=== PATIENT | female | born 1955 ===

== ENCOUNTER 2018-08-17 15:57 | Inpatient (IN) | payer MEDICARE, OTHER ==
[2018-08-17 16:19] VITALS: BMI 17.2
[2018-08-17] MEDS ORDERED: Albuterol-Ipratrop 3 mg / 0.5 (3 ml) UD IH STA (16:55)
--- NOTE | 2018-08-17 17:06 | ED PDOC ---
Arrival/HPI - General Chief Complaint: Cough, Cold, Congestion Time Seen by Provider: 08/17/18 16:38 Historian: Patient - History of Present Illness Narrative History of Present Illness (Text): 08/17/18 16:55 63 year old female, with past medical history of hemorrhoids, presents to the ED for evaluation of rectal pain s/p hemorrhoid surgery in April 2018. Patient states she had hemorrhoid surgery at [facility] however patient was dissatisfied with the overall outcome. Patent states she has been experiencing rectal pain associated with purulent discharge from the anus since the surgery. Patient informs expressing her concerns with her PMD and was referred to a different specialist. Patient states she is mostly bed bound secondary to rectal pain. Patient additionally informs shortness of breath and cough since past month. Patient denies any fevers, chills, headache, dizziness, chest pain, abdominal pain, nausea, vomiting, diarrhea, back pain, neck pain, or any other complaints. PMD: Dr. Kramer Time/Duration: > month Symptom Onset: Gradual Symptom Course: Unchanged Activities at Onset: Light Context: Home Past Medical History - Provider Review Nursing Documentation Reviewed: Yes - Infectious Disease Hx of Infectious Diseases: None - Gastrointestinal Hx Gastritis: Yes Other/Comment: Hemorrhoids - Psychiatric Hx Substance Use: No - Anesthesia Hx Anesthesia: Yes Hx Anesthesia Reactions: No Hx Malignant Hyperthermia: No Family/Social History - Physician Review Nursing Documentation Reviewed: Yes Family/Social History: No Known Family HX Smoking Status: Never Smoked Hx Alcohol Use: Yes Frequency of alcohol use: Socially Hx Substance Use: No Allergies/Home Meds Allergies/Adverse Reactions: Allergies Penicillins Allergy (Verified 08/17/18 16:19) RASH iv contrast Allergy (Uncoded 08/17/18 21:04) RASH Home Medications: Home Meds Medication Instructions Recorded Confirmed No Known Home Med 08/17/18 08/17/18 Review of Systems - Physician Review All systems were reviewed & negative as marked: Yes - Review of Systems Constitutional: absent: Fevers Respiratory: SOB, Cough Cardiovascular: absent: Chest Pain Gastrointestinal: Other (Rectal pain). absent: Abdominal Pain, Diarrhea, Nausea, Vomiting Genitourinary Female: absent: Dysuria, Urine Output Changes Musculoskeletal: absent: Back Pain, Neck Pain Skin: absent: Rash Neurological: absent: Headache, Dizziness Psychiatric: absent: Anxiety Physical Exam Vital Signs Reviewed: Yes Vital Signs Temp Pulse Resp BP Pulse Ox 08/17/18 16:20 99.5 F 106 H 18 129/75 95 Temperature: Afebrile Blood Pressure: Normal Pulse: Tachycardic Respiratory Rate: Normal Appearance: Positive for: Well-Appearing, Non-Toxic, Comfortable Pain Distress: Mild Mental Status: Positive for: Alert and Oriented X 3 - Systems Exam Head: Present: Atraumatic, Normocephalic Pupils: Present: PERRL Extroacular Muscles: Present: EOMI Conjunctiva: Present: Normal Mouth: Present: Moist Mucous Membranes Respiratory/Chest: Present: Good Air Exchange, Rhonchi (at bases). No: Respiratory Distress, Accessory Muscle Use Cardiovascular: Present: Regular Rate and Rhythm, Normal S1, S2. No: Murmurs Abdomen: No: Tenderness, Distention, Peritoneal Signs Rectal: Present: Other (stage 2 ulcer at the sacrum; stage 2 ulcer to right buttocks proximal to the crease. Thick purulent discharge noted from anus.) Upper Extremity: Present: Normal Inspection. No: Cyanosis, Edema Lower Extremity: Present: Normal Inspection. No: Edema Neurological: Present: GCS=15, CN II-XII Intact, Speech Normal Skin: Present: Warm, Dry, Normal Color. No: Rashes Psychiatric: Present: Alert, Oriented x 3, Normal Insight, Normal Concentration Medical Decision Making ED Course and Treatment: 08/17/18 16:55 Impression: 63 year old female presents to the ED for evaluation of cough, sob and rectal pain. Plan: -- EKG -- Labs -- Chest X-ray -- Albuterol -- Reassess and disposition Prior Visits: Notes and results from previous visits were reviewed. Progress Notes: CXR : KONRAD infiltrate. EKG : NSR at 96 bpm, no acute ST changes. Labs reviewed : wbc nl, K 3.4, trop (-), bnp 544, d-dimer 299. CTA chest and CT pelvis with IV contrast ordered. Patient sent to CT, while in CT the patient admits that she has an allergy to IV contrast and she develops a rash. CT not done. 08/17/18 21:30 On reevaluation, patient reports improvement of symptoms, denies any CP, SOB or abdominal pain at this time. On exam, patient remains awake alert and oriented 3 in no acute respiratory or painful distress. Lab and CXR results d/w the patient. Advised that she has pneumonia and is likely the reason why she is SOB with a cough. Levaquin IV and flagyl IV ordered for pneumonia and for possible perianal abscess, CT pelvis still pending at this time. CTA chest canceled as the pneumonia is the likely cause of the patient's SOB, she is not tachycardic or hypoxic at this time VS : T 98 P 90 BP 111/64 O2 sat 95%RA, therefore there is no real concern for a PE. Case d/w Dr. Kramer, who request admission with consult to Dr. Pedro Dobson and Dr. Garcia. Case d/w surgical garment fitter. CT pelvis changed to po contrast as requested by surgical garment fitter. 08/17/18 23:00 Patient's VS : P 86 BP 124/77 R 18 O2sat 98%RA. KCl po and toradol IV ordered. - RAD Interpretation Radiology Orders: 08/17/18 16:55 CHEST PORTABLE [RAD] Stat - Medication Orders Current Medication Orders: Albuterol/Ipratropium (Duoneb 3 Mg/0.5 Mg (3 Ml) Ud) 3 ml IH STAT STA Stop: 08/17/18 16:56 - PA / CIGARETTE MAKING EXAMINER / Resident Statement MD/DO has reviewed & agrees with the documentation as recorded. - Scribe Statement The provider has reviewed the documentation as recorded by the Scribe Tayla Chávez. All medical record entries made by the Scribe were at my direction and personally dictated by me. I have reviewed the chart and agree that the record accurately reflects my personal performance of the history, physical exam, medical decision making, and the department course for this patient. I have also personally directed, reviewed, and agree with the discharge instructions and disposition. Disposition/Present on Arrival - Present on Arrival Any Indicators Present on Arrival: No History of DVT/PE: No History of Uncontrolled Diabetes: No Urinary Catheter: No History of Decub. Ulcer: No History Surgical Site Infection Following: None - Disposition Have Diagnosis and Disposition been Completed?: Yes Diagnosis: Pneumonia, Anal pain Disposition: HOSPITALIZED Disposition Time: 22:00 Patient Plan: Admission Condition: STABLE
[2018-08-17 18:05] LABS: HEMOGLOBIN 11.4 g/dL (12.0-16.0); LYMPH # 0.7 (1.2-3.4); LYMPH % 10.8 % (22.0-35.0); MEAN CELL VOLUME 87.4 fl (80.0-105.0); MEAN CORPUSCULAR HEMOGLOBIN 30.6 pg (25.0-35.0); MEAN PLATELET VOLUME 10.4 fl (7.0-11.0); MONO # 0.5 (0.1-0.6); RBC 3.73 10^6/uL (3.5-6.1); RED CELL DISTRIBUTION WIDTH 14.4 % (11.5-14.5); WHITE BLOOD COUNT 6.5 10^3/uL (4.5-11.0)
[2018-08-17 18:10] LABS: ALB/GLOB RATIO 1.1 (1.1-1.8)
[2018-08-17 18:13] LABS: ALBUMIN 3.6 g/dL (3.0-4.8); ALT/SGPT 27 U/L (7-56); AST/SGOT 33 U/L (14-36); BLOOD UREA NITROGEN 9 mg/dL (7-21); CALCIUM 8.5 mg/dL (8.4-10.5); GFR NON-AFRICAN AMERICAN > 60
[2018-08-17 18:21] LABS: TROPONIN I < 0.01 ng/mL
--- NOTE | 2018-08-17 18:23 | RAD ---
Date of service: 08/17/2018 HISTORY: SOB COMPARISON: No prior. FINDINGS: LUNGS: Perihilar vascular and interstitial prominence. Superimposed acute left upper lobe infiltrate. PLEURA: No significant pleural effusion identified, no pneumothorax apparent. CARDIOVASCULAR: No atherosclerotic calcification present No radiographic findings to suggest acute or significant cardiovascular disease. OSSEOUS STRUCTURES: No significant abnormalities. VISUALIZED UPPER ABDOMEN: Normal. OTHER FINDINGS: None. IMPRESSION: Focal left upper lobe infiltrate likely pneumonia.
[2018-08-17 18:24] LABS: B-TYPE NATRIURETIC PEPTIDE 544 pg/mL (0-450)
[2018-08-17 18:28] LABS: INR 1.09; PARTIAL THROMBOPLASTIN TIME 25.7 Seconds (26.9-38.3); PROTHROMBIN TIME 12.1 SECONDS (9.4-12.5)
[2018-08-17] MEDS ORDERED: levoFLOXacin 750 mg in D5W 750 MG/150 ML BAG IVPB STA (19:11)
[2018-08-17] MEDS ORDERED: metroNIDAZOLE IV 500 mg/100 ml 500 MG/100 ML BAG IVPB STA (19:12)
--- NOTE | 2018-08-17 22:34 | CP.PCM.CON ---
History of Present Illness - History of Present Illness History of Present Illness: Surgery: Dr. Dobson CC: s/p hemmorhoidectomy w. purulent drainage HPI: 63F w. pmh of gastritis underwent hemorrhoidectomy at [facility] in April 2018. Immediately following operation, pt states that she had pain and purulent drainage. She states that surgeon told her that "Too much was removed." She states that her symptoms have been constant. She reports exquisite pain w. BM and frequently notices blood. She states the has been having intermittent fevers, sometimes as high as 104. She has been taking colace, miralax, fiber, and sitz baths daily. Despite this she has had no improvement in symptoms. Pt states that she is not pleased with work of original surgeon and is seeking a second opinion. PMH: Gastritis PSH: L knee, R ankle, x 2 Meds: MAR reviewed ALL: PCN, IV contrast Social: Social ETOH, no tobacco/drugs Fhx: non-contributory Review of Systems - Review of Systems All systems: reviewed and no additional remarkable complaints except (HPI) Past Patient History - Infectious Disease Hx of Infectious Diseases: None - Past Social History Smoking Status: Never Smoked - GASTROINTESTINAL Hx Gastritis: Yes Other/Comment: Hemorrhoids - PSYCHIATRIC Hx Substance Use: No - ANESTHESIA Hx Anesthesia: Yes Hx Anesthesia Reactions: No Hx Malignant Hyperthermia: No Meds Allergies/Adverse Reactions: Allergies Allergy/AdvReac Type Severity Reaction Status Date / Time Penicillins Allergy RASH Verified 08/17/18 16:19 iv contrast Allergy RASH Uncoded 08/17/18 21:04 Physical Exam - Constitutional Appears: Non-toxic, No Acute Distress - Head Exam Head Exam: ATRAUMATIC, NORMOCEPHALIC - Eye Exam Eye Exam: EOMI - ENT Exam ENT Exam: Mucous Membranes Moist - Neck Exam Neck exam: Positive for: Full Rom - Respiratory Exam Respiratory Exam: NORMAL BREATHING PATTERN. absent: Accessory Muscle Use, Respiratory Distress - Cardiovascular Exam Cardiovascular Exam: RRR - GI/Abdominal Exam GI & Abdominal Exam: Soft. absent: Tenderness - Rectal Exam Additional comments: External hemorrhoids, aurora-anal erythema, purulent drainage, stage I and II perianal ulcers likely 2/2 to purulent drainage, very tender to palpation, unable to perform VICKIE 2/2 pain - Extremities Exam Extremities exam: Negative for: calf tenderness, pedal pulses present - Neurological Exam Neurological exam: Alert, Oriented x3 Results - Vital Signs Recent Vital Signs: Last Vital Signs Temp 98.8 F 08/17/18 21:40 Pulse 90 08/17/18 21:40 Resp 18 08/17/18 16:20 BP 111/64 08/17/18 21:40 Pulse Ox 95 08/17/18 21:40 - Labs Result Diagrams: 08/17/18 17:56 08/17/18 17:56 Labs: Laboratory Results - last 24 hr 08/17/18 08/17/18 08/17/18 17:56 17:56 17:56 WBC 6.5 RBC 3.73 Hgb 11.4 L Hct 32.6 L MCV 87.4 MCH 30.6 MCHC 35.0 RDW 14.4 Plt Count 284 MPV 10.4 Neut % (Auto) 81.2 H Lymph % (Auto) 10.8 L [place] % (Auto) 8.0 H Eos % (Auto) 0.0 L Baso % (Auto) 0.0 Lymph # (Auto) 0.7 L [place] # (Auto) 0.5 Eos # (Auto) 0.0 Baso # (Auto) 0.00 Absolute Neuts (auto) 5.29 PT 12.1 INR 1.09 APTT 25.7 L D-Dimer, Quantitative 299 H Sodium 137 Potassium 3.4 L Chloride 102 Carbon Dioxide 30 Anion Gap 9 L BUN 9 Creatinine 0.6 L Est GFR ( Amer) > 60 Est GFR (Non-Af Amer) > 60 Random Glucose 99 Calcium 8.5 Magnesium 1.7 Total Bilirubin 0.7 AST 33 ALT 27 Alkaline Phosphatase 61 Lactate Dehydrogenase 363 Total Creatine Kinase < 20 L Troponin I < 0.01 NT-Pro-B Natriuret Pep 544 H Total Protein 6.8 Albumin 3.6 Globulin 3.2 Albumin/Globulin Ratio 1.1 - Imaging and Cardiology CT scan - pelvis Status: Pending Assessment & Plan - Assessment and Plan (Free Text) Assessment: 63F s/p hemorrhoidectomy in April 2018, presenting w. pain and purulent drainage which has been present since operation -f/u on cultures and CT-A/P -abx -sitz baths TID -limited VICKIE 2/2 pain -will d/w attending possible exam under anesthesia Zemaitis PGY4
[2018-08-17] MEDS ORDERED: Potassium Chloride 40 mEq/30 ml LIQ UD PO STA (23:14)
[2018-08-18 08:41] LABS: BASO # 0.01 K/mm3 (0.0-2.0); BASO % 0.2 % (0.0-3.0); EOS % 0.2 % (1.5-5.0); HEMOGLOBIN 10.5 g/dL (12.0-16.0); LYMPH # 0.6 (1.2-3.4); LYMPH % 15.8 % (22.0-35.0); MEAN CELL VOLUME 87.5 fl (80.0-105.0); MEAN CORPUSCULAR HEMOGLOBIN 29.8 pg (25.0-35.0); MEAN CORPUSCULAR HGB CONC 34.1 g/dl (31.0-37.0); MEAN PLATELET VOLUME 10.1 fl (7.0-11.0); MONO # 0.3 (0.1-0.6); MONO % 8.4 % (1.0-6.0); RBC 3.52 10^6/uL (3.5-6.1); RED CELL DISTRIBUTION WIDTH 14.3 % (11.5-14.5); WHITE BLOOD COUNT 4.1 10^3/uL (4.5-11.0)
[2018-08-18 08:53] LABS: ALBUMIN 3.1 g/dL (3.0-4.8); ALT/SGPT 28 U/L (7-56); AST/SGOT 22 U/L (14-36); BLOOD UREA NITROGEN 10 mg/dL (7-21); CALCIUM 8.4 mg/dL (8.4-10.5); GFR NON-AFRICAN AMERICAN > 60
--- NOTE | 2018-08-18 10:25 | CP.PCM.PN ---
Subjective - Date & Time of Evaluation Date of Evaluation: 08/18/18 Time of Evaluation: 10:10 - Subjective Subjective: Surgery progress note, Dr. Dobson Patient seen and examined at bedside. Has rectal pain. She is tolerating diet, ambulating OOB and has regular BM. Patient denied fever, chills, abd pain, change in bowel movement. Objective - Vital Signs/Intake and Output Vital Signs (last 24 hours): Temp Pulse Resp BP Pulse Ox 98.5 F 82 18 115/74 93 L 08/18/18 06:00 08/18/18 06:00 08/18/18 06:00 08/18/18 06:00 08/18/18 06:00 Intake and Output: 08/18/18 08/18/18 06:59 18:59 Intake Total 240 Balance 240 - Medications Medications: Current Medications Docusate Sodium (Colace) 100 mg PO Q4H PRN PRN Reason: Constipation Oxycodone/Acetaminophen (Percocet 5/325 Mg Tab) 1 tab PO Q4H PRN PRN Reason: Hemorrhoids Stop: 08/21/18 06:14 - Labs Labs: 08/18/18 08:30 08/18/18 08:30 PT 12.1 SECONDS (9.4-12.5) 08/17/18 17:56 INR 1.09 08/17/18 17:56 APTT 25.7 Seconds (26.9-38.3) L 08/17/18 17:56 Assessment and Plan - Assessment and Plan (Free Text) Assessment: 63 y/o female s/p hemorrhoidectomy in 04/2018 admitted for rectal pain/purulent discharge that is persistent since surgery Gastritis Plan: -H/H stable, continue to monitor -continue sitz bath, miralax, colace -continue abx, analgesics -f/u CT A/P w/PO contrast -f/u blood/wound cx -clear liquid diet -plan for OR on or Thursday for exam under anesthesia -further recs per surgical attending Dr. Bronson Joshua, DO
[2018-08-18] MEDS ORDERED: Barium Sulfate Susp 2.1% w/v, 2.0% w/w 450 mL Bottle PO ONE (11:38)
[2018-08-18] MEDS: Vancomycin 1gm in NS 250ml 1 GM/250 ML BAG IVPB SCH ×2 (12:11→21:23)
[2018-08-18] MEDS ORDERED: Potassium Chloride 20 mEq ER Tab PO ONE (12:29)
--- NOTE | 2018-08-18 12:32 | CARD ---
APPROVED REPORT Date of service: 08/17/2018 EKG Measurement Heart [id number] <Conclusion> Normal sinus rhythm Poor R Progression V1-V3.
--- NOTE | 2018-08-18 14:25 | CP.PCM.CON ---
History of Present Illness - History of Present Illness History of Present Illness: 63 year old female with PMH of gastritis and hemorrhoidectomy in April 2018 came in to [facility] complaining of purulent drainage from the perianal area associated with pain. She denies melena or hematochezia, no diarrhea. She has been having subjective fevers and is also complaining of intermittent cough with whitish or clear sputum for over a month. She denies headache or dizziness, no chest pain, no abdominal pain, but has anal discomfort especially during straining or coughing, no dysuria, no hematuria, no rhinorrhea, no sore throat, no dysphagia. The patient denies travel outside of the [place] in the past year and the last time she was away was 7 years ago when she went to [place]. [place] came [place] the [place]. She last had a PPD skin test more than 10 years ago and apparently it was negative. CXR is read as showing possible left sided infiltrate. Infectious diseases consult is requested to further evaluate and manage. PMH: as above Past surg history: , ankle surgeries, hemorrhoidectomy 2017 PSH: occasional alcohol intake, no illicit drug use or smoking FMH; non-contributory Surgery: Dr. Dobson Review of Systems - Review of Systems All systems: reviewed and no additional remarkable complaints except (as per HPI) Past Patient History - Infectious Disease Hx of Infectious Diseases: None - Past Social History Smoking Status: Never Smoked - MUSCULOSKELETAL/RHEUMATOLOGICAL Hx Falls: No - GASTROINTESTINAL Other/Comment: Hemorrhoids and gastritis - PSYCHIATRIC Other/Comment: Insomnia - SURGICAL HISTORY Hx Surgeries: Yes (Hemorroid surgery Apr 2018) - ANESTHESIA Hx Anesthesia: Yes Hx Anesthesia Reactions: No Hx Malignant Hyperthermia: No Meds Allergies/Adverse Reactions: Allergies Allergy/AdvReac Type Severity Reaction Status Date / Time Penicillins Allergy RASH Verified 08/17/18 16:19 iv contrast Allergy RASH Uncoded 08/17/18 21:04 - Medications Medications: Current Medications Docusate Sodium (Colace) 100 mg PO Q4H PRN PRN Reason: Constipation Doxycycline Hyclate (Doryx) 100 mg PO Q12 OTSHIA; Protocol Aztreonam (Azactam 1 Gm) 100 mls @ 100 mls/hr IVPB Q8 TOSHIA; Protocol Stop: 08/25/18 14:01 Metronidazole (Flagyl) 500 mg in 100 mls @ 100 mls/hr IVPB Q8 TOSHIA; Protocol Vancomycin HCl (Vancomycin 1gm) 1 gm in 250 mls @ 167 mls/hr IVPB Q12H TOSHIA; Protocol Oxycodone/Acetaminophen (Percocet 5/325 Mg Tab) 1 tab PO Q4H PRN PRN Reason: Hemorrhoids Stop: 08/21/18 06:14 Physical Exam - Constitutional Appears: Non-toxic, No Acute Distress, Chronically Ill - Head Exam Head Exam: NORMAL INSPECTION - ENT Exam ENT Exam: Mucous Membranes Moist - Neck Exam Neck exam: Negative for: Lymphadenopathy, Meningismus - Respiratory Exam Respiratory Exam: Decreased Breath Sounds - Cardiovascular Exam Cardiovascular Exam: +S1, +S2 - GI/Abdominal Exam GI & Abdominal Exam: Soft. absent: Tenderness Results - Vital Signs Recent Vital Signs: Last Vital Signs Temp 98.5 F 08/18/18 06:00 Pulse 82 08/18/18 06:00 Resp 18 08/18/18 06:00 BP 115/74 08/18/18 06:00 Pulse Ox 93 L 08/18/18 06:00 - Labs Result Diagrams: 08/18/18 08:30 08/18/18 08:30 Labs: Laboratory Results - last 24 hr 08/17/18 08/17/18 08/17/18 17:56 17:56 17:56 WBC 6.5 RBC 3.73 Hgb 11.4 L Hct 32.6 L MCV 87.4 MCH 30.6 MCHC 35.0 RDW 14.4 Plt Count 284 MPV 10.4 Neut % (Auto) 81.2 H Lymph % (Auto) 10.8 L [place] % (Auto) 8.0 H Eos % (Auto) 0.0 L Baso % (Auto) 0.0 Lymph # (Auto) 0.7 L [place] # (Auto) 0.5 Eos # (Auto) 0.0 Baso # (Auto) 0.00 Absolute Neuts (auto) 5.29 PT 12.1 INR 1.09 APTT 25.7 L D-Dimer, Quantitative 299 H Sodium 137 Potassium 3.4 L Chloride 102 Carbon Dioxide 30 Anion Gap 9 L BUN 9 Creatinine 0.6 L Est GFR ( Amer) > 60 Est GFR (Non-Af Amer) > 60 Random Glucose 99 Calcium 8.5 Magnesium 1.7 Total Bilirubin 0.7 AST 33 ALT 27 Alkaline Phosphatase 61 Lactate Dehydrogenase 363 Total Creatine Kinase < 20 L Troponin I < 0.01 NT-Pro-B Natriuret Pep 544 H Total Protein 6.8 Albumin 3.6 Globulin 3.2 Albumin/Globulin Ratio 1.1 08/18/18 08/18/18 08:30 08:30 WBC 4.1 L D RBC 3.52 Hgb 10.5 L Hct 30.8 L MCV 87.5 MCH 29.8 MCHC 34.1 RDW 14.3 Plt Count 245 MPV 10.1 Neut % (Auto) 75.4 H Lymph % (Auto) 15.8 L [place] % (Auto) 8.4 H Eos % (Auto) 0.2 L Baso % (Auto) 0.2 Lymph # (Auto) 0.6 L [place] # (Auto) 0.3 Eos # (Auto) 0.0 Baso # (Auto) 0.01 Absolute Neuts (auto) 3.06 PT INR APTT D-Dimer, Quantitative Sodium 138 Potassium 3.2 L Chloride 104 Carbon Dioxide 29 Anion Gap 8 L BUN 10 Creatinine 0.5 L Est GFR ( Amer) > 60 Est GFR (Non-Af Amer) > 60 Random Glucose 100 Calcium 8.4 Magnesium Total Bilirubin 0.9 AST 22 ALT 28 Alkaline Phosphatase 50 Lactate Dehydrogenase Total Creatine Kinase Troponin I NT-Pro-B Natriuret Pep Total Protein 6.3 Albumin 3.1 Globulin 3.1 Albumin/Globulin Ratio 1.0 L Assessment & Plan - Assessment and Plan (Free Text) Plan: Assessment perianal abscess after hemorrhoidectomy rule out left sided HCAP gastritis Plan Started Vancomycin, Azactam and Doxycycline with Flagyl as well pending wound cx, blood cx, sputum cx, PCT, CT chest, abdomen and pelvis, urine Legionella Ag will monitor clinically follow up further surgical plans
[2018-08-18] MEDS: metroNIDAZOLE IV 500 mg/100 ml 500 MG/100 ML BAG IVPB SCH ×2 (15:03→21:22)
[2018-08-18] MEDS: Aztreonam 1 Gm in NS 100mL 100 ML IVPB SCH ×2 (16:09→21:21)
--- NOTE | 2018-08-18 17:50 | CT ---
Date of service:08/18/2018 CT chest, abdomen, and pelvis without IV contrast Indication: rule out pneumonia Technique: Contiguous axial images of the chest, abdomen, and pelvis without oral or IV contrast. Coronal and Sagittal reformats generated and reviewed. This CT exam was performed using 1 or more of the following dose reduction techniques: Automated exposure control, adjustment of the MAA and/or kV according to patient size, and/or use of iterative reconstruction technique. Radiation dose: Total exam DLP = 283.89 MGy-cm. Comparison: Chest x-ray performed 08/17/18, abdominal ultrasound performed 04/07/16 Findings: Visualized portions of the inferior thyroid gland appear unremarkable. The mediastinal and hilar vascular structures appear within normal limits. Cardiomegaly. Patchy bilateral ground-glass infiltrates bilaterally may reflect edema or pneumonia. No pleural effusion or pneumothorax. 4 mm right lower lobe calcified granuloma. The noncontrast liver, spleen, kidneys, pancreas, adrenal glands, and gallbladder appear unremarkable. Evaluation of the stomach is limited due to under distension. The proximal stomach/cardia appear thick walled. Correlate clinically and suggest further evaluation with endoscopy if indicated. Lack of oral contrast limits evaluation for bowel pathology. The bowel loops appear within normal limits of caliber without evidence of intestinal obstruction. Circumferential thickening of the rectosigmoid colon can be seen in setting of chronic diverticulosis. Clinical correlation is recommended to exclude colitis (I.e. infectious, inflammatory, ischemic). There is no definite free air. The appendix appears within normal limits of caliber. No secondary signs of acute appendicitis. Uterus appears atrophic. The urinary bladder appears unremarkable. Mild degenerative changes. Impression: Patchy bilateral ground-glass infiltrates bilaterally may reflect edema or pneumonia. 4 mm right lower lobe calcified granuloma. Evaluation of the stomach is limited due to under distension. The proximal stomach/cardia appear thick walled. Correlate clinically and suggest further evaluation with endoscopy if indicated. Circumferential thickening of the rectosigmoid colon can be seen in setting of chronic diverticulosis. Clinical correlation is recommended to exclude colitis (I.e. infectious, inflammatory, ischemic). Cardiomegaly.
[2018-08-19] MEDS: Oxycodone/Acetaminophen 5/325 mg Tab PO PRN ×2 (01:30→22:47)
[2018-08-19] MEDS: Aztreonam 1 Gm in NS 100mL 100 ML IVPB SCH ×3 (06:03→21:46)
[2018-08-19] MEDS: metroNIDAZOLE IV 500 mg/100 ml 500 MG/100 ML BAG IVPB SCH ×3 (06:03→21:44)
--- NOTE | 2018-08-19 10:29 | CP.PCM.PN ---
Subjective - Date & Time of Evaluation Date of Evaluation: 08/19/18 Time of Evaluation: 07:10 - Subjective Subjective: Surgery progress note, Dr. Dobson Patient seen and examined at bedside. Has rectal pain. Tmax 100 last night and has cough. She is tolerating diet, ambulating OOB and has regular BM. Patient chills, abd pain, change in bowel movement. Objective - Vital Signs/Intake and Output Vital Signs (last 24 hours): Temp Pulse Resp BP Pulse Ox 97.8 F 68 18 136/78 95 08/19/18 06:00 08/19/18 06:00 08/19/18 06:00 08/19/18 06:00 08/19/18 06:00 Intake and Output: 08/19/18 08/19/18 06:59 18:59 Intake Total 720 Balance 720 - Medications Medications: Current Medications Docusate Sodium (Colace) 100 mg PO Q4H PRN PRN Reason: Constipation Last Admin: 08/18/18 11:34 Dose: 100 mg Doxycycline Hyclate (Doryx) 100 mg PO Q12 TOSHIA; Protocol Last Admin: 08/18/18 21:21 Dose: 100 mg Aztreonam (Azactam 1 Gm) 100 mls @ 100 mls/hr IVPB Q8 TOSHIA; Protocol Stop: 08/25/18 14:01 Last Admin: 08/19/18 06:03 Dose: 100 mls/hr Metronidazole (Flagyl) 500 mg in 100 mls @ 100 mls/hr IVPB Q8 TOSHIA; Protocol Last Admin: 08/19/18 06:03 Dose: 100 mls/hr Vancomycin HCl (Vancomycin 1gm) 1 gm in 250 mls @ 167 mls/hr IVPB Q12H TOSHIA; Protocol Last Admin: 08/18/18 21:23 Dose: 167 mls/hr Oxycodone/Acetaminophen (Percocet 5/325 Mg Tab) 1 tab PO Q4H PRN PRN Reason: Hemorrhoids Stop: 08/21/18 06:14 Last Admin: 08/19/18 01:30 Dose: 1 tab Tramadol HCl (Ultram) 50 mg PO TID PRN PRN Reason: Pain, Mild (1-3) - Labs Labs: 08/18/18 08:30 08/18/18 08:30 PT 12.1 SECONDS (9.4-12.5) 08/17/18 17:56 INR 1.09 08/17/18 17:56 APTT 25.7 Seconds (26.9-38.3) L 08/17/18 17:56 - Additional Findings Additional findings: - Constitutional Appears: Non-toxic, No Acute Distress - Head Exam Head Exam: ATRAUMATIC, NORMOCEPHALIC - Eye Exam Eye Exam: EOMI - ENT Exam ENT Exam: Mucous Membranes Moist - Neck Exam Neck exam: Positive for: Full Rom - Respiratory Exam Respiratory Exam: Decreased Breath Sounds. absent: Accessory Muscle Use, Respiratory Distress - Cardiovascular Exam Cardiovascular Exam: RRR - GI/Abdominal Exam GI & Abdominal Exam: Soft. absent: Tenderness - Rectal Exam Additional comments: External hemorrhoids, aurora-anal erythema, purulent drainage, stage I and II perianal ulcers likely 2/2 to purulent drainage, very tender to palpation - Extremities Exam Extremities exam: Negative for: calf tenderness, pedal pulses present - Neurological Exam Neurological exam: Alert, Oriented x3 Assessment and Plan - Assessment and Plan (Free Text) Assessment: 63 y/o female s/p hemorrhoidectomy in 04/2018 admitted for rectal pain/purulent discharge that is persistent since surgery HCAP Gastritis Plan: -OR exam under anesthesia postponed due to PNA -continue PNA management per ID -continue sitz bath, miralax, colace -continue abx, analgesics -CT A/P w/PO contrast: circumferencial wall thickening in rectosigmoid colon -wound cx: positive for GNR -blood cx: no growth to date -clear liquid diet -further recs per surgical attending Dr. Bronson Joshua DO
[2018-08-19] MEDS: Vancomycin 1gm in NS 250ml 1 GM/250 ML BAG IVPB SCH ×3 (11:03→21:47)
--- NOTE | 2018-08-19 14:13 | CP.PCM.APN ---
Subjective - Date & Time of Evaluation Date of Evaluation: 08/19/18 Time of Evaluation: 11:00 - Subjective Subjective: Pt seen and examined at bedside. C/O rectal pain. Pt still has cough and tmax of 100.0 last night. Objective - Vital Signs/Intake and Output Vital Signs (last 24 hours): Temp Pulse Resp BP Pulse Ox 97.8 F 68 18 136/78 95 08/19/18 06:00 08/19/18 06:00 08/19/18 06:00 08/19/18 06:00 08/19/18 06:00 Intake and Output: 08/19/18 08/19/18 06:59 18:59 Intake Total 720 Balance 720 - Medications Medications: Current Medications Docusate Sodium (Colace) 100 mg PO Q4H PRN PRN Reason: Constipation Last Admin: 08/18/18 11:34 Dose: 100 mg Doxycycline Hyclate (Doryx) 100 mg PO Q12 TOSHIA; Protocol Last Admin: 08/19/18 11:03 Dose: 100 mg Aztreonam (Azactam 1 Gm) 100 mls @ 100 mls/hr IVPB Q8 TOSHIA; Protocol Stop: 08/25/18 14:01 Last Admin: 08/19/18 06:03 Dose: 100 mls/hr Metronidazole (Flagyl) 500 mg in 100 mls @ 100 mls/hr IVPB Q8 TOSHIA; Protocol Last Admin: 08/19/18 06:03 Dose: 100 mls/hr Vancomycin HCl (Vancomycin 1gm) 1 gm in 250 mls @ 167 mls/hr IVPB Q12H TOSHIA; Protocol Last Admin: 08/19/18 11:04 Dose: 167 mls/hr Oxycodone/Acetaminophen (Percocet 5/325 Mg Tab) 1 tab PO Q4H PRN PRN Reason: Hemorrhoids Stop: 08/21/18 06:14 Last Admin: 08/19/18 01:30 Dose: 1 tab Tramadol HCl (Ultram) 50 mg PO TID PRN PRN Reason: Pain, Mild (1-3) - Labs Labs: 08/18/18 08:30 08/18/18 08:30 PT 12.1 SECONDS (9.4-12.5) 08/17/18 17:56 INR 1.09 08/17/18 17:56 APTT 25.7 Seconds (26.9-38.3) L 08/17/18 17:56 - Constitutional Appears: No Acute Distress - Head Exam Head Exam: ATRAUMATIC - Eye Exam Eye Exam: Normal appearance - Neck Exam Neck Exam: Full ROM, Normal Inspection - Respiratory Exam Respiratory Exam: Decreased Breath Sounds, NORMAL BREATHING PATTERN - Cardiovascular Exam Cardiovascular Exam: REGULAR RHYTHM, +S1, +S2 - GI/Abdominal Exam GI & Abdominal Exam: Soft, Normal Bowel Sounds - Rectal Exam Additional comments: + External hemorrhoids, has aurora anal erythema, purulent drainage, stage I and II perianal ulcers, +tenderness on palpation - Back Exam Back Exam: NORMAL INSPECTION - Neurological Exam Neurological Exam: Alert, Awake, Oriented x3 Assessment and Plan - Assessment and Plan (Free Text) Assessment: Pt is a 63 y.o. female with pmh of hemorrhoids s/p hemorrhoidectomy 04/2018 who presented in ED c/o rectal pain with purulent discharge from the anus since the surgery. ITS Impressions Chest X-Ray 08/17/18 16:55 IMPRESSION: Focal left upper lobe infiltrate likely pneumonia. Chest/Abdomen/Pelvis CT 08/18/18 14:17 Impression: Patchy bilateral ground-glass infiltrates bilaterally may reflect edema or pneumonia. 4 mm right lower lobe calcified granuloma. Evaluation of the stomach is limited due to under distension. The proximal stomach/cardia appear thick walled. Correlate clinically and suggest further evaluation with endoscopy if indicated. Circumferential thickening of the rectosigmoid colon can be seen in setting of chronic diverticulosis. Clinical correlation is recommended to exclude colitis (I.e. infectious, inflammatory, ischemic). Cardiomegaly. Plan: On Azactam/Flagyl/Vanco/Doxy per ID recs Pain management ID, SX, Pulm, & Heme/Onc on consult Per Surgery, OR postponed due to pneumonia Meds per MAR Will continue to follow
--- NOTE | 2018-08-19 14:53 | CP.PCM.PN ---
Subjective - Date & Time of Evaluation Date of Evaluation: 08/19/18 Time of Evaluation: 08:30 - Subjective Subjective: Still with cough but slowly improving, no fevers, still pain in the perianal area, no nausea. Objective - Vital Signs/Intake and Output Vital Signs (last 24 hours): Temp Pulse Resp BP Pulse Ox 98.5 F 82 18 115/74 93 L 08/18/18 06:00 08/18/18 06:00 08/18/18 06:00 08/18/18 06:00 08/18/18 06:00 Intake and Output: 08/18/18 08/18/18 06:59 18:59 Intake Total 240 Balance 240 - Medications Medications: Current Medications Docusate Sodium (Colace) 100 mg PO Q4H PRN PRN Reason: Constipation Last Admin: 08/18/18 11:34 Dose: 100 mg Doxycycline Hyclate (Doryx) 100 mg PO Q12 TOSHIA; Protocol Aztreonam (Azactam 1 Gm) 100 mls @ 100 mls/hr IVPB Q8 TOSHIA; Protocol Stop: 08/25/18 14:01 Metronidazole (Flagyl) 500 mg in 100 mls @ 100 mls/hr IVPB Q8 TOSHIA; Protocol Vancomycin HCl (Vancomycin 1gm) 1 gm in 250 mls @ 167 mls/hr IVPB Q12H TOSHIA; Protocol Last Admin: 08/18/18 12:11 Dose: 167 mls/hr Oxycodone/Acetaminophen (Percocet 5/325 Mg Tab) 1 tab PO Q4H PRN PRN Reason: Hemorrhoids Stop: 08/21/18 06:14 - Labs Labs: 08/18/18 08:30 08/18/18 08:30 PT 12.1 SECONDS (9.4-12.5) 08/17/18 17:56 INR 1.09 08/17/18 17:56 APTT 25.7 Seconds (26.9-38.3) L 08/17/18 17:56 - Constitutional Appears: Chronically Ill - Head Exam Head Exam: NORMAL INSPECTION - Neck Exam Neck Exam: absent: Meningismus - Respiratory Exam Respiratory Exam: Decreased Breath Sounds - Cardiovascular Exam Cardiovascular Exam: +S1, +S2 - GI/Abdominal Exam GI & Abdominal Exam: Soft. absent: Tenderness Assessment and Plan - Assessment and Plan (Free Text) Plan: Assessment perianal abscess after hemorrhoidectomy consider left sided HCAP gastritis Plan continue Vancomycin, Azactam and Doxycycline with Flagyl day 2 and follow up wound cx, blood cx, sputum cx, PCT; reviewed CT chest, abdomen and pelvis which shows pneumonitis, urine Legionella Ag will monitor clinically follow up further surgical plans follow up HIV test - done due to her age
[2018-08-20] MEDS: Aztreonam 1 Gm in NS 100mL 100 ML IVPB SCH ×2 (05:21→17:03)
[2018-08-20] MEDS: metroNIDAZOLE IV 500 mg/100 ml 500 MG/100 ML BAG IVPB SCH ×2 (05:21→18:11)
[2018-08-20] MEDS ORDERED: Albuterol-Ipratrop 3 mg / 0.5 (3 ml) UD IH PRN (06:46)
[2018-08-20] MEDS: Albuterol-Ipratrop 3 mg / 0.5 (3 ml) UD IH SCH ×3 (07:48→20:40)
[2018-08-20] MEDS: Budesonide 0.5 mg/2 ml Inhal Susp UD IH SCH ×2 (07:48→20:40)
[2018-08-20 08:00] LABS: URINE BILIRUBIN NEGATIVE (NEGATIVE); URINE BLOOD NEGATIVE (NEGATIVE); URINE GLUCOSE (UA) NEGATIVE (NEGATIVE); URINE LEUKOCYTE ESTERASE NEGATIVE Leu/uL (NEGATIVE); URINE PROTEIN NEGATIVE mg/dL (<30 mg/dL); URINE UROBILINOGEN 0.2 E.U./dL (<1 E.U./dL)
[2018-08-20 08:19] LABS: URINE COLOR LIGHT YELLOW (YELLOW)
[2018-08-20 08:20] LABS: URINE APPEARANCE CLEAR (CLEAR)
--- NOTE | 2018-08-20 08:26 | HP ---
DATE OF EXAM: 08/20/2018 HISTORY OF PRESENT ILLNESS: The patient is a 63-year-old female who presented to the emergency room complaining of perirectal pain with purulent discharge as well as a cough. The patient underwent hemorrhoidectomy in 04/2018. Since then, she had been complaining of pain. She complained to her surgeon several times. She was treated with 5 days of antibiotics, but the pain persisted. The patient eventually became bed bound because of the pain and then developed a cough. PAST MEDICAL HISTORY: She has no past medical history. SOCIAL HISTORY: She never smoked. She just drinks alcohol only socially. ALLERGIES: SHE IS KNOWN TO BE ALLERGIC TO PENICILLIN AND IV CONTRAST, WHICH CAUSED RASH AND THE PAIN. MEDICATIONS: She was taking no medications at the time of admission. REVIEW OF SYSTEMS: Review of systems is otherwise unremarkable. PHYSICAL EXAMINATION: HEAD, EYES, EARS, NOSE AND THROAT: Unremarkable. NECK: Supple with no lymphadenopathy. No goiter. LUNGS: Reveal bilateral rhonchi at the bases. HEART: Regular. No murmurs are appreciated. ABDOMEN: Soft and nontender. There is a ulcer on the right buttock with purulent drainage. EXTREMITIES: Reveal no cyanosis, clubbing or edema. NEUROLOGIC: The patient is awake, alert and oriented with no focal neurological signs. VITAL SIGNS: Blood pressure is 129/75, heart rate is 95, temperature is 99.5 degrees Fahrenheit. IMAGING DATA: Her chest x-ray showed left upper lobe infiltrate. EKG showed regular sinus rhythm with a possible old anterior wall myocardial infarction. LABORATORY DATA: White blood cell count is 6.5, hemoglobin and hematocrit are 11.4 and 32.6, platelet count is 284. Sodium is 137, potassium is 3.4, blood urea nitrogen is 9, creatinine is 0.8, glucose is 99. ASSESSMENT AND PLAN: So, the patient is admitted with a perirectal abscess and pneumonia. She will be reevaluated in the morning. Consults from Dr. Garcia, the Infectious Disease specialist and Dr. Dobson, the surgeon is requested. Scott Kramer MD [facility] # [id number]
--- NOTE | 2018-08-20 08:32 | PN ---
DATE: 08/18/2018 SUBJECTIVE: The patient is a 63-year-old female who was admitted to the [facility] yesterday with a perirectal abscess with purulent drainage and with a left upper lobe infiltrate on chest x-ray. The patient is status post hemorrhoidectomy in 04/2019 with complications of persistent pain and purulent drainage since then. The patient is being followed by Dr. Dobson, the surgeon, and Dr. Garcia, the Infectious Disease specialist. She is being treated with Azactam 1 g intravenously every 8 hours. She is also receiving doxycycline 100 mg by mouth every 12 hours, Flagyl 500 mg intravenously every 8 hours. She is also on nebulizer treatments of DuoNeb. When seen, the patient is awake, alert and oriented, in bed. She still is uncomfortable from the perirectal pain. PHYSICAL EXAMINATION: LUNGS: Anteriorly, her lungs are clear. HEART: Regular. ABDOMEN: Soft and nontender. She is requesting pain medicine. She is afraid of the Percocet, which has been ordered, as causing constipation and which she would avoid because of perirectal abscess and pain. This morning laboratory shows a white blood cell count to be 4.1, hemoglobin and hematocrit are 10.5 and 30.8, platelet count is 245. Sodium is 138, potassium 3.2, blood urea nitrogen is 10, creatinine is 0.5. Her blood pressure is 115/74 and her heart rate is 82 beats per minute. I will order tramadol to be taken for mild to moderate pain to hopefully avoid the constipating effects of Percocet. We are continuing with her intravenous antibiotics. At this point, we are stabilizing her pneumonia and respiratory status so that we can proceed with surgical repair of the perirectal abscess. Scott Kramer MD
--- NOTE | 2018-08-20 08:39 | CON ---
DATE OF CONSULTATION: 08/20/2018 PULMONARY CONSULTATION REASON FOR CONSULTATION: Pneumonia. REFERRING PHYSICIAN: Dr. Kramer. I did discuss the case with the nurse at length. I have also discussed the case with the patient at length, and reviewed the chart at length. HISTORY OF PRESENT ILLNESS: The patient is a 63-year-old female, nonsmoker, with past medical history significant for gastritis and recent hemorrhoidectomy, who presented to [facility] - originally on 08/17/2018 - with increasing anal pain and purulent drainage. In the emergency room, the patient was noted to have a perianal abscess. She was thus admitted for additional evaluation. The patient denies shortness of breath at rest. She does state to occasional mild dyspnea on exertion. She also states to an intermittent cough with clear sputum over the past month. The patient does state that her cough has decreased significantly while in the hospital. There is no history of chest pain, coughing up of blood, or chest pain - brought on with deep respirations. The patient did present with low-grade fevers (100). These fevers have now resolved. No history of chills or infectious exposure. No history of night sweats, weight loss or appetite change prior to the above events. No history of calf pains. No history of syncope or diaphoresis. No history of recent travel or trauma. REVIEW OF SYSTEMS: No history of nausea, vomiting or diarrhea. No acute urinary symptoms. No new neurologic or musculoskeletal complaints. Rest of the review of systems is negative. ALLERGIES: PENICILLIN AND INTRAVENOUS CONTRAST. SOCIAL HISTORY: Negative for tobacco, negative for alcohol, negative for illicit drugs. FAMILY HISTORY: No inheritable diseases. MEDICATIONS: Home medications - none. PHYSICAL EXAMINATION: GENERAL: The patient appears very comfortable this morning. She is not short of breath at rest. She is not using accessory muscles for breathing. VITAL SIGNS: Temperature is 98, pulse 80, respirations 18, blood pressure 116/79. Oxygen saturation this morning is 97% on room air. HEENT: Normocephalic, atraumatic. No JVD. CARDIOVASCULAR: Positive S1, S2. No S3 gallop. LUNGS: Minimal crackles at the bases. Minimal bilateral rhonchi. No wheezing. EXTREMITIES: No clubbing, cyanosis or edema. Calves are nontender to palpation. GASTROINTESTINAL: Abdomen is soft, nontender and nondistended. Bowel sounds are positive. SKIN: No acute rash. NEUROLOGIC: Exam is limited at the present time. PERTINENT LABORATORY DATA: CT scan of the chest was done on 08/18/2018 and reviewed. There are patchy bilateral ground-glass changes noted. There is a 4 mm calcified right lower lobe granuloma. There are no other masses or nodules noted. There is no lymphadenopathy. CBC: White count 4.1K, hemoglobin 10.5, hematocrit 30.8, platelets of 245,000. Complete metabolic profile: Potassium 3.2. Rest of the metabolic profile is within normal limits. Procalcitonin is negative - 0.11. Initial B-type natriuretic peptide 544. IMPRESSION: 1. Community-acquired pneumonia, possibly atypical. 2. Mild bronchospasm. 3. Perianal abscess. 4. Mild anemia. PLAN: Again, I did discuss case with the nurse at length. I have also reviewed the chart at length, and discussed the case with the patient at length. The patient presented to [facility] - originally on 08/17/2018 - with increasing anal pain and discharge. In the emergency room, the patient was noted to have a perianal abscess and thus admitted. I did question the patient at length in reference to her pulmonary symptoms. She does state to minimal occasional dyspnea on exertion. She also states to an intermittent cough with clear sputum production. As above, the patient does state that her cough is significantly better since being in the hospital. On physical exam, there is minimal bronchospasm noted. However, there is no significant alveolar-arterial gradient. Oxygen saturation on room air is 97%. I will start the patient on DuoNeb treatments and inhaled steroids. I did review the CT scan of the chest. As above, there are bilateral ground-glass changes noted. Ground-glass changes are very nonspecific in nature, and could indicate pneumonia (typical and atypical organisms, including viral organisms), as well as pulmonary edema (both cardiac and noncardiac). Interesting to note, that the B-type natriuretic peptide was slightly elevated on admission. I would continue ALL antibiotic therapy as per Infectious Disease, especially coverage for the atypical organisms. The patient did present with a low-grade fever(now resolved),but no leukocytosis. Most importantly, is that the patient is certainly clinically improved - compared to her initial presentation. She stated to me this morning "I feel 100% better." I would continue with the surgical evaluation and input. Notes are reviewed. Clinical status of the patient is significantly improved - compared to the initial presentation. I will discuss the above with Infectious Disease and Internal Medicine later this morning. Thank you very much for this pulmonary consultation. Griffin Medrano MD [id number]
--- NOTE | 2018-08-20 09:16 | CP.PCM.PN ---
Subjective - Date & Time of Evaluation Date of Evaluation: 08/20/18 Time of Evaluation: 07:10 - Subjective Subjective: Surgery progress note, Dr. Dobson Patient seen and examined at bedside. Has rectal pain, afebrile last night, SOB improving. She is tolerating diet, ambulating OOB and has regular BM. Patient chills, abd pain, change in bowel movement. Objective - Vital Signs/Intake and Output Vital Signs (last 24 hours): Temp Pulse Resp BP Pulse Ox 97.7 F 63 20 128/76 97 08/20/18 06:00 08/20/18 06:00 08/20/18 06:00 08/20/18 06:00 08/20/18 06:00 Intake and Output: 08/20/18 08/20/18 06:59 18:59 Intake Total 1270 Balance 1270 - Medications Medications: Current Medications Albuterol/Ipratropium (Duoneb 3 Mg/0.5 Mg (3 Ml) Ud) 3 ml IH [id number] TOSHIA Last Admin: 08/20/18 07:48 Dose: 3 ml Albuterol/Ipratropium (Duoneb 3 Mg/0.5 Mg (3 Ml) Ud) 3 ml IH Q2H PRN PRN Reason: Shortness of Breath Budesonide (Pulmicort Respules) 0.5 mg IH [id number] TOSHIA Last Admin: 08/20/18 07:48 Dose: 0.5 mg Docusate Sodium (Colace) 100 mg PO Q4H PRN PRN Reason: Constipation Last Admin: 08/18/18 11:34 Dose: 100 mg Doxycycline Hyclate (Doryx) 100 mg PO Q12 TOSHIA; Protocol Last Admin: 08/19/18 21:44 Dose: 100 mg Aztreonam (Azactam 1 Gm) 100 mls @ 100 mls/hr IVPB Q8 TOSHIA; Protocol Stop: 08/25/18 14:01 Last Admin: 08/20/18 05:21 Dose: 100 mls/hr Metronidazole (Flagyl) 500 mg in 100 mls @ 100 mls/hr IVPB Q8 TOSHIA; Protocol Last Admin: 08/20/18 05:21 Dose: 100 mls/hr Vancomycin HCl (Vancomycin 1gm) 1 gm in 250 mls @ 167 mls/hr IVPB Q12H TOSHIA; Protocol Last Admin: 08/19/18 21:47 Dose: 167 mls/hr Oxycodone/Acetaminophen (Percocet 5/325 Mg Tab) 1 tab PO Q4H PRN PRN Reason: Hemorrhoids Stop: 08/21/18 06:14 Last Admin: 08/19/18 22:47 Dose: 1 tab Tramadol HCl (Ultram) 50 mg PO TID PRN PRN Reason: Pain, Mild (1-3) - Labs Labs: 08/18/18 08:30 08/19/18 20:30 PT 12.1 SECONDS (9.4-12.5) 08/17/18 17:56 INR 1.09 08/17/18 17:56 APTT 25.7 Seconds (26.9-38.3) L 08/17/18 17:56 - Additional Findings Additional findings: - Constitutional Appears: Non-toxic, No Acute Distress - Head Exam Head Exam: ATRAUMATIC, NORMOCEPHALIC - Eye Exam Eye Exam: EOMI - ENT Exam ENT Exam: Mucous Membranes Moist - Neck Exam Neck exam: Positive for: Full Rom - Respiratory Exam Respiratory Exam: Normal Breath Sounds. absent: Accessory Muscle Use, Respiratory Distress - Cardiovascular Exam Cardiovascular Exam: RRR - GI/Abdominal Exam GI & Abdominal Exam: Soft. absent: Tenderness - Rectal Exam Additional comments: External hemorrhoids, aurora-anal erythema, purulent drainage, stage I and II perianal ulcers likely 2/2 to purulent drainage, very tender to palpation - Extremities Exam Extremities exam: Negative for: calf tenderness, pedal pulses present - Neurological Exam Neurological exam: Alert, Oriented x3 Assessment and Plan - Assessment and Plan (Free Text) Assessment: 63 y/o female s/p hemorrhoidectomy in 04/2018 admitted for rectal pain/purulent discharge that is persistent since surgery HCAP Gastritis Plan: -Patient is clinically improving, no SOB, afebrile -OR exam under anesthesia today -continue abx, analgesics -continue sitz bath, miralax, colace -further recs per surgical attending Dr. Bronson Joshua, DO
[2018-08-20] MEDS: Vancomycin 1gm in NS 250ml 1 GM/250 ML BAG IVPB SCH (11:00)
[2018-08-20] MEDS ORDERED: Albuterol HFA 90 mcg/actuation (8 g) ONE (11:43)
[2018-08-20] MEDS ORDERED: Propofol 10 mg/ml Inj (20 ML) ONE (11:43)
[2018-08-20] MEDS ORDERED: Lidocaine 2% Jelly (Uro-Jet) ONE (12:12)
[2018-08-20] MEDS ORDERED: Bupivacaine 0.5% 50 ML IJ ONE (12:12)
[2018-08-20] MEDS ORDERED: Midazolam 2 MG/2 ML VIAL ONE (12:17)
[2018-08-20] MEDS ORDERED: Sodium Chloride 0.9% 1,000 ML IV SCH (12:45)
--- NOTE | 2018-08-20 12:51 | PCM.SURG1 ---
Surgeon's Initial Post Op Note - Surgeon's Notes Surgeon: Dr. Dobson Property Management Specialist: Dr. Flowers PGY3 Type of Anesthesia: General IV Pre-Operative Diagnosis: Anal Drainage Operative Findings: Severe perianal excoriation and granulation tissue Post-Operative Diagnosis: Chronic wound Operation Performed: Exam under anesthesia, rigid sigmoidectomy, anoscopy Specimen/Specimens Removed: None Estimated Blood Loss: EBL {In ML}: 5 Post-Op Condition: Good Date of Surgery/Procedure: 08/20/18 Time of Surgery/Procedure: 12:54
--- NOTE | 2018-08-20 13:16 | CP.PCM.PN ---
Subjective - Date & Time of Evaluation Date of Evaluation: 08/20/18 Time of Evaluation: 08:00 - Subjective Subjective: For OR today, no fevers, cough is less, no SOB at rest, feeling a little better, still with pain in the perianal area. Objective - Vital Signs/Intake and Output Vital Signs (last 24 hours): Temp Pulse Resp BP Pulse Ox 97.8 F 68 18 136/78 95 08/19/18 06:00 08/19/18 06:00 08/19/18 06:00 08/19/18 06:00 08/19/18 06:00 Intake and Output: 08/19/18 08/19/18 06:59 18:59 Intake Total 720 Balance 720 - Medications Medications: Current Medications Docusate Sodium (Colace) 100 mg PO Q4H PRN PRN Reason: Constipation Last Admin: 08/18/18 11:34 Dose: 100 mg Doxycycline Hyclate (Doryx) 100 mg PO Q12 TOSHIA; Protocol Last Admin: 08/19/18 11:03 Dose: 100 mg Aztreonam (Azactam 1 Gm) 100 mls @ 100 mls/hr IVPB Q8 TOSHIA; Protocol Stop: 08/25/18 14:01 Last Admin: 08/19/18 06:03 Dose: 100 mls/hr Metronidazole (Flagyl) 500 mg in 100 mls @ 100 mls/hr IVPB Q8 TOSHIA; Protocol Last Admin: 08/19/18 06:03 Dose: 100 mls/hr Vancomycin HCl (Vancomycin 1gm) 1 gm in 250 mls @ 167 mls/hr IVPB Q12H TOSHIA; Protocol Last Admin: 08/19/18 11:04 Dose: 167 mls/hr Oxycodone/Acetaminophen (Percocet 5/325 Mg Tab) 1 tab PO Q4H PRN PRN Reason: Hemorrhoids Stop: 08/21/18 06:14 Last Admin: 08/19/18 01:30 Dose: 1 tab Tramadol HCl (Ultram) 50 mg PO TID PRN PRN Reason: Pain, Mild (1-3) - Labs Labs: 08/18/18 08:30 08/18/18 08:30 PT 12.1 SECONDS (9.4-12.5) 08/17/18 17:56 INR 1.09 08/17/18 17:56 APTT 25.7 Seconds (26.9-38.3) L 08/17/18 17:56 - Constitutional Appears: Chronically Ill - Head Exam Head Exam: NORMAL INSPECTION - Respiratory Exam Respiratory Exam: Decreased Breath Sounds - Cardiovascular Exam Cardiovascular Exam: +S1, +S2 - GI/Abdominal Exam GI & Abdominal Exam: Soft. absent: Tenderness Assessment and Plan - Assessment and Plan (Free Text) Plan: Assessment perianal abscess after hemorrhoidectomy consider bilateral HCAP gastritis Plan continue Vancomycin, Azactam and Doxycycline with Flagyl day 3 and follow up OR cultures - for OR today for the perianal abscess; blood cx are negative so far; reviewed CT chest, abdomen and pelvis which shows pneumonitis, follow up urine Legionella Ag will continue to monitor clinically follow up HIV test - done due to her age discussed with Dr. Medrano
[2018-08-20 16:22] LABS: BASO # 0.01 K/mm3 (0.0-2.0); BASO % 0.1 % (0.0-3.0); EOS % 0.5 % (1.5-5.0); HEMOGLOBIN 11.1 g/dL (12.0-16.0); LYMPH # 0.6 (1.2-3.4); LYMPH % 8.8 % (22.0-35.0); MEAN CELL VOLUME 87.6 fl (80.0-105.0); MEAN CORPUSCULAR HEMOGLOBIN 30.5 pg (25.0-35.0); MEAN CORPUSCULAR HGB CONC 34.8 g/dl (31.0-37.0); MEAN PLATELET VOLUME 10.4 fl (7.0-11.0); MONO # 0.5 (0.1-0.6); MONO % 7.3 % (1.0-6.0); RBC 3.64 10^6/uL (3.5-6.1); RED CELL DISTRIBUTION WIDTH 14.4 % (11.5-14.5); WHITE BLOOD COUNT 7.3 10^3/uL (4.5-11.0)
[2018-08-20 16:35] LABS: BLOOD UREA NITROGEN 10 mg/dL (7-21); GFR NON-AFRICAN AMERICAN > 60
[2018-08-20 16:36] LABS: ALB/GLOB RATIO 1.1 (1.1-1.8); ALBUMIN 3.2 g/dL (3.0-4.8); ALT/SGPT 27 U/L (7-56); AST/SGOT 30 U/L (14-36); CALCIUM 8.9 mg/dL (8.4-10.5)
[2018-08-20] MEDS: Oxycodone/Acetaminophen 5/325 mg Tab PO PRN (23:10)
[2018-08-20] MEDS: Silver Sulfadiazine 1% Cream (25 gm) TP SCH (23:11)
[2018-08-21] MEDS: Albuterol-Ipratrop 3 mg / 0.5 (3 ml) UD IH SCH ×4 (01:09→19:40)
[2018-08-21] MEDS: metroNIDAZOLE IV 500 mg/100 ml 500 MG/100 ML BAG IVPB SCH ×4 (02:15→21:42)
[2018-08-21] MEDS: Aztreonam 1 Gm in NS 100mL 100 ML IVPB SCH ×4 (02:16→22:44)
[2018-08-21] MEDS: Vancomycin 1gm in NS 250ml 1 GM/250 ML BAG IVPB SCH ×3 (02:26→21:50)
[2018-08-21 07:27] LABS: EOS % 0.7 % (1.5-5.0); HEMOGLOBIN 10.4 g/dL (12.0-16.0); LYMPH # 0.8 (1.2-3.4); LYMPH % 13.5 % (22.0-35.0); MEAN CELL VOLUME 87.5 fl (80.0-105.0); MEAN CORPUSCULAR HEMOGLOBIN 29.5 pg (25.0-35.0); MEAN CORPUSCULAR HGB CONC 33.7 g/dl (31.0-37.0); MEAN PLATELET VOLUME 10.3 fl (7.0-11.0); MONO # 0.5 (0.1-0.6); MONO % 8.6 % (1.0-6.0); RBC 3.53 10^6/uL (3.5-6.1); RED CELL DISTRIBUTION WIDTH 14.7 % (11.5-14.5); WHITE BLOOD COUNT 5.9 10^3/uL (4.5-11.0)
[2018-08-21 07:35] LABS: ALBUMIN 2.9 g/dL (3.0-4.8); ALT/SGPT 32 U/L (7-56); AST/SGOT 26 U/L (14-36); BLOOD UREA NITROGEN 8 mg/dL (7-21); CALCIUM 8.4 mg/dL (8.4-10.5); GFR NON-AFRICAN AMERICAN > 60
--- NOTE | 2018-08-21 08:00 | CP.PCM.PN ---
Subjective - Date & Time of Evaluation Date of Evaluation: 08/21/18 Time of Evaluation: 07:55 - Subjective Subjective: Surgery Progress note. Dr. Dobson Pt seen and examined at bedside. No acute events overnight. Still c/o some perianal pain. No new complaints. No F/C. No Abd pain. No N/V/D. Objective - Vital Signs/Intake and Output Vital Signs (last 24 hours): Temp Pulse Resp BP Pulse Ox 99 F 105 H 18 123/86 93 L 08/20/18 21:35 08/20/18 21:35 08/20/18 21:35 08/20/18 21:35 08/20/18 21:35 Intake and Output: 08/21/18 08/21/18 06:59 18:59 Intake Total 1020 Balance 1020 - Medications Medications: Current Medications Albuterol/Ipratropium (Duoneb 3 Mg/0.5 Mg (3 Ml) Ud) 3 ml IH [id number] TOSHIA Last Admin: 08/21/18 01:09 Dose: 3 ml Albuterol/Ipratropium (Duoneb 3 Mg/0.5 Mg (3 Ml) Ud) 3 ml IH Q2H PRN PRN Reason: Shortness of Breath Budesonide (Pulmicort Respules) 0.5 mg IH [id number] TOSHIA Last Admin: 08/20/18 20:40 Dose: 0.5 mg Docusate Sodium (Colace) 100 mg PO Q4H PRN PRN Reason: Constipation Last Admin: 08/20/18 17:15 Dose: 100 mg Doxycycline Hyclate (Doryx) 100 mg PO Q12 TOSHIA; Protocol Last Admin: 08/20/18 23:08 Dose: 100 mg Fentanyl (Fentanyl) 25 mcg IV Q5M PRN PRN Reason: Pain, moderate (4-7) Aztreonam (Azactam 1 Gm) 100 mls @ 100 mls/hr IVPB Q8 TOSHIA; Protocol Stop: 08/25/18 14:01 Last Admin: 08/21/18 07:19 Dose: 100 mls/hr Metronidazole (Flagyl) 500 mg in 100 mls @ 100 mls/hr IVPB Q8 TOSHIA; Protocol Last Admin: 08/21/18 02:15 Dose: 100 mls/hr Vancomycin HCl (Vancomycin 1gm) 1 gm in 250 mls @ 167 mls/hr IVPB Q12H TOSHIA; Protocol Last Admin: 08/21/18 02:26 Dose: 167 mls/hr Silver Sulfadiazine (Silvadene 1% 25 Gm) 0 gm TP BID TOSHIA Last Admin: 08/20/18 23:11 Dose: 25 gm Tramadol HCl (Ultram) 50 mg PO TID PRN PRN Reason: Pain, Mild (1-3) - Labs Labs: 08/21/18 06:15 08/21/18 06:15 PT 12.1 SECONDS (9.4-12.5) 08/17/18 17:56 INR 1.09 08/17/18 17:56 APTT 25.7 Seconds (26.9-38.3) L 08/17/18 17:56 - Constitutional Appears: Non-toxic, No Acute Distress - Head Exam Head Exam: ATRAUMATIC, NORMAL INSPECTION, NORMOCEPHALIC - Eye Exam Eye Exam: EOMI, Normal appearance. absent: Scleral icterus - ENT Exam ENT Exam: Mucous Membranes Moist - Respiratory Exam Respiratory Exam: NORMAL BREATHING PATTERN. absent: Accessory Muscle Use, Respiratory Distress - Cardiovascular Exam Cardiovascular Exam: absent: JVD - GI/Abdominal Exam GI & Abdominal Exam: Soft. absent: Distended, Guarding, Tenderness - Extremities Exam Extremities Exam: Normal Inspection. absent: Calf Tenderness - Neurological Exam Neurological Exam: Alert, Awake, Oriented x3 - Psychiatric Exam Psychiatric exam: Normal Affect, Normal Mood - Skin Skin Exam: Normal Color, Warm Assessment and Plan - Assessment and Plan (Free Text) Assessment: 63yo F s/p hemorrhoidectomy in 04/2018 at outside facility, here for perirectal pain and persistent purulent discharge. S/p Rectal exam under anesthesia and sigmoidoscopy. POD 1 - Pneumonia, improving Plan: - Noted to have severe perianal excoriation - Continue topical silvadene - pain management - Medical management as per Primary team Further recs as per Dr. Bronson Galvan PGY2 surgery
[2018-08-21] MEDS: Budesonide 0.5 mg/2 ml Inhal Susp UD IH SCH ×2 (08:45→19:40)
[2018-08-21] MEDS: Silver Sulfadiazine 1% Cream (25 gm) TP SCH ×2 (10:00→17:39)
--- NOTE | 2018-08-21 13:06 | PN ---
DATE: 08/21/2018 SUBJECTIVE: The patient is a 63-year-old female who was admitted with pneumonia and perianal abscess. The patient underwent hemorrhoidectomy on 2017 with complications of pain and purulent drainage. Her surgeon from the outside facility suggested antibiotics for 5 days. However, her condition worsens the patient became bed ridden and 2 days prior to hospitalization at [facility], she developed a cough. She was diagnosed with bilateral pneumonia and perirectal abscess. During this hospital stay, she is followed by Dr. Garcia, the Infectious Disease specialist and Dr. Dobson, the surgeon. Today, she is being treated with Azactam, vancomycin, and Flagyl. The patient underwent a rigid sigmoidoscopy and endoscopy yesterday under anesthesia. Apparently, perianal excoriations were found and was suggested this be treated with Silvadene. CAT scan of the patient had received on admission showed bilateral infiltrates with thickening of the recto-sigmoidal ruano. Microbiology shows the wound grew Proteus mirabilis which was sensitive to all antibiotics tested. When seen today, the patient is resting comfortably. She is easily aroused. She states that she feels much better. The pain has markedly subsided. She has been having only loose soft bowel movements. PHYSICAL EXAMINATION: VITAL SIGNS: She is afebrile. Temperature is 98.1, blood pressure is 127/82, heart rate is 81. LABORATORY STUDIES: Show the white blood cell count to be 5.9, hemoglobin and hematocrit are 10.4 and 30.9 respectively, platelet count is 344. Sodium is 139, potassium is 3.7, blood urea nitrogen is 8, creatinine 0.5 and glucose is 97. IMPRESSION AND PLAN: We will be adjusting her medications as per Infectious Disease. Case to be discussed with surgery concerning possible further surgical intervention of her perirectal abscesses and purulent drainage. On the current regimen of antibiotics, the patient does say that the purulent drainage has markedly decreased and overall the patient is feeling better. We will continue to follow her closely. Scott Kramer MD JERONIMO
[2018-08-21] MEDS: Lidocaine 5% Oint(35 gm) TOP SCH (15:19)
--- NOTE | 2018-08-21 17:38 | CP.PCM.PN ---
Subjective - Date & Time of Evaluation Date of Evaluation: 08/21/18 Time of Evaluation: 09:50 - Subjective Subjective: No fevers, cough is better, pain in the perianal area is better, no abdominal pain, no nausea. Objective - Vital Signs/Intake and Output Vital Signs (last 24 hours): Temp Pulse Resp BP Pulse Ox 97.3 F L 64 14 120/72 100 08/20/18 13:00 08/20/18 13:00 08/20/18 13:00 08/20/18 13:00 08/20/18 13:00 Intake and Output: 08/20/18 08/20/18 06:59 18:59 Intake Total 1270 Balance 1270 - Medications Medications: Current Medications Albuterol/Ipratropium (Duoneb 3 Mg/0.5 Mg (3 Ml) Ud) 3 ml IH [id number] TOSHIA Last Admin: 08/20/18 07:48 Dose: 3 ml Albuterol/Ipratropium (Duoneb 3 Mg/0.5 Mg (3 Ml) Ud) 3 ml IH Q2H PRN PRN Reason: Shortness of Breath Budesonide (Pulmicort Respules) 0.5 mg IH [id number] TOSHIA Last Admin: 08/20/18 07:48 Dose: 0.5 mg Docusate Sodium (Colace) 100 mg PO Q4H PRN PRN Reason: Constipation Last Admin: 08/18/18 11:34 Dose: 100 mg Doxycycline Hyclate (Doryx) 100 mg PO Q12 TOSHIA; Protocol Last Admin: 08/20/18 10:08 Dose: Not Given Fentanyl (Fentanyl) 25 mcg IV Q5M PRN PRN Reason: Pain, moderate (4-7) Aztreonam (Azactam 1 Gm) 100 mls @ 100 mls/hr IVPB Q8 OTSHIA; Protocol Stop: 08/25/18 14:01 Last Admin: 08/20/18 05:21 Dose: 100 mls/hr Metronidazole (Flagyl) 500 mg in 100 mls @ 100 mls/hr IVPB Q8 TOSHIA; Protocol Last Admin: 08/20/18 05:21 Dose: 100 mls/hr Vancomycin HCl (Vancomycin 1gm) 1 gm in 250 mls @ 167 mls/hr IVPB Q12H TOSHIA; Protocol Last Admin: 08/19/18 21:47 Dose: 167 mls/hr Sodium Chloride (Sodium Chloride 0.9%) 1,000 mls @ 100 mls/hr IV .Q10H TOSHIA Stop: 08/20/18 14:35 Oxycodone/Acetaminophen (Percocet 5/325 Mg Tab) 1 tab PO Q4H PRN PRN Reason: Hemorrhoids Stop: 08/21/18 06:14 Last Admin: 08/19/18 22:47 Dose: 1 tab Tramadol HCl (Ultram) 50 mg PO TID PRN PRN Reason: Pain, Mild (1-3) - Labs Labs: 08/18/18 08:30 08/19/18 20:30 PT 12.1 SECONDS (9.4-12.5) 08/17/18 17:56 INR 1.09 08/17/18 17:56 APTT 25.7 Seconds (26.9-38.3) L 08/17/18 17:56 - Constitutional Appears: Chronically Ill - Head Exam Head Exam: NORMAL INSPECTION - Respiratory Exam Respiratory Exam: Decreased Breath Sounds - Cardiovascular Exam Cardiovascular Exam: +S1, +S2 - GI/Abdominal Exam GI & Abdominal Exam: Soft. absent: Tenderness Assessment and Plan - Assessment and Plan (Free Text) Plan: Assessment perianal abscess after hemorrhoidectomy S/P surgery and chronic wound noted consider bilateral HCAP gastritis Plan continue Vancomycin, Azactam and Doxycycline with Flagyl day 4 and follow up OR cultures - reviewed CT chest, abdomen and pelvis which shows pneumonitis, follow up urine Legionella Ag will continue to monitor clinically follow up HIV test - done due to her age discussed with Dr. Medrano previously
--- NOTE | 2018-08-21 18:15 | RAD ---
Date of service: 08/21/2018 HISTORY: f/u pneumonia COMPARISON: Comparison chest dated 08/17/2018 FINDINGS: LUNGS: Asymmetric bilateral infiltrates left greater than right. Findings may represent pneumonia versus pulmonary venous congestion. Clinical correlation recommended. PLEURA: No significant pleural effusion identified, no pneumothorax apparent. CARDIOVASCULAR: No aortic atherosclerotic calcification present. Cardiomegaly. . OSSEOUS STRUCTURES: Old healed right posterior 8th rib again noted VISUALIZED UPPER ABDOMEN: Normal. OTHER FINDINGS: None. IMPRESSION: Asymmetric diffuse infiltrate changes left greater than right; rule out pneumonia versus mild asymmetric pulmonary venous congestion.
[2018-08-21 21:51] LABS: VENOUS BLOOD GAS BASE EXCESS 2.4 mmol/L (0.0-2.0); VENOUS BLOOD GAS PO2 50 mm/Hg (30-55); VENOUS BLOOD PH 7.52 (7.32-7.43)
[2018-08-21 21:52] LABS: EOS % 0.3 % (1.5-5.0); LYMPH # 0.7 (1.2-3.4); MEAN CELL VOLUME 86.5 fl (80.0-105.0); MEAN CORPUSCULAR HEMOGLOBIN 30.2 pg (25.0-35.0); MEAN CORPUSCULAR HGB CONC 34.9 g/dl (31.0-37.0); MEAN PLATELET VOLUME 9.9 fl (7.0-11.0); MONO # 0.8 (0.1-0.6); MONO % 9.9 % (1.0-6.0); RBC 3.64 10^6/uL (3.5-6.1); RED CELL DISTRIBUTION WIDTH 14.7 % (11.5-14.5); WHITE BLOOD COUNT 7.6 10^3/uL (4.5-11.0)
[2018-08-22] MEDS: Albuterol-Ipratrop 3 mg / 0.5 (3 ml) UD IH SCH ×4 (03:39→20:10)
[2018-08-22] MEDS: metroNIDAZOLE IV 500 mg/100 ml 500 MG/100 ML BAG IVPB SCH ×3 (06:12→23:38)
[2018-08-22] MEDS: Aztreonam 1 Gm in NS 100mL 100 ML IVPB SCH ×3 (06:12→22:33)
--- NOTE | 2018-08-22 06:12 | CP.PCM.PN ---
Subjective - Date & Time of Evaluation Date of Evaluation: 08/22/18 Time of Evaluation: 06:12 - Subjective Subjective: Surgery Pt seen and examined. Had fever of 102 yesterday. Anal pain improved. Denies nausea, vomiting, SOB, CP. Objective - Vital Signs/Intake and Output Vital Signs (last 24 hours): Temp Pulse Resp BP Pulse Ox 102 F H 113 H 20 141/78 97 08/21/18 22:00 08/21/18 22:00 08/21/18 22:00 08/21/18 22:00 08/21/18 22:00 - Medications Medications: Current Medications Albuterol/Ipratropium (Duoneb 3 Mg/0.5 Mg (3 Ml) Ud) 3 ml IH [id number] TOSHIA Last Admin: 08/22/18 03:39 Dose: 3 ml Albuterol/Ipratropium (Duoneb 3 Mg/0.5 Mg (3 Ml) Ud) 3 ml IH Q2H PRN PRN Reason: Shortness of Breath Budesonide (Pulmicort Respules) 0.5 mg IH [id number] TOSHIA Last Admin: 08/21/18 08:45 Dose: 0.5 mg Docusate Sodium (Colace) 100 mg PO Q4H PRN PRN Reason: Constipation Last Admin: 08/20/18 17:15 Dose: 100 mg Doxycycline Hyclate (Doryx) 100 mg PO Q12 TOSHIA; Protocol Last Admin: 08/21/18 21:59 Dose: 100 mg Fentanyl (Fentanyl) 25 mcg IV Q5M PRN PRN Reason: Pain, moderate (4-7) Aztreonam (Azactam 1 Gm) 100 mls @ 100 mls/hr IVPB Q8 TOSHIA; Protocol Stop: 08/25/18 14:01 Last Admin: 08/21/18 22:44 Dose: 100 mls/hr Metronidazole (Flagyl) 500 mg in 100 mls @ 100 mls/hr IVPB Q8 TOSHIA; Protocol Last Admin: 08/21/18 21:42 Dose: 100 mls/hr Vancomycin HCl (Vancomycin 1gm) 1 gm in 250 mls @ 167 mls/hr IVPB Q12H TOSHIA; Protocol Last Admin: 08/21/18 21:50 Dose: 167 mls/hr Lidocaine (Lidocaine 5%) 0 gm TOP DAILY TOSHIA Last Admin: 08/21/18 15:19 Dose: 1 applic Ondansetron HCl (Zofran Inj) 4 mg IVP Q6H PRN PRN Reason: Nausea/Vomiting Last Admin: 08/21/18 21:41 Dose: 4 mg Silver Sulfadiazine (Silvadene 1% 25 Gm) 0 gm TP BID [facility] Last Admin: 08/21/18 17:39 Dose: 25 gm Tramadol HCl (Ultram) 50 mg PO TID PRN PRN Reason: Pain, Mild (1-3) - Labs Labs: 08/21/18 21:48 08/21/18 06:15 PT 12.1 SECONDS (9.4-12.5) 08/17/18 17:56 INR 1.09 08/17/18 17:56 APTT 25.7 Seconds (26.9-38.3) L 08/17/18 17:56 - Constitutional Appears: No Acute Distress - Head Exam Head Exam: ATRAUMATIC, NORMAL INSPECTION, NORMOCEPHALIC - Eye Exam Eye Exam: EOMI, Normal appearance, PERRL Pupil Exam: NORMAL ACCOMODATION, PERRL - ENT Exam ENT Exam: Mucous Membranes Moist, Normal Exam - Neck Exam Neck Exam: Full ROM, Normal Inspection. absent: Lymphadenopathy - Respiratory Exam Respiratory Exam: NORMAL BREATHING PATTERN - Cardiovascular Exam Cardiovascular Exam: REGULAR RHYTHM, +S1, +S2. absent: Murmur - GI/Abdominal Exam GI & Abdominal Exam: Soft. absent: Tenderness - Exam Exam: NORMAL INSPECTION - Extremities Exam Extremities Exam: Full ROM - Back Exam Back Exam: NORMAL INSPECTION - Neurological Exam Neurological Exam: Alert, Awake, CN II-XII Intact, Normal Gait, Oriented x3 - Psychiatric Exam Psychiatric exam: Normal Affect, Normal Mood - Skin Skin Exam: Erythema, Warm Assessment and Plan - Assessment and Plan (Free Text) Assessment: 63yo F s/p hemorrhoidectomy in 04/2018 at outside facility, here for perirectal pain and persistent purulent discharge. S/p Rectal exam under anesthesia and sigmoidoscopy. POD 2 - Pneumonia, improving - Febrile Plan: - Noted to have severe perianal excoriation - Continue topical silvadene , lidocaine jelly - If no improvement, possible OR next week for excision of the lesion - pain management - Medical management as per Primary team Further recs as per Dr. Dobson
[2018-08-22] MEDS: Budesonide 0.5 mg/2 ml Inhal Susp UD IH SCH ×2 (08:34→20:11)
[2018-08-22 08:48] LABS: EOS # 0.1 (0.0-0.7); EOS % 0.9 % (1.5-5.0); HEMOGLOBIN 11.1 g/dL (12.0-16.0); LYMPH # 0.8 (1.2-3.4); LYMPH % 11.8 % (22.0-35.0); MEAN CELL VOLUME 87.3 fl (80.0-105.0); MEAN CORPUSCULAR HEMOGLOBIN 29.3 pg (25.0-35.0); MEAN CORPUSCULAR HGB CONC 33.5 g/dl (31.0-37.0); MEAN PLATELET VOLUME 10.2 fl (7.0-11.0); MONO # 0.7 (0.1-0.6); MONO % 10.7 % (1.0-6.0); RBC 3.79 10^6/uL (3.5-6.1); RED CELL DISTRIBUTION WIDTH 14.8 % (11.5-14.5); WHITE BLOOD COUNT 6.7 10^3/uL (4.5-11.0)
[2018-08-22 09:12] LABS: ALB/GLOB RATIO 1.1 (1.1-1.8); ALBUMIN 3.2 g/dL (3.0-4.8); ALT/SGPT 18 U/L (7-56); AST/SGOT 34 U/L (14-36); BLOOD UREA NITROGEN 8 mg/dL (7-21); CALCIUM 8.3 mg/dL (8.4-10.5); GFR NON-AFRICAN AMERICAN > 60
[2018-08-22] MEDS: Lidocaine 5% Oint(35 gm) TOP SCH (09:53)
[2018-08-22] MEDS: Vancomycin 1gm in NS 250ml 1 GM/250 ML BAG IVPB SCH (09:53)
[2018-08-22] MEDS: Silver Sulfadiazine 1% Cream (25 gm) TP SCH (09:54)
--- NOTE | 2018-08-22 11:49 | PN ---
DATE: 08/22/2018 SUBJECTIVE: The patient is a 63-year-old female with essentially negative past medical history who was admitted with pneumonia and perianal abscess. She had been complaining of perirectal pain and purulent drainage since she underwent hemorrhoidectomy at another facility on 04/2018. The pain was so severe the patient became bedridden and after a few days in bed, she developed a cough. Therefore she was brought to the emergency room where she was diagnosed with bilateral pneumonia and perirectal abscess with purulent drainage. She was evaluated by Dr. Sudarshan Dobson. A proctoscopic examination revealed a mild rectal fissure and there were some excoriations in the perianal area as a result of her hemorrhoidectomy. This is being treated at his suggestion with topical Silvadene cream. She is also followed by Dr. Garcia, the Infectious Disease specialist. Currently she is on a Azactam, vancomycin and Flagyl. Overall the patient is doing well. Clinically she is improving. She is afebrile. However, yesterday in the evening, she had a fever of 102.7. This morning her temperature is 99.3. Her white blood cell count is 6.7, hemoglobin and hematocrit are 11.1 and 33.1 respectively. Blood pressure is 103/65. The patient is awake, alert and oriented. She is feeling better. She says she has been sitting up in a chair and she ambulates to the bathroom as needed. She does however complain of night sweats and chills. She states just about every night since her hemorrhoidectomy, she has been suffering from the sweats, which are rather extensive. She usually needs to change her pajamas in the middle of the night. This was discussed with Dr. Garcia and he will reevaluate the patient. He is suspicious of a possible infection on IV site. Case was also discussed with Dr. Dobson, the surgeon and the results of the proctoscopy were discussed with him. The patient is to be reevaluated in the morning adjustments to her antibiotics will be made. Scott Kramer MD [facility] # [id number]
--- NOTE | 2018-08-22 13:10 | PN ---
DATE: 08/22/2018 PULMONARY CONSULTATION NOTE SUBJECTIVE: The patient was seen and examined at bedside. She is complaining of chills and intermittent fevers. Her breathing is improved and she is not short of breath at rest. PHYSICAL EXAMINATION: GENERAL: She is awake, alert, no acute distress. HEENT: Examination of the head, ears, nose, and throat is within normal limits. NECK: Supple. There is no jugular vein distention. CARDIOVASCULAR: S1 and S2. No S3, regular. PULMONARY: Few bilateral rhonchi. No wheezing. GASTROINTESTINAL: Soft and nontender. No organomegaly. Rectal abscess area not evaluated due to dressings. EXTREMITIES: No pedal edema. SKIN: No acute skin rash. NEUROLOGIC: No focal deficits. LABORATORY DATA: Her temperature curve was examined, currently she is 99.3, but last night her temperature went up to 102. Her arterial blood gas yesterday shows pH of 7.52, pCO2 of 30, and pO2 of 50 on the venous blood gas which is acceptable. Her electrolytes are normal. Today's WBC is 6.7, hemoglobin is 11.1. Additional data evaluated, yesterday's chest x-ray was reviewed by me there is no official report yet. The chest x-ray shows increased bronchovascular markings bilaterally, the heart is borderline in size. There is no discrete filtrate. ASSESSMENT: 1. Rectal abscess. 2. Sepsis syndrome. 3. Abnormal chest x-ray. PLAN: The patient is currently on appropriate antibiotic therapy as well as bronchodilators and supplemental oxygen. Her pulmonary status has improved; however, she feels spiking high temperature and may be septic. We will await blood cultures. Continue with current administration of pulmonary medications. We will recheck tomorrow. Phani Casrto MD MTDD
--- NOTE | 2018-08-22 13:15 | RAD ---
Date of service: 08/21/2018 HISTORY: sepsis w/u COMPARISON: Comparison chest 08/21/2018 FINDINGS: LUNGS: Asymmetric diffuse infiltrate changes left greater than right; rule out pneumonia versus mild asymmetric pulmonary venous congestion. PLEURA: No significant pleural effusion identified, no pneumothorax apparent. CARDIOVASCULAR: No aortic atherosclerotic calcification present. Normal cardiac size. No pulmonary vascular congestion. OSSEOUS STRUCTURES: No significant abnormalities. VISUALIZED UPPER ABDOMEN: Normal. OTHER FINDINGS: None. IMPRESSION: Asymmetric diffuse infiltrate changes left greater than right; rule out pneumonia versus mild asymmetric pulmonary venous congestion.
--- NOTE | 2018-08-22 20:57 | PN ---
DATE: 08/22/2018 SUBJECTIVE: The patient is in bed, in no acute distress and is having fevers to 102. PHYSICAL EXAMINATION: VITAL SIGNS: Temperature is 102.9, respiratory rate of 18, heart rate of 102. HEENT: Unremarkable. NECK: Supple. LUNGS: Have decreased breath sounds. HEART: Normal S1, S2. ABDOMEN: Soft, nontender. EXTREMITIES: Examination of right arm, the IV site is erythematous. No discharge; however, it is tender and erythematous. LABORATORY DATA: Reveals a white count of 6.7, hemoglobin of 11. Chemistries are noted. Procalcitonin from yesterday is less than 0.05. Urinalysis is noted. Serology is reviewed. Microbiology, repeat cultures are pending. The blood cultures are negative. There is Proteus in the urine. Review of orders reveals the patient to be penicillin allergy; however, the patient is on aztreonam and which requires renewal and vancomycin which also requires renewal. The patient also had a chest x-ray done yesterday, which results are reviewed and Dr. Scott Kramer's note is reviewed. ASSESSMENT AND PLAN: This is a 63-year-old female with perianal abscess after a hemorrhoidectomy and now with sepsis with a right arm IV site infiltrated, on vancomycin, aztreonam, and Flagyl day #5. Cultures ordered; blood, urine and human immunodeficiency virus has been ordered, on aztreonam, Flagyl, vancomycin and p.o. doxycycline. We will order pending panculture results. We will follow closely with you. Case discussed with Dr. Chavez. Recommend removal of the IV site and follow the fever curve. We will also order Dopplers of the lower extremities. Discussed with Dr. Scott Kramer. Shayan Garcia MD
[2018-08-23] MEDS: Vancomycin 1gm in NS 250ml 1 GM/250 ML BAG IVPB SCH ×2 (01:12→13:17)
[2018-08-23] MEDS: Albuterol-Ipratrop 3 mg / 0.5 (3 ml) UD IH SCH ×4 (02:23→19:50)
[2018-08-23] MEDS: Budesonide 0.5 mg/2 ml Inhal Susp UD IH SCH ×2 (07:42→19:51)
[2018-08-23] MEDS: metroNIDAZOLE IV 500 mg/100 ml 500 MG/100 ML BAG IVPB SCH ×3 (08:14→23:48)
[2018-08-23 09:02] LABS: BASO # 0.01 K/mm3 (0.0-2.0); BASO % 0.1 % (0.0-3.0); EOS % 0.5 % (1.5-5.0); HEMOGLOBIN 10.3 g/dL (12.0-16.0); LYMPH # 0.8 (1.2-3.4); LYMPH % 10.9 % (22.0-35.0); MEAN CELL VOLUME 87.2 fl (80.0-105.0); MEAN CORPUSCULAR HEMOGLOBIN 29.9 pg (25.0-35.0); MEAN CORPUSCULAR HGB CONC 34.2 g/dl (31.0-37.0); MEAN PLATELET VOLUME 10.1 fl (7.0-11.0); MONO # 0.8 (0.1-0.6); MONO % 10.3 % (1.0-6.0); RBC 3.45 10^6/uL (3.5-6.1); RED CELL DISTRIBUTION WIDTH 14.9 % (11.5-14.5); WHITE BLOOD COUNT 7.5 10^3/uL (4.5-11.0)
--- NOTE | 2018-08-23 09:23 | PN ---
DATE: 08/21/2018 SUBJECTIVE: The patient was seen and examined at bedside. She appears comfortable. She is not short of breath. She is receiving multiple antibiotics; Azactam, doxycycline, and Flagyl as well as vancomycin. She is also on inhalation treatment with DuoNeb and budesonide. PHYSICAL EXAMINATION: VITAL SIGNS: Temperature is 98, pulse 84, respirations 18, pulse oximetry is 94 on room air, blood pressure is 120/82. HEAD: Normocephalic and atraumatic. NECK: Supple with no jugular vein distention. CARDIOVASCULAR: S1, S2. No S3. Regular. PULMONARY: Diminished breath sounds at both bases with no wheezing. GASTROINTESTINAL: Soft, nontender. No organomegaly. EXTREMITIES: No pedal edema. RECTAL: Area of rectal abscess was not evaluated. LABORATORY DATA: Today's laboratory data shows WBC 5.9, hemoglobin 10.4 with left shift. Sodium 139, potassium 3.7. Albumin is 2.9. ASSESSMENT AND PLAN: Bilateral ground-glass opacities on the CT scan. Clinically, she does not have a pneumonia. Doubt metastatic infection from the rectal abscess; however, she is covered with appropriate antibiotics. We will continue same. Her blood work is stable now, and she does not appear septic clinically. We will assess her pulmonary situation in the next 24 to 48 hours with repeat chest x-ray. Phani Castro MD
[2018-08-23 09:24] LABS: ALBUMIN 2.9 g/dL (3.0-4.8); ALT/SGPT 27 U/L (7-56); AST/SGOT 45 U/L (14-36); BLOOD UREA NITROGEN 9 mg/dL (7-21); CALCIUM 8.4 mg/dL (8.4-10.5); GFR NON-AFRICAN AMERICAN > 60
[2018-08-23] MEDS: Aztreonam 1 Gm in NS 100mL 100 ML IVPB SCH ×3 (09:24→22:17)
[2018-08-23] MEDS: Silver Sulfadiazine 1% Cream (25 gm) TP SCH (10:37)
[2018-08-23] MEDS: Lidocaine 5% Oint(35 gm) TOP SCH (10:37)
--- NOTE | 2018-08-23 10:43 | CP.PCM.APN ---
Subjective - Date & Time of Evaluation Date of Evaluation: 08/23/18 Time of Evaluation: 08:45 - Subjective Subjective: Pt seen and examined at bedside. C/O cough still. Rectal pain improved. She had a fever of 103.4 last night. Objective - Vital Signs/Intake and Output Vital Signs (last 24 hours): Temp Pulse Resp BP Pulse Ox 97.7 F 87 20 84/49 L 95 08/23/18 06:00 08/23/18 06:00 08/23/18 06:00 08/23/18 06:00 08/23/18 06:00 Intake and Output: 08/23/18 08/23/18 06:59 18:59 Intake Total 890 Balance 890 - Medications Medications: Current Medications Acetaminophen (Tylenol 325mg Tab) 650 mg PO Q6H PRN PRN Reason: Temperature Last Admin: 08/22/18 14:20 Dose: 650 mg Albuterol/Ipratropium (Duoneb 3 Mg/0.5 Mg (3 Ml) Ud) 3 ml IH [id number] TOSHIA Last Admin: 08/23/18 07:42 Dose: 3 ml Albuterol/Ipratropium (Duoneb 3 Mg/0.5 Mg (3 Ml) Ud) 3 ml IH Q2H PRN PRN Reason: Shortness of Breath Budesonide (Pulmicort Respules) 0.5 mg IH [id number] TOSHIA Last Admin: 08/23/18 07:42 Dose: 0.5 mg Docusate Sodium (Colace) 100 mg PO Q4H PRN PRN Reason: Constipation Last Admin: 08/22/18 23:44 Dose: 100 mg Doxycycline Hyclate (Doryx) 100 mg PO Q12 TOSHIA; Protocol Last Admin: 08/23/18 10:34 Dose: 100 mg Fentanyl (Fentanyl) 25 mcg IV Q5M PRN PRN Reason: Pain, moderate (4-7) Aztreonam (Azactam 1 Gm) 100 mls @ 100 mls/hr IVPB Q8 TOSHIA; Protocol Stop: 08/25/18 14:01 Last Admin: 08/23/18 09:24 Dose: 100 mls/hr Metronidazole (Flagyl) 500 mg in 100 mls @ 100 mls/hr IVPB Q8 TOSHIA; Protocol Last Admin: 08/23/18 08:14 Dose: 100 mls/hr Vancomycin HCl (Vancomycin 1gm) 1 gm in 250 mls @ 167 mls/hr IVPB Q12H TOSHIA; Protocol Last Admin: 08/23/18 01:12 Dose: 167 mls/hr Lidocaine (Lidocaine 5%) 0 gm TOP DAILY TOSHIA Last Admin: 08/23/18 10:37 Dose: 1 applic Ondansetron HCl (Zofran Inj) 4 mg IVP Q6H PRN PRN Reason: Nausea/Vomiting Last Admin: 08/21/18 21:41 Dose: 4 mg Silver Sulfadiazine (Silvadene 1% 25 Gm) 0 gm TP BID TOSHIA Last Admin: 08/23/18 10:37 Dose: 25 gm Tramadol HCl (Ultram) 50 mg PO TID PRN PRN Reason: Pain, Mild (1-3) - Labs Labs: 08/23/18 09:45 08/23/18 09:45 PT 12.1 SECONDS (9.4-12.5) 08/17/18 17:56 INR 1.09 08/17/18 17:56 APTT 25.7 Seconds (26.9-38.3) L 08/17/18 17:56 - Constitutional Appears: No Acute Distress - Eye Exam Eye Exam: Normal appearance - ENT Exam ENT Exam: Normal Exam - Respiratory Exam Additional comments: mild jay rhonchi - Cardiovascular Exam Cardiovascular Exam: REGULAR RHYTHM, +S1, +S2 - GI/Abdominal Exam GI & Abdominal Exam: Soft, Normal Bowel Sounds - Neurological Exam Neurological Exam: Alert, Awake, Oriented x3 Assessment and Plan - Assessment and Plan (Free Text) Assessment: Pt is a 63 y.o. female who is admitted for perirectal pain and purulent discharge s/p hemorrhoidectomy. She had exam under anesthesia, rigid sigmoidectomy, anoscopy on 08/20. Impressions Chest X-Ray 08/21/18 21:31 IMPRESSION: Asymmetric diffuse infiltrate changes left greater than right; rule out pneumonia versus mild asymmetric pulmonary venous congestion. Plan: On Azactam/Flagyl/Doxy per ID recs SX, ID, Pulm and Hem/onc on consult Meds per mar Will continue to follow
--- NOTE | 2018-08-23 11:19 | PN ---
DATE: 08/23/2018 SUBJECTIVE: The patient appears comfortable this morning. She is currently making up her bed. She is not short of breath at rest. PHYSICAL EXAMINATION: VITAL SIGNS: The temperature is 97.2, pulse is 88, respiratory rate 18, blood pressure 138/81. Oxygen saturation on room air is 99%. HEENT: Normocephalic, atraumatic. No JVD. CARDIOVASCULAR: Positive S1, S2. No S3 gallop. LUNGS: Minimal crackles at the bases. Very minimal/less rhonchi. No wheezing. EXTREMITIES: No clubbing, cyanosis or edema. Calves are nontender to palpation. GASTROINTESTINAL: Abdomen is soft, nontender and nondistended. Bowel sounds are positive. SKIN: No acute rash. NEUROLOGIC: Exam limited at the present time. PERTINENT LABORATORY DATA: Chest x-ray was repeated on 08/21/2018 and reviewed.. Compared to the film of 08/17/2018, there is some clearing of the pulmonary infiltrates. IMPRESSION: 1. Community-acquired pneumonia, possibly atypical. 2. Mild bronchospasm. 3. Perianal abscess. 4. Mild anemia. PLAN: The patient appears very comfortable this morning. She was making up her bed as I walked into the room. She is not short of breath at rest. Her cough is less. She does state to feeling much better overall. I did review the last chest x-ray done. Compared to the previous film, there is a minimal decrease in the pulmonary infiltrates. In addition, on physical exam, there is certainly less bronchospasm noted. Lastly, the oxygen saturation on room air is now 99%. I will continue the current pulmonary medications and inhaled steroids for now. I did review the note by Dr. Castro (my partner). The patient's pulmonary status has certainly improved overall. However, as noted, she has had spiking fevers over the past few days. She is normothermic this morning. I would continue with the antibiotic coverage as per Infectious Disease. Input by Dr. Garcia is noted. Input by Dr. Dobson (Surgery) is also noted. Clinical status of the patient is improved - compared to her initial presentation. She does remain somewhat guarded overall. I will discuss the above with the attending physician. Griffin Medrano MD [facility] # [id number]
--- NOTE | 2018-08-23 14:27 | CP.PCM.PN ---
Subjective - Date & Time of Evaluation Date of Evaluation: 08/23/18 Time of Evaluation: 09:45 - Subjective Subjective: Perianal pain is improved, no fevers, cough is improved as well. Objective - Vital Signs/Intake and Output Vital Signs (last 24 hours): Temp Pulse Resp BP Pulse Ox 100.5 F H 87 20 84/49 L 95 08/23/18 14:19 08/23/18 06:00 08/23/18 06:00 08/23/18 06:00 08/23/18 06:00 Intake and Output: 08/23/18 08/23/18 06:59 18:59 Intake Total 890 Balance 890 - Medications Medications: Current Medications Acetaminophen (Tylenol 325mg Tab) 650 mg PO Q6H PRN PRN Reason: Temperature Last Admin: 08/22/18 14:20 Dose: 650 mg Albuterol/Ipratropium (Duoneb 3 Mg/0.5 Mg (3 Ml) Ud) 3 ml IH [id number] [facility] Last Admin: 08/23/18 13:32 Dose: 3 ml Albuterol/Ipratropium (Duoneb 3 Mg/0.5 Mg (3 Ml) Ud) 3 ml IH Q2H PRN PRN Reason: Shortness of Breath Budesonide (Pulmicort Respules) 0.5 mg IH [id number] [facility] Last Admin: 08/23/18 07:42 Dose: 0.5 mg Docusate Sodium (Colace) 100 mg PO Q4H PRN PRN Reason: Constipation Last Admin: 08/22/18 23:44 Dose: 100 mg Doxycycline Hyclate (Doryx) 100 mg PO Q12 [facility]; Protocol Last Admin: 08/23/18 10:34 Dose: 100 mg Fentanyl (Fentanyl) 25 mcg IV Q5M PRN PRN Reason: Pain, moderate (4-7) Aztreonam (Azactam 1 Gm) 100 mls @ 100 mls/hr IVPB Q8 [facility]; Protocol Stop: 08/25/18 14:01 Last Admin: 08/23/18 09:24 Dose: 100 mls/hr Metronidazole (Flagyl) 500 mg in 100 mls @ 100 mls/hr IVPB Q8 [facility]; Protocol Last Admin: 08/23/18 08:14 Dose: 100 mls/hr Vancomycin HCl (Vancomycin 1gm) 1 gm in 250 mls @ 167 mls/hr IVPB Q12H [facility]; Protocol Last Admin: 08/23/18 13:17 Dose: 167 mls/hr Ibuprofen (Motrin Tab) 200 mg PO Q6H PRN PRN Reason: Temperature Last Admin: 08/23/18 14:19 Dose: 200 mg Lidocaine (Lidocaine 5%) 0 gm TOP DAILY [facility] Last Admin: 08/23/18 10:37 Dose: 1 applic Ondansetron HCl (Zofran Inj) 4 mg IVP Q6H PRN PRN Reason: Nausea/Vomiting Last Admin: 08/21/18 21:41 Dose: 4 mg Silver Sulfadiazine (Silvadene 1% 25 Gm) 0 gm TP BID [facility] Last Admin: 08/23/18 10:37 Dose: 25 gm Tramadol HCl (Ultram) 50 mg PO TID PRN PRN Reason: Pain, Mild (1-3) - Labs Labs: 08/23/18 09:45 08/23/18 09:45 PT 12.1 SECONDS (9.4-12.5) 08/17/18 17:56 INR 1.09 08/17/18 17:56 APTT 25.7 Seconds (26.9-38.3) L 08/17/18 17:56 - Constitutional Appears: No Acute Distress, Chronically Ill - Head Exam Head Exam: NORMAL INSPECTION - Neck Exam Neck Exam: absent: Meningismus - Respiratory Exam Respiratory Exam: Decreased Breath Sounds - Cardiovascular Exam Cardiovascular Exam: +S1, +S2 - GI/Abdominal Exam GI & Abdominal Exam: Soft. absent: Tenderness Assessment and Plan - Assessment and Plan (Free Text) Plan: Assessment perianal abscess after hemorrhoidectomy S/P surgery and chronic wound noted consider bilateral HCAP gastritis Plan continue Vancomycin, Azactam and Doxycycline with Flagyl day 6 and follow up OR cultures - reviewed CT chest, abdomen and pelvis which shows pneumonitis; complete up to 7 days of antibiotics will continue to monitor clinically follow up HIV test - done due to her age discussed with Dr. Medrano previously
--- NOTE | 2018-08-23 17:15 | CP.PCM.PN ---
Subjective - Date & Time of Evaluation Date of Evaluation: 08/23/18 Time of Evaluation: 07:55 - Subjective Subjective: Surgery progress note, Dr. Dobson Patient seen and examined at bedside. Rectal pain improving. no fever overnight. She is tolerating diet, ambulating OOB and has regular BM. Patient denied fever, chills, abd pain, change in bowel movement. Objective - Vital Signs/Intake and Output Vital Signs (last 24 hours): Temp Pulse Resp BP Pulse Ox 100.5 F H 105 H 20 154/74 H 95 08/23/18 14:19 08/23/18 14:00 08/23/18 14:00 08/23/18 14:00 08/23/18 14:00 Intake and Output: 08/23/18 08/23/18 06:59 18:59 Intake Total 890 1500 Balance 890 1500 - Medications Medications: Current Medications Acetaminophen (Tylenol 325mg Tab) 650 mg PO Q6H PRN PRN Reason: Temperature Last Admin: 08/22/18 14:20 Dose: 650 mg Albuterol/Ipratropium (Duoneb 3 Mg/0.5 Mg (3 Ml) Ud) 3 ml IH [id number] [facility] Last Admin: 08/23/18 13:32 Dose: 3 ml Albuterol/Ipratropium (Duoneb 3 Mg/0.5 Mg (3 Ml) Ud) 3 ml IH Q2H PRN PRN Reason: Shortness of Breath Budesonide (Pulmicort Respules) 0.5 mg IH [id number] [facility] Last Admin: 08/23/18 07:42 Dose: 0.5 mg Docusate Sodium (Colace) 100 mg PO Q4H PRN PRN Reason: Constipation Last Admin: 08/22/18 23:44 Dose: 100 mg Doxycycline Hyclate (Doryx) 100 mg PO Q12 [facility]; Protocol Last Admin: 08/23/18 10:34 Dose: 100 mg Fentanyl (Fentanyl) 25 mcg IV Q5M PRN PRN Reason: Pain, moderate (4-7) Aztreonam (Azactam 1 Gm) 100 mls @ 100 mls/hr IVPB Q8 [facility]; Protocol Stop: 08/25/18 14:01 Last Admin: 08/23/18 09:24 Dose: 100 mls/hr Metronidazole (Flagyl) 500 mg in 100 mls @ 100 mls/hr IVPB Q8 [facility]; Protocol Last Admin: 08/23/18 08:14 Dose: 100 mls/hr Vancomycin HCl (Vancomycin 1gm) 1 gm in 250 mls @ 167 mls/hr IVPB Q12H [facility]; Protocol Last Admin: 08/23/18 13:17 Dose: 167 mls/hr Ibuprofen (Motrin Tab) 200 mg PO Q6H PRN PRN Reason: Temperature Last Admin: 08/23/18 14:19 Dose: 200 mg Lidocaine (Lidocaine 5%) 0 gm TOP DAILY [facility] Last Admin: 08/23/18 10:37 Dose: 1 applic Ondansetron HCl (Zofran Inj) 4 mg IVP Q6H PRN PRN Reason: Nausea/Vomiting Last Admin: 08/21/18 21:41 Dose: 4 mg Silver Sulfadiazine (Silvadene 1% 25 Gm) 0 gm TP BID [facility] Last Admin: 08/23/18 10:37 Dose: 25 gm Tramadol HCl (Ultram) 50 mg PO TID PRN PRN Reason: Pain, Mild (1-3) - Labs Labs: 08/23/18 09:45 08/23/18 09:45 PT 12.1 SECONDS (9.4-12.5) 08/17/18 17:56 INR 1.09 08/17/18 17:56 APTT 25.7 Seconds (26.9-38.3) L 08/17/18 17:56 - Additional Findings Additional findings: - Constitutional Appears: Non-toxic, No Acute Distress - Head Exam Head Exam: ATRAUMATIC, NORMOCEPHALIC - Eye Exam Eye Exam: EOMI - ENT Exam ENT Exam: Mucous Membranes Moist - Neck Exam Neck exam: Positive for: Full Rom - Respiratory Exam Respiratory Exam: Decreased Breath Sounds. absent: Accessory Muscle Use, Respiratory Distress - Cardiovascular Exam Cardiovascular Exam: RRR - GI/Abdominal Exam GI & Abdominal Exam: Soft. absent: Tenderness - Extremities Exam Extremities exam: Negative for: calf tenderness, pedal pulses present - Neurological Exam Neurological exam: Alert, Oriented x3 Assessment and Plan - Assessment and Plan (Free Text) Assessment: 63 y/o female s/p hemorrhoidectomy in 04/2018 admitted for rectal pain/purulent discharge that is persistent since surgery HCAP Gastritis Plan: -Patient is clinically improving, no SOB, afebrile -planing for biopsy if patient still hospitalized on 08/26 -continue sitz bath, miralax, colace -continue regular diet -further recs per surgical attending Dr. Bronson Joshua, DO
--- NOTE | 2018-08-23 23:48 | CON ---
DATE: 08/23/2018 HEMATOLOGY CONSULTATION HISTORY OF PRESENT ILLNESS: This is a 63-year-old woman with increased monocytosis. The patient is admitted for severe rectal pain and rectal abscess due to severe hemorrhoids. She is on antibiotics for this, however, her monocytes seem to be going up. The were originally 7%, now they are 11% of the white cells and the white cells total numbers on the 10. PHYSICAL EXAMINATION: SKIN: No petechiae. No bruises. HEENT: Anicteric. Nodes nonpalpable in the axillary, cervical, and supraclavicular, or inguinal regions. LUNGS: Clear at present. No vertebral tenderness. HEART: S1, S2. BREAST: Shows no mass. ABDOMEN: Shows no liver, no spleen, no tenderness, no rebound, no ascites. EXTREMITIES: No edema. CENTRAL NERVOUS SYSTEM: No focal finding. LABORATORY DATA: Peripheral smear shows somewhat mildly increased monocytes, some Onward cells but no blast. PLAN: I will order a flow cytometry on the peripheral smear to evaluate this, but I think this is mostly reactive, and the results will take few days to get back. Eldon Quach MD
[2018-08-24] MEDS: guaiFENesin 100 mg/5 ml Syrup UD PO PRN ×2 (00:43→22:18)
[2018-08-24] MEDS: Vancomycin 1gm in NS 250ml 1 GM/250 ML BAG IVPB SCH ×3 (02:27→23:41)
[2018-08-24] MEDS: Albuterol-Ipratrop 3 mg / 0.5 (3 ml) UD IH SCH ×3 (04:22→19:51)
[2018-08-24] MEDS: metroNIDAZOLE IV 500 mg/100 ml 500 MG/100 ML BAG IVPB SCH ×3 (04:38→22:16)
[2018-08-24] MEDS: Aztreonam 1 Gm in NS 100mL 100 ML IVPB SCH ×3 (06:08→22:19)
--- NOTE | 2018-08-24 09:36 | CP.PCM.PN ---
Subjective - Date & Time of Evaluation Date of Evaluation: 08/24/18 Time of Evaluation: 07:10 - Subjective Subjective: Surgery progress note, Dr. Dobson Patient seen and examined at bedside. Rectal pain improving. Tmax 103.1 last night associated with sweating. She has regular bowel movement and tolerating her diet. Patient denied abdominal pain, change in bowel movement, hematochezia, melena Objective - Vital Signs/Intake and Output Vital Signs (last 24 hours): Temp Pulse Resp BP Pulse Ox 99 F 90 18 113/74 96 08/24/18 06:00 08/24/18 06:00 08/24/18 06:00 08/24/18 06:00 08/24/18 06:00 Intake and Output: 08/24/18 08/24/18 06:59 18:59 Intake Total 600 Balance 600 - Medications Medications: Current Medications Acetaminophen (Tylenol 325mg Tab) 650 mg PO Q6H PRN PRN Reason: Temperature Last Admin: 08/22/18 14:20 Dose: 650 mg Albuterol/Ipratropium (Duoneb 3 Mg/0.5 Mg (3 Ml) Ud) 3 ml IH [id number] [facility] Last Admin: 08/24/18 04:22 Dose: 3 ml Albuterol/Ipratropium (Duoneb 3 Mg/0.5 Mg (3 Ml) Ud) 3 ml IH Q2H PRN PRN Reason: Shortness of Breath Budesonide (Pulmicort Respules) 0.5 mg IH [id number] [facility] Last Admin: 08/23/18 19:51 Dose: 0.5 mg Docusate Sodium (Colace) 100 mg PO Q4H PRN PRN Reason: Constipation Last Admin: 08/22/18 23:44 Dose: 100 mg Doxycycline Hyclate (Doryx) 100 mg PO Q12 [facility]; Protocol Last Admin: 08/23/18 22:18 Dose: 100 mg Fentanyl (Fentanyl) 25 mcg IV Q5M PRN PRN Reason: Pain, moderate (4-7) Guaifenesin (Robitussin) 100 mg PO Q4H PRN PRN Reason: Cough Last Admin: 08/24/18 00:43 Dose: 100 mg Aztreonam (Azactam 1 Gm) 100 mls @ 100 mls/hr IVPB Q8 [facility]; Protocol Stop: 08/25/18 14:01 Last Admin: 08/24/18 06:08 Dose: 100 mls/hr Metronidazole (Flagyl) 500 mg in 100 mls @ 100 mls/hr IVPB Q8 [facility]; Protocol Last Admin: 08/24/18 04:38 Dose: 100 mls/hr Vancomycin HCl (Vancomycin 1gm) 1 gm in 250 mls @ 167 mls/hr IVPB Q12H [facility]; Protocol Last Admin: 08/24/18 02:27 Dose: 167 mls/hr Ibuprofen (Motrin Tab) 200 mg PO Q6H PRN PRN Reason: Temperature Last Admin: 08/24/18 00:42 Dose: 200 mg Lidocaine (Lidocaine 5%) 0 gm TOP DAILY [facility] Last Admin: 08/23/18 10:37 Dose: 1 applic Ondansetron HCl (Zofran Inj) 4 mg IVP Q6H PRN PRN Reason: Nausea/Vomiting Last Admin: 08/24/18 01:07 Dose: 4 mg Silver Sulfadiazine (Silvadene 1% 25 Gm) 0 gm TP BID [facility] Last Admin: 08/23/18 10:37 Dose: 25 gm Tramadol HCl (Ultram) 50 mg PO TID PRN PRN Reason: Pain, Mild (1-3) - Labs Labs: 08/23/18 09:45 08/23/18 09:45 PT 12.1 SECONDS (9.4-12.5) 08/17/18 17:56 INR 1.09 08/17/18 17:56 APTT 25.7 Seconds (26.9-38.3) L 08/17/18 17:56 - Constitutional Appears: Well, No Acute Distress - Head Exam Head Exam: ATRAUMATIC, NORMAL INSPECTION, NORMOCEPHALIC - Eye Exam Eye Exam: EOMI, Normal appearance, PERRL Pupil Exam: NORMAL ACCOMODATION, PERRL - ENT Exam ENT Exam: Mucous Membranes Moist - Neck Exam Neck Exam: Full ROM, Normal Inspection. absent: Lymphadenopathy - Respiratory Exam Respiratory Exam: Clear to Ausculation Bilateral, NORMAL BREATHING PATTERN - Cardiovascular Exam Cardiovascular Exam: REGULAR RHYTHM, +S1, +S2 - GI/Abdominal Exam GI & Abdominal Exam: Soft, Normal Bowel Sounds. absent: Tenderness - Extremities Exam Extremities Exam: Full ROM, Normal Capillary Refill, Normal Inspection. absent: Joint Swelling, Pedal Edema - Neurological Exam Neurological Exam: Alert, Awake, Oriented x3 - Psychiatric Exam Psychiatric exam: Normal Affect, Normal Mood - Skin Skin Exam: Diaphoretic, Intact, Normal Color Assessment and Plan - Assessment and Plan (Free Text) Assessment: 63 y/o female s/p hemorrhoidectomy in 04/2018 admitted for rectal pain/purulent discharge that is persistent since surgery. Tmax 103.1 yesterday, improved this am. HCAP Gastritis Plan: -Patient is clinically improving, no SOB -planing for biopsy if patient still hospitalized on 08/26 -continue sitz bath, miralax, colace -continue management per ID and primary team -continue regular diet -further recs per surgical attending Dr. Bronson Joshua, DO
[2018-08-24] MEDS: Silver Sulfadiazine 1% Cream (25 gm) TP SCH ×2 (10:05→17:54)
[2018-08-24] MEDS: Lidocaine 5% Oint(35 gm) TOP SCH (10:06)
--- NOTE | 2018-08-24 11:17 | PN ---
DATE: 08/24/2018 SUBJECTIVE: The patient appears comfortable this morning. She is not short of breath at rest. PHYSICAL EXAMINATION: VITAL SIGNS: Temperature 99.2, pulse 88, respiratory rate 18, last blood pressure recorded is 154/74. Oxygen saturation on room air is 95%. HEENT: Normocephalic, atraumatic. NECK: No JVD. CARDIOVASCULAR: Positive S1, S2. No S3 gallop. LUNGS: Minimal crackles at the bases. Very minimal/less rhonchi. No wheezing. EXTREMITIES: No clubbing, cyanosis or edema. Calves are nontender to palpation. GI: Abdomen is soft, nontender and nondistended. Bowel sounds are positive. SKIN: No acute rash. NEUROLOGIC: Exam limited at the present time. IMPRESSION: 1. Community-acquired pneumonia, possibly atypical. 2. Mild bronchospasm. 3. Perianal abscess. 4. Mild anemia. PLAN: The patient appears comfortable this morning. She is not short of breath at rest. She states to coughing much less. She does state that her breathing is much better overall. On physical exam, her bronchospasm continues to resolve. In addition, there is no significant alveolar-arterial gradient. I will continue with the current nebulizer treatments for now. Inputs by Surgery, Infectious Disease, and Hematology/Oncology are noted. After a period of resolving temperatures, the patient does have persistent fevers. She is afebrile this morning. Clinical status of the patient is improved - compared to the initial presentation. However, she does remain guarded overall. I will discuss the above with the attending physician. Griffin Medrano MD MTDJyotsna
[2018-08-24 11:20] LABS: BASO # 0.01 K/mm3 (0.0-2.0); BASO % 0.2 % (0.0-3.0); EOS % 0.3 % (1.5-5.0); HEMOGLOBIN 9.3 g/dL (12.0-16.0); LYMPH # 0.7 (1.2-3.4); LYMPH % 11.4 % (22.0-35.0); MEAN CELL VOLUME 86.2 fl (80.0-105.0); MEAN CORPUSCULAR HEMOGLOBIN 29.2 pg (25.0-35.0); MEAN CORPUSCULAR HGB CONC 33.9 g/dl (31.0-37.0); MEAN PLATELET VOLUME 10.2 fl (7.0-11.0); MONO # 0.4 (0.1-0.6); MONO % 5.6 % (1.0-6.0); RBC 3.18 10^6/uL (3.5-6.1); RED CELL DISTRIBUTION WIDTH 14.8 % (11.5-14.5); WHITE BLOOD COUNT 6.2 10^3/uL (4.5-11.0)
[2018-08-24 11:45] LABS: ALBUMIN 2.9 g/dL (3.0-4.8); ALT/SGPT 26 U/L (7-56); AST/SGOT 29 U/L (14-36); BLOOD UREA NITROGEN 6 mg/dL (7-21); CALCIUM 8.3 mg/dL (8.4-10.5); GFR NON-AFRICAN AMERICAN > 60
[2018-08-24] MEDS ORDERED: Magnesium Sulfate 1 gm in D5W 1 GM/100 ML BAG IVPB ONE (13:23)
[2018-08-24] MEDS: Potassium Chloride 20 mEq ER Tab PO SCH ×2 (13:34→17:38)
[2018-08-24] MEDS: Budesonide 0.5 mg/2 ml Inhal Susp UD IH SCH ×2 (13:38→19:51)
[2018-08-24] MEDS: Atovaquone 750 mg/5 ml Susp UD PO SCH ×2 (14:29→17:53)
--- NOTE | 2018-08-24 14:32 | CP.PCM.PN ---
Subjective - Date & Time of Evaluation Date of Evaluation: 08/24/18 Time of Evaluation: 10:00 - Subjective Subjective: Had fevers post-op, cough is getting better but it is still there, no diarrhea, no abdominal pain, no nausea. Objective - Vital Signs/Intake and Output Vital Signs (last 24 hours): Temp Pulse Resp BP Pulse Ox 100.5 F H 87 20 84/49 L 95 08/23/18 14:19 08/23/18 06:00 08/23/18 06:00 08/23/18 06:00 08/23/18 06:00 Intake and Output: 08/23/18 08/23/18 06:59 18:59 Intake Total 890 Balance 890 - Medications Medications: Current Medications Acetaminophen (Tylenol 325mg Tab) 650 mg PO Q6H PRN PRN Reason: Temperature Last Admin: 08/22/18 14:20 Dose: 650 mg Albuterol/Ipratropium (Duoneb 3 Mg/0.5 Mg (3 Ml) Ud) 3 ml IH [id number] [facility] Last Admin: 08/23/18 13:32 Dose: 3 ml Albuterol/Ipratropium (Duoneb 3 Mg/0.5 Mg (3 Ml) Ud) 3 ml IH Q2H PRN PRN Reason: Shortness of Breath Budesonide (Pulmicort Respules) 0.5 mg IH [id number] [facility] Last Admin: 08/23/18 07:42 Dose: 0.5 mg Docusate Sodium (Colace) 100 mg PO Q4H PRN PRN Reason: Constipation Last Admin: 08/22/18 23:44 Dose: 100 mg Doxycycline Hyclate (Doryx) 100 mg PO Q12 [facility]; Protocol Last Admin: 08/23/18 10:34 Dose: 100 mg Fentanyl (Fentanyl) 25 mcg IV Q5M PRN PRN Reason: Pain, moderate (4-7) Aztreonam (Azactam 1 Gm) 100 mls @ 100 mls/hr IVPB Q8 [facility]; Protocol Stop: 08/25/18 14:01 Last Admin: 08/23/18 09:24 Dose: 100 mls/hr Metronidazole (Flagyl) 500 mg in 100 mls @ 100 mls/hr IVPB Q8 [facility]; Protocol Last Admin: 02/04/19 08:14 Dose: 100 mls/hr Vancomycin HCl (Vancomycin 1gm) 1 gm in 250 mls @ 167 mls/hr IVPB Q12H [facility]; Protocol Last Admin: 08/23/18 13:17 Dose: 167 mls/hr Ibuprofen (Motrin Tab) 200 mg PO Q6H PRN PRN Reason: Temperature Last Admin: 08/23/18 14:19 Dose: 200 mg Lidocaine (Lidocaine 5%) 0 gm TOP DAILY [facility] Last Admin: 08/23/18 10:37 Dose: 1 applic Ondansetron HCl (Zofran Inj) 4 mg IVP Q6H PRN PRN Reason: Nausea/Vomiting Last Admin: 08/21/18 21:41 Dose: 4 mg Silver Sulfadiazine (Silvadene 1% 25 Gm) 0 gm TP BID [facility] Last Admin: 08/23/18 10:37 Dose: 25 gm Tramadol HCl (Ultram) 50 mg PO TID PRN PRN Reason: Pain, Mild (1-3) - Labs Labs: 08/23/18 09:45 08/23/18 09:45 PT 12.1 SECONDS (9.4-12.5) 08/17/18 17:56 INR 1.09 08/17/18 17:56 APTT 25.7 Seconds (26.9-38.3) L 08/17/18 17:56 - Constitutional Appears: Chronically Ill - Head Exam Head Exam: NORMAL INSPECTION - Respiratory Exam Respiratory Exam: Decreased Breath Sounds - Cardiovascular Exam Cardiovascular Exam: +S1, +S2 - GI/Abdominal Exam GI & Abdominal Exam: Soft. absent: Tenderness Assessment and Plan - Assessment and Plan (Free Text) Plan: Assessment perianal abscess after hemorrhoidectomy S/P surgery and chronic wound noted; new onset SIRS with post-op fever consider bilateral HCAP 4th generation HIV test is positive gastritis Plan continue Vancomycin, Azactam and Doxycycline with Flagyl day 7 and follow up OR cultures - reviewed CT chest, abdomen and pelvis which shows pneumonitis; will repeat blood cx, check rapid flu test and start Tamiflu because of the new onset fevers will continue to monitor clinically discussed with Dr. Medrano and Dr. Kramer - will get HIV PCR, CD4 count, RPR, serum Crypt Ag and start PJP prophylaxis with Mepron and will monitor clinically Dr. Kramer will discuss with patient about the HIV test result
--- NOTE | 2018-08-24 15:01 | PN ---
DATE: 08/23/2018 SUBJECTIVE: The patient is a 63-year-old female with essentially past medical history who underwent hemorrhoidectomy at another facility in 04/2018. Since then, she had been complaining of perianal pain, which began oozing an exudate, perirectal abscess with purulent drainage that became so severe, the patient was actually bedridden until she developed a cough at which time she presented to the emergency room, was diagnosed with bilateral pneumonia and perirectal abscess. She was seen by Dr. Dobson, who took the patient and under anesthesia performed proctoscopy. He found a shallow rectal fissure and some perirectal excoriations. No further surgical intervention was necessary at that time. I spoke with Dr. Dobson and he suggested Silvadene topical treatment would be sufficient and her wounds will heal with time. She has also been followed by Dr. Garcia, the Infectious Disease specialist. She is on Azactam, vancomycin, and Flagyl. Over the past six days that the patient has been hospitalized, she has been improving, she is eating more, her bowel movements are soft. There is less pain, less tenderness. PHYSICAL EXAMINATION: Essentially unchanged. VITAL SIGNS: Her blood pressure was 84/49. HEART: Regular. LUNGS: Clear. ABDOMEN: Soft. LABORATORY DATA: White blood cell count is 7.5, hemoglobin and hematocrit 10.3 and 30.1 respectively. Sodium is 137, potassium is 3, blood urea nitrogen is 9, creatinine 0.8, and glucose is 147. ASSESSMENT AND PLAN: We are continuing with current regimen and the patient is to be reevaluated in the morning. Scott Kramer MD
[2018-08-24] MEDS ORDERED: Pantoprazole 40 mg EC Tab PO ONE (19:20)
--- NOTE | 2018-08-24 20:55 | US ---
HISTORY: Leg pain and swelling. Evaluate for DVT PHYSICIAN(S): Chris Leon MD. TECHNIQUE: Duplex sonography and color-flow Doppler with graded compression were used to evaluate the deep venous systems of both lower extremities. FINDINGS: The visualized deep venous systems of both lower extremities are sonographically normal and compressible. Normal wave forms and augmentation are seen. There is no sonographic evidence for deep venous thrombosis in the visualized segments of both lower extremities. IMPRESSION: No sonographic evidence for deep venous thrombosis in the visualized segments of both lower extremities.
--- NOTE | 2018-08-25 00:08 | PN ---
DATE: 08/24/2018 I came to see the patient this Thursday mid in room 575. Unfortunately, there were quite a few visitors in the next bed and the patient's brother was visiting her as well. She was aware of something was turned up in the blood test , but did not know the details and did not want her brother to know. So, she asked me to be discrete and to come back later. She had been changed to isolation because of the concern of influenza that had been ordered by Infectious Disease consultants. When I returned late this Thursday evening, the patient was in the same private room, but a private room with no visitors. I sat with her and spoke to her at great length explaining that it was the low white count on admission in the setting of 4 months of chronic draining perianal wound, and a new bilateral pneumonia that made me suspicious of her low WBC count. I explained to her that her HIV status is positive. We spoke at length regarding possible causes. She is for 20 years after her was cheating on her. Her two sons are 20 and 26 years old. She has not had sex with anyone since then. She has never used IV drugs. There are no other blood or body fluid risk events in the past. She has not donated blood for at least the last 20 or 25 years and has never been tested for HIV, hepatitis A and B, or C in that interim time. I explained the difference stages from HIV to AIDS and my concern about opportunistic infections. She asked about what is next. I explained the importance of close Infectious Disease follow up. She will be started on medications in the near future and perhaps even PCP coverage. Case was discussed earlier this morning at great length with Dr. Queen, Infectious Disease claims consultant, RNA/PCR quantitative viral load has been ordered. We will check CD4 count and follow the lead from Infectious Disease regarding antibiotic and pathogen coverage. The patient at this time request that her brother not be informed of these findings and she will decide when and if it is best for her to tell her two sons. Sudarshan Kramer MD J[facility]
[2018-08-25] MEDS: Albuterol-Ipratrop 3 mg / 0.5 (3 ml) UD IH SCH ×4 (01:25→19:41)
[2018-08-25] MEDS: guaiFENesin 100 mg/5 ml Syrup UD PO PRN ×2 (03:38→12:57)
[2018-08-25] MEDS: Budesonide 0.5 mg/2 ml Inhal Susp UD IH SCH ×2 (07:29→19:41)
[2018-08-25 07:43] LABS: HEMOGLOBIN 9.5 g/dL (12.0-16.0); MEAN CELL VOLUME 86.1 fl (80.0-105.0); MEAN CORPUSCULAR HEMOGLOBIN 29.4 pg (25.0-35.0); MEAN CORPUSCULAR HGB CONC 34.2 g/dl (31.0-37.0); MEAN PLATELET VOLUME 10.3 fl (7.0-11.0); RBC 3.23 10^6/uL (3.5-6.1); RED CELL DISTRIBUTION WIDTH 14.9 % (11.5-14.5); WHITE BLOOD COUNT 9.8 10^3/uL (4.5-11.0)
[2018-08-25 08:05] LABS: BLOOD UREA NITROGEN 7 mg/dL (7-21); CALCIUM 8.3 mg/dL (8.4-10.5); GFR NON-AFRICAN AMERICAN > 60
--- NOTE | 2018-08-25 08:29 | PN ---
DATE: 08/25/2018 SUBJECTIVE: The patient appears comfortable this morning. She is not short of breath at rest. PHYSICAL EXAMINATION: VITAL SIGNS (Last noted in the computer): Temperature 101.0, pulse 100, respiratory rate 18/20, blood pressure 142/76. Oxygen saturation on room air is 98%. HEENT: Normocephalic, atraumatic. NECK: No JVD. CARDIOVASCULAR: Positive S1, S2. No S3 gallop. LUNGS: Minimal crackles at the bases. NO rhonchi. No wheezing. EXTREMITIES: No clubbing, cyanosis or edema. Calves are nontender to palpation. GI: Abdomen is soft, nontender and nondistended. Bowel sounds are positive. SKIN: No acute rash. NEUROLOGIC: Exam limited at the present time. IMPRESSION: 1. Community-acquired pneumonia, possibly atypical. 2. Mild bronchospasm - resolved. 3. Perianal abscess. 4. Mild anemia. 5. Human immunodeficiency virus positivity. PLAN: The patient appears comfortable this morning. She is not short of breath at rest. Her cough is much less. She does state that her breathing is much better overall. On physical exam, there is no bronchospasm this morning. In addition, the oxygen saturation on room air is now 98%. I will continue with the current nebulizer treatments and inhaled steroids for now. I did discuss the case with Dr. Queen (Infectious Disease) at length yesterday. The patient did present with low-grade fevers to the hospital - which resolved. It was not until after the surgery, did the patient begin to spike significant fevers. The patient was started on Mepron yesterday. Dr. Queen will consider adding Bactrim. However, this would be a most atypical presentation for pneumocystis carinii pneumonia. The CAT scan is not consistent with pneumocystis carinii pneumonia. In addition, there is NO alveolar-arterial gradient. Inputs by Surgery and Internal Medicine are also noted. Clinical status of the patient remains guarded at this point in time. I will discuss the above with the attending physician. Griffin Medrano MD JER[facility]IMO
[2018-08-25] MEDS: Potassium Chloride 20 mEq ER Tab PO SCH ×3 (10:37→18:09)
[2018-08-25] MEDS: Silver Sulfadiazine 1% Cream (25 gm) TP SCH (10:38)
[2018-08-25] MEDS: Pantoprazole 40 mg EC Tab PO SCH (10:38)
[2018-08-25] MEDS: Atovaquone 750 mg/5 ml Susp UD PO SCH ×2 (10:39→18:10)
[2018-08-25] MEDS: Vancomycin 1gm in NS 250ml 1 GM/250 ML BAG IVPB SCH (10:40)
--- NOTE | 2018-08-25 10:41 | CP.PCM.PN ---
Subjective - Date & Time of Evaluation Date of Evaluation: 08/25/18 Time of Evaluation: 09:30 - Subjective Subjective: Surgery progress note, Dr. Dobson Patient seen and examined at bedside. Tmax 103 last night. Her anal pain improved. Denied abd pain, N/V/D, change in bowel movement. Objective - Vital Signs/Intake and Output Vital Signs (last 24 hours): Temp Pulse Resp BP Pulse Ox 98.6 F 100 H 22 93/61 L 95 08/25/18 10:35 08/25/18 10:35 08/25/18 10:35 08/25/18 10:35 08/25/18 06:00 Intake and Output: 08/25/18 08/25/18 06:59 18:59 Intake Total 640 Balance 640 - Medications Medications: Current Medications Acetaminophen (Tylenol 325mg Tab) 650 mg PO Q6H PRN PRN Reason: Temperature Last Admin: 08/22/18 14:20 Dose: 650 mg Albuterol/Ipratropium (Duoneb 3 Mg/0.5 Mg (3 Ml) Ud) 3 ml IH [id number] [facility] Last Admin: 08/25/18 07:29 Dose: 3 ml Albuterol/Ipratropium (Duoneb 3 Mg/0.5 Mg (3 Ml) Ud) 3 ml IH Q2H PRN PRN Reason: Shortness of Breath Alprazolam (Xanax) 0.25 mg PO Q6H PRN PRN Reason: Anxiety Stop: 08/31/18 19:11 Last Admin: 08/25/18 04:35 Dose: 0.25 mg Atovaquone (Mepron) 750 mg PO BID ON LICENSE OF [facility]; Protocol Last Admin: 08/24/18 17:53 Dose: Not Given Budesonide (Pulmicort Respules) 0.5 mg IH [id number] [facility] Last Admin: 08/25/18 07:29 Dose: 0.5 mg Docusate Sodium (Colace) 100 mg PO Q4H PRN PRN Reason: Constipation Last Admin: 08/22/18 23:44 Dose: 100 mg Doxycycline Hyclate (Doryx) 100 mg PO Q12 [facility]; Protocol Last Admin: 08/24/18 22:17 Dose: 100 mg Guaifenesin (Robitussin) 100 mg PO Q4H PRN PRN Reason: Cough Last Admin: 08/25/18 03:38 Dose: 100 mg Metronidazole (Flagyl) 500 mg in 100 mls @ 100 mls/hr IVPB Q8 ON LICENSE OF [facility]; Protocol Last Admin: 08/24/18 22:16 Dose: 100 mls/hr Vancomycin HCl (Vancomycin 1gm) 1 gm in 250 mls @ 167 mls/hr IVPB Q12H [facility]; Protocol Last Admin: 08/24/18 23:41 Dose: 167 mls/hr Meropenem (Merrem Iv 1 Gm Premix) 1 gm in 50 mls @ 100 mls/hr IVPB Q8 [facility]; Protocol Ibuprofen (Motrin Tab) 200 mg PO Q6H PRN PRN Reason: Temperature Last Admin: 08/25/18 03:38 Dose: 200 mg Lidocaine (Lidocaine 5%) 0 gm TOP DAILY ON LICENSE OF [facility] Last Admin: 08/24/18 10:06 Dose: 1 applic Ondansetron HCl (Zofran Inj) 4 mg IVP Q6H PRN PRN Reason: Nausea/Vomiting Last Admin: 08/24/18 01:07 Dose: 4 mg Oseltamivir Phosphate (Tamiflu Cap) 75 mg PO BID ON LICENSE OF [facility]; Protocol Stop: 08/29/18 10:47 Last Admin: 08/24/18 17:38 Dose: 75 mg Pantoprazole Sodium (Protonix Ec Tab) 40 mg PO ACB ON LICENSE OF [facility] Potassium Chloride (K-Dur 20 Meq Er Tab) 20 meq PO TID ON LICENSE OF [facility] Stop: 08/26/18 18:00 Last Admin: 08/24/18 17:38 Dose: 20 meq Silver Sulfadiazine (Silvadene 1% 25 Gm) 0 gm TP BID ON LICENSE OF [facility] Last Admin: 08/24/18 17:54 Dose: Not Given Tramadol HCl (Ultram) 50 mg PO TID PRN PRN Reason: Pain, Mild (1-3) - Labs Labs: 08/25/18 07:20 08/25/18 07:20 PT 12.1 SECONDS (9.4-12.5) 08/17/18 17:56 INR 1.09 08/17/18 17:56 APTT 25.7 Seconds (26.9-38.3) L 08/17/18 17:56 - Constitutional Appears: Well, No Acute Distress, Cachectic - Head Exam Head Exam: ATRAUMATIC, NORMAL INSPECTION, NORMOCEPHALIC - Cardiovascular Exam Cardiovascular Exam: +S1, +S2. absent: Murmur - GI/Abdominal Exam GI & Abdominal Exam: Soft, Normal Bowel Sounds. absent: Tenderness - Neurological Exam Neurological Exam: Alert, Awake - Psychiatric Exam Psychiatric exam: Normal Affect, Normal Mood - Skin Skin Exam: Dry, Intact, Normal Color, Warm Assessment and Plan - Assessment and Plan (Free Text) Assessment: 63 y/o female with rectal pain/purulent discharge s/p hemorrhoidectomy in 04/2018. Now s/p rectal exam under anesthesia and sigmoidoscopy POD 5. intermittent fevers Tmax 103 improving HCAP Gastritis Plan: -planing for skin biopsy tomorrow -continue sitz bath, miralax, colace -NPO after midnight -continue management per ID and primary team -further recs per surgical attending Dr. Bronson Joshua, DO
[2018-08-25] MEDS: metroNIDAZOLE IV 500 mg/100 ml 500 MG/100 ML BAG IVPB SCH ×2 (13:02→15:07)
[2018-08-25] MEDS: Meropenem IV 1 gm in NS 1 GM/50 ML BAG IVPB SCH (13:03)
[2018-08-25] MEDS: Lidocaine 5% Oint(35 gm) TOP SCH (13:50)
--- NOTE | 2018-08-25 14:21 | CP.PCM.PN ---
Subjective - Date & Time of Evaluation Date of Evaluation: 08/25/18 Time of Evaluation: 09:40 - Subjective Subjective: Patient is still having fevers but no chills or rigors, cough is improving, abdominal pain is improved, still with some pain in the perianal area but improved as well. Objective - Vital Signs/Intake and Output Vital Signs (last 24 hours): Temp Pulse Resp BP Pulse Ox 102.9 F H 90 18 113/74 96 08/24/18 14:28 08/24/18 06:00 08/24/18 06:00 08/24/18 06:00 08/24/18 06:00 Intake and Output: 08/24/18 08/24/18 06:59 18:59 Intake Total 600 Balance 600 - Medications Medications: Current Medications Acetaminophen (Tylenol 325mg Tab) 650 mg PO Q6H PRN PRN Reason: Temperature Last Admin: 08/22/18 14:20 Dose: 650 mg Albuterol/Ipratropium (Duoneb 3 Mg/0.5 Mg (3 Ml) Ud) 3 ml IH [id number] [facility] Last Admin: 08/24/18 13:38 Dose: 3 ml Albuterol/Ipratropium (Duoneb 3 Mg/0.5 Mg (3 Ml) Ud) 3 ml IH Q2H PRN PRN Reason: Shortness of Breath Atovaquone (Mepron) 750 mg PO BID [facility]; Protocol Last Admin: 08/24/18 14:29 Dose: Not Given Budesonide (Pulmicort Respules) 0.5 mg IH [id number] [facility] Last Admin: 08/24/18 13:38 Dose: 0.5 mg Docusate Sodium (Colace) 100 mg PO Q4H PRN PRN Reason: Constipation Last Admin: 08/22/18 23:44 Dose: 100 mg Doxycycline Hyclate (Doryx) 100 mg PO Q12 [facility]; Protocol Last Admin: 08/24/18 10:05 Dose: 100 mg Guaifenesin (Robitussin) 100 mg PO Q4H PRN PRN Reason: Cough Last Admin: 08/24/18 00:43 Dose: 100 mg Aztreonam (Azactam 1 Gm) 100 mls @ 100 mls/hr IVPB Q8 [facility]; Protocol Stop: 08/25/18 14:01 Last Admin: 08/24/18 13:31 Dose: 100 mls/hr Metronidazole (Flagyl) 500 mg in 100 mls @ 100 mls/hr IVPB Q8 [facility]; Protocol Last Admin: 08/24/18 13:32 Dose: 100 mls/hr Vancomycin HCl (Vancomycin 1gm) 1 gm in 250 mls @ 167 mls/hr IVPB Q12H [facility]; Protocol Last Admin: 08/24/18 10:05 Dose: 167 mls/hr Ibuprofen (Motrin Tab) 200 mg PO Q6H PRN PRN Reason: Temperature Last Admin: 08/24/18 14:28 Dose: 200 mg Lidocaine (Lidocaine 5%) 0 gm TOP DAILY [facility] Last Admin: 08/24/18 10:06 Dose: 1 applic Ondansetron HCl (Zofran Inj) 4 mg IVP Q6H PRN PRN Reason: Nausea/Vomiting Last Admin: 08/24/18 01:07 Dose: 4 mg Oseltamivir Phosphate (Tamiflu Cap) 75 mg PO BID [facility]; Protocol Stop: 08/29/18 10:47 Last Admin: 08/24/18 13:37 Dose: 75 mg Potassium Chloride (K-Dur 20 Meq Er Tab) 20 meq PO TID [facility] Stop: 08/26/18 18:00 Last Admin: 08/24/18 13:34 Dose: 20 meq Silver Sulfadiazine (Silvadene 1% 25 Gm) 0 gm TP BID [facility] Last Admin: 08/24/18 10:05 Dose: 1 gm Tramadol HCl (Ultram) 50 mg PO TID PRN PRN Reason: Pain, Mild (1-3) - Labs Labs: 08/24/18 11:00 08/24/18 11:00 PT 12.1 SECONDS (9.4-12.5) 08/17/18 17:56 INR 1.09 08/17/18 17:56 APTT 25.7 Seconds (26.9-38.3) L 08/17/18 17:56 - Constitutional Appears: No Acute Distress, Cachectic, Chronically Ill - Head Exam Head Exam: NORMAL INSPECTION - Respiratory Exam Respiratory Exam: Decreased Breath Sounds - Cardiovascular Exam Cardiovascular Exam: +S1, +S2 - GI/Abdominal Exam GI & Abdominal Exam: Soft. 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 Medrano and Dr. Kramer - follow up HIV PCR, CD4 count, RPR, serum Crypt Ag and start PJP prophylaxis with Mepron and will monitor clinically - LDH is normal which is against active PJP infection Dr. Kramer has discussed with patient about the HIV test result will get CMV PCR surgery planning on more intervention
[2018-08-25] MEDS ORDERED: Potassium Chloride 20 MEQ in Dextrose 5%/0.9% NS 1,000 ML IV SCH (21:00)
[2018-08-26] MEDS: metroNIDAZOLE IV 500 mg/100 ml 500 MG/100 ML BAG IVPB SCH ×3 (00:05→06:20)
[2018-08-26] MEDS: guaiFENesin 100 mg/5 ml Syrup UD PO PRN (00:07)
[2018-08-26] MEDS: Meropenem IV 1 gm in NS 1 GM/50 ML BAG IVPB SCH ×5 (00:09→22:11)
[2018-08-26] MEDS: Albuterol-Ipratrop 3 mg / 0.5 (3 ml) UD IH SCH ×4 (01:30→20:56)
[2018-08-26 01:54] LABS: ARTERIAL BLOOD GAS O2 SAT 99.3 % (95-98); ARTERIAL BLOOD GAS PCO2 33 mm/Hg (35-45); ARTERIAL BLOOD GAS PH 7.32 (7.35-7.45)
[2018-08-26 02:33] LABS: LYMPH # 0.4 (1.2-3.4); LYMPH % 4.3 % (22.0-35.0); MEAN CELL VOLUME 86.7 fl (80.0-105.0); MEAN CORPUSCULAR HEMOGLOBIN 29.9 pg (25.0-35.0); MEAN CORPUSCULAR HGB CONC 34.5 g/dl (31.0-37.0); MEAN PLATELET VOLUME 10.2 fl (7.0-11.0); MONO # 0.3 (0.1-0.6); MONO % 3.6 % (1.0-6.0); PLATELET COUNT 258 10^3/uL (120.0-450.0); RBC 3.01 10^6/uL (3.5-6.1); RED CELL DISTRIBUTION WIDTH 15.2 % (11.5-14.5); WHITE BLOOD COUNT 8.8 10^3/uL (4.5-11.0)
[2018-08-26 03:00] LABS: ALB/GLOB RATIO 0.9 (1.1-1.8); ALBUMIN 2.5 g/dL (3.0-4.8); ALT/SGPT 15 U/L (7-56); AST/SGOT 29 U/L (14-36); B-TYPE NATRIURETIC PEPTIDE 3830 pg/mL (0-450); BLOOD UREA NITROGEN 12 mg/dL (7-21); CALCIUM 7.4 mg/dL (8.4-10.5); GFR NON-AFRICAN AMERICAN > 60; TROPONIN I 0.28 ng/mL
[2018-08-26 03:27] LABS: BAND 9 % (0-2); NEUTROPHIL 78 % (50.0-70.0)
[2018-08-26 03:28] LABS: ATYPICAL LYMPHOCYTE 2 % (0.0-0.0); LYMPHOCYTE 8 % (22.0-35.0); MONOCYTE 3 % (1.0-6.0); PLATELET ESTIMATE NORMAL (NORMAL); TOXIC GRANULATION SLIGHT
--- NOTE | 2018-08-26 03:43 | PCM.PROC ---
<Elodn Draper - Last Filed: 08/26/18 04:42> Procedures Attestation:: I certify that I have explained the specified Operation(s) or Procedure(s), risks, benefits and reasonable alternatives to the Patient and/or other person responsible. The opportunity was given to ask questions and all questions answered - Central Line Placement Right Internal Jugular Triple Lumen Catheter Aseptic technique was employed throughout the procedure: Hand Hygiene done prior to procedure, Full sterile barriers (mask, hair cover, sterile gown, sterile gloves), Full body sterile drape, Chloraprep Antiseptic: 30 second prep for IJ or SC sites CVP Time Out Performed: Yes Pt. Placed on Pulse Ox Monitor: Yes Central Line Prep: Chlorhexidine-Alcohol Combination Local Anesthesia Used: Lidocaine 1% Amount of Anesthesia Used (mls): 3 Ultrasound Used for Placement: Yes Central Line Lumen Inserted: triple Central Line Length: 30 cm Post Procedure: Sutured in Place, Good Blood Return, All Ports Aspirated, Flushed, Capped, Sterile Dressing Applied Secured by: Suture Post procedure dressing: Clear vapor permeable, Chlorhexidine disc (Biopatch) Post Procedure X-Ray: Yes Patient Tolerated Procedure: Well, No Complications Immediate Complications: None Additional Comments: Procedure was carried out under guidance of Dr. Galvan Consent was obtained prior to procedure and patient tolerated it well; CXR confirmed proper placement. <Bashir Hopkins - Last Filed: 08/26/18 04:52> Attending/Attestation - Attestation I have personally seen and examined this patient.: Yes I have fully participated in the care of the patient.: Yes I have reviewed all pertinent clinical information, including history, physical exam and plan: Yes
--- NOTE | 2018-08-26 04:02 | PCM.RRT ---
CERTIFIED CONTROL SYSTEMS TECHNICIAN Nurse Assessment - Situation Date: 08/26/18 Time CERTIFIED CONTROL SYSTEMS TECHNICIAN was called: 01:41 CERTIFIED CONTROL SYSTEMS TECHNICIAN Responder Arrival Time: 01:42 CERTIFIED CONTROL SYSTEMS TECHNICIAN Location:: [address] [place] CERTIFIED CONTROL SYSTEMS TECHNICIAN Reason for Call: Tachycardia, Hypotension, Respiratory Distress, O2 Saturation below 90% CERTIFIED CONTROL SYSTEMS TECHNICIAN Called By: RN - IV IV Inserted during CERTIFIED CONTROL SYSTEMS TECHNICIAN?: Yes IV Fluids Initiated During CERTIFIED CONTROL SYSTEMS TECHNICIAN?: Yes - Respiratory Oxygen Delivery Method: Non Rebreather @% Oxygen Flow Rate: 3 Received Nebulizer Treatments:: No Was the Patient Ventilated with Bag/Mask 100% O2?: No Secretions Suctioned?: No Was the Patient Intubated?: No Was the Patient Placed on a Ventilator?: No - Medication Medications Administered During CERTIFIED CONTROL SYSTEMS TECHNICIAN: bolus 1000 ml NS x2 - Diagnostic Test Ordered EKG: Yes Chest X-Ray: Yes CT Scan: No - Stat Labs Ordered CERTIFIED CONTROL SYSTEMS TECHNICIAN Stat Labs Ordered: CBC, BMP, PT/PTT, TROPONIN, LACTIC ACID, ABG CPR started during CERTIFIED CONTROL SYSTEMS TECHNICIAN?: No - Vital Signs Vital Sign: Rapid Response Vital Sign Blood Pressure 79/40 Pulse Rate 119 Respiratory Rate 24 Temperature 101.1 F Oxygen Saturation 81 - Sepsis Screen Part 1 Sepsis Screen Part 1: Hypotensive, Temperature over 100.6F, Skin Mottled - Time CERTIFIED CONTROL SYSTEMS TECHNICIAN Ended Time CERTIFIED CONTROL SYSTEMS TECHNICIAN Ended: 02:15 - Vital Signs at end of CERTIFIED CONTROL SYSTEMS TECHNICIAN Vital Signs at end of CERTIFIED CONTROL SYSTEMS TECHNICIAN: Rapid Response End Vital Sign Blood Pressure 83/50 Pulse Rate 127 Respiratory Rate 28 O2 Sat by Pulse Oximetry 79 - Recommendations 5) CERTIFIED CONTROL SYSTEMS TECHNICIAN Level of Care Recommendations: Transfer to ICU Notifications: Attending Physician, Family or Designated Caregiver (Family was contacted but unable to be reached at this time. ) - Neurological Status (Select all that apply): Alert, Responsive, Oriented, Verbal, Follows Commands - Respiratory Oxygen Delivery Method: Non Rebreather @% Oxygen Flow Rate: 3 - Constitutional Appears: In Acute Distress (Mod-resp distress) - Head Head Exam: ATRAUMATIC, NORMAL INSPECTION, NORMOCEPHALIC - Eyes Eye Exam: EOMI, Normal appearance - Respiratory Exam Respiratory Exam: Rales (Crackles at lung bases), Respiratory Distress, NORMAL BREATHING PATTERN. absent: Chest Wall Tenderness, Rhonchi, Wheezes, Stridor - Cardiovascular Exam Cardiovascular Exam: Tachycardia, +S1, +S2. absent: Murmur - GI/Abdominal Exam GI & Abdominal Exam: Soft. absent: Firm, Guarding, Rigid, Tenderness, Mass, Rebound - Neurological Exam Neurological Exam: Alert, Awake, Oriented x3 - Extremities Exam Extremities Exam: Full ROM, Normal Capillary Refill. absent: Pedal Edema Plan - Assessment of Findings&Treatment Plan Eduardo Lima, PGY1 CERTIFIED CONTROL SYSTEMS TECHNICIAN Note CERTIFIED CONTROL SYSTEMS TECHNICIAN was called at 1:41 am for hypotension, tachycardia, and desaturation. CERTIFIED CONTROL SYSTEMS TECHNICIAN team responded appropriately. Patient's BP was noted to be 78/47 during the CERTIFIED CONTROL SYSTEMS TECHNICIAN. She was on non-rebreather saturating in the high 80s. Patient was in moderate respiratory distress and she was noted to have some crackles on the lung bases. Patient was also tachycardic with HR in the 120s. As per nursing staff, patient also had a rectal temperature of 101.1 and has been having intermittent fevers for the past few days. Obtaining further history at bedside, patient was supposed to have rectal biopsy for perianal abscess at the OR in the morning via the surgical team. Suspected diagnosis at this time was sepsis with possible shock given her presentation. Cbc, cmp, abg shock panel, cxr, ekg, troponins stat were ordered. A trial of IVF was administered with little change in the BP. Given that her symptoms are explained by fluid overload, it was decided that the patient may benefit from vasopressors rather than continued fluid resuscitation. Patient was transferred to the ICU and endorsed to the ICU team.
[2018-08-26] MEDS: Vancomycin 1gm in NS 250ml 1 GM/250 ML BAG IVPB SCH (04:20)
--- NOTE | 2018-08-26 04:44 | CP.PCM.CON ---
<Eduardo Lima - Last Filed: 08/26/18 05:13> History of Present Illness - History of Present Illness History of Present Illness: Eduardo Lima, PGY1 ICU Consult Note for Dr. Hopkins Patient is a 63 y/o F with PMHx HIV who was admitted for perianal abscess following hemorrhoidectomy on 04/2018. She was found to be HIV+ during hospital course. She underwent right sigmoidectomy and anoscopy on 08/20/[address] Dobson. She was planned for skin biopsy tomorrow morning. On the floor, patient was having intermittent fevers and she was becoming hypotensive on 08/25 overnight. She was given 1 L fluid and she responded poorly to the bolus. Nursing staff was concerned as patient was becoming hypotensive, tachycardic, and oxygen saturation was declining. PHYSICAL THERAPIST CLINIC DIRECTOR was called and team responded appropriately. Patient's BP was noted to be 78/47 during the PHYSICAL THERAPIST CLINIC DIRECTOR. She was on non-rebreather saturating in the high 80s. Patient was in moderate respiratory distress and she was noted to have some crackles on the lung bases. Patient was also tachycardic with HR in the 120s. As per nursing staff, patient also had a r ectal temperature of 101.1 and has been having intermittent fevers for the past few days. Suspected diagnosis at this time was sepsis with possible shock given her presentation. Labs revealed mildly elevated troponin concerning for NSTEMI versus cardiogenic shock. A trial of IVF in the ICU was administered with little change in the BP. Given that her symptoms are explained by fluid overload, as seen on CXR, it was decided that the patient may benefit from vasopressors rather than continued fluid resuscitation. Patient was transferred to ICU for further care. She was administered lasix 40mg IVP in the unit. Central line was placed in the Right-IJ after appropriate consent was obtained. There were no complications of the procedure. Patient tolerated it well. Patient was started on Levophed. Repeat blood pressure showed improvement, with patient's MAP > 65. Repeat CXR confirmed placement of the central line. Patient's PMD (Dr. Kramer) was contacted and he request Dr. Weinstein on cardiolog y consult. Patient will be placed on lovenox 1 mg/kg q12. She will also be loaded with aspirin and plavix. Patient's shock may be due to Sepsis 2/2 HCAP vs Rectal Abscess or Cardiogenic Shock. Following TLC placement, the patient said she felt more comfortable and improvement in her breathing. She endorsed fever and chills. She denied cp, abdominal pain, n/v/d. A full 12 point ROS was conducted and unremarkable except as stated above. PMD: Dr. Sudarshan Kramer PMH: Gastritis, HIV PSH: L knee, R ankle, x 2 Meds: MAR reviewed ALL: PCN, IV contrast Social: Social ETOH, no tobacco/drugs Fhx: non-contributory Review of Systems - Review of Systems All systems: reviewed and no additional remarkable complaints except (as per HPI.) Past Patient History - Infectious Disease Hx of Infectious Diseases: None - Past Social History Smoking Status: Never Smoked - MUSCULOSKELETAL/RHEUMATOLOGICAL Hx Falls: No - GASTROINTESTINAL Other/Comment: Hemorrhoids and gastritis - PSYCHIATRIC Other/Comment: Insomnia - SURGICAL HISTORY Hx Surgeries: Yes (Hemorroid surgery Apr 2018) - ANESTHESIA Hx Anesthesia Reactions: No Hx Malignant Hyperthermia: No Meds Allergies/Adverse Reactions: Allergies Allergy/AdvReac Type Severity Reaction Status Date / Time Penicillins Allergy RASH Verified 08/17/18 16:19 iv contrast Allergy RASH Uncoded 08/17/18 21:04 - Medications Medications: Current Medications Acetaminophen (Tylenol 325mg Tab) 650 mg PO Q6H PRN PRN Reason: Temperature Last Admin: 08/22/18 14:20 Dose: 650 mg Albuterol/Ipratropium (Duoneb 3 Mg/0.5 Mg (3 Ml) Ud) 3 ml IH [id number] [facility] Last Admin: 08/26/18 01:30 Dose: Not Given Albuterol/Ipratropium (Duoneb 3 Mg/0.5 Mg (3 Ml) Ud) 3 ml IH Q2H PRN PRN Reason: Shortness of Breath Alprazolam (Xanax) 0.25 mg PO Q6H PRN PRN Reason: Anxiety Stop: 08/31/18 19:11 Last Admin: 08/26/18 00:06 Dose: 0.25 mg Atovaquone (Mepron) 750 mg PO BID [facility]; Protocol Last Admin: 08/25/18 18:10 Dose: 750 mg Benzonatate (Tessalon Perles) 100 mg PO TID [facility] Budesonide (Pulmicort Respules) 0.5 mg IH [id number] [facility]IA Last Admin: 08/25/18 19:41 Dose: Not Given Docusate Sodium (Colace) 100 mg PO Q4H PRN PRN Reason: Constipation Last Admin: 08/22/18 23:44 Dose: 100 mg Doxycycline Hyclate (Doryx) 100 mg PO Q12 [facility]; Protocol Last Admin: 08/26/18 00:07 Dose: 100 mg Enoxaparin Sodium (Lovenox) 50 mg SC Q12H [facility]; Protocol Guaifenesin (Robitussin) 100 mg PO Q4H PRN PRN Reason: Cough Last Admin: 08/26/18 00:07 Dose: 100 mg Metronidazole (Flagyl) 500 mg in 100 mls @ 100 mls/hr IVPB Q8 [facility]; Protocol Last Admin: 08/26/18 00:05 Dose: 100 mls/hr Vancomycin HCl (Vancomycin 1gm) 1 gm in 250 mls @ 167 mls/hr IVPB Q12H [facility]; Protocol Last Admin: 08/26/18 04:20 Dose: Not Given Meropenem (Merrem Iv 1 Gm Premix) 1 gm in 50 mls @ 100 mls/hr IVPB Q8 [facility]; Protocol Last Admin: 08/26/18 00:09 Dose: 100 mls/hr Potassium Chloride 20 meq/ (Dextrose/Sodium Chloride) 1,010 mls @ 100 mls/hr IV .Q10H6M [facility] Last Admin: 08/26/18 00:05 Dose: 100 mls/hr NOREPINEPHRINE BIT/0.9 % NACL (Levophed 4 Mg/ 250 Ml Ns Premixed) 4 mg in 250 mls @ 15 mls/hr IV .[id number] PRN; Protocol PRN Reason: TITRATE PER MD ORDER Ibuprofen (Motrin Tab) 200 mg PO Q6H PRN PRN Reason: Temperature Last Admin: 08/25/18 15:20 Dose: 200 mg Lidocaine (Lidocaine 5%) 0 gm TOP DAILY [facility] Last Admin: 08/25/18 13:50 Dose: 1 applic Ondansetron HCl (Zofran Inj) 4 mg IVP Q6H PRN PRN Reason: Nausea/Vomiting Last Admin: 08/24/18 01:07 Dose: 4 mg Oseltamivir Phosphate (Tamiflu Cap) 75 mg PO BID [facility]; Protocol Stop: 08/29/18 10:47 Last Admin: 08/25/18 18:09 Dose: 75 mg Pantoprazole Sodium (Protonix Ec Tab) 40 mg PO ACB [facility] Last Admin: 08/25/18 10:38 Dose: 40 mg Potassium Chloride (K-Dur 20 Meq Er Tab) 20 meq PO TID [facility] Stop: 08/26/18 18:00 Last Admin: 08/25/18 18:09 Dose: 20 meq Silver Sulfadiazine (Silvadene 1% 25 Gm) 0 gm TP BID [facility] Last Admin: 08/25/18 10:38 Dose: 25 gm Tramadol HCl (Ultram) 50 mg PO TID PRN PRN Reason: Pain, Mild (1-3) Last Admin: 08/25/18 13:54 Dose: 50 mg Physical Exam - Constitutional Appears: No Acute Distress - Head Exam Head Exam: ATRAUMATIC, NORMAL INSPECTION, NORMOCEPHALIC - Eye Exam Eye Exam: EOMI, Normal appearance Pupil Exam: NORMAL ACCOMODATION - ENT Exam ENT Exam: Mucous Membranes Moist - Respiratory Exam Respiratory Exam: Rales (Crackles at lung bases. ), NORMAL BREATHING PATTERN. absent: Accessory Muscle Use, Chest Wall Tenderness, Rhonchi, Wheezes, Respiratory Distress, Stridor - Cardiovascular Exam Cardiovascular Exam: Tachycardia, +S1, +S2 - GI/Abdominal Exam GI & Abdominal Exam: Normal Bowel Sounds, Soft. absent: Distended, Guarding, Rebound, Rigid, Tenderness - Extremities Exam Extremities exam: Positive for: normal capillary refill, normal inspection, pedal pulses present. Negative for: calf tenderness, pedal edema, tenderness - Neurological Exam Neurological exam: Alert, CN II-XII Intact, Oriented x3 - Psychiatric Exam Psychiatric exam: Normal Affect, Normal Mood - Skin Skin Exam: Dry, Intact, Normal Color, Warm Results - Vital Signs Recent Vital Signs: Last Vital Signs Temp 101.1 F H 08/26/18 00:33 Pulse 124 H 08/26/18 01:40 Resp 26 H 08/26/18 01:40 BP 135/58 L 08/26/18 02:35 Pulse Ox 83 L 08/26/18 01:40 - Labs Result Diagrams: 08/26/18 02:05 08/26/18 02:05 Labs: Laboratory Results - last 24 hr 08/24/18 08/25/18 08/25/18 11:00 04:50 07:20 WBC 9.8 D RBC 3.23 L Hgb 9.5 L Hct 27.8 L MCV 86.1 MCH 29.4 MCHC 34.2 RDW 14.9 H Plt Count 276 MPV 10.3 Neut % (Auto) Lymph % (Auto) [place] % (Auto) Eos % (Auto) Baso % (Auto) Lymph # (Auto) [place] # (Auto) Eos # (Auto) Baso # (Auto) Absolute Neuts (auto) Neutrophils % (Manual) Band Neutrophils % Lymphocytes % (Manual) Atypical Lymphs % Monocytes % (Manual) Toxic Granulation Platelet Evaluation pCO2 pO2 HCO3 ABG pH ABG Total CO2 ABG O2 Saturation ABG Base Excess ABG Potassium Glucose Lactate FiO2 Sodium Potassium Chloride Carbon Dioxide Anion Gap BUN Creatinine Est GFR ( Amer) Est GFR (Non-Af Amer) POC Glucose (mg/dL) Random Glucose Calcium Phosphorus Magnesium Total Bilirubin AST ALT Alkaline Phosphatase Lactate Dehydrogenase Total Creatine Kinase Troponin I NT-Pro-B Natriuret Pep Total Protein Albumin Globulin Albumin/Globulin Ratio Arterial Blood Potassium Stool Occult Blood Negative HIV-1 RNA Qnt (RT-PCR) 4.10 H 08/25/18 08/26/18 08/26/18 07:20 01:42 01:45 WBC RBC Hgb Hct MCV MCH MCHC RDW Plt Count MPV Neut % (Auto) Lymph % (Auto) [place] % (Auto) Eos % (Auto) Baso % (Auto) Lymph # (Auto) [place] # (Auto) Eos # (Auto) Baso # (Auto) Absolute Neuts (auto) Neutrophils % (Manual) Band Neutrophils % Lymphocytes % (Manual) Atypical Lymphs % Monocytes % (Manual) Toxic Granulation Platelet Evaluation pCO2 33 L pO2 89.0 HCO3 17.0 L ABG pH 7.32 L ABG Total CO2 18.0 L ABG O2 Saturation 99.3 H ABG Base Excess -8.1 L ABG Potassium 3.8 Glucose 135 H Lactate 1.3 FiO2 100.0 Sodium 136 141.0 Potassium 3.4 L Chloride 104 113.0 H Carbon Dioxide 27 Anion Gap 9 L BUN 7 Creatinine 0.6 L Est GFR ( Amer) > 60 Est GFR (Non-Af Amer) > 60 POC Glucose (mg/dL) 130 H Random Glucose 109 Calcium 8.3 L Phosphorus Magnesium 1.8 Total Bilirubin AST ALT Alkaline Phosphatase Lactate Dehydrogenase Total Creatine Kinase Troponin I NT-Pro-B Natriuret Pep Total Protein Albumin Globulin Albumin/Globulin Ratio Arterial Blood Potassium 3.8 Stool Occult Blood HIV-1 RNA Qnt (RT-PCR) 08/26/18 08/26/18 02:05 02:05 WBC 8.8 RBC 3.01 L Hgb 9.0 L Hct 26.1 L MCV 86.7 MCH 29.9 MCHC 34.5 RDW 15.2 H Plt Count 258 MPV 10.2 Neut % (Auto) 92.1 H Lymph % (Auto) 4.3 L [place] % (Auto) 3.6 Eos % (Auto) 0.0 L Baso % (Auto) 0.0 Lymph # (Auto) 0.4 L [place] # (Auto) 0.3 Eos # (Auto) 0.0 Baso # (Auto) 0.00 Absolute Neuts (auto) 8.08 H Neutrophils % (Manual) 78 H Band Neutrophils % 9 H Lymphocytes % (Manual) 8 L Atypical Lymphs % 2 H Monocytes % (Manual) 3 Toxic Granulation Slight Platelet Evaluation Normal pCO2 pO2 HCO3 ABG pH ABG Total CO2 ABG O2 Saturation ABG Base Excess ABG Potassium Glucose Lactate FiO2 Sodium 140 Potassium 4.2 Chloride 112 H Carbon Dioxide 21 Anion Gap 12 BUN 12 Creatinine 0.6 L Est GFR ( Amer) > 60 Est GFR (Non-Af Amer) > 60 POC Glucose (mg/dL) Random Glucose 129 H Calcium 7.4 L Phosphorus 3.2 Magnesium 1.7 Total Bilirubin 0.6 AST 29 ALT 15 Alkaline Phosphatase 44 Lactate Dehydrogenase 967 H Total Creatine Kinase < 20 L Troponin I 0.28 H* D NT-Pro-B Natriuret Pep 3830 H Total Protein 5.2 L Albumin 2.5 L Globulin 2.7 Albumin/Globulin Ratio 0.9 L Arterial Blood Potassium Stool Occult Blood HIV-1 RNA Qnt (RT-PCR) Assessment & Plan - Assessment and Plan (Free Text) Assessment: Patient is a 63 y/o F with PMHx Gastritis and HIV (newly diagnosed) who presented for perianal abscess following hemorrhoidectomy on 04/2018. Patient is scheduled for biopsy of rectal abscess in the OR. However, on 08/25 overnight PHYSICAL THERAPIST CLINIC DIRECTOR was called for hypotension. Patient was transferred to the ICU for further care. Patient will be managed for Shock due to Sepsis 2/2 HCAP vs Rectal Abscess or Cardiogenic Shock. Plan: Neuro: - Maintain Normothermia Cardio: - Consider Cardiogenic Shock - TLC catheter is in place - c/w IVF - c/w vasopressors for BP support - Maintain MAP > 65 - troponin was mildly elevated at 0.28 s/p PHYSICAL THERAPIST CLINIC DIRECTOR; trend trops q6 - Cardiology is on consult (Dr. Weinstein) - ASA and plavix - EKG s/p PHYSICAL THERAPIST CLINIC DIRECTOR: no STEMI. No ST or T wave changes. Pulm: - Saturation is improving on non-rebreather - ABG showed pH 7.32, pCO2 33, pO2 89, bicarb 17 - Pulm is on consult (Dr. Medrano) - Maintain SaO2 > 92% - c/w duonebs, pulmicort - CXR s/p PHYSICAL THERAPIST CLINIC DIRECTOR: diffuse bilateral infiltrates GI: - cw ptx for GI ppx - NPO for possible OR Renal: - Avoid nephrotoxic drugs - no electrolyte abnormalities - c/w potassium supplementation ID: - Consider Shock due to Sepsis 2/2 HCAP vs Rectal Abscess - c/w atovaquone, doxycycline, meropenem, flagyl, tamiflu, and vanco for antibx coverage - continue with tylenol prn for fever control - f/u blood cx results - ID is on consult (Dr. Garcia) - Surgery is on consult (Dr. Dobson) for rectal abscess; originally planned for bx - Recently diagnosed with HIV during hospital course Endo: - maintain euglycemia Heme: - H/H stable at this time Dispo: Monitor patient in the ICU. Case was discussed and reviewed with Attending Physician, Dr. Hopkins <Bashir Hopkins - Last Filed: 08/26/18 05:52> Meds - Medications Medications: Current Medications Acetaminophen (Tylenol 325mg Tab) 650 mg PO Q6H PRN PRN Reason: Temperature Last Admin: 08/22/18 14:20 Dose: 650 mg Albuterol/Ipratropium (Duoneb 3 Mg/0.5 Mg (3 Ml) Ud) 3 ml IH [id number] [facility]OSHIA Last Admin: 08/26/18 01:30 Dose: Not Given Albuterol/Ipratropium (Duoneb 3 Mg/0.5 Mg (3 Ml) Ud) 3 ml IH Q2H PRN PRN Reason: Shortness of Breath Alprazolam (Xanax) 0.25 mg PO Q6H PRN PRN Reason: Anxiety Stop: 08/31/18 19:11 Last Admin: 08/26/18 00:06 Dose: 0.25 mg Atovaquone (Mepron) 750 mg PO BID [facility]; Protocol Last Admin: 08/25/18 18:10 Dose: 750 mg Benzonatate (Tessalon Perles) 100 mg PO TID [facility] Budesonide (Pulmicort Respules) 0.5 mg IH [id number] [facility] Last Admin: 08/25/18 19:41 Dose: Not Given Docusate Sodium (Colace) 100 mg PO Q4H PRN PRN Reason: Constipation Last Admin: 08/22/18 23:44 Dose: 100 mg Doxycycline Hyclate (Doryx) 100 mg PO Q12 [facility]; Protocol Last Admin: 08/26/18 00:07 Dose: 100 mg Enoxaparin Sodium (Lovenox) 50 mg SC Q12H [facility]; Protocol Guaifenesin (Robitussin) 100 mg PO Q4H PRN PRN Reason: Cough Last Admin: 08/26/18 00:07 Dose: 100 mg Metronidazole (Flagyl) 500 mg in 100 mls @ 100 mls/hr IVPB Q8 [facility]; Protocol Last Admin: 08/26/18 00:05 Dose: 100 mls/hr Vancomycin HCl (Vancomycin 1gm) 1 gm in 250 mls @ 167 mls/hr IVPB Q12H [facility]; Protocol Last Admin: 08/26/18 04:20 Dose: Not Given Meropenem (Merrem Iv 1 Gm Premix) 1 gm in 50 mls @ 100 mls/hr IVPB Q8 [facility]; Protocol Last Admin: 08/26/18 00:09 Dose: 100 mls/hr Potassium Chloride 20 meq/ (Dextrose/Sodium Chloride) 1,010 mls @ 100 mls/hr IV .Q10H6M [facility] Last Admin: 08/26/18 00:05 Dose: 100 mls/hr NOREPINEPHRINE BIT/0.9 % NACL (Levophed 4 Mg/ 250 Ml Ns Premixed) 4 mg in 250 mls @ 15 mls/hr IV .[id number] PRN; Protocol PRN Reason: TITRATE PER MD ORDER Ibuprofen (Motrin Tab) 200 mg PO Q6H PRN PRN Reason: Temperature Last Admin: 08/25/18 15:20 Dose: 200 mg Lidocaine (Lidocaine 5%) 0 gm TOP DAILY [facility] Last Admin: 08/25/18 13:50 Dose: 1 applic Ondansetron HCl (Zofran Inj) 4 mg IVP Q6H PRN PRN Reason: Nausea/Vomiting Last Admin: 08/24/18 01:07 Dose: 4 mg Oseltamivir Phosphate (Tamiflu Cap) 75 mg PO BID [facility]; Protocol Stop: 08/29/18 10:47 Last Admin: 08/25/18 18:09 Dose: 75 mg Pantoprazole Sodium (Protonix Ec Tab) 40 mg PO ACB [facility] Last Admin: 08/25/18 10:38 Dose: 40 mg Potassium Chloride (K-Dur 20 Meq Er Tab) 20 meq PO TID [facility] Stop: 08/26/18 18:00 Last Admin: 08/25/18 18:09 Dose: 20 meq Silver Sulfadiazine (Silvadene 1% 25 Gm) 0 gm TP BID [facility] Last Admin: 08/25/18 10:38 Dose: 25 gm Tramadol HCl (Ultram) 50 mg PO TID PRN PRN Reason: Pain, Mild (1-3) Last Admin: 08/25/18 13:54 Dose: 50 mg Results - Vital Signs Recent Vital Signs: Last Vital Signs Temp 101.1 F H 08/26/18 00:33 Pulse 124 H 08/26/18 01:40 Resp 26 H 08/26/18 01:40 BP 135/58 L 08/26/18 02:35 Pulse Ox 83 L 08/26/18 01:40 - Labs Result Diagrams: 08/26/18 02:05 08/26/18 02:05 Labs: Laboratory Results - last 24 hr 08/24/18 08/25/18 08/25/18 11:00 07:20 07:20 WBC 9.8 D RBC 3.23 L Hgb 9.5 L Hct 27.8 L MCV 86.1 MCH 29.4 MCHC 34.2 RDW 14.9 H Plt Count 276 MPV 10.3 Neut % (Auto) Lymph % (Auto) [place] % (Auto) Eos % (Auto) Baso % (Auto) Lymph # (Auto) [place] # (Auto) Eos # (Auto) Baso # (Auto) Absolute Neuts (auto) Neutrophils % (Manual) Band Neutrophils % Lymphocytes % (Manual) Atypical Lymphs % Monocytes % (Manual) Toxic Granulation Platelet Evaluation pCO2 pO2 HCO3 ABG pH ABG Total CO2 ABG O2 Saturation ABG Base Excess ABG Potassium Glucose Lactate FiO2 Sodium 136 Potassium 3.4 L Chloride 104 Carbon Dioxide 27 Anion Gap 9 L BUN 7 Creatinine 0.6 L Est GFR ( Amer) > 60 Est GFR (Non-Af Amer) > 60 POC Glucose (mg/dL) Random Glucose 109 Calcium 8.3 L Phosphorus Magnesium 1.8 Total Bilirubin AST ALT Alkaline Phosphatase Lactate Dehydrogenase Total Creatine Kinase Troponin I NT-Pro-B Natriuret Pep Total Protein Albumin Globulin Albumin/Globulin Ratio Arterial Blood Potassium HIV-1 RNA Qnt (RT-PCR) 4.10 H 08/26/18 08/26/18 08/26/18 01:42 01:45 02:05 WBC 8.8 RBC 3.01 L Hgb 9.0 L Hct 26.1 L MCV 86.7 MCH 29.9 MCHC 34.5 RDW 15.2 H Plt Count 258 MPV 10.2 Neut % (Auto) 92.1 H Lymph % (Auto) 4.3 L [place] % (Auto) 3.6 Eos % (Auto) 0.0 L Baso % (Auto) 0.0 Lymph # (Auto) 0.4 L [place] # (Auto) 0.3 Eos # (Auto) 0.0 Baso # (Auto) 0.00 Absolute Neuts (auto) 8.08 H Neutrophils % (Manual) 78 H Band Neutrophils % 9 H Lymphocytes % (Manual) 8 L Atypical Lymphs % 2 H Monocytes % (Manual) 3 Toxic Granulation Slight Platelet Evaluation Normal pCO2 33 L pO2 89.0 HCO3 17.0 L ABG pH 7.32 L ABG Total CO2 18.0 L ABG O2 Saturation 99.3 H ABG Base Excess -8.1 L ABG Potassium 3.8 Glucose 135 H Lactate 1.3 FiO2 100.0 Sodium 141.0 Potassium Chloride 113.0 H Carbon Dioxide Anion Gap BUN Creatinine Est GFR ( Amer) Est GFR (Non-Af Amer) POC Glucose (mg/dL) 130 H Random Glucose Calcium Phosphorus Magnesium Total Bilirubin AST ALT Alkaline Phosphatase Lactate Dehydrogenase Total Creatine Kinase Troponin I NT-Pro-B Natriuret Pep Total Protein Albumin Globulin Albumin/Globulin Ratio Arterial Blood Potassium 3.8 HIV-1 RNA Qnt (RT-PCR) 08/26/18 02:05 WBC RBC Hgb Hct MCV MCH MCHC RDW Plt Count MPV Neut % (Auto) Lymph % (Auto) [place] % (Auto) Eos % (Auto) Baso % (Auto) Lymph # (Auto) [place] # (Auto) Eos # (Auto) Baso # (Auto) Absolute Neuts (auto) Neutrophils % (Manual) Band Neutrophils % Lymphocytes % (Manual) Atypical Lymphs % Monocytes % (Manual) Toxic Granulation Platelet Evaluation pCO2 pO2 HCO3 ABG pH ABG Total CO2 ABG O2 Saturation ABG Base Excess ABG Potassium Glucose Lactate FiO2 Sodium 140 Potassium 4.2 Chloride 112 H Carbon Dioxide 21 Anion Gap 12 BUN 12 Creatinine 0.6 L Est GFR ( Amer) > 60 Est GFR (Non-Af Amer) > 60 POC Glucose (mg/dL) Random Glucose 129 H Calcium 7.4 L Phosphorus 3.2 Magnesium 1.7 Total Bilirubin 0.6 AST 29 ALT 15 Alkaline Phosphatase 44 Lactate Dehydrogenase 967 H Total Creatine Kinase < 20 L Troponin I 0.28 H* D NT-Pro-B Natriuret Pep 3830 H Total Protein 5.2 L Albumin 2.5 L Globulin 2.7 Albumin/Globulin Ratio 0.9 L Arterial Blood Potassium HIV-1 RNA Qnt (RT-PCR) Attending/Attestation - Attestation I have personally seen and examined this patient.: Yes I have fully participated in the care of the patient.: Yes I have reviewed all pertinent clinical information: Yes Notes (Text): 08/26/18 05:50 Patient was seen . Medical record was reviewed. Agree with history , physical examination, assessment and plan, consult note. CCT: Spent 30 minutes.
[2018-08-26] MEDS: Enoxaparin 60 mg Syringe SC SCH ×2 (06:13→17:38)
[2018-08-26 07:33] LABS: BASO # 0.01 K/mm3 (0.0-2.0); BASO % 0.1 % (0.0-3.0); EOS % 0.1 % (1.5-5.0); HEMOGLOBIN 9.8 g/dL (12.0-16.0); LYMPH % 6.9 % (22.0-35.0); MEAN CELL VOLUME 86.4 fl (80.0-105.0); MEAN CORPUSCULAR HEMOGLOBIN 29.5 pg (25.0-35.0); MEAN CORPUSCULAR HGB CONC 34.1 g/dl (31.0-37.0); MEAN PLATELET VOLUME 10.4 fl (7.0-11.0); MONO # 0.4 (0.1-0.6); MONO % 2.6 % (1.0-6.0); RBC 3.32 10^6/uL (3.5-6.1); RED CELL DISTRIBUTION WIDTH 15.3 % (11.5-14.5); WHITE BLOOD COUNT 14.2 10^3/uL (4.5-11.0)
[2018-08-26] MEDS ORDERED: Propofol 10 mg/ml 1,000 MG/100 ML VIAL ONE (07:41)
[2018-08-26 07:44] LABS: INR 1.35; PARTIAL THROMBOPLASTIN TIME 32.4 Seconds (26.9-38.3); PROTHROMBIN TIME 15.3 SECONDS (9.4-12.5)
[2018-08-26 07:48] LABS: ALB/GLOB RATIO 0.9 (1.1-1.8); ALBUMIN 2.7 g/dL (3.0-4.8); ALT/SGPT 15 U/L (7-56); AST/SGOT 35 U/L (14-36); BLOOD UREA NITROGEN 12 mg/dL (7-21); GFR NON-AFRICAN AMERICAN > 60
[2018-08-26] MEDS ORDERED: Midazolam 100 mg/100ml in NS 100 MG/100 ML SOL IV PRN (08:11)
[2018-08-26 08:12] LABS: TROPONIN I 0.26 ng/mL
[2018-08-26] MEDS: Budesonide 0.5 mg/2 ml Inhal Susp UD IH SCH ×2 (08:20→20:56)
[2018-08-26] MEDS ORDERED: Vasopressin 20 UNITS in Dextrose 5% In Water 100 ML IV SCH (09:15)
--- NOTE | 2018-08-26 09:19 | RAD ---
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 FINDINGS: LUNGS: There is interval development of diffuse confluent airspace disease with air bronchogram in both lungs. PLEURA: No pleural effusions or pneumothorax. CARDIOVASCULAR: The heart is normal in size. No aortic atherosclerotic calcifications present. OSSEOUS STRUCTURES: Within normal limits for the patient's age. VISUALIZED UPPER ABDOMEN: Normal. OTHER FINDINGS: None. IMPRESSION: Interval development of diffuse multifocal pneumonia versus pulmonary edema. Clinical follow-up is advised.
--- NOTE | 2018-08-26 09:19 | RAD ---
Date of service: 08/26/2018 HISTORY: central line placement COMPARISON: 08/26/2018 at 2:03 a.m. FINDINGS: The right central venous line terminates at the cavoatrial junction. LUNGS: Redemonstration of diffuse confluent airspace disease with air bronchograms completely opacifying both lungs. PLEURA: No pleural effusions or pneumothorax. CARDIOVASCULAR: The heart is normal in size. No aortic atherosclerotic calcifications present. OSSEOUS STRUCTURES: Within normal limits for the patient's age. VISUALIZED UPPER ABDOMEN: Normal. OTHER FINDINGS: None. IMPRESSION: Right central venous line terminates at the cavoatrial junction. Little interval change in multifocal pneumonia versus pulmonary edema.
--- NOTE | 2018-08-26 09:20 | PN ---
DATE: 08/26/2018(700am-750am) SUBJECTIVE: The patient is now in the medical ICU. She is moderately to severely short of breath. PHYSICAL EXAMINATION: VITAL SIGNS: Temperature 101.1, pulse on the monitor is 118, respiratory rate is 30/32, last blood pressure recorded is 135/58. oxygen saturation- 88%(100% NRBM). HEENT: Normocephalic, atraumatic. NECK: No JVD. CARDIOVASCULAR: Positive S1, S2. No S3 gallop. LUNGS: Mild crackles at the bases. Mild rhonchi. No wheezing. EXTREMITIES: No clubbing, cyanosis or edema. Calves are nontender to palpation. GI: Abdomen is soft, nontender and nondistended. Bowel sounds are positive. SKIN: No acute rash. NEUROLOGIC: Exam limited at the present time. PERTINENT LABORATORY DATA: Chest x-ray was done this morning and reviewed. There are now extensive bilateral pulmonary infiltrates-- consistent with acute respiratory distress syndrome. Last arterial blood gas was done on 100% oxygen mask. Results are: PH 7.32, pCO2 of 33, pO2 of 89. IMPRESSION: 1. Acute respiratory distress syndrome. 2. Sepsis with shock. 3. Perianal abscess. 4. Community-acquired pneumonia, possibly atypical. 5. Mild anemia. 6. Human immune deficiency virus positivity. PLAN: The patient is moderately to severely short of breath this morning. She is now on the ICU. I did discuss the case with the night nurse and medical residents at length. Apparently, last night, the patient's blood pressure dropped. In addition, she experienced significant shortness of breath with oxygen desaturation. She was then transferred to the medical ICU. I did review the chest x-ray as above. The chest x-ray reveals findings consistent with acute respiratory distress syndrome. As above, she is moderately to severely short of breath this morning. Oxygen saturation on a non-rebreather is currently 88%. Plan will be to proceed with intubation to protect the airway. I also discussed the case with the surgical team at length. The surgical team will evaluate the anal area this morning. They do need the patient sedated/intubated to fully analyze the patient. I also discuss the case with Dr. Queen at length daily. He is also of the opinion that the source of sepsis may be the anal abscess. Surgical team agrees to proceed with evaluation this morning. For now,continue with the antibiotic coverage as per Infectious Disease. Input by Dr. Queen is noted. I will also discuss the above with Dr. Dobson. The patient is critically ill at this point in time, with very, very guarded prognosis. I did discuss the above with the entire ICU team earlier. I will also discuss the above with Dr. Kramer later this morning. Griffin Medrano MD [id number]
--- NOTE | 2018-08-26 09:25 | RAD ---
Date of service: 08/26/2018 HISTORY: ET tube COMPARISON: 08/26/2018 at 7:16 a.m. FINDINGS: The endotracheal tube terminates in the mid trachea. The right IJV line terminates in proximal SVC. LUNGS: Little interval change in dense opacification in both lungs with air bronchograms. PLEURA: No pleural effusions or pneumothorax. CARDIOVASCULAR: The heart is normal in size. No aortic atherosclerotic calcifications present. OSSEOUS STRUCTURES: Within normal limits for the patient's age. VISUALIZED UPPER ABDOMEN: Normal. OTHER FINDINGS: None. IMPRESSION: Endotracheal tube terminates in the mid trachea. Right IJV line terminates in the proximal SVC. Little interval change in diffuse multifocal pneumonia versus pulmonary edema. Follow-up after medical management is recommended to ensure complete resolution.
[2018-08-26] MEDS ORDERED: Albumin Human 25% (12.5 gm/50 ml) IV ONE ×2 (09:54→10:30)
[2018-08-26 10:06] LABS: ARTERIAL BLOOD GAS HCO3 21.6 mmol/L (21-28); ARTERIAL BLOOD GAS HEMOGLOBIN 9.2 g/dL (11.7-17.4); ARTERIAL BLOOD GAS O2 CAPACITY 13.2 mL/dl (16-24); ARTERIAL BLOOD GAS O2 CONTENT 13.2 ML/dl (15-23); ARTERIAL BLOOD GAS O2 SAT 100.3 % (95-98); ARTERIAL BLOOD GAS PCO2 41 mm/Hg (35-45); ARTERIAL BLOOD GAS PH 7.33 (7.35-7.45); ARTERIAL BLOOD GAS TCO2 22.9 mmol.L (22-28)
--- NOTE | 2018-08-26 10:06 | CP.CCUPN ---
<Daniela Love - Last Filed: 08/26/18 10:01> CCU Subjective - Physician Review Subjective (Free Text): Daniela Love, PGY-1, ICU Progress Note for Dr. Boyer Patient seen and evaluated at bedside. 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 Patient's blood pressure was unresponsive to fluid boluses. Central line was placed and levophed was started with improvement in MAP to over 65. Due to elevated troponins, patient was started on therapeutic lovenox and loaded with aspirin and plavix. In addition, patient was febrile overnight with temperature of 101.1 rectally. This morning, due to patient's respiratory distress and plans for bedside surgery, patient was intubated and sedated with propofol and fentanyl. 12-point ROS was unattainable due to patient's intubated status. CCU Objective - Vital Signs / Intake & Output Vital Signs (Last 4 hours): Vital Signs Pulse Resp Pulse Ox 08/26/18 08:36 93 H 08/26/18 08:35 40 H 100 Intake and Output (Last 8hrs): Intake & Output 08/25/18 08/26/18 08/26/18 22:59 06:59 14:59 Intake Total 600 Balance 600 Intake: Oral 600 Other: # Voids Urine, Voided 3 # Bowel Movements 0 - Physical Exam Head: Positive for: Atraumatic, Normocephalic Pupils: Positive for: PERRL Conjunctiva: Positive for: Normal Mouth: Positive for: Moist Mucous Membranes Respiratory/Chest: Positive for: Good Air Exchange, Rales, Rhonchi (at bases). Negative for: Respiratory Distress, Accessory Muscle Use Cardiovascular: Positive for: Regular Rate and Rhythm, Normal S1, S2. Negative for: Murmurs Abdomen: Negative for: Tenderness, Distention, Peritoneal Signs Rectal: Positive for: Other (stage 2 ulcer at the sacrum; stage 2 ulcer to right buttocks proximal to the crease. Thick purulent discharge noted from anus.) Back: Positive for: Normal Inspection Upper Extremity: Positive for: Normal Inspection. Negative for: Cyanosis, Edema Lower Extremity: Positive for: Normal Inspection. Negative for: Edema Neurological: Positive for: CN II-XII Intact (grossly), Other (intubated) Skin: Positive for: Warm, Dry, Normal Color. Negative for: Rashes Psychiatric: Positive for: Other (intubated) - Medications Active Medications: Active Medications Generic Name Dose Route Start Last Admin Trade Name Freq PRN Reason Stop Dose Admin Acetaminophen 650 mg 08/22/18 13:42 08/22/18 14:20 Tylenol 325mg Tab PO 650 mg Q6H PRN Administration Temperature Albumin Human 12.5 gm 08/26/18 09:54 Albumin Human 25% (12.5 Gm/50 Ml) IV 08/26/18 09:55 ONCE ONE Albumin Human 12.5 gm 08/26/18 10:30 Albumin Human 25% (12.5 Gm/50 Ml) IV 08/26/18 10:31 ONCE ONE Albumin Human 12.5 gm 08/26/18 16:00 Albumin Human 25% (12.5 Gm/50 Ml) IV 08/27/18 16:01 Q6H TOSHIA Albuterol/Ipratropium 3 ml 08/20/18 08:00 08/26/18 08:20 Duoneb 3 Mg/0.5 Mg (3 Ml) Ud IH 3 ml [id number] TOSHIA Administration Albuterol/Ipratropium 3 ml 08/20/18 06:46 Duoneb 3 Mg/0.5 Mg (3 Ml) Ud IH Q2H PRN Shortness of Breath Alprazolam 0.25 mg 08/24/18 19:10 08/26/18 00:06 Xanax PO 08/31/18 19:11 0.25 mg Q6H PRN Administration Anxiety Aspirin 81 mg 08/26/18 10:00 Aspirin Chewable PO DAILY [facility] Atovaquone 750 mg 08/24/18 12:00 08/25/18 18:10 Mepron PO 750 mg BID TOSHIA Administration Protocol Benzonatate 100 mg 08/26/18 10:00 Tessalon Perles PO TID TOSHIA Budesonide 0.5 mg 08/20/18 08:00 08/26/18 08:20 Pulmicort Respules IH 0.5 mg [id number] TOSHIA Administration Docusate Sodium 100 mg 08/18/18 06:16 08/22/18 23:44 Colace PO 100 mg Q4H PRN Administration Constipation Doxycycline Hyclate 100 mg 08/18/18 22:00 08/26/18 00:07 Doryx PO 100 mg Q12 TOSHIA Administration Protocol Enoxaparin Sodium 50 mg 08/26/18 04:15 08/26/18 06:13 Lovenox SC 50 mg Q12H TOSHIA Administration Protocol Guaifenesin 100 mg 08/23/18 22:34 08/26/18 00:07 Robitussin PO 100 mg Q4H PRN Administration Cough Vancomycin HCl 1 gm in 250 mls @ 167 mls/hr 08/18/18 10:45 08/26/18 04:20 Vancomycin 1gm IVPB Not Given Q12H TOSHIA Protocol Meropenem 1 gm in 50 mls @ 100 mls/hr 08/25/18 06:45 08/26/18 06:17 Merrem Iv 1 Gm Premix IVPB 100 mls/hr Q8 TOSHIA Administration Protocol Potassium Chloride 20 meq/ 1,010 mls @ 100 mls/hr 08/25/18 21:00 08/26/18 00:05 Dextrose/Sodium Chloride IV 100 mls/hr .Q10H6M TOSHIA Administration NOREPINEPHRINE BIT/0.9 % NACL 4 mg in 250 mls @ 15 mls/hr 08/26/18 02:05 Levophed 4 Mg/ 250 Ml Ns Premixed IV .[id number] PRN TITRATE PER MD ORDER Protocol 4 MCG/MIN Fentanyl Citrate 1,000 mcg in 100 mls @ 2 mls/hr 08/26/18 08:55 Fentanyl Citrate/Sodium Chloride 1 Mg/100 Ml IV .Q24H PRN TITRATE PER MD ORDER Protocol 20 MCG/HR Vasopressin 20 units/ Sodium 101 mls @ 9.09 mls/hr 08/26/18 09:32 Chloride IV .Q11H7M TOSHIA Protocol 0.03 U/MIN Phenylephrine HCl 40 mg/ 254 mls @ 38.1 mls/hr 08/26/18 09:33 Sodium Chloride IV .Q6H40M PRN TITRATE PER MD ORDER Protocol 100 MCG/MIN Propofol 1,000 mg in 100 mls @ 1.497 mls/hr 08/26/18 09:40 Diprivan IV .Q24H PRN TITRATE PER MD ORDER Protocol 5 MCG/KG/MIN Ibuprofen 200 mg 08/23/18 13:51 08/25/18 15:20 Motrin Tab PO 200 mg Q6H PRN Administration Temperature Lidocaine 0 gm 08/21/18 12:30 08/25/18 13:50 Lidocaine 5% TOP 1 applic DAILY TOSHIA Administration Lorazepam 2 mg 08/26/18 11:00 Ativan IVP Q2H PRN Anxiety Protocol Metoprolol Tartrate 12.5 mg 08/26/18 10:00 Lopressor PO BID TOSHIA Ondansetron HCl 4 mg 08/21/18 21:14 08/24/18 01:07 Zofran Inj IVP 4 mg Q6H PRN Administration Nausea/Vomiting Oseltamivir Phosphate 75 mg 08/24/18 11:00 08/25/18 18:09 Tamiflu Cap PO 08/29/18 10:47 75 mg BID TOSHIA Administration Protocol Pantoprazole Sodium 40 mg 08/25/18 07:30 08/25/18 10:38 Protonix Ec Tab PO 40 mg ACB TOSHIA Administration Silver Sulfadiazine 0 gm 08/20/18 18:00 08/25/18 10:38 Silvadene 1% 25 Gm TP 25 gm BID TOSHIA Administration Tramadol HCl 50 mg 08/18/18 18:48 08/25/18 13:54 Ultram PO 50 mg TID PRN Administration Pain, Mild (1-3) - Patient Studies Lab Studies: Microbiology Studies 08/24/18 01:10 Blood Culture - Preliminary Blood NO GROWTH AFTER 48 HOURS 08/24/18 01:30 Blood Culture - Preliminary Blood NO GROWTH AFTER 48 HOURS 08/21/18 21:48 Blood Culture - Preliminary Blood NO GROWTH AFTER 4 DAYS Lab Studies 08/26/18 08/26/18 08/26/18 Range/Units 07:00 07:00 07:00 WBC 14.2 H D (4.5-11.0) 10^3/uL RBC 3.32 L (3.5-6.1) 10^6/uL Hgb 9.8 L (12.0-16.0) g/dL Hct 28.7 L (36.0-48.0) % MCV 86.4 (80.0-105.0) fl MCH 29.5 (25.0-35.0) pg MCHC 34.1 (31.0-37.0) g/dl RDW 15.3 H (11.5-14.5) % Plt Count 365 (120.0-450.0) 10^3/uL MPV 10.4 (7.0-11.0) fl Neut % (Auto) 90.3 H (50.0-68.0) % Lymph % (Auto) 6.9 L (22.0-35.0) % Buchanan % (Auto) 2.6 (1.0-6.0) % Eos % (Auto) 0.1 L (1.5-5.0) % Baso % (Auto) 0.1 (0.0-3.0) % Lymph # (Auto) 1.0 L (1.2-3.4) Buchanan # (Auto) 0.4 (0.1-0.6) Eos # (Auto) 0.0 (0.0-0.7) Baso # (Auto) 0.01 (0.0-2.0) K/mm3 Absolute Neuts (auto) 12.79 H (1.4-6.5) Neutrophils % (Manual) (50.0-70.0) % Band Neutrophils % (0-2) % Lymphocytes % (Manual) (22.0-35.0) % Atypical Lymphs % (0.0-0.0) % Monocytes % (Manual) (1.0-6.0) % Toxic Granulation Platelet Evaluation (NORMAL) PT 15.3 H (9.4-12.5) SECONDS INR 1.35 APTT 32.4 (26.9-38.3) Seconds pCO2 (35-45) mm/Hg pO2 (80-100) mm/Hg HCO3 (21-28) mmol/L ABG pH (7.35-7.45) ABG Total CO2 (22-28) mmol.L ABG O2 Saturation (95-98) % ABG Base Excess (-2.0-3.0) mmol/L ABG Potassium (3.6-5.2) mmol/L Sodium 141 (132-148) mmol/L Chloride 110 H (98-107) mmol/L Glucose (65-105) mg/dl Lactate (0.7-2.1) mmol/L FiO2 % Potassium 4.2 (3.6-5.0) mmol/L Carbon Dioxide 26 (21-33) mmol/L Anion Gap 10 (10-20) BUN 12 (7-21) mg/dL Creatinine 0.5 L (0.7-1.2) mg/dl Est GFR ( Amer) > 60 Est GFR (Non-Af Amer) > 60 POC Glucose (mg/dL) (65-110) mg/dL Random Glucose 138 H (70-110) mg/dL Calcium 8.0 L (8.4-10.5) mg/dL Phosphorus 3.8 (2.5-4.5) mg/dL Magnesium 1.7 (1.7-2.2) mg/dL Total Bilirubin 0.5 (0.2-1.3) mg/dL AST 35 (14-36) U/L ALT 15 (7-56) U/L Alkaline Phosphatase 47 (38-126) U/L Lactate Dehydrogenase (333-699) U/L Total Creatine Kinase (35-230) U/L Troponin I 0.26 H* ng/mL NT-Pro-B Natriuret Pep (0-450) pg/mL Total Protein 5.7 L (5.8-8.3) g/dL Albumin 2.7 L (3.0-4.8) g/dL Globulin 3.0 gm/dL Albumin/Globulin Ratio 0.9 L (1.1-1.8) Arterial Blood Potassium (3.6-5.2) mmol/L Cryptococcus Ag Screen (Not Detected) HIV-1 RNA Qnt (RT-PCR) (Not Detected) 08/26/18 08/26/18 08/26/18 Range/Units 02:05 02:05 01:45 WBC 8.8 (4.5-11.0) 10^3/uL RBC 3.01 L (3.5-6.1) 10^6/uL Hgb 9.0 L (12.0-16.0) g/dL Hct 26.1 L (36.0-48.0) % MCV 86.7 (80.0-105.0) fl MCH 29.9 (25.0-35.0) pg MCHC 34.5 (31.0-37.0) g/dl RDW 15.2 H (11.5-14.5) % Plt Count 258 (120.0-450.0) 10^3/uL MPV 10.2 (7.0-11.0) fl Neut % (Auto) 92.1 H (50.0-68.0) % Lymph % (Auto) 4.3 L (22.0-35.0) % Buchanan % (Auto) 3.6 (1.0-6.0) % Eos % (Auto) 0.0 L (1.5-5.0) % Baso % (Auto) 0.0 (0.0-3.0) % Lymph # (Auto) 0.4 L (1.2-3.4) Buchanan # (Auto) 0.3 (0.1-0.6) Eos # (Auto) 0.0 (0.0-0.7) Baso # (Auto) 0.00 (0.0-2.0) K/mm3 Absolute Neuts (auto) 8.08 H (1.4-6.5) Neutrophils % (Manual) 78 H (50.0-70.0) % Band Neutrophils % 9 H (0-2) % Lymphocytes % (Manual) 8 L (22.0-35.0) % Atypical Lymphs % 2 H (0.0-0.0) % Monocytes % (Manual) 3 (1.0-6.0) % Toxic Granulation Slight Platelet Evaluation Normal (NORMAL) PT (9.4-12.5) SECONDS INR APTT (26.9-38.3) Seconds pCO2 33 L (35-45) mm/Hg pO2 89.0 (80-100) mm/Hg HCO3 17.0 L (21-28) mmol/L ABG pH 7.32 L (7.35-7.45) ABG Total CO2 18.0 L (22-28) mmol.L ABG O2 Saturation 99.3 H (95-98) % ABG Base Excess -8.1 L (-2.0-3.0) mmol/L ABG Potassium 3.8 (3.6-5.2) mmol/L Sodium 140 141.0 (132-148) mmol/L Chloride 112 H 113.0 H (98-107) mmol/L Glucose 135 H (65-105) mg/dl Lactate 1.3 (0.7-2.1) mmol/L FiO2 100.0 % Potassium 4.2 (3.6-5.0) mmol/L Carbon Dioxide 21 (21-33) mmol/L Anion Gap 12 (10-20) BUN 12 (7-21) mg/dL Creatinine 0.6 L (0.7-1.2) mg/dl Est GFR ( Amer) > 60 Est GFR (Non-Af Amer) > 60 POC Glucose (mg/dL) (65-110) mg/dL Random Glucose 129 H (70-110) mg/dL Calcium 7.4 L (8.4-10.5) mg/dL Phosphorus 3.2 (2.5-4.5) mg/dL Magnesium 1.7 (1.7-2.2) mg/dL Total Bilirubin 0.6 (0.2-1.3) mg/dL AST 29 (14-36) U/L ALT 15 (7-56) U/L Alkaline Phosphatase 44 (38-126) U/L Lactate Dehydrogenase 967 H (333-699) U/L Total Creatine Kinase < 20 L (35-230) U/L Troponin I 0.28 H* D ng/mL NT-Pro-B Natriuret Pep 3830 H (0-450) pg/mL Total Protein 5.2 L (5.8-8.3) g/dL Albumin 2.5 L (3.0-4.8) g/dL Globulin 2.7 gm/dL Albumin/Globulin Ratio 0.9 L (1.1-1.8) Arterial Blood Potassium 3.8 (3.6-5.2) mmol/L Cryptococcus Ag Screen (Not Detected) HIV-1 RNA Qnt (RT-PCR) (Not Detected) 08/26/18 08/24/18 08/24/18 Range/Units 01:42 11:00 11:00 WBC (4.5-11.0) 10^3/uL RBC (3.5-6.1) 10^6/uL Hgb (12.0-16.0) g/dL Hct (36.0-48.0) % MCV (80.0-105.0) fl MCH (25.0-35.0) pg MCHC (31.0-37.0) g/dl RDW (11.5-14.5) % Plt Count (120.0-450.0) 10^3/uL MPV (7.0-11.0) fl Neut % (Auto) (50.0-68.0) % Lymph % (Auto) (22.0-35.0) % Buchanan % (Auto) (1.0-6.0) % Eos % (Auto) (1.5-5.0) % Baso % (Auto) (0.0-3.0) % Lymph # (Auto) (1.2-3.4) Buchanan # (Auto) (0.1-0.6) Eos # (Auto) (0.0-0.7) Baso # (Auto) (0.0-2.0) K/mm3 Absolute Neuts (auto) (1.4-6.5) Neutrophils % (Manual) (50.0-70.0) % Band Neutrophils % (0-2) % Lymphocytes % (Manual) (22.0-35.0) % Atypical Lymphs % (0.0-0.0) % Monocytes % (Manual) (1.0-6.0) % Toxic Granulation Platelet Evaluation (NORMAL) PT (9.4-12.5) SECONDS INR APTT (26.9-38.3) Seconds pCO2 (35-45) mm/Hg pO2 (80-100) mm/Hg HCO3 (21-28) mmol/L ABG pH (7.35-7.45) ABG Total CO2 (22-28) mmol.L ABG O2 Saturation (95-98) % ABG Base Excess (-2.0-3.0) mmol/L ABG Potassium (3.6-5.2) mmol/L Sodium (132-148) mmol/L Chloride (98-107) mmol/L Glucose (65-105) mg/dl Lactate (0.7-2.1) mmol/L FiO2 % Potassium (3.6-5.0) mmol/L Carbon Dioxide (21-33) mmol/L Anion Gap (10-20) BUN (7-21) mg/dL Creatinine (0.7-1.2) mg/dl Est GFR ( Amer) Est GFR (Non-Af Amer) POC Glucose (mg/dL) 130 H (65-110) mg/dL Random Glucose (70-110) mg/dL Calcium (8.4-10.5) mg/dL Phosphorus (2.5-4.5) mg/dL Magnesium (1.7-2.2) mg/dL Total Bilirubin (0.2-1.3) mg/dL AST (14-36) U/L ALT (7-56) U/L Alkaline Phosphatase (38-126) U/L Lactate Dehydrogenase (333-699) U/L Total Creatine Kinase (35-230) U/L Troponin I ng/mL NT-Pro-B Natriuret Pep (0-450) pg/mL Total Protein (5.8-8.3) g/dL Albumin (3.0-4.8) g/dL Globulin gm/dL Albumin/Globulin Ratio (1.1-1.8) Arterial Blood Potassium (3.6-5.2) mmol/L Cryptococcus Ag Screen Not detected (Not Detected) HIV-1 RNA Qnt (RT-PCR) 4.10 H (Not Detected) Laboratory Results - last 24 hr 08/24/18 08/24/18 08/26/18 11:00 11:00 01:42 WBC RBC Hgb Hct MCV MCH MCHC RDW Plt Count MPV Neut % (Auto) Lymph % (Auto) Buchanan % (Auto) Eos % (Auto) Baso % (Auto) Lymph # (Auto) Buchanan # (Auto) Eos # (Auto) Baso # (Auto) Absolute Neuts (auto) Neutrophils % (Manual) Band Neutrophils % Lymphocytes % (Manual) Atypical Lymphs % Monocytes % (Manual) Toxic Granulation Platelet Evaluation PT INR APTT pCO2 pO2 HCO3 ABG pH ABG Total CO2 ABG O2 Saturation ABG Base Excess ABG Potassium Sodium Chloride Glucose Lactate FiO2 Potassium Carbon Dioxide Anion Gap BUN Creatinine Est GFR ( Amer) Est GFR (Non-Af Amer) POC Glucose (mg/dL) 130 H Random Glucose Calcium Phosphorus Magnesium Total Bilirubin AST ALT Alkaline Phosphatase Lactate Dehydrogenase Total Creatine Kinase Troponin I NT-Pro-B Natriuret Pep Total Protein Albumin Globulin Albumin/Globulin Ratio Arterial Blood Potassium Cryptococcus Ag Screen Not detected HIV-1 RNA Qnt (RT-PCR) 4.10 H 08/26/18 08/26/18 08/26/18 01:45 02:05 02:05 WBC 8.8 RBC 3.01 L Hgb 9.0 L Hct 26.1 L MCV 86.7 MCH 29.9 MCHC 34.5 RDW 15.2 H Plt Count 258 MPV 10.2 Neut % (Auto) 92.1 H Lymph % (Auto) 4.3 L Buchanan % (Auto) 3.6 Eos % (Auto) 0.0 L Baso % (Auto) 0.0 Lymph # (Auto) 0.4 L Buchanan # (Auto) 0.3 Eos # (Auto) 0.0 Baso # (Auto) 0.00 Absolute Neuts (auto) 8.08 H Neutrophils % (Manual) 78 H Band Neutrophils % 9 H Lymphocytes % (Manual) 8 L Atypical Lymphs % 2 H Monocytes % (Manual) 3 Toxic Granulation Slight Platelet Evaluation Normal PT INR APTT pCO2 33 L pO2 89.0 HCO3 17.0 L ABG pH 7.32 L ABG Total CO2 18.0 L ABG O2 Saturation 99.3 H ABG Base Excess -8.1 L ABG Potassium 3.8 Sodium 141.0 140 Chloride 113.0 H 112 H Glucose 135 H Lactate 1.3 FiO2 100.0 Potassium 4.2 Carbon Dioxide 21 Anion Gap 12 BUN 12 Creatinine 0.6 L Est GFR ( Amer) > 60 Est GFR (Non-Af Amer) > 60 POC Glucose (mg/dL) Random Glucose 129 H Calcium 7.4 L Phosphorus 3.2 Magnesium 1.7 Total Bilirubin 0.6 AST 29 ALT 15 Alkaline Phosphatase 44 Lactate Dehydrogenase 967 H Total Creatine Kinase < 20 L Troponin I 0.28 H* D NT-Pro-B Natriuret Pep 3830 H Total Protein 5.2 L Albumin 2.5 L Globulin 2.7 Albumin/Globulin Ratio 0.9 L Arterial Blood Potassium 3.8 Cryptococcus Ag Screen HIV-1 RNA Qnt (RT-PCR) 08/26/18 08/26/18 08/26/18 07:00 07:00 07:00 WBC 14.2 H D RBC 3.32 L Hgb 9.8 L Hct 28.7 L MCV 86.4 MCH 29.5 MCHC 34.1 RDW 15.3 H Plt Count 365 MPV 10.4 Neut % (Auto) 90.3 H Lymph % (Auto) 6.9 L Buchanan % (Auto) 2.6 Eos % (Auto) 0.1 L Baso % (Auto) 0.1 Lymph # (Auto) 1.0 L Buchanan # (Auto) 0.4 Eos # (Auto) 0.0 Baso # (Auto) 0.01 Absolute Neuts (auto) 12.79 H Neutrophils % (Manual) Band Neutrophils % Lymphocytes % (Manual) Atypical Lymphs % Monocytes % (Manual) Toxic Granulation Platelet Evaluation PT 15.3 H INR 1.35 APTT 32.4 pCO2 pO2 HCO3 ABG pH ABG Total CO2 ABG O2 Saturation ABG Base Excess ABG Potassium Sodium 141 Chloride 110 H Glucose Lactate FiO2 Potassium 4.2 Carbon Dioxide 26 Anion Gap 10 BUN 12 Creatinine 0.5 L Est GFR ( Amer) > 60 Est GFR (Non-Af Amer) > 60 POC Glucose (mg/dL) Random Glucose 138 H Calcium 8.0 L Phosphorus 3.8 Magnesium 1.7 Total Bilirubin 0.5 AST 35 ALT 15 Alkaline Phosphatase 47 Lactate Dehydrogenase Total Creatine Kinase Troponin I 0.26 H* NT-Pro-B Natriuret Pep Total Protein 5.7 L Albumin 2.7 L Globulin 3.0 Albumin/Globulin Ratio 0.9 L Arterial Blood Potassium Cryptococcus Ag Screen HIV-1 RNA Qnt (RT-PCR) Radiology Impressions: Radiology Impressions Chest X-Ray 08/26/18 01:45 IMPRESSION: Interval development of diffuse multifocal pneumonia versus pulmonary edema. Clinical follow-up is advised. Chest X-Ray 08/26/18 03:33 IMPRESSION: Right central venous line terminates at the cavoatrial junction. Little interval change in multifocal pneumonia versus pulmonary edema. Chest X-Ray 08/26/18 07:57 IMPRESSION: Endotracheal tube terminates in the mid trachea. Right IJV line terminates in the proximal SVC. Little interval change in diffuse multifocal pneumonia versus pulmonary edema. Follow-up after medical management is recommended to ensure complete resolution. 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 08/26/18 03:33 ELECTROCARDIOGRAM Stat Comment: Reason For Exam: Elevated trops Review of Systems - Review of Systems Systems not reviewed;Unavailable: Intubated Critical Care Progress Note - Ventilator Checklist Head of Bed 30 Degrees: Yes PUD Prophalyxis: Yes DVT Prophylaxis: Yes - Vent Settings MODE:: PRVC TIDAL VOLUME:: 370 RESP RATE:: 14 FIO2:: 100 PEEP:: 8 - Extremities/Vascular Does the Patient have a Central Venous Catheter?: Yes Insertion Site: Internal Jugular Vein - Nutrition Nutrition: Nutrition Category Date Time Status NPO Diet [DIET] Diets 08/26/18 Breakfast Ordered Assessment/Plan - Assessment and Plan (Free Text) Assessment: 63 year old female with past medical history of HIV and questionable TB presents with hypoxic respiratory failure 2/2 to ARDS from sepsis from HCAP vs. perianal abscess complicated with Type II NSTEMI. Plan: ARDS -Hypoxemic respiratory failure with vent settings: 370/14/9/100%. Will drop FiO2 to 60% -Sedated with propofol and fentanyl with PRN ativan -CXR 08/26: ET tube secured in place, fluffy infiltrates throughout the CXR -ABG 08/26: pH: 7.33, pO2: 269, pCO2: 41. PaO2/FiO2: 269 -Consider roto bed -Low tidal volume ventilation with 4-8ml/kg -Sufficient PEEP to keep the alveoli open -Daily sedation vacation and weaning trials -Daily ABG and CXR -Conservative fluid management -Head of bed to 30 degrees -Maintain oral hygiene Septic shock 08/21 to HCAP vs. perianal abscess: DROPLET PRECAUTIONS -BCx from 08/24: negative for 48 hours -Procalcitonin: <0.05 on 08/21. -Lactate is not elevated. -CXR 08/26: diffuse infiltrates bilaterally -Chest CT: patchy bilateral ground glass infiltrates, 4 mm RLL calcified granuloma -Patient is HIV+. Patient will need outpatient treatment for HIV. -Fungitell ordered to evaluate for fungal process of infection -Influenza negative -Quanteriferon indeterminate -Continue with levophed, vasopressin, and phenylephrine for better blood pressure control. -Albumin started to maintain blood pressure due to possibily of reduced oncotic pressure. -Continue with vancomycin day 9, doxycycline day 9, merrem day 2. -Continue with tamiflu as per ID due to clinical suspicion of influenza which c annot be rule out.. -Continue with Atovaquone for prophylaxis for PCP pneumonia as ground glass opacities were found on CT. However, LDH was normal which likely signifies no PCP pneumonia at this time. -Rule out coccidiomycosis with Ab, histoplasmosis with antigen, lung cancer, and sarcoidosis due to cavitary lesion on abdominal CT. -As per Dr. Dobson, from General Surgery, patient's rectal abscess could not be found on exam or CT scan. Doubt septic shock from perianal abscess. -Follow up AFB sputum to evaluate for TB due to active cavitary lesion -Follow up sputum culture -Follow up repeated blood culture -Follow up urine culture. -Follow up repeat procalcitonin. -Follow up recommendations as per IDDr. Queen Type II NSTEMI -Troponin: <0.01, 0.28. 0.26, downtrending -Likely 2/2 to demand ischemia from septic shock -Continue with lovenox 1mg/kg -Started aspirin and metoprolol -Follow up recommendations as per Cardiology, Dr. Weinstein. GI prophylaxis: protonix 40 mg daily DVT prophylaxis: therapeutic lovenox at 1 mg/kg Patient plan was discussed with attending. - Date & Time Date: 08/26/18 Time: 10:08 <Michael Boyer - Last Filed: 08/26/18 11:11> CCU Objective - Vital Signs / Intake & Output Vital Signs (Last 4 hours): Vital Signs Pulse Resp Pulse Ox 08/26/18 08:36 93 H 08/26/18 08:35 40 H 100 Intake and Output (Last 8hrs): Intake & Output 08/25/18 08/26/18 08/26/18 22:59 06:59 14:59 Intake Total 600 Balance 600 Intake: Oral 600 Other: # Voids Urine, Voided 3 # Bowel Movements 0 - Medications Active Medications: Active Medications Generic Name Dose Route Start Last Admin Trade Name Freq PRN Reason Stop Dose Admin Acetaminophen 650 mg 08/22/18 13:42 08/22/18 14:20 Tylenol 325mg Tab PO 650 mg Q6H PRN Administration Temperature Albumin Human 12.5 gm 08/26/18 16:00 Albumin Human 25% (12.5 Gm/50 Ml) IV 08/27/18 16:01 Q6H TOSHIA Albuterol/Ipratropium 3 ml 08/20/18 08:00 08/26/18 08:20 Duoneb 3 Mg/0.5 Mg (3 Ml) Ud IH 3 ml [id number] TOSHIA Administration Albuterol/Ipratropium 3 ml 08/20/18 06:46 Duoneb 3 Mg/0.5 Mg (3 Ml) Ud IH Q2H PRN Shortness of Breath Alprazolam 0.25 mg 08/24/18 19:10 08/26/18 00:06 Xanax PO 08/31/18 19:11 0.25 mg Q6H PRN Administration Anxiety Aspirin 81 mg 08/26/18 10:00 Aspirin Chewable PO DAILY [facility] Atovaquone 750 mg 08/24/18 12:00 08/25/18 18:10 Mepron PO 750 mg BID [facility] Administration Protocol Benzonatate 100 mg 08/26/18 10:00 Tessalon Perles PO TID [facility] Budesonide 0.5 mg 08/20/18 08:00 08/26/18 08:20 Pulmicort Respules IH 0.5 mg [id number] [facility] Administration Docusate Sodium 100 mg 08/18/18 06:16 08/22/18 23:44 Colace PO 100 mg Q4H PRN Administration Constipation Doxycycline Hyclate 100 mg 08/18/18 22:00 08/26/18 00:07 Doryx PO 100 mg Q12 [facility] Administration Protocol Enoxaparin Sodium 50 mg 08/26/18 04:15 08/26/18 06:13 Lovenox SC 50 mg Q12H [facility] Administration Protocol Guaifenesin 100 mg 08/23/18 22:34 08/26/18 00:07 Robitussin PO 100 mg Q4H PRN Administration Cough Vancomycin HCl 1 gm in 250 mls @ 167 mls/hr 08/18/18 10:45 08/26/18 04:20 Vancomycin 1gm IVPB Not Given Q12H [facility] Protocol Meropenem 1 gm in 50 mls @ 100 mls/hr 08/25/18 06:45 08/26/18 06:17 Merrem Iv 1 Gm Premix IVPB 100 mls/hr Q8 [facility] Administration Protocol NOREPINEPHRINE BIT/0.9 % NACL 4 mg in 250 mls @ 15 mls/hr 08/26/18 02:05 Levophed 4 Mg/ 250 Ml Ns Premixed IV .[id number] PRN TITRATE PER MD ORDER Protocol 4 MCG/MIN Fentanyl Citrate 1,000 mcg in 100 mls @ 2 mls/hr 08/26/18 08:55 Fentanyl Citrate/Sodium Chloride 1 Mg/100 Ml IV .Q24H PRN TITRATE PER MD ORDER Protocol 20 MCG/HR Vasopressin 20 units/ Sodium 101 mls @ 9.09 mls/hr 08/26/18 09:32 Chloride IV .Q11H7M [facility] Protocol 0.03 U/MIN Phenylephrine HCl 40 mg/ 254 mls @ 38.1 mls/hr 08/26/18 09:33 Sodium Chloride IV .Q6H40M PRN TITRATE PER MD ORDER Protocol 100 MCG/MIN Propofol 1,000 mg in 100 mls @ 1.497 mls/hr 08/26/18 09:40 Diprivan IV .Q24H PRN TITRATE PER MD ORDER Protocol 5 MCG/KG/MIN Ibuprofen 200 mg 08/23/18 13:51 08/25/18 15:20 Motrin Tab PO 200 mg Q6H PRN Administration Temperature Lidocaine 0 gm 08/21/18 12:30 08/25/18 13:50 Lidocaine 5% TOP 1 applic DAILY [facility] Administration Lorazepam 2 mg 08/26/18 11:00 Ativan IVP Q2H PRN Anxiety Protocol Metoprolol Tartrate 12.5 mg 08/26/18 10:00 Lopressor PO BID [facility] Ondansetron HCl 4 mg 08/21/18 21:14 08/24/18 01:07 Zofran Inj IVP 4 mg Q6H PRN Administration Nausea/Vomiting Oseltamivir Phosphate 75 mg 08/24/18 11:00 08/25/18 18:09 Tamiflu Cap PO 08/29/18 10:47 75 mg BID [facility] Administration Protocol Pantoprazole Sodium 40 mg 08/25/18 07:30 08/25/18 10:38 Protonix Ec Tab PO 40 mg ACB [facility] Administration Silver Sulfadiazine 0 gm 08/20/18 18:00 08/25/18 10:38 Silvadene 1% 25 Gm TP 25 gm BID [facility] Administration Tramadol HCl 50 mg 08/18/18 18:48 08/25/18 13:54 Ultram PO 50 mg TID PRN Administration Pain, Mild (1-3) - Patient Studies Lab Studies: Microbiology Studies 08/24/18 01:10 Blood Culture - Preliminary Blood NO GROWTH AFTER 48 HOURS 08/24/18 01:30 Blood Culture - Preliminary Blood NO GROWTH AFTER 48 HOURS 08/21/18 21:48 Blood Culture - Preliminary Blood NO GROWTH AFTER 4 DAYS Lab Studies 08/26/18 08/26/18 08/26/18 Range/Units 10:00 07:00 07:00 WBC (4.5-11.0) 10^3/uL RBC (3.5-6.1) 10^6/uL Hgb (12.0-16.0) g/dL Hct (36.0-48.0) % MCV (80.0-105.0) fl MCH (25.0-35.0) pg MCHC (31.0-37.0) g/dl RDW (11.5-14.5) % Plt Count (120.0-450.0) 10^3/uL MPV (7.0-11.0) fl Neut % (Auto) (50.0-68.0) % Lymph % (Auto) (22.0-35.0) % Buchanan % (Auto) (1.0-6.0) % Eos % (Auto) (1.5-5.0) % Baso % (Auto) (0.0-3.0) % Lymph # (Auto) (1.2-3.4) [place]anan # (Auto) (0.1-0.6) Eos # (Auto) (0.0-0.7) Baso # (Auto) (0.0-2.0) K/mm3 Absolute Neuts (auto) (1.4-6.5) Neutrophils % (Manual) (50.0-70.0) % Band Neutrophils % (0-2) % Lymphocytes % (Manual) (22.0-35.0) % Atypical Lymphs % (0.0-0.0) % Monocytes % (Manual) (1.0-6.0) % Toxic Granulation Platelet Evaluation (NORMAL) PT 15.3 H (9.4-12.5) SECONDS INR 1.35 APTT 32.4 (26.9-38.3) Seconds pCO2 41 (35-45) mm/Hg pO2 269.0 H (80-100) mm/Hg HCO3 21.6 (21-28) mmol/L ABG pH 7.33 L (7.35-7.45) ABG Total CO2 22.9 (22-28) mmol.L ABG O2 Saturation 100.3 H (95-98) % ABG O2 Content 13.2 L (15-23) ML/dl ABG Base Excess -4.1 L (-2.0-3.0) mmol/L ABG Hemoglobin 9.2 L (11.7-17.4) g/dL ABG Carboxyhemoglobin 2.4 H (0.5-1.5) % POC ABG HHb (Measured) -0.3 L (0-5) % ABG Methemoglobin 1.3 (0.0-3.0) % ABG O2 Capacity 13.2 L (16-24) mL/dl ABG Potassium (3.6-5.2) mmol/L Hgb O2 Saturation 96.7 (95.0-98.0) % Sodium 141 (132-148) mmol/L Chloride 110 H (98-107) mmol/L Glucose (65-105) mg/dl Lactate (0.7-2.1) mmol/L FiO2 100.0 % Potassium 4.2 (3.6-5.0) mmol/L Carbon Dioxide 26 (21-33) mmol/L Anion Gap 10 (10-20) BUN 12 (7-21) mg/dL Creatinine 0.5 L (0.7-1.2) mg/dl Est GFR ( Amer) > 60 Est GFR (Non-Af Amer) > 60 POC Glucose (mg/dL) (65-110) mg/dL Random Glucose 138 H (70-110) mg/dL Calcium 8.0 L (8.4-10.5) mg/dL Phosphorus 3.8 (2.5-4.5) mg/dL Magnesium 1.7 (1.7-2.2) mg/dL Total Bilirubin 0.5 (0.2-1.3) mg/dL AST 35 (14-36) U/L ALT 15 (7-56) U/L Alkaline Phosphatase 47 (38-126) U/L Lactate Dehydrogenase (333-699) U/L Total Creatine Kinase (35-230) U/L Troponin I 0.26 H* ng/mL NT-Pro-B Natriuret Pep (0-450) pg/mL Total Protein 5.7 L (5.8-8.3) g/dL Albumin 2.7 L (3.0-4.8) g/dL Globulin 3.0 gm/dL Albumin/Globulin Ratio 0.9 L (1.1-1.8) Arterial Blood Potassium (3.6-5.2) mmol/L Cryptococcus Ag Screen (Not Detected) HIV-1 RNA Qnt (RT-PCR) (Not Detected) 08/26/18 08/26/18 08/26/18 Range/Units 07:00 02:05 02:05 WBC 14.2 H D 8.8 (4.5-11.0) 10^3/uL RBC 3.32 L 3.01 L (3.5-6.1) 10^6/uL Hgb 9.8 L 9.0 L (12.0-16.0) g/dL Hct 28.7 L 26.1 L (36.0-48.0) % MCV 86.4 86.7 (80.0-105.0) fl MCH 29.5 29.9 (25.0-35.0) pg MCHC 34.1 34.5 (31.0-37.0) g/dl RDW 15.3 H 15.2 H (11.5-14.5) % Plt Count 365 258 (120.0-450.0) 10^3/uL MPV 10.4 10.2 (7.0-11.0) fl Neut % (Auto) 90.3 H 92.1 H (50.0-68.0) % Lymph % (Auto) 6.9 L 4.3 L (22.0-35.0) % Buchanan % (Auto) 2.6 3.6 (1.0-6.0) % Eos % (Auto) 0.1 L 0.0 L (1.5-5.0) % Baso % (Auto) 0.1 0.0 (0.0-3.0) % Lymph # (Auto) 1.0 L 0.4 L (1.2-3.4) Buchanan # (Auto) 0.4 0.3 (0.1-0.6) Eos # (Auto) 0.0 0.0 (0.0-0.7) Baso # (Auto) 0.01 0.00 (0.0-2.0) K/mm3 Absolute Neuts (auto) 12.79 H 8.08 H (1.4-6.5) Neutrophils % (Manual) 78 H (50.0-70.0) % Band Neutrophils % 9 H (0-2) % Lymphocytes % (Manual) 8 L (22.0-35.0) % Atypical Lymphs % 2 H (0.0-0.0) % Monocytes % (Manual) 3 (1.0-6.0) % Toxic Granulation Slight Platelet Evaluation Normal (NORMAL) PT (9.4-12.5) SECONDS INR APTT (26.9-38.3) Seconds pCO2 (35-45) mm/Hg pO2 (80-100) mm/Hg HCO3 (21-28) mmol/L ABG pH (7.35-7.45) ABG Total CO2 (22-28) mmol.L ABG O2 Saturation (95-98) % ABG O2 Content (15-23) ML/dl ABG Base Excess (-2.0-3.0) mmol/L ABG Hemoglobin (11.7-17.4) g/dL ABG Carboxyhemoglobin (0.5-1.5) % POC ABG HHb (Measured) (0-5) % ABG Methemoglobin (0.0-3.0) % ABG O2 Capacity (16-24) mL/dl ABG Potassium (3.6-5.2) mmol/L Hgb O2 Saturation (95.0-98.0) % Sodium 140 (132-148) mmol/L Chloride 112 H (98-107) mmol/L Glucose (65-105) mg/dl Lactate (0.7-2.1) mmol/L FiO2 % Potassium 4.2 (3.6-5.0) mmol/L Carbon Dioxide 21 (21-33) mmol/L Anion Gap 12 (10-20) BUN 12 (7-21) mg/dL Creatinine 0.6 L (0.7-1.2) mg/dl Est GFR ( Amer) > 60 Est GFR (Non-Af Amer) > 60 POC Glucose (mg/dL) (65-110) mg/dL Random Glucose 129 H (70-110) mg/dL Calcium 7.4 L (8.4-10.5) mg/dL Phosphorus 3.2 (2.5-4.5) mg/dL Magnesium 1.7 (1.7-2.2) mg/dL Total Bilirubin 0.6 (0.2-1.3) mg/dL AST 29 (14-36) U/L ALT 15 (7-56) U/L Alkaline Phosphatase 44 (38-126) U/L Lactate Dehydrogenase 967 H (333-699) U/L Total Creatine Kinase < 20 L (35-230) U/L Troponin I 0.28 H* D ng/mL NT-Pro-B Natriuret Pep 3830 H (0-450) pg/mL Total Protein 5.2 L (5.8-8.3) g/dL Albumin 2.5 L (3.0-4.8) g/dL Globulin 2.7 gm/dL Albumin/Globulin Ratio 0.9 L (1.1-1.8) Arterial Blood Potassium (3.6-5.2) mmol/L Cryptococcus Ag Screen (Not Detected) HIV-1 RNA Qnt (RT-PCR) (Not Detected) 08/26/18 08/26/18 08/24/18 Range/Units 01:45 01:42 11:00 WBC (4.5-11.0) 10^3/uL RBC (3.5-6.1) 10^6/uL Hgb (12.0-16.0) g/dL Hct (36.0-48.0) % MCV (80.0-105.0) fl MCH (25.0-35.0) pg MCHC (31.0-37.0) g/dl RDW (11.5-14.5) % Plt Count (120.0-450.0) 10^3/uL MPV (7.0-11.0) fl Neut % (Auto) (50.0-68.0) % Lymph % (Auto) (22.0-35.0) % Buchanan % (Auto) (1.0-6.0) % Eos % (Auto) (1.5-5.0) % Baso % (Auto) (0.0-3.0) % Lymph # (Auto) (1.2-3.4) [place]anan # (Auto) (0.1-0.6) Eos # (Auto) (0.0-0.7) Baso # (Auto) (0.0-2.0) K/mm3 Absolute Neuts (auto) (1.4-6.5) Neutrophils % (Manual) (50.0-70.0) % Band Neutrophils % (0-2) % Lymphocytes % (Manual) (22.0-35.0) % Atypical Lymphs % (0.0-0.0) % Monocytes % (Manual) (1.0-6.0) % Toxic Granulation Platelet Evaluation (NORMAL) PT (9.4-12.5) SECONDS INR APTT (26.9-38.3) Seconds pCO2 33 L (35-45) mm/Hg pO2 89.0 (80-100) mm/Hg HCO3 17.0 L (21-28) mmol/L ABG pH 7.32 L (7.35-7.45) ABG Total CO2 18.0 L (22-28) mmol.L ABG O2 Saturation 99.3 H (95-98) % ABG O2 Content (15-23) ML/dl ABG Base Excess -8.1 L (-2.0-3.0) mmol/L ABG Hemoglobin (11.7-17.4) g/dL ABG Carboxyhemoglobin (0.5-1.5) % POC ABG HHb (Measured) (0-5) % ABG Methemoglobin (0.0-3.0) % ABG O2 Capacity (16-24) mL/dl ABG Potassium 3.8 (3.6-5.2) mmol/L Hgb O2 Saturation (95.0-98.0) % Sodium 141.0 (132-148) mmol/L Chloride 113.0 H (98-107) mmol/L Glucose 135 H (65-105) mg/dl Lactate 1.3 (0.7-2.1) mmol/L FiO2 100.0 % Potassium (3.6-5.0) mmol/L Carbon Dioxide (21-33) mmol/L Anion Gap (10-20) BUN (7-21) mg/dL Creatinine (0.7-1.2) mg/dl Est GFR ( Amer) Est GFR (Non-Af Amer) POC Glucose (mg/dL) 130 H (65-110) mg/dL Random Glucose (70-110) mg/dL Calcium (8.4-10.5) mg/dL Phosphorus (2.5-4.5) mg/dL Magnesium (1.7-2.2) mg/dL Total Bilirubin (0.2-1.3) mg/dL AST (14-36) U/L ALT (7-56) U/L Alkaline Phosphatase (38-126) U/L Lactate Dehydrogenase (333-699) U/L Total Creatine Kinase (35-230) U/L Troponin I ng/mL NT-Pro-B Natriuret Pep (0-450) pg/mL Total Protein (5.8-8.3) g/dL Albumin (3.0-4.8) g/dL Globulin gm/dL Albumin/Globulin Ratio (1.1-1.8) Arterial Blood Potassium 3.8 (3.6-5.2) mmol/L Cryptococcus Ag Screen Not detected (Not Detected) HIV-1 RNA Qnt (RT-PCR) (Not Detected) 08/24/18 Range/Units 11:00 WBC (4.5-11.0) 10^3/uL RBC (3.5-6.1) 10^6/uL Hgb (12.0-16.0) g/dL Hct (36.0-48.0) % MCV (80.0-105.0) fl MCH (25.0-35.0) pg MCHC (31.0-37.0) g/dl RDW (11.5-14.5) % Plt Count (120.0-450.0) 10^3/uL MPV (7.0-11.0) fl Neut % (Auto) (50.0-68.0) % Lymph % (Auto) (22.0-35.0) % Buchanan % (Auto) (1.0-6.0) % Eos % (Auto) (1.5-5.0) % Baso % (Auto) (0.0-3.0) % Lymph # (Auto) (1.2-3.4) [place]anan # (Auto) (0.1-0.6) Eos # (Auto) (0.0-0.7) Baso # (Auto) (0.0-2.0) K/mm3 Absolute Neuts (auto) (1.4-6.5) Neutrophils % (Manual) (50.0-70.0) % Band Neutrophils % (0-2) % Lymphocytes % (Manual) (22.0-35.0) % Atypical Lymphs % (0.0-0.0) % Monocytes % (Manual) (1.0-6.0) % Toxic Granulation Platelet Evaluation (NORMAL) PT (9.4-12.5) SECONDS INR APTT (26.9-38.3) Seconds pCO2 (35-45) mm/Hg pO2 (80-100) mm/Hg HCO3 (21-28) mmol/L ABG pH (7.35-7.45) ABG Total CO2 (22-28) mmol.L ABG O2 Saturation (95-98) % ABG O2 Content (15-23) ML/dl ABG Base Excess (-2.0-3.0) mmol/L ABG Hemoglobin (11.7-17.4) g/dL ABG Carboxyhemoglobin (0.5-1.5) % POC ABG HHb (Measured) (0-5) % ABG Methemoglobin (0.0-3.0) % ABG O2 Capacity (16-24) mL/dl ABG Potassium (3.6-5.2) mmol/L Hgb O2 Saturation (95.0-98.0) % Sodium (132-148) mmol/L Chloride (98-107) mmol/L Glucose (65-105) mg/dl Lactate (0.7-2.1) mmol/L FiO2 % Potassium (3.6-5.0) mmol/L Carbon Dioxide (21-33) mmol/L Anion Gap (10-20) BUN (7-21) mg/dL Creatinine (0.7-1.2) mg/dl Est GFR ( Amer) Est GFR (Non-Af Amer) POC Glucose (mg/dL) (65-110) mg/dL Random Glucose (70-110) mg/dL Calcium (8.4-10.5) mg/dL Phosphorus (2.5-4.5) mg/dL Magnesium (1.7-2.2) mg/dL Total Bilirubin (0.2-1.3) mg/dL AST (14-36) U/L ALT (7-56) U/L Alkaline Phosphatase (38-126) U/L Lactate Dehydrogenase (333-699) U/L Total Creatine Kinase (35-230) U/L Troponin I ng/mL NT-Pro-B Natriuret Pep (0-450) pg/mL Total Protein (5.8-8.3) g/dL Albumin (3.0-4.8) g/dL Globulin gm/dL Albumin/Globulin Ratio (1.1-1.8) Arterial Blood Potassium (3.6-5.2) mmol/L Cryptococcus Ag Screen (Not Detected) HIV-1 RNA Qnt (RT-PCR) 4.10 H (Not Detected) Laboratory Results - last 24 hr 08/24/18 08/24/18 08/26/18 11:00 11:00 01:42 WBC RBC Hgb Hct MCV MCH MCHC RDW Plt Count MPV Neut % (Auto) Lymph % (Auto) [place]anan % (Auto) Eos % (Auto) Baso % (Auto) Lymph # (Auto) [place]anan # (Auto) Eos # (Auto) Baso # (Auto) Absolute Neuts (auto) Neutrophils % (Manual) Band Neutrophils % Lymphocytes % (Manual) Atypical Lymphs % Monocytes % (Manual) Toxic Granulation Platelet Evaluation PT INR APTT pCO2 pO2 HCO3 ABG pH ABG Total CO2 ABG O2 Saturation ABG O2 Content ABG Base Excess ABG Hemoglobin ABG Carboxyhemoglobin POC ABG HHb (Measured) ABG Methemoglobin ABG O2 Capacity ABG Potassium Hgb O2 Saturation Sodium Chloride Glucose Lactate FiO2 Potassium Carbon Dioxide Anion Gap BUN Creatinine Est GFR ( Amer) Est GFR (Non-Af Amer) POC Glucose (mg/dL) 130 H Random Glucose Calcium Phosphorus Magnesium Total Bilirubin AST ALT Alkaline Phosphatase Lactate Dehydrogenase Total Creatine Kinase Troponin I NT-Pro-B Natriuret Pep Total Protein Albumin Globulin Albumin/Globulin Ratio Arterial Blood Potassium Cryptococcus Ag Screen Not detected HIV-1 RNA Qnt (RT-PCR) 4.10 H 08/26/18 08/26/18 08/26/18 01:45 02:05 02:05 WBC 8.8 RBC 3.01 L Hgb 9.0 L Hct 26.1 L MCV 86.7 MCH 29.9 MCHC 34.5 RDW 15.2 H Plt Count 258 MPV 10.2 Neut % (Auto) 92.1 H Lymph % (Auto) 4.3 L Buchanan % (Auto) 3.6 Eos % (Auto) 0.0 L Baso % (Auto) 0.0 Lymph # (Auto) 0.4 L Buchanan # (Auto) 0.3 Eos # (Auto) 0.0 Baso # (Auto) 0.00 Absolute Neuts (auto) 8.08 H Neutrophils % (Manual) 78 H Band Neutrophils % 9 H Lymphocytes % (Manual) 8 L Atypical Lymphs % 2 H Monocytes % (Manual) 3 Toxic Granulation Slight Platelet Evaluation Normal PT INR APTT pCO2 33 L pO2 89.0 HCO3 17.0 L ABG pH 7.32 L ABG Total CO2 18.0 L ABG O2 Saturation 99.3 H ABG O2 Content ABG Base Excess -8.1 L ABG Hemoglobin ABG Carboxyhemoglobin POC ABG HHb (Measured) ABG Methemoglobin ABG O2 Capacity ABG Potassium 3.8 Hgb O2 Saturation Sodium 141.0 140 Chloride 113.0 H 112 H Glucose 135 H Lactate 1.3 FiO2 100.0 Potassium 4.2 Carbon Dioxide 21 Anion Gap 12 BUN 12 Creatinine 0.6 L Est GFR ( Amer) > 60 Est GFR (Non-Af Amer) > 60 POC Glucose (mg/dL) Random Glucose 129 H Calcium 7.4 L Phosphorus 3.2 Magnesium 1.7 Total Bilirubin 0.6 AST 29 ALT 15 Alkaline Phosphatase 44 Lactate Dehydrogenase 967 H Total Creatine Kinase < 20 L Troponin I 0.28 H* D NT-Pro-B Natriuret Pep 3830 H Total Protein 5.2 L Albumin 2.5 L Globulin 2.7 Albumin/Globulin Ratio 0.9 L Arterial Blood Potassium 3.8 Cryptococcus Ag Screen HIV-1 RNA Qnt (RT-PCR) 08/26/18 08/26/18 08/26/18 07:00 07:00 07:00 WBC 14.2 H D RBC 3.32 L Hgb 9.8 L Hct 28.7 L MCV 86.4 MCH 29.5 MCHC 34.1 RDW 15.3 H Plt Count 365 MPV 10.4 Neut % (Auto) 90.3 H Lymph % (Auto) 6.9 L [place]anan % (Auto) 2.6 Eos % (Auto) 0.1 L Baso % (Auto) 0.1 Lymph # (Auto) 1.0 L [place]anan # (Auto) 0.4 Eos # (Auto) 0.0 Baso # (Auto) 0.01 Absolute Neuts (auto) 12.79 H Neutrophils % (Manual) Band Neutrophils % Lymphocytes % (Manual) Atypical Lymphs % Monocytes % (Manual) Toxic Granulation Platelet Evaluation PT 15.3 H INR 1.35 APTT 32.4 pCO2 pO2 HCO3 ABG pH ABG Total CO2 ABG O2 Saturation ABG O2 Content ABG Base Excess ABG Hemoglobin ABG Carboxyhemoglobin POC ABG HHb (Measured) ABG Methemoglobin ABG O2 Capacity ABG Potassium Hgb O2 Saturation Sodium 141 Chloride 110 H Glucose Lactate FiO2 Potassium 4.2 Carbon Dioxide 26 Anion Gap 10 BUN 12 Creatinine 0.5 L Est GFR ( Amer) > 60 Est GFR (Non-Af Amer) > 60 POC Glucose (mg/dL) Random Glucose 138 H Calcium 8.0 L Phosphorus 3.8 Magnesium 1.7 Total Bilirubin 0.5 AST 35 ALT 15 Alkaline Phosphatase 47 Lactate Dehydrogenase Total Creatine Kinase Troponin I 0.26 H* NT-Pro-B Natriuret Pep Total Protein 5.7 L Albumin 2.7 L Globulin 3.0 Albumin/Globulin Ratio 0.9 L Arterial Blood Potassium Cryptococcus Ag Screen HIV-1 RNA Qnt (RT-PCR) 08/26/18 10:00 WBC RBC Hgb Hct MCV MCH MCHC RDW Plt Count MPV Neut % (Auto) Lymph % (Auto) [place]anan % (Auto) Eos % (Auto) Baso % (Auto) Lymph # (Auto) [place]anan # (Auto) Eos # (Auto) Baso # (Auto) Absolute Neuts (auto) Neutrophils % (Manual) Band Neutrophils % Lymphocytes % (Manual) Atypical Lymphs % Monocytes % (Manual) Toxic Granulation Platelet Evaluation PT INR APTT pCO2 41 pO2 269.0 H HCO3 21.6 ABG pH 7.33 L ABG Total CO2 22.9 ABG O2 Saturation 100.3 H ABG O2 Content 13.2 L ABG Base Excess -4.1 L ABG Hemoglobin 9.2 L ABG Carboxyhemoglobin 2.4 H POC ABG HHb (Measured) -0.3 L ABG Methemoglobin 1.3 ABG O2 Capacity 13.2 L ABG Potassium Hgb O2 Saturation 96.7 Sodium Chloride Glucose Lactate FiO2 100.0 Potassium Carbon Dioxide Anion Gap BUN Creatinine Est GFR ( Amer) Est GFR (Non-Af Amer) POC Glucose (mg/dL) Random Glucose Calcium Phosphorus Magnesium Total Bilirubin AST ALT Alkaline Phosphatase Lactate Dehydrogenase Total Creatine Kinase Troponin I NT-Pro-B Natriuret Pep Total Protein Albumin Globulin Albumin/Globulin Ratio Arterial Blood Potassium Cryptococcus Ag Screen HIV-1 RNA Qnt (RT-PCR) Radiology Impressions: Radiology Impressions Chest X-Ray 08/26/18 01:45 IMPRESSION: Interval development of diffuse multifocal pneumonia versus pulmonary edema. Clinical follow-up is advised. Chest X-Ray 08/26/18 03:33 IMPRESSION: Right central venous line terminates at the cavoatrial junction. Little interval change in multifocal pneumonia versus pulmonary edema. Chest X-Ray 08/26/18 07:57 IMPRESSION: Endotracheal tube terminates in the mid trachea. Right IJV line terminates in the proximal SVC. Little interval change in diffuse multifocal pneumonia versus pulmonary edema. Follow-up after medical management is recommended to ensure complete resolution. 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 Patient care was discussed with resident Medical records, lab studies were reviewed and management issues were discussed and formulated. Agree with above treatment plans as outlined in 's note with addition of the following: Acute Respiratory Failure \ Hypoxemia \ ARDS \ PNA \ Septic Shock \HIV \ ro Rectal Abscess \ NSTEMI -hemodynamic monitoring and vasopressor support to maintain MAP>65 -continue Levophed and start Phenylephrine and Vaospressin once maxed -f\u serial CE and ECG; cardiology team f\u; likely Type 2 VT -s\p intubation this AM by Pulmonary team and respiratory therapist -mechanical ventilation and o2 supplementation to maintain Spo2 >90 Pao2>60 -monitor for TV 6ml\kg IBW and plateau pressure <30 -ABG and CXR were reviewed ; currently Peep 8 and Fio2 60% -continue nebs and pulmonary toileting -continue broad spectrum ABX as per ID team; f\u cultures and AFB; noted HIV positive -f\u Bun\Cr and U\o; monitor and replace e-lites -surgical team f\u appreciated; no abscess as per their exam at bedside; f\u CT scan -NPO diet and aspiration precautions -case dw pulmonary and surgical team and PMD -DVT \ PUD prophylaxis CCM time 38min
--- NOTE | 2018-08-26 10:52 | CP.PCM.PN ---
Subjective - Date & Time of Evaluation Date of Evaluation: 08/26/18 Time of Evaluation: 09:10 Objective - Vital Signs/Intake and Output Vital Signs (last 24 hours): Temp Pulse Resp BP Pulse Ox 101.1 F H 93 H 40 H 135/58 L 100 08/26/18 00:33 08/26/18 08:36 08/26/18 08:35 08/26/18 02:35 08/26/18 08:35 Intake and Output: 08/26/18 08/26/18 06:59 18:59 Intake Total 600 Balance 600 - Medications Medications: Current Medications Acetaminophen (Tylenol 325mg Tab) 650 mg PO Q6H PRN PRN Reason: Temperature Last Admin: 08/22/18 14:20 Dose: 650 mg Albumin Human (Albumin Human 25% (12.5 Gm/50 Ml)) 12.5 gm IV Q6H [facility] Stop: 08/27/18 16:01 Albuterol/Ipratropium (Duoneb 3 Mg/0.5 Mg (3 Ml) Ud) 3 ml IH [id number] [facility] Last Admin: 08/26/18 08:20 Dose: 3 ml Albuterol/Ipratropium (Duoneb 3 Mg/0.5 Mg (3 Ml) Ud) 3 ml IH Q2H PRN PRN Reason: Shortness of Breath Alprazolam (Xanax) 0.25 mg PO Q6H PRN PRN Reason: Anxiety Stop: 08/31/18 19:11 Last Admin: 08/26/18 00:06 Dose: 0.25 mg Aspirin (Aspirin Chewable) 81 mg PO DAILY [facility] Atovaquone (Mepron) 750 mg PO BID [facility]; Protocol Last Admin: 08/25/18 18:10 Dose: 750 mg Benzonatate (Tessalon Perles) 100 mg PO TID [facility] Budesonide (Pulmicort Respules) 0.5 mg IH [id number] [facility] Last Admin: 08/26/18 08:20 Dose: 0.5 mg Docusate Sodium (Colace) 100 mg PO Q4H PRN PRN Reason: Constipation Last Admin: 08/22/18 23:44 Dose: 100 mg Doxycycline Hyclate (Doryx) 100 mg PO Q12 [facility]; Protocol Last Admin: 08/26/18 00:07 Dose: 100 mg Enoxaparin Sodium (Lovenox) 50 mg SC Q12H [facility]; Protocol Last Admin: 08/26/18 06:13 Dose: 50 mg Guaifenesin (Robitussin) 100 mg PO Q4H PRN PRN Reason: Cough Last Admin: 08/26/18 00:07 Dose: 100 mg Vancomycin HCl (Vancomycin 1gm) 1 gm in 250 mls @ 167 mls/hr IVPB Q12H [facility]; Protocol Last Admin: 08/26/18 04:20 Dose: Not Given Meropenem (Merrem Iv 1 Gm Premix) 1 gm in 50 mls @ 100 mls/hr IVPB Q8 [facility]; Protocol Last Admin: 08/26/18 06:17 Dose: 100 mls/hr Potassium Chloride 20 meq/ (Dextrose/Sodium Chloride) 1,010 mls @ 100 mls/hr IV .Q10H6M [facility] Last Admin: 08/26/18 00:05 Dose: 100 mls/hr NOREPINEPHRINE BIT/0.9 % NACL (Levophed 4 Mg/ 250 Ml Ns Premixed) 4 mg in 250 mls @ 15 mls/hr IV .[id number] PRN; Protocol PRN Reason: TITRATE PER MD ORDER Fentanyl Citrate (Fentanyl Citrate/Sodium Chloride 1 Mg/100 Ml) 1,000 mcg in 100 mls @ 2 mls/hr IV .Q24H PRN; Protocol PRN Reason: TITRATE PER MD ORDER Vasopressin 20 units/ Sodium (Chloride) 101 mls @ 9.09 mls/hr IV .Q11H7M [facility]; Protocol Phenylephrine HCl 40 mg/ (Sodium Chloride) 254 mls @ 38.1 mls/hr IV .Q6H40M PRN; Protocol PRN Reason: TITRATE PER MD ORDER Propofol (Diprivan) 1,000 mg in 100 mls @ 1.497 mls/hr IV .Q24H PRN; Protocol PRN Reason: TITRATE PER MD ORDER Ibuprofen (Motrin Tab) 200 mg PO Q6H PRN PRN Reason: Temperature Last Admin: 08/25/18 15:20 Dose: 200 mg Lidocaine (Lidocaine 5%) 0 gm TOP DAILY [facility] Last Admin: 08/25/18 13:50 Dose: 1 applic Lorazepam (Ativan) 2 mg IVP Q2H PRN; Protocol PRN Reason: Anxiety Metoprolol Tartrate (Lopressor) 12.5 mg PO BID [facility] Ondansetron HCl (Zofran Inj) 4 mg IVP Q6H PRN PRN Reason: Nausea/Vomiting Last Admin: 08/24/18 01:07 Dose: 4 mg Oseltamivir Phosphate (Tamiflu Cap) 75 mg PO BID [facility]; Protocol Stop: 08/29/18 10:47 Last Admin: 08/25/18 18:09 Dose: 75 mg Pantoprazole Sodium (Protonix Ec Tab) 40 mg PO ACB [facility] Last Admin: 08/25/18 10:38 Dose: 40 mg Silver Sulfadiazine (Silvadene 1% 25 Gm) 0 gm TP BID [facility] Last Admin: 08/25/18 10:38 Dose: 25 gm Tramadol HCl (Ultram) 50 mg PO TID PRN PRN Reason: Pain, Mild (1-3) Last Admin: 08/25/18 13:54 Dose: 50 mg - Labs Labs: 08/26/18 07:00 08/26/18 07:00 PT 15.3 SECONDS (9.4-12.5) H 08/26/18 07:00 INR 1.35 08/26/18 07:00 APTT 32.4 Seconds (26.9-38.3) 08/26/18 07:00
[2018-08-26] MEDS: NOREPINEPHRINE BIT/0.9 % NACL 4 MG/250 ML BAG IV PRN ×2 (11:22→22:48)
[2018-08-26] MEDS: Atovaquone 750 mg/5 ml Susp UD PO SCH ×2 (11:31→17:38)
[2018-08-26] MEDS: Fentanyl 1000mcg/100ml NS 1,000 MCG/100 ML BAG IV PRN (11:32)
[2018-08-26] MEDS: Propofol 10 mg/ml 1,000 MG/100 ML VIAL IV PRN ×3 (12:10→23:30)
--- NOTE | 2018-08-26 12:16 | CP.PCM.PN ---
Subjective - Date & Time of Evaluation Date of Evaluation: 08/26/18 Time of Evaluation: 09:30 - Subjective Subjective: Surgery progress note, Dr. Dobson Patient seen and examined at bedside. 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 Pt transferred to ICU sedated, intubated, on levophed and vasopressin. NO GI bleed reported Objective - Vital Signs/Intake and Output Vital Signs (last 24 hours): Temp Pulse Resp BP Pulse Ox 101.1 F H 93 H 40 H 135/58 L 100 08/26/18 00:33 08/26/18 08:36 08/26/18 08:35 08/26/18 02:35 08/26/18 08:35 Intake and Output: 08/26/18 08/26/18 06:59 18:59 Intake Total 600 Balance 600 - Medications Medications: Current Medications Acetaminophen (Tylenol 325mg Tab) 650 mg PO Q6H PRN PRN Reason: Temperature Last Admin: 08/22/18 14:20 Dose: 650 mg Albumin Human (Albumin Human 25% (12.5 Gm/50 Ml)) 12.5 gm IV Q6H [facility] Stop: 08/27/18 16:01 Albuterol/Ipratropium (Duoneb 3 Mg/0.5 Mg (3 Ml) Ud) 3 ml IH [id number] [facility] Last Admin: 08/26/18 08:20 Dose: 3 ml Albuterol/Ipratropium (Duoneb 3 Mg/0.5 Mg (3 Ml) Ud) 3 ml IH Q2H PRN PRN Reason: Shortness of Breath Alprazolam (Xanax) 0.25 mg PO Q6H PRN PRN Reason: Anxiety Stop: 08/31/18 19:11 Last Admin: 08/26/18 00:06 Dose: 0.25 mg Aspirin (Aspirin Chewable) 81 mg PO DAILY [facility] Atovaquone (Mepron) 750 mg PO BID [facility]; Protocol Last Admin: 08/25/18 18:10 Dose: 750 mg Benzonatate (Tessalon Perles) 100 mg PO TID [facility] Budesonide (Pulmicort Respules) 0.5 mg IH [id number] [facility] Last Admin: 08/26/18 08:20 Dose: 0.5 mg Docusate Sodium (Colace) 100 mg PO Q4H PRN PRN Reason: Constipation Last Admin: 08/22/18 23:44 Dose: 100 mg Doxycycline Hyclate (Doryx) 100 mg PO Q12 [facility]; Protocol Last Admin: 08/26/18 00:07 Dose: 100 mg Enoxaparin Sodium (Lovenox) 50 mg SC Q12H [facility]; Protocol Last Admin: 08/26/18 06:13 Dose: 50 mg Guaifenesin (Robitussin) 100 mg PO Q4H PRN PRN Reason: Cough Last Admin: 08/26/18 00:07 Dose: 100 mg Vancomycin HCl (Vancomycin 1gm) 1 gm in 250 mls @ 167 mls/hr IVPB Q12H [facility]; Protocol Last Admin: 08/26/18 04:20 Dose: Not Given Meropenem (Merrem Iv 1 Gm Premix) 1 gm in 50 mls @ 100 mls/hr IVPB Q8 [facility]; Protocol Last Admin: 08/26/18 06:17 Dose: 100 mls/hr NOREPINEPHRINE BIT/0.9 % NACL (Levophed 4 Mg/ 250 Ml Ns Premixed) 4 mg in 250 mls @ 15 mls/hr IV .[id number] PRN; Protocol PRN Reason: TITRATE PER MD ORDER Fentanyl Citrate (Fentanyl Citrate/Sodium Chloride 1 Mg/100 Ml) 1,000 mcg in 100 mls @ 2 mls/hr IV .Q24H PRN; Protocol PRN Reason: TITRATE PER MD ORDER Vasopressin 20 units/ Sodium (Chloride) 101 mls @ 9.09 mls/hr IV .Q11H7M [facility]; Protocol Phenylephrine HCl 40 mg/ (Sodium Chloride) 254 mls @ 38.1 mls/hr IV .Q6H40M PRN; Protocol PRN Reason: TITRATE PER MD ORDER Propofol (Diprivan) 1,000 mg in 100 mls @ 1.497 mls/hr IV .Q24H PRN; Protocol PRN Reason: TITRATE PER MD ORDER Ibuprofen (Motrin Tab) 200 mg PO Q6H PRN PRN Reason: Temperature Last Admin: 08/25/18 15:20 Dose: 200 mg Lidocaine (Lidocaine 5%) 0 gm TOP DAILY [facility] Last Admin: 08/25/18 13:50 Dose: 1 applic Lorazepam (Ativan) 2 mg IVP Q2H PRN; Protocol PRN Reason: Anxiety Metoprolol Tartrate (Lopressor) 12.5 mg PO BID [facility] Ondansetron HCl (Zofran Inj) 4 mg IVP Q6H PRN PRN Reason: Nausea/Vomiting Last Admin: 08/24/18 01:07 Dose: 4 mg Oseltamivir Phosphate (Tamiflu Cap) 75 mg PO BID [facility]; Protocol Stop: 08/29/18 10:47 Last Admin: 08/25/18 18:09 Dose: 75 mg Pantoprazole Sodium (Protonix Ec Tab) 40 mg PO ACB [facility] Last Admin: 08/25/18 10:38 Dose: 40 mg Silver Sulfadiazine (Silvadene 1% 25 Gm) 0 gm TP BID [facility] Last Admin: 08/25/18 10:38 Dose: 25 gm Tramadol HCl (Ultram) 50 mg PO TID PRN PRN Reason: Pain, Mild (1-3) Last Admin: 08/25/18 13:54 Dose: 50 mg - Labs Labs: 08/26/18 07:00 08/26/18 07:00 PT 15.3 SECONDS (9.4-12.5) H 08/26/18 07:00 INR 1.35 08/26/18 07:00 APTT 32.4 Seconds (26.9-38.3) 08/26/18 07:00 - Constitutional Appears: Chronically Ill, Other (intubated, sedated) - Head Exam Head Exam: ATRAUMATIC, NORMOCEPHALIC - ENT Exam ENT Exam: Mucous Membranes Dry - Respiratory Exam Respiratory Exam: Decreased Breath Sounds. absent: Respiratory Distress - Cardiovascular Exam Cardiovascular Exam: +S1, +S2 - GI/Abdominal Exam GI & Abdominal Exam: Soft, Normal Bowel Sounds. absent: Tenderness - Rectal Exam Rectal Exam: absent: Black Stool, Bloody Stool Additional comments: no fluctuations, no abscess or mass noted. - Extremities Exam Extremities Exam: absent: Pedal Edema - Neurological Exam Neurological Exam: Altered - Skin Skin Exam: Dry, Intact Assessment and Plan - Assessment and Plan (Free Text) Assessment: 63 y/o female admitted for perianal pain/drainge s/p hemorroidectomy. Patient was found in shock last night, transferred to ICU, sedated/intubated, on pressors. Rectal exam done by Dr Dobson did not show any abscees or fluctuating mass ARDS Gastritis HIV Plan: -no anal masses noted as a source of sepsis/shock -f/u CT abdomen, pelvis -continue management per ICU team -further recs per surgical attending Dr. Bronson Joshua, DO
[2018-08-26 12:29] LABS: URINE BILIRUBIN NEGATIVE (NEGATIVE); URINE BLOOD NEGATIVE (NEGATIVE); URINE GLUCOSE (UA) NEGATIVE (NEGATIVE); URINE LEUKOCYTE ESTERASE NEGATIVE Leu/uL (NEGATIVE); URINE PROTEIN NEGATIVE mg/dL (<30 mg/dL); URINE UROBILINOGEN 0.2 E.U./dL (<1 E.U./dL)
[2018-08-26 12:31] LABS: URINE APPEARANCE CLEAR (CLEAR); URINE COLOR YELLOW (YELLOW)
[2018-08-26] MEDS: Pantoprazole 40 mg EC Tab PO SCH (12:35)
--- NOTE | 2018-08-26 12:44 | CP.PCM.PN ---
Subjective - Date & Time of Evaluation Date of Evaluation: 08/26/18 Time of Evaluation: 09:35 - Subjective Subjective: Noted events overnight. Patient became hypotensive and was given fluid bolus intravenously. Afterwards she went into respiratory distress and she was found to have bilateral pulmonary infiltrates, which looks like ARDS. She is now in e ICU intubated, sedated, still had fevers last night. Objective - Vital Signs/Intake and Output Vital Signs (last 24 hours): Temp Pulse Resp BP Pulse Ox 98.6 F 100 H 22 93/61 L 95 08/25/18 10:35 08/25/18 10:35 08/25/18 10:35 08/25/18 10:35 08/25/18 06:00 Intake and Output: 08/25/18 08/25/18 06:59 18:59 Intake Total 640 Balance 640 - Medications Medications: Current Medications Acetaminophen (Tylenol 325mg Tab) 650 mg PO Q6H PRN PRN Reason: Temperature Last Admin: 08/22/18 14:20 Dose: 650 mg Albuterol/Ipratropium (Duoneb 3 Mg/0.5 Mg (3 Ml) Ud) 3 ml IH [id number] [facility] Last Admin: 08/25/18 13:23 Dose: 3 ml Albuterol/Ipratropium (Duoneb 3 Mg/0.5 Mg (3 Ml) Ud) 3 ml IH Q2H PRN PRN Reason: Shortness of Breath Alprazolam (Xanax) 0.25 mg PO Q6H PRN PRN Reason: Anxiety Stop: 08/31/18 19:11 Last Admin: 08/25/18 13:54 Dose: 0.25 mg Atovaquone (Mepron) 750 mg PO BID [facility]; Protocol Last Admin: 08/25/18 10:39 Dose: 750 mg Budesonide (Pulmicort Respules) 0.5 mg IH [id number] [facility] Last Admin: 08/25/18 07:29 Dose: 0.5 mg Docusate Sodium (Colace) 100 mg PO Q4H PRN PRN Reason: Constipation Last Admin: 08/22/18 23:44 Dose: 100 mg Doxycycline Hyclate (Doryx) 100 mg PO Q12 [facility]; Protocol Last Admin: 08/25/18 10:37 Dose: 100 mg Guaifenesin (Robitussin) 100 mg PO Q4H PRN PRN Reason: Cough Last Admin: 08/25/18 12:57 Dose: 100 mg Metronidazole (Flagyl) 500 mg in 100 mls @ 100 mls/hr IVPB Q8 [facility]; Protocol Last Admin: 08/25/18 13:02 Dose: 100 mls/hr Vancomycin HCl (Vancomycin 1gm) 1 gm in 250 mls @ 167 mls/hr IVPB Q12H [facility]; Protocol Last Admin: 08/25/18 10:40 Dose: 167 mls/hr Meropenem (Merrem Iv 1 Gm Premix) 1 gm in 50 mls @ 100 mls/hr IVPB Q8 [facility]; Protocol Last Admin: 08/25/18 13:03 Dose: 100 mls/hr Ibuprofen (Motrin Tab) 200 mg PO Q6H PRN PRN Reason: Temperature Last Admin: 08/25/18 03:38 Dose: 200 mg Lidocaine (Lidocaine 5%) 0 gm TOP DAILY [facility] Last Admin: 08/25/18 13:50 Dose: 1 applic Ondansetron HCl (Zofran Inj) 4 mg IVP Q6H PRN PRN Reason: Nausea/Vomiting Last Admin: 08/24/18 01:07 Dose: 4 mg Oseltamivir Phosphate (Tamiflu Cap) 75 mg PO BID [facility]; Protocol Stop: 08/29/18 10:47 Last Admin: 08/25/18 10:37 Dose: 75 mg Pantoprazole Sodium (Protonix Ec Tab) 40 mg PO ACB [facility] Last Admin: 08/25/18 10:38 Dose: 40 mg Potassium Chloride (K-Dur 20 Meq Er Tab) 20 meq PO TID [facility] Stop: 08/26/18 18:00 Last Admin: 08/25/18 13:01 Dose: 20 meq Silver Sulfadiazine (Silvadene 1% 25 Gm) 0 gm TP BID [facility] Last Admin: 08/25/18 10:38 Dose: 25 gm Tramadol HCl (Ultram) 50 mg PO TID PRN PRN Reason: Pain, Mild (1-3) Last Admin: 08/25/18 13:54 Dose: 50 mg - Labs Labs: 08/25/18 07:20 08/25/18 07:20 PT 12.1 SECONDS (9.4-12.5) 01/29/19 17:56 INR 1.09 08/17/18 17:56 APTT 25.7 Seconds (26.9-38.3) L 08/17/18 17:56 - Constitutional Appears: Chronically Ill, Other (intubated, sedated) - ENT Exam Additional comments: ET tube in place - Respiratory Exam Respiratory Exam: Decreased Breath Sounds - Cardiovascular Exam Cardiovascular Exam: +S1, +S2 - GI/Abdominal Exam GI & Abdominal Exam: Soft. absent: Tenderness - Extremities Exam Extremities Exam: absent: Pedal Edema Assessment and Plan - Assessment and Plan (Free Text) Plan: Assessment consider severe sepsis with VDRF and ARDS due to bilateral pneumonia, R/O viral pneumonia, R/O Pneumocystis pneumonia, R/O atypical pneumonia, R/O intra-abdominal, rectal infection / colitis perianal abscess after hemorrhoidectomy S/P surgery and chronic wound noted, cannot rule out colitis consider bilateral HCAP chronic HIV infection gastritis Plan on Vancomycin,Merrem, Doxycycline day 9 - will repeat blood cx, sputum cx, will switch Vancomycin to Bactrim IV (we were giving therapeutic dose of Mepron 750 mg BID but will switch to IV Bactrim), and will start Mycamine as well - initially PJP was not high on the differential list since LDH was normal, and we were initially giving Mepron for prophylaxis but 750 mg BID which we initially started is actually therapeutic dosing reviewed previous CT chest, abdomen and pelvis which shows pneumonitis with no lymphadenopathy, chronic diverticulosis but cannot rule out colitis; even though rapid flu test is negative will continue Tamiflu day [address] Medrano - patient in ARDS - respiratory therapist will get respiratory samples to be checked for silver stain for PJP, fungal smears, viral panel for Influenza, RSV, Parainfluenza, Adenovirus, hMPV, AFB, bacterial cul tures, CMV HIV PCR is elevated, will follow up CD4 count; RPR, serum Crypt Ag are negative Quantiferon TB test was indeterminate - granuloma on right lung seen on CT scan is probably old disease, initial CT chest showed groundglass opacities which are not typically seen in patients with TB; also patient did not have mediastinal lymphadenopathy, no upper lobe cavities, no signs of miliary tuberculosis, no pleural effusions, making TB less likely Dr. Kramer has discussed with patient about the HIV test result will also get CMV PCR surgery planning on more intervention overall prognosis is guarded and patient is critically ill
[2018-08-26] MEDS ORDERED: Oseltamivir 6 MG/ML PO SCH (13:15)
[2018-08-26] MEDS ORDERED: Tmp-Smz 16 mg-80 mg/ml Inj IVPB SCH (14:00)
[2018-08-26] MEDS: Sulfamethoxazole/Trimethoprim 250 MG in Dextrose 5% In Water 500 ML IVPB SCH ×2 (14:00→22:11)
--- NOTE | 2018-08-26 15:33 | CARD ---
APPROVED REPORT Date of service: 08/26/2018 EXAM: Two-dimensional and M-mode echocardiogram with Doppler and color Doppler. INDICATION PULM. EDEMA 2D DIMENSIONS Left Atrium (2D)3.3 (1.6-4.0cm)IVSd0.9 (0.7-1.1cm) LVDd4.8 (3.9-5.9cm)PWd1.0 (0.7-1.1cm) LVDs3.8 (2.5-4.0cm)FS (%) 20.6 % LVEF (%)42.3 (>50%) M-Mode DIMENSIONS Aortic Root2.50 (2.2-3.7cm)Aortic Cusp Exc.2.10 (1.5-2.0cm) Aortic Valve AoV Peak Rnleuvma784.0cm/Maria Eugenia Peak GR.9mmHg Mitral Valve E/A ratio0.0 TDI E/Lateral E'0.0E/Medial E'0.0 Tricuspid Valve TR Peak [id number]/sRAP [id number] Peak Gr.23mmHg [id number] LEFT VENTRICLE The left ventricle is normal size. There is normal left ventricular wall thickness. Left ventricle systolic function is low normal to Mildly decreased. EF-45-50% There is mild global hypokinesis of the left ventricle. Transmitral Doppler flow pattern is Grade III-reversible restrictive diastolic dysfunction. No left ventricle thrombus noted on this study. There is no ventricular septal defect visualized. There is no left ventricular aneurysm. There is no mass noted in the left ventricle. RIGHT VENTRICLE The right ventricle is normal size. There is normal right ventricular wall thickness. The right ventricular systolic function is normal. ATRIA The left atrium size is normal. The right atrium size is normal. The interatrial septum is intact with no evidence for an atrial septal defect. AORTIC VALVE The aortic valve is thickened but opens well. Trivial AR. There is no aortic valvular stenosis. There is no aortic valvular vegetation. MITRAL VALVE The mitral valve is thickened but opens well. Mitral regurgitation is trace. There is no mitral valve stenosis. There is no evidence of mitral valve prolapse. TRICUSPID VALVE The tricuspid valve leaflets are thickened , but open well. There is mild tricuspid regurgitation.RVSP-33 mmof hg. There is no tricuspid valve stenosis. There is no tricuspid valve prolapse or vegetation. PULMONIC VALVE The pulmonary valve is normal in structure. There is trace to mild pulmonic valvular regurgitation. There is no pulmonic valvular stenosis. GREAT VESSELS The aortic root is normal in size. The ascending aorta is normal in size. The pulmonary artery is normal. The IVC is dilated. PERICARDIAL EFFUSION There is no pleural effusion. trivial PE <Conclusion> Normal chamber Size. EF-45-50% Trivial AR. Mitral regurgitation is trace. There is mild tricuspid regurgitation.RVSP-33 mmof hg. There is trace to mild pulmonic valvular regurgitation. The IVC is dilated. Trivial PE. No vegetation or thrombus noted.
[2018-08-26 16:34] LABS: HEPATITIS B SURFACE AG Negative (NEGATIVE)
[2018-08-26 16:40] LABS: HEPATITIS A IGM NEGATIVE (NEGATIVE); HEPATITIS B CORE AB NEGATIVE (NEGATIVE)
[2018-08-26 16:51] LABS: HEPATITIS C ANTIBODY NEGATIVE (NEGATIVE)
[2018-08-26] MEDS: Lidocaine 5% Oint(35 gm) TOP SCH (17:27)
[2018-08-26] MEDS: Silver Sulfadiazine 1% Cream (25 gm) TP SCH ×2 (17:39→17:40)
--- NOTE | 2018-08-26 18:57 | CON ---
DATE: 08/26/2018 CONSULT SERVICE: Cardiology. 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 BRIEF CLINICAL HISTORY: This is a 63-year-old female with a complaint of perirectal pain, found to be purulent discharge, possibly perirectal abscess; history of hemorrhoidectomy; complains off and on pain on the rectal area, pus discharge this morning; rapid response; hypotensive, requiring intubation; now the patient is currently being intubated; borderline troponin positive. Prior to intubation, the patient denies any chest pain. Denies any palpitation. Denies any shortness of breath, though the patient has a low WBC count as well, possibly HIV positive also. Prior to that, the patient denies any chest pain. Denies any palpitation. The patient was short of breath, intubated. PAST MEDICAL HISTORY: Significant for anemia. No significant past medical history on admission. PAST SURGICAL HISTORY: Significant for hemorrhoidectomy in the past. SOCIAL HISTORY: Denies any smoking. Denies any history of alcohol abuse. ALLERGIES: KNOWN ALLERGY TO PENICILLIN AND IV CONTRAST CAUSES RASH. MEDICATIONS: She was not taking any medication prior to this admission. PHYSICAL EXAMINATION: VITAL SIGNS: Height of the patient is 5 feet 7 inches, weight of the patient is 110 pounds, and body mass index is 17.2 kg/m2. Rest of the vitals; temperature is 101.1, heart rate 124, and blood pressure 79/40. HEENT: PERRLA. Extraocular muscles intact. NECK: Supple. No carotid bruit or thyromegaly. CHEST: Clear to auscultation. HEART: S1 and S2 regular. ABDOMEN: Soft. EXTREMITIES: Clubbing and cyanosis negative. LABORATORY DATA: Blood workup as follows; WBC 14.8, hemoglobin 9.8, hematocrit 28.7, and platelet count 365. Chemistry shows sodium 141, potassium 4, chloride 110, carbon dioxide 26, anion gap of 10, BUN 12, and creatinine 0.5. Troponin 0.26. Total protein 5.7, albumin 2.7, and albumin-globulin ratio 0.9. Recent workup; the patient has an EKG on 08/17/2015, that showed normal sinus, poor RR progression, and no acute ST-T changes noted. The patient had a chest x-ray done that shows diffuse multifocal patchy infiltrate noted, could be PCP versus pulmonary edema. IMPRESSION AND PLAN: A 63-year-old female with no significant past medical history admitted with perirectal abscess. Workup shows the patient had human immunodeficiency virus positive, anemic, and thrombocytopenic. At one point, the patient was leukopenic as well as the patient had community-acquired pneumonia, cannot rule out Pneumocystis carinii pneumonia. The patient eventually had respiratory failure. Recent chest x-ray consistent with pulmonary edema versus Pneumocystis carinii pneumonia, fluffy infiltrate, significant decreased serum albumin, x-ray consistent with completely getting white-out pulmonary edema as well as right middle lobe pneumonia. This positive troponin could be secondary to a stress, strain, and no plan for the intervention, but definitely the patient also has sepsis and septic shock. We will treat aggressively with septic shock, we will start Levophed. I will give IV albumin 3-4 doses to check plasma oncotic pressure and increase the blood pressure. We will give some Lovenox 1 mg/kg. Monitor platelet. Monitor renal function. Continue aggressive diuresis once the pressure increases. We will get echocardiogram to assess left ventricular function. Lipid profile, TSH, and followup serial troponin trend. Overall, the patient's critical long-term prognosis is extremely guarded. No plan for coronary intervention at this time. We will get the beta-fani if the blood pressure is tolerated. At this time, there is no room for nitrate or beta-fani because the patient is running a blood pressure of 70, starting high doses of Levophed, but we will put baby aspirin through the nasogastric tube or via suppository if the nasogastric tube is not available. Paddy Weinstein MD
--- NOTE | 2018-08-26 18:58 | CARD ---
APPROVED REPORT Date of service: 08/26/2018 EKG Measurement Heart [id number] <Conclusion> Sinus tachycardia Low voltage QRS Abnormal ECG
--- NOTE | 2018-08-26 19:01 | CARD ---
APPROVED REPORT Date of service: 08/25/2018 EKG Measurement Heart [id number] <Conclusion> Sinus tachycardia Poor R wave progression in Precordial leads Abnormal ECG
[2018-08-26] MEDS: Albumin Human 25% (12.5 gm/50 ml) IV SCH (22:10)
--- NOTE | 2018-08-27 01:47 | PN ---
DATE: 08/26/2018 DAILY PROGRESS NOTE SUBJECTIVE: Today was a very difficult day for Luci and her family. She went into a severe respiratory arrest and had septic shock in the handicapper harness racing hours, was given IV fluid. Her blood pressure remained low. She was evaluated and transferred to intensive care. She remained hypotensive and tachypneic. She was seen by hospital director financial planning as well as turbine blade assembler, Dr. Medrano. The decision was made to electively intubate her at this time in a controlled setting. Sedation was given, pressors were needed to support her pressure. Family was summoned. Later in the morning, I asked the patient's son to come to my office to speak with me in person. It was the patient's wishes based on her conversation and the document in my note on Thursday evening that the patient did not want her brother to know of the findings of her recent lab work regarding her HIV status nor was she ready to tell her sons, but given the severity of her state at this time for the worse, I have no alternative but to meet today and talk with her oldest son and then inform him of the critical nature of his mother's condition and illness. We spoke for a great length of time. I explained to him about my conversation with the patient on Thursday, the course of illness, and discovering of her HIV status only 48 hours ago. I have also explained the severity of her illness and the difficult prognosis ahead and our concern for opportunistic infections. The son was able to add to the history of a close acquaintance with his mom approximately 10 years ago that she did not tell me of as a possible source for her HIV. At this time, we will continue our maximal effort of pressors, life support, multiple antibiotics. With Infectious Disease, Pulmonary, Cardiology and general surgery consultants at hand. Case was discussed with the director financial planning and will need to obviously all be following closely. Sudarshan Kramer MD MTDD
[2018-08-27] MEDS: Albuterol-Ipratrop 3 mg / 0.5 (3 ml) UD IH SCH ×4 (02:52→20:00)
[2018-08-27] MEDS: Albumin Human 25% (12.5 gm/50 ml) IV SCH ×3 (04:50→17:00)
[2018-08-27] MEDS: Enoxaparin 60 mg Syringe SC SCH ×2 (04:51→17:15)
[2018-08-27] MEDS: Meropenem IV 1 gm in NS 1 GM/50 ML BAG IVPB SCH ×3 (05:15→21:19)
[2018-08-27] MEDS: Sulfamethoxazole/Trimethoprim 250 MG in Dextrose 5% In Water 500 ML IVPB SCH ×3 (05:16→22:06)
[2018-08-27] MEDS: Fentanyl 1000mcg/100ml NS 1,000 MCG/100 ML BAG IV PRN (05:16)
[2018-08-27 06:33] LABS: ARTERIAL BLOOD GAS HCO3 24.8 mmol/L (21-28); ARTERIAL BLOOD GAS HEMOGLOBIN 8.8 g/dL (11.7-17.4); ARTERIAL BLOOD GAS O2 CONTENT 11.8 ML/dl (15-23); ARTERIAL BLOOD GAS O2 SAT 98.2 % (95-98); ARTERIAL BLOOD GAS PCO2 47 mm/Hg (35-45); ARTERIAL BLOOD GAS PH 7.33 (7.35-7.45); ARTERIAL BLOOD GAS TCO2 26.2 mmol.L (22-28)
[2018-08-27] MEDS: Propofol 10 mg/ml 1,000 MG/100 ML VIAL IV PRN ×2 (07:00→21:27)
[2018-08-27] MEDS: Pantoprazole 40 mg EC Tab PO SCH (07:00)
[2018-08-27] MEDS: Budesonide 0.5 mg/2 ml Inhal Susp UD IH SCH ×2 (07:16→20:00)
[2018-08-27 07:46] LABS: BASO # 0.01 K/mm3 (0.0-2.0); BASO % 0.1 % (0.0-3.0); LYMPH # 0.5 (1.2-3.4); LYMPH % 6.6 % (22.0-35.0); MEAN CORPUSCULAR HEMOGLOBIN 29.5 pg (25.0-35.0); MEAN CORPUSCULAR HGB CONC 33.9 g/dl (31.0-37.0); MEAN PLATELET VOLUME 10.6 fl (7.0-11.0); MONO # 0.2 (0.1-0.6); MONO % 2.4 % (1.0-6.0); RBC 2.54 10^6/uL (3.5-6.1); RED CELL DISTRIBUTION WIDTH 15.4 % (11.5-14.5); WHITE BLOOD COUNT 7.9 10^3/uL (4.5-11.0)
[2018-08-27 07:50] LABS: HEMOGLOBIN 7.5 g/dL (12.0-16.0)
[2018-08-27 08:00] LABS: ALB/GLOB RATIO 1.1 (1.1-1.8); ALBUMIN 2.9 g/dL (3.0-4.8); ALT/SGPT 13 U/L (7-56); AST/SGOT 20 U/L (14-36); BLOOD UREA NITROGEN 15 mg/dL (7-21); GFR NON-AFRICAN AMERICAN > 60; HDL CHOLESTEROL 17 mg/dL (29-60)
[2018-08-27] MEDS: levoFLOXacin 750 mg in D5W 750 MG/150 ML BAG IVPB SCH (08:05)
--- NOTE | 2018-08-27 08:05 | PN ---
PROCEDURE DATE: 08/26/2018 I saw the patient this morning at the request of Dr. Garcia. A thorough pelvic exam was performed. There is a small sacral decubitus stage II, I guess. The three leads of the resection of the hemorrhoid are improving in the last 5 to 6 days. She is still very tender and uncooperative. Rectal exam has good rectal tone. There is no drainage that I can see. There is a thin baby type stool, gelatinous, not really mucinous. No obvious blood. I cannot feel a perirectal issue or perirectal abscess. A CAT scan will be obtained more for confirmation than anything else, but I am very pleased to say I do not feel an abscess. Sudarshan Dobson MD
[2018-08-27 08:10] LABS: LDL CHOLESTEROL 34 mg/dL (0-129)
--- NOTE | 2018-08-27 08:14 | PN ---
DATE: 08/27/2018 PULMONARY NOTE SUBJECTIVE: The patient remains in the ICU. She is now on the ventilator and sedated. PHYSICAL EXAMINATION: VITALS: Temperature is 97.7, pulse 84, respiratory rate 16/14, and blood pressure 100/67. HEENT: Normocephalic, atraumatic. No JVD. CARDIOVASCULAR: Positive S1, S2. No S3 gallop. LUNGS: Mild crackles at the bases. Mild bilateral rhonchi. No wheezing. EXTREMITIES: No clubbing, cyanosis, or edema. GASTROINTESTINAL: Abdomen is soft, nondistended. Bowel sounds are positive. SKIN: No acute rash. NEUROLOGIC: Exam limited at the present time. PERTINENT LABORATORY DATA: Chest x-ray was done this morning and reviewed. The chest x-ray remains with extensive bilateral pulmonary infiltrates consistent with acute respiratory distress syndrome. Arterial blood gas was done on PRVC 14, tidal volume 370, FiO2 60%. Results are: PH 7.33, pCO2 of 47, pO2 is 75. Peak troponin over the past 24 hours - 0.28. B-type natriuretic peptide done yesterday - 3830. IMPRESSION: 1. Acute respiratory distress syndrome. Respiratory failure. 2. Sepsis with shock. 3. Perianal abscess. 4. Community-acquired pneumonia, possibly atypical. 5. Mild anemia. 6. Human immunodeficiency virus positivity. 7. Rule out congestive heart failure. PLAN: The patient remains in the ICU. She is currently on the ventilator and sedated. I did discuss the case with the night nurse at length. The night nurse stated that the patient is doing a little better over the past shift. I did review the chest x-ray as above. The chest x-ray remains with extensive bilateral pulmonary infiltrates. I have also reviewed the arterial blood gas. There is a mild respiratory acidosis noted with a significant increase in the alveolar-arterial gradient. We will continue the current ventilator settings for now. I did speak with the surgical team this morning. There is no obvious anal abscess noted. The patient does have a T-max of 101.1. Given the patient's underlying immunodeficiency, I will proceed with bronchoscopy this morning - to check for atypical organisms (including virus, acid-fast bacilli, fungal, PCP). I did discuss the procedure with the son (Thomas) at length. He is in agreement. Input by Cardiology is also noted. Echocardiogram does show a decrease in the ejection fraction. Hopefully, the blood pressure stabilizes and we can begin diuresis. The patient remains critically ill with very guarded prognosis. I did discuss the above with the entire medical team this morning. I will also discuss the above with Dr. Kramer later this morning. Griffin Medrano MD MTDJyotsna
[2018-08-27 08:20] LABS: % CD4 (T HELPER CELL) 3 Percent (30-61); % CD8 (SUPPRESSOR T CELL) 49 Percent (12-42); ABSOLUTE CD4 CELLS <20 Cells/mcL (490-1740); ABSOLUTE CD8 CELLS 211 Cells/mcL (180-1170); ABSOLUTE LYMPHOCYTES 427 Cells/mcL (850-3900); HELPER/SUPPRESSOR RATIO 0.06 Ratio (0.86-5.00)
[2018-08-27 08:38] LABS: HEMOGLOBIN 7.9 g/dL (12.0-16.0); MEAN CELL VOLUME 86.6 fl (80.0-105.0); MEAN CORPUSCULAR HEMOGLOBIN 30.2 pg (25.0-35.0); MEAN CORPUSCULAR HGB CONC 34.8 g/dl (31.0-37.0); MEAN PLATELET VOLUME 10.3 fl (7.0-11.0); RBC 2.62 10^6/uL (3.5-6.1); RED CELL DISTRIBUTION WIDTH 15.5 % (11.5-14.5); WHITE BLOOD COUNT 7.3 10^3/uL (4.5-11.0)
[2018-08-27] MEDS: Lidocaine 5% Oint(35 gm) TOP SCH (10:00)
--- NOTE | 2018-08-27 10:05 | RAD ---
Date of service: 08/27/2018 HISTORY: f/u COMPARISON: 08/26/2018 FINDINGS: LUNGS: There is a diffuse alveolar infiltrate consistent with pulmonary edema or ARDS. This is unchanged. Central lines and tubes are unchanged PLEURA: No significant pleural effusion identified, no pneumothorax apparent. CARDIOVASCULAR: No aortic atherosclerotic calcification present. Normal cardiac size. No pulmonary vascular congestion. OSSEOUS STRUCTURES: No significant abnormalities. VISUALIZED UPPER ABDOMEN: Normal. OTHER FINDINGS: None. IMPRESSION: There is a diffuse alveolar infiltrate consistent with pulmonary edema or ARDS. This is unchanged. Central lines and tubes are unchanged
[2018-08-27] MEDS ORDERED: Vancomycin 1.5 GM in Sodium Chloride 0.9% 500 ML IVPB ONE (10:20)
--- NOTE | 2018-08-27 10:47 | CT ---
Date of service: 08/27/2018 PROCEDURE: CT Abdomen and Pelvis without intravenous contrast HISTORY: r/o perirectal abscess COMPARISON: CT 08/18/2018 TECHNIQUE: Without contrast. Contrast dose: Radiation dose: Total exam DLP = 390.4 mGy-cm. This CT exam was performed using one or more of the following dose reduction techniques: Automated exposure control, adjustment of the mA and/or kV according to patient size, and/or use of iterative reconstruction technique. FINDINGS: LOWER THORAX: There is a diffuse alveolar infiltrate in both lungs. This has been followed on multiple chest x-rays. There is a nasogastric tube in place. LIVER: Unremarkable. No gross lesion or ductal dilatation. GALLBLADDER AND BILE DUCTS: There is a small amount of fluid around the gallbladder. Possible cholecystitis. PANCREAS: Unremarkable. No gross lesion or ductal dilatation. SPLEEN: Unremarkable. ADRENALS: Unremarkable. No mass. KIDNEYS AND URETERS: Unremarkable. No hydronephrosis. No solid mass. VASCULATURE: Unremarkable. No aortic aneurysm. No aortic atherosclerotic calcification or mural plaque present. BOWEL: Unremarkable. No obstruction. No gross mural thickening. There is no evidence of a perirectal abscess APPENDIX: Unremarkable. Normal appendix. PERITONEUM: Unremarkable. No free fluid. No free air. LYMPH NODES: Unremarkable. No enlarged lymph nodes. BLADDER: Unremarkable. REPRODUCTIVE: Unremarkable. BONES: No acute fracture. OTHER FINDINGS: None. IMPRESSION: No evidence of perirectal abscess
[2018-08-27] MEDS: Silver Sulfadiazine 1% Cream (25 gm) TP SCH ×2 (10:51→17:58)
[2018-08-27] MEDS: Oseltamivir 6 MG/ML PO SCH ×2 (10:52→19:31)
--- NOTE | 2018-08-27 11:05 | CP.CCUPN ---
<Daniela Love - Last Filed: 08/27/18 11:02> CCU Subjective - Physician Review Subjective (Free Text): Daniela Love, PGY-1, ICU Progress Note for Dr. Boyer Patient seen and evaluated at bedside. Overnight, patient was febrile at 101.1 and given tylenol. While febrile, patient was tachycardic. Patient converted to regular rate after patient was given tylenol and fever subsided. Bronchoscopy was performed this morning at bedside with BAL resulting in improvement in breath sounds and obtained tracheal aspirates. 12-point ROS was unattainable due to patient's intubated status. CCU Objective - Vital Signs / Intake & Output Vital Signs (Last 4 hours): Vital Signs Temp Pulse Resp BP Pulse Ox 08/27/18 09:49 75 104/58 L 08/27/18 09:10 97.0 F L 78 105/63 100 08/27/18 09:00 97.0 F L 79 110/58 L 100 08/27/18 08:50 97.0 F L 81 107/63 100 08/27/18 08:45 97.0 F L 81 100 08/27/18 08:40 96.6 F L 82 122/72 99 08/27/18 08:35 96.6 F L 88 120/80 99 08/27/18 08:30 96.4 F L 82 99 08/27/18 08:22 94.8 F L 103 H 87/58 L 99 08/27/18 08:20 97.3 F L 101 H 87/44 L 99 08/27/18 08:15 97.3 F L 99 H 99 08/27/18 08:10 97.2 F L 94 H 107/63 99 08/27/18 08:00 97 F L 79 18 108/57 L 100 08/27/18 07:59 97.3 F L 77 99 08/27/18 07:50 112/65 08/27/18 07:49 97.5 F L 80 20 99 08/27/18 07:45 97.5 F L 76 99 08/27/18 07:40 97.5 F L 76 111/65 99 08/27/18 07:30 97.5 F L 76 113/66 99 08/27/18 07:22 14 100 08/27/18 07:20 97.5 F L 74 110/67 99 08/27/18 07:15 97.5 F L 75 96 08/27/18 07:10 97.5 F L 76 104/57 L 96 Intake and Output (Last 8hrs): Intake & Output 08/26/18 08/27/18 08/27/18 22:59 06:59 14:59 Intake Total 1200 154 Output Total 600 Balance 600 154 Intake: IV 1200 154 Right Internal Jugular 1000 Oral 0 Output: Urine 600 Urethral (Gayle) 600 Other: # Voids Urine, Voided 3 # Bowel Movements 0 - Physical Exam Head: Positive for: Atraumatic, Normocephalic Pupils: Positive for: PERRL Extroacular Muscles: Positive for: EOMI Conjunctiva: Positive for: Normal Mouth: Positive for: Moist Mucous Membranes Respiratory/Chest: Positive for: Clear to Auscultation, Good Air Exchange. Negative for: Respiratory Distress, Accessory Muscle Use Cardiovascular: Positive for: Regular Rate and Rhythm, Normal S1, S2. Negative for: Murmurs Abdomen: Negative for: Tenderness, Distention, Peritoneal Signs Rectal: Positive for: Other (stage 2 ulcer at the sacrum; stage 2 ulcer to right buttocks proximal to the crease. Thick purulent discharge noted from anus.) Back: Positive for: Normal Inspection Upper Extremity: Positive for: Normal Inspection. Negative for: Cyanosis, Edema Lower Extremity: Positive for: Normal Inspection. Negative for: Edema Neurological: Positive for: CN II-XII Intact (grossly), Other (intubated) Skin: Positive for: Warm, Dry, Normal Color. Negative for: Rashes Psychiatric: Positive for: Other (intubated) - Medications Active Medications: Active Medications Generic Name Dose Route Start Last Admin Trade Name Freq PRN Reason Stop Dose Admin Acetaminophen 650 mg 08/22/18 13:42 08/22/18 14:20 Tylenol 325mg Tab PO 650 mg Q6H PRN Administration Temperature Albumin Human 12.5 gm 08/26/18 16:00 08/27/18 04:50 Albumin Human 25% (12.5 Gm/50 Ml) IV 08/27/18 16:01 12.5 gm Q6H TOSHIA Administration Albuterol/Ipratropium 3 ml 08/20/18 08:00 08/27/18 07:16 Duoneb 3 Mg/0.5 Mg (3 Ml) Ud IH 3 ml [id number] TOSHIA Administration Albuterol/Ipratropium 3 ml 08/20/18 06:46 08/27/18 08:21 Duoneb 3 Mg/0.5 Mg (3 Ml) Ud IH 3 ml Q2H PRN Administration Shortness of Breath Alprazolam 0.25 mg 08/24/18 19:10 08/26/18 00:06 Xanax PO 08/31/18 19:11 0.25 mg Q6H PRN Administration Anxiety Aspirin 81 mg 08/26/18 10:00 08/27/18 10:31 Aspirin Chewable PO 81 mg DAILY TOSHIA Administration Benzonatate 100 mg 08/26/18 10:00 08/27/18 10:52 Tessalon Perles PO Not Given TID TOSHIA Budesonide 0.5 mg 08/20/18 08:00 08/27/18 07:16 Pulmicort Respules IH 0.5 mg [id number] TOSHIA Administration Docusate Sodium 100 mg 08/18/18 06:16 08/22/18 23:44 Colace PO 100 mg Q4H PRN Administration Constipation Enoxaparin Sodium 50 mg 08/26/18 04:15 08/27/18 04:51 Lovenox SC 50 mg Q12H TOSHIA Administration Protocol Guaifenesin 100 mg 08/23/18 22:34 08/26/18 00:07 Robitussin PO 100 mg Q4H PRN Administration Cough Hydrocortisone Sodium Succinate 100 mg 08/26/18 22:00 08/27/18 05:19 Solu-Cortef IVP 100 mg Q8 TOSHIA Administration Meropenem 1 gm in 50 mls @ 100 mls/hr 08/25/18 06:45 08/27/18 05:15 Merrem Iv 1 Gm Premix IVPB 100 mls/hr Q8 TOSHIA Administration Protocol NOREPINEPHRINE BIT/0.9 % NACL 4 mg in 250 mls @ 15 mls/hr 08/26/18 02:05 08/26/18 22:48 Levophed 4 Mg/ 250 Ml Ns Premixed IV 30 mcg/min .[id number] PRN 112.5 mls/hr TITRATE PER MD ORDER Administration Protocol 4 MCG/MIN Fentanyl Citrate 1,000 mcg in 100 mls @ 2 mls/hr 08/26/18 08:55 08/27/18 05:16 Fentanyl Citrate/Sodium Chloride 1 Mg/100 Ml IV 20 mcg/hr .Q24H PRN 2 mls/hr TITRATE PER MD ORDER Administration Protocol 20 MCG/HR Vasopressin 20 units/ Sodium 101 mls @ 9.09 mls/hr 08/26/18 09:32 08/26/18 10:30 Chloride IV 9.09 mls/hr .[id number] TOSHIA Administration Protocol 0.03 U/MIN Phenylephrine HCl 40 mg/ 254 mls @ 38.1 mls/hr 08/26/18 09:33 08/27/18 10:40 Sodium Chloride IV 50 mcg/min .[id number] PRN 19.05 mls/hr TITRATE PER MD ORDER Titration Protocol 100 MCG/MIN Propofol 1,000 mg in 100 mls @ 1.497 mls/hr 08/26/18 09:40 08/26/18 23:30 Diprivan IV 5 mcg/kg/min .Q24H PRN 1.497 mls/hr TITRATE PER MD ORDER Administration Protocol 5 MCG/KG/MIN Trimethoprim/Sulfamethoxazole 500 mls @ 250 mls/hr 08/26/18 14:00 08/27/18 05:16 250 mg/ Dextrose IVPB 250 mls/hr Q8 TOSHIA Administration Levofloxacin/Dextrose 750 mg in 150 mls @ 100 mls/hr 08/27/18 07:30 08/27/18 08:05 Levaquin 750mg IVPB 100 mls/hr DAILY TOSHIA Administration Protocol Vancomycin HCl 1.5 gm/ Sodium 500 mls @ 167 mls/hr 08/27/18 10:20 Chloride IVPB 08/27/18 13:19 ONCE ONE Protocol Ibuprofen 200 mg 08/23/18 13:51 08/25/18 15:20 Motrin Tab PO 200 mg Q6H PRN Administration Temperature Lidocaine 0 gm 08/21/18 12:30 08/26/18 17:27 Lidocaine 5% TOP 1 applic DAILY TOSHIA Administration Lorazepam 2 mg 08/26/18 11:00 Ativan IVP Q2H PRN Anxiety Protocol Metoprolol Tartrate 12.5 mg 08/26/18 10:00 08/27/18 09:49 Lopressor PO Not Given BID TOSHIA Ondansetron HCl 4 mg 08/21/18 21:14 08/24/18 01:07 Zofran Inj IVP 4 mg Q6H PRN Administration Nausea/Vomiting Oseltamivir Phosphate 75 mg 08/27/18 10:00 08/27/18 10:52 Tamiflu Susp PO 75 mg BID TOSHIA Administration Protocol Pantoprazole Sodium 40 mg 08/25/18 07:30 08/27/18 07:00 Protonix Ec Tab PO Not Given [facility] Silver Sulfadiazine 0 gm 08/20/18 18:00 08/27/18 10:51 Silvadene 1% 25 Gm TP 25 gm BID TOSHIA Administration Tramadol HCl 50 mg 08/18/18 18:48 08/25/18 13:54 Ultram PO 50 mg TID PRN Administration Pain, Mild (1-3) - Patient Studies Lab Studies: Microbiology Studies 08/26/18 10:30 Gram Stain - Final Sputum Sputum Culture - Preliminary No growth. 08/26/18 04:00 Urine Culture - Final Urine,Catheterized No Growth (<1,000 CFU/ML) 08/24/18 01:10 Blood Culture - Preliminary Blood NO GROWTH AFTER 3 DAYS 08/24/18 01:30 Blood Culture - Preliminary Blood NO GROWTH AFTER 3 DAYS 08/21/18 21:48 Blood Culture - Final Blood NO GROWTH AFTER 5 DAYS Gram Stain - Final TEST NOT PERFORMED Lab Studies 08/27/18 08/27/18 08/27/18 Range/Units 08:20 07:35 07:35 WBC 7.3 (4.5-11.0) 10^3/uL RBC 2.62 L (3.5-6.1) 10^6/uL Hgb 7.9 L (12.0-16.0) g/dL Hct 22.7 L (36.0-48.0) % MCV 86.6 (80.0-105.0) fl MCH 30.2 (25.0-35.0) pg MCHC 34.8 (31.0-37.0) g/dl RDW 15.5 H (11.5-14.5) % Plt Count 236 (120.0-450.0) 10^3/uL MPV 10.3 (7.0-11.0) fl Neut % (Auto) (50.0-68.0) % Lymph % (Auto) (22.0-35.0) % [place] % (Auto) (1.0-6.0) % Eos % (Auto) (1.5-5.0) % Baso % (Auto) (0.0-3.0) % Lymph # (Auto) (1.2-3.4) [place] # (Auto) (0.1-0.6) Eos # (Auto) (0.0-0.7) Baso # (Auto) (0.0-2.0) K/mm3 Absolute Neuts (auto) (1.4-6.5) pCO2 (35-45) mm/Hg pO2 (80-100) mm/Hg HCO3 (21-28) mmol/L ABG pH (7.35-7.45) ABG Total CO2 (22-28) mmol.L ABG O2 Saturation (95-98) % ABG O2 Content (15-23) ML/dl ABG Base Excess (-2.0-3.0) mmol/L ABG Hemoglobin (11.7-17.4) g/dL ABG Carboxyhemoglobin (0.5-1.5) % POC ABG HHb (Measured) (0-5) % ABG Methemoglobin (0.0-3.0) % ABG O2 Capacity (16-24) mL/dl Hgb O2 Saturation (95.0-98.0) % FiO2 % Sodium 139 (132-148) mmol/L Potassium 4.0 (3.6-5.0) mmol/L Chloride 108 H (98-107) mmol/L Carbon Dioxide 26 (21-33) mmol/L Anion Gap 10 (10-20) BUN 15 (7-21) mg/dL Creatinine 0.4 L (0.7-1.2) mg/dl Est GFR ( Amer) > 60 Est GFR (Non-Af Amer) > 60 Random Glucose 213 H (70-110) mg/dL Calcium 8.0 L (8.4-10.5) mg/dL Phosphorus 2.8 (2.5-4.5) mg/dL Magnesium 2.0 (1.7-2.2) mg/dL Total Bilirubin 0.8 (0.2-1.3) mg/dL AST 20 (14-36) U/L ALT 13 (7-56) U/L Alkaline Phosphatase 37 L D (38-126) U/L Troponin I ng/mL Total Protein 5.6 L (5.8-8.3) g/dL Albumin 2.9 L (3.0-4.8) g/dL Globulin 2.7 gm/dL Albumin/Globulin Ratio 1.1 (1.1-1.8) Triglycerides 97 (35-160) mg/dL Cholesterol 62 L (130-200) mg/dL LDL Cholesterol Direct 34 (0-129) mg/dL HDL Cholesterol 17 L (29-60) mg/dL Procalcitonin (0.19-0.49) NG/ML TSH 3rd Generation 0.16 L (0.46-4.68) mIU/mL Urine Color (YELLOW) Urine Appearance (CLEAR) Urine pH (4.7-8.0) Ur Specific [place] (1.005-1.035) Urine Protein (<30 mg/dL) mg/dL Urine Glucose (UA) (NEGATIVE) mg/dL Urine Ketones (NEGATIVE) mg/dL Urine Blood (NEGATIVE) Urine Nitrate (NEGATIVE) Urine Bilirubin (NEGATIVE) Urine Urobilinogen (<1 E.U./dL) E.U./dL Ur Leukocyte Esterase (NEGATIVE) Megan/uL Absolute Lymphs (Flow) (850-3900) Cells/mcL % CD4 Cells (30-61) Percent Absolute CD4 Count (490-1740) Cells/mcL T-Help/Suppress Ratio (0.86-5.00) Ratio % CD8 Cells (12-42) Percent Absolute CD8 Count (180-1170) Cells/mcL T-Lymph Analys Comment Hepatitis A IgM Ab (NEGATIVE) Hep Bs Antigen (NEGATIVE) Hep B Core IgM Ab (NEGATIVE) Hepatitis C Antibody (NEGATIVE) 08/27/18 08/27/18 08/26/18 Range/Units 07:35 06:10 20:20 WBC 7.9 D (4.5-11.0) 10^3/uL RBC 2.54 L (3.5-6.1) 10^6/uL Hgb 7.5 L D (12.0-16.0) g/dL Hct 22.1 L (36.0-48.0) % MCV 87.0 (80.0-105.0) fl MCH 29.5 (25.0-35.0) pg MCHC 33.9 (31.0-37.0) g/dl RDW 15.4 H (11.5-14.5) % Plt Count 246 (120.0-450.0) 10^3/uL MPV 10.6 (7.0-11.0) fl Neut % (Auto) 90.9 H (50.0-68.0) % Lymph % (Auto) 6.6 L (22.0-35.0) % [place] % (Auto) 2.4 (1.0-6.0) % Eos % (Auto) 0.0 L (1.5-5.0) % Baso % (Auto) 0.1 (0.0-3.0) % Lymph # (Auto) 0.5 L (1.2-3.4) [place] # (Auto) 0.2 (0.1-0.6) Eos # (Auto) 0.0 (0.0-0.7) Baso # (Auto) 0.01 (0.0-2.0) K/mm3 Absolute Neuts (auto) 7.18 H (1.4-6.5) pCO2 47 H (35-45) mm/Hg pO2 75.0 L (80-100) mm/Hg HCO3 24.8 (21-28) mmol/L ABG pH 7.33 L (7.35-7.45) ABG Total CO2 26.2 (22-28) mmol.L ABG O2 Saturation 98.2 H (95-98) % ABG O2 Content 11.8 L (15-23) ML/dl ABG Base Excess -1.2 (-2.0-3.0) mmol/L ABG Hemoglobin 8.8 L (11.7-17.4) g/dL ABG Carboxyhemoglobin 2.5 H (0.5-1.5) % POC ABG HHb (Measured) 1.7 (0-5) % ABG Methemoglobin 1.4 (0.0-3.0) % ABG O2 Capacity 12.0 L (16-24) mL/dl Hgb O2 Saturation 94.4 L (95.0-98.0) % FiO2 60.0 % Sodium (132-148) mmol/L Potassium (3.6-5.0) mmol/L Chloride (98-107) mmol/L Carbon Dioxide (21-33) mmol/L Anion Gap (10-20) BUN (7-21) mg/dL Creatinine (0.7-1.2) mg/dl Est GFR ( Amer) Est GFR (Non-Af Amer) Random Glucose (70-110) mg/dL Calcium (8.4-10.5) mg/dL Phosphorus (2.5-4.5) mg/dL Magnesium (1.7-2.2) mg/dL Total Bilirubin (0.2-1.3) mg/dL AST (14-36) U/L ALT (7-56) U/L Alkaline Phosphatase (38-126) U/L Troponin I 0.20 H* ng/mL Total Protein (5.8-8.3) g/dL Albumin (3.0-4.8) g/dL Globulin gm/dL Albumin/Globulin Ratio (1.1-1.8) Triglycerides (35-160) mg/dL Cholesterol (130-200) mg/dL LDL Cholesterol Direct (0-129) mg/dL HDL Cholesterol (29-60) mg/dL Procalcitonin (0.19-0.49) NG/ML TSH 3rd Generation (0.46-4.68) mIU/mL Urine Color (YELLOW) Urine Appearance (CLEAR) Urine pH (4.7-8.0) Ur Specific [place] (1.005-1.035) Urine Protein (<30 mg/dL) mg/dL Urine Glucose (UA) (NEGATIVE) mg/dL Urine Ketones (NEGATIVE) mg/dL Urine Blood (NEGATIVE) Urine Nitrate (NEGATIVE) Urine Bilirubin (NEGATIVE) Urine Urobilinogen (<1 E.U./dL) E.U./dL Ur Leukocyte Esterase (NEGATIVE) Megan/uL Absolute Lymphs (Flow) (850-3900) Cells/mcL % CD4 Cells (30-61) Percent Absolute CD4 Count (490-1740) Cells/mcL T-Help/Suppress Ratio (0.86-5.00) Ratio % CD8 Cells (12-42) Percent Absolute CD8 Count (180-1170) Cells/mcL T-Lymph Analys Comment Hepatitis A IgM Ab (NEGATIVE) Hep Bs Antigen (NEGATIVE) Hep B Core IgM Ab (NEGATIVE) Hepatitis C Antibody (NEGATIVE) 08/26/18 08/26/18 08/26/18 Range/Units 13:00 12:14 04:00 WBC (4.5-11.0) 10^3/uL RBC (3.5-6.1) 10^6/uL Hgb (12.0-16.0) g/dL Hct (36.0-48.0) % MCV (80.0-105.0) fl MCH (25.0-35.0) pg MCHC (31.0-37.0) g/dl RDW (11.5-14.5) % Plt Count (120.0-450.0) 10^3/uL MPV (7.0-11.0) fl Neut % (Auto) (50.0-68.0) % Lymph % (Auto) (22.0-35.0) % [place] % (Auto) (1.0-6.0) % Eos % (Auto) (1.5-5.0) % Baso % (Auto) (0.0-3.0) % Lymph # (Auto) (1.2-3.4) [place] # (Auto) (0.1-0.6) Eos # (Auto) (0.0-0.7) Baso # (Auto) (0.0-2.0) K/mm3 Absolute Neuts (auto) (1.4-6.5) pCO2 (35-45) mm/Hg pO2 (80-100) mm/Hg HCO3 (21-28) mmol/L ABG pH (7.35-7.45) ABG Total CO2 (22-28) mmol.L ABG O2 Saturation (95-98) % ABG O2 Content (15-23) ML/dl ABG Base Excess (-2.0-3.0) mmol/L ABG Hemoglobin (11.7-17.4) g/dL ABG Carboxyhemoglobin (0.5-1.5) % POC ABG HHb (Measured) (0-5) % ABG Methemoglobin (0.0-3.0) % ABG O2 Capacity (16-24) mL/dl Hgb O2 Saturation (95.0-98.0) % FiO2 % Sodium (132-148) mmol/L Potassium (3.6-5.0) mmol/L Chloride (98-107) mmol/L Carbon Dioxide (21-33) mmol/L Anion Gap (10-20) BUN (7-21) mg/dL Creatinine (0.7-1.2) mg/dl Est GFR ( Amer) Est GFR (Non-Af Amer) Random Glucose (70-110) mg/dL Calcium (8.4-10.5) mg/dL Phosphorus (2.5-4.5) mg/dL Magnesium (1.7-2.2) mg/dL Total Bilirubin (0.2-1.3) mg/dL AST (14-36) U/L ALT (7-56) U/L Alkaline Phosphatase (38-126) U/L Troponin I 0.19 H* D ng/mL Total Protein (5.8-8.3) g/dL Albumin (3.0-4.8) g/dL Globulin gm/dL Albumin/Globulin Ratio (1.1-1.8) Triglycerides (35-160) mg/dL Cholesterol (130-200) mg/dL LDL Cholesterol Direct (0-129) mg/dL HDL Cholesterol (29-60) mg/dL Procalcitonin (0.19-0.49) NG/ML TSH 3rd Generation (0.46-4.68) mIU/mL Urine Color Yellow (YELLOW) Urine Appearance Clear (CLEAR) Urine pH 6.0 (4.7-8.0) Ur Specific [place] 1.020 (1.005-1.035) Urine Protein Negative (<30 mg/dL) mg/dL Urine Glucose (UA) Negative (NEGATIVE) mg/dL Urine Ketones 15 H (NEGATIVE) mg/dL Urine Blood Negative (NEGATIVE) Urine Nitrate Negative (NEGATIVE) Urine Bilirubin Negative (NEGATIVE) Urine Urobilinogen 0.2 (<1 E.U./dL) E.U./dL Ur Leukocyte Esterase Negative (NEGATIVE) Megan/uL Absolute Lymphs (Flow) (850-3900) Cells/mcL % CD4 Cells (30-61) Percent Absolute CD4 Count (490-1740) Cells/mcL T-Help/Suppress Ratio (0.86-5.00) Ratio % CD8 Cells (12-42) Percent Absolute CD8 Count (180-1170) Cells/mcL T-Lymph Analys Comment Hepatitis A IgM Ab Negative (NEGATIVE) Hep Bs Antigen Negative (NEGATIVE) Hep B Core IgM Ab Negative (NEGATIVE) Hepatitis C Antibody Negative (NEGATIVE) 08/26/18 08/25/18 Range/Units 02:05 05:00 WBC (4.5-11.0) 10^3/uL RBC (3.5-6.1) 10^6/uL Hgb (12.0-16.0) g/dL Hct (36.0-48.0) % MCV (80.0-105.0) fl MCH (25.0-35.0) pg MCHC (31.0-37.0) g/dl RDW (11.5-14.5) % Plt Count (120.0-450.0) 10^3/uL MPV (7.0-11.0) fl Neut % (Auto) (50.0-68.0) % Lymph % (Auto) (22.0-35.0) % [place] % (Auto) (1.0-6.0) % Eos % (Auto) (1.5-5.0) % Baso % (Auto) (0.0-3.0) % Lymph # (Auto) (1.2-3.4) [place] # (Auto) (0.1-0.6) Eos # (Auto) (0.0-0.7) Baso # (Auto) (0.0-2.0) K/mm3 Absolute Neuts (auto) (1.4-6.5) pCO2 (35-45) mm/Hg pO2 (80-100) mm/Hg HCO3 (21-28) mmol/L ABG pH (7.35-7.45) ABG Total CO2 (22-28) mmol.L ABG O2 Saturation (95-98) % ABG O2 Content (15-23) ML/dl ABG Base Excess (-2.0-3.0) mmol/L ABG Hemoglobin (11.7-17.4) g/dL ABG Carboxyhemoglobin (0.5-1.5) % POC ABG HHb (Measured) (0-5) % ABG Methemoglobin (0.0-3.0) % ABG O2 Capacity (16-24) mL/dl Hgb O2 Saturation (95.0-98.0) % FiO2 % Sodium (132-148) mmol/L Potassium (3.6-5.0) mmol/L Chloride (98-107) mmol/L Carbon Dioxide (21-33) mmol/L Anion Gap (10-20) BUN (7-21) mg/dL Creatinine (0.7-1.2) mg/dl Est GFR ( Amer) Est GFR (Non-Af Amer) Random Glucose (70-110) mg/dL Calcium (8.4-10.5) mg/dL Phosphorus (2.5-4.5) mg/dL Magnesium (1.7-2.2) mg/dL Total Bilirubin (0.2-1.3) mg/dL AST (14-36) U/L ALT (7-56) U/L Alkaline Phosphatase (38-126) U/L Troponin I ng/mL Total Protein (5.8-8.3) g/dL Albumin (3.0-4.8) g/dL Globulin gm/dL Albumin/Globulin Ratio (1.1-1.8) Triglycerides (35-160) mg/dL Cholesterol (130-200) mg/dL LDL Cholesterol Direct (0-129) mg/dL HDL Cholesterol (29-60) mg/dL Procalcitonin 1.32 H (0.19-0.49) NG/ML TSH 3rd Generation (0.46-4.68) mIU/mL Urine Color (YELLOW) Urine Appearance (CLEAR) Urine pH (4.7-8.0) Ur Specific [place] (1.005-1.035) Urine Protein (<30 mg/dL) mg/dL Urine Glucose (UA) (NEGATIVE) mg/dL Urine Ketones (NEGATIVE) mg/dL Urine Blood (NEGATIVE) Urine Nitrate (NEGATIVE) Urine Bilirubin (NEGATIVE) Urine Urobilinogen (<1 E.U./dL) E.U./dL Ur Leukocyte Esterase (NEGATIVE) Megan/uL Absolute Lymphs (Flow) 427 L (850-3900) Cells/mcL % CD4 Cells 3 L (30-61) Percent Absolute CD4 Count <20 L (490-1740) Cells/mcL T-Help/Suppress Ratio 0.06 L (0.86-5.00) Ratio % CD8 Cells 49 H (12-42) Percent Absolute CD8 Count 211 (180-1170) Cells/mcL T-Lymph Analys Comment See note Hepatitis A IgM Ab (NEGATIVE) Hep Bs Antigen (NEGATIVE) Hep B Core IgM Ab (NEGATIVE) Hepatitis C Antibody (NEGATIVE) Laboratory Results - last 24 hr 08/25/18 08/26/18 08/26/18 05:00 02:05 04:00 WBC RBC Hgb Hct MCV MCH MCHC RDW Plt Count MPV Neut % (Auto) Lymph % (Auto) [place] % (Auto) Eos % (Auto) Baso % (Auto) Lymph # (Auto) [place] # (Auto) Eos # (Auto) Baso # (Auto) Absolute Neuts (auto) pCO2 pO2 HCO3 ABG pH ABG Total CO2 ABG O2 Saturation ABG O2 Content ABG Base Excess ABG Hemoglobin ABG Carboxyhemoglobin POC ABG HHb (Measured) ABG Methemoglobin ABG O2 Capacity Hgb O2 Saturation FiO2 Sodium Potassium Chloride Carbon Dioxide Anion Gap BUN Creatinine Est GFR ( Amer) Est GFR (Non-Af Amer) Random Glucose Calcium Phosphorus Magnesium Total Bilirubin AST ALT Alkaline Phosphatase Troponin I Total Protein Albumin Globulin Albumin/Globulin Ratio Triglycerides Cholesterol LDL Cholesterol Direct HDL Cholesterol Procalcitonin 1.32 H TSH 3rd Generation Urine Color Yellow Urine Appearance Clear Urine pH 6.0 Ur Specific [place] 1.020 Urine Protein Negative Urine Glucose (UA) Negative Urine Ketones 15 H Urine Blood Negative Urine Nitrate Negative Urine Bilirubin Negative Urine Urobilinogen 0.2 Ur Leukocyte Esterase Negative Absolute Lymphs (Flow) 427 L % CD4 Cells 3 L Absolute CD4 Count <20 L T-Help/Suppress Ratio 0.06 L % CD8 Cells 49 H Absolute CD8 Count 211 T-Lymph Analys Comment See note Hepatitis A IgM Ab Hep Bs Antigen Hep B Core IgM Ab Hepatitis C Antibody 08/26/18 08/26/18 08/26/18 12:14 13:00 20:20 WBC RBC Hgb Hct MCV MCH MCHC RDW Plt Count MPV Neut % (Auto) Lymph % (Auto) [place] % (Auto) Eos % (Auto) Baso % (Auto) Lymph # (Auto) [place] # (Auto) Eos # (Auto) Baso # (Auto) Absolute Neuts (auto) pCO2 pO2 HCO3 ABG pH ABG Total CO2 ABG O2 Saturation ABG O2 Content ABG Base Excess ABG Hemoglobin ABG Carboxyhemoglobin POC ABG HHb (Measured) ABG Methemoglobin ABG O2 Capacity Hgb O2 Saturation FiO2 Sodium Potassium Chloride Carbon Dioxide Anion Gap BUN Creatinine Est GFR ( Amer) Est GFR (Non-Af Amer) Random Glucose Calcium Phosphorus Magnesium Total Bilirubin AST ALT Alkaline Phosphatase Troponin I 0.19 H* D 0.20 H* Total Protein Albumin Globulin Albumin/Globulin Ratio Triglycerides Cholesterol LDL Cholesterol Direct HDL Cholesterol Procalcitonin TSH 3rd Generation Urine Color Urine Appearance Urine pH Ur Specific [place] Urine Protein Urine Glucose (UA) Urine Ketones Urine Blood Urine Nitrate Urine Bilirubin Urine Urobilinogen Ur Leukocyte Esterase Absolute Lymphs (Flow) % CD4 Cells Absolute CD4 Count T-Help/Suppress Ratio % CD8 Cells Absolute CD8 Count T-Lymph Analys Comment Hepatitis A IgM Ab Negative Hep Bs Antigen Negative Hep B Core IgM Ab Negative Hepatitis C Antibody Negative 08/27/18 08/27/18 08/27/18 06:10 07:35 07:35 WBC 7.9 D RBC 2.54 L Hgb 7.5 L D Hct 22.1 L MCV 87.0 MCH 29.5 MCHC 33.9 RDW 15.4 H Plt Count 246 MPV 10.6 Neut % (Auto) 90.9 H Lymph % (Auto) 6.6 L [place] % (Auto) 2.4 Eos % (Auto) 0.0 L Baso % (Auto) 0.1 Lymph # (Auto) 0.5 L [place] # (Auto) 0.2 Eos # (Auto) 0.0 Baso # (Auto) 0.01 Absolute Neuts (auto) 7.18 H pCO2 47 H pO2 75.0 L HCO3 24.8 ABG pH 7.33 L ABG Total CO2 26.2 ABG O2 Saturation 98.2 H ABG O2 Content 11.8 L ABG Base Excess -1.2 ABG Hemoglobin 8.8 L ABG Carboxyhemoglobin 2.5 H POC ABG HHb (Measured) 1.7 ABG Methemoglobin 1.4 ABG O2 Capacity 12.0 L Hgb O2 Saturation 94.4 L FiO2 60.0 Sodium 139 Potassium 4.0 Chloride 108 H Carbon Dioxide 26 Anion Gap 10 BUN 15 Creatinine 0.4 L Est GFR ( Amer) > 60 Est GFR (Non-Af Amer) > 60 Random Glucose 213 H Calcium 8.0 L Phosphorus 2.8 Magnesium 2.0 Total Bilirubin 0.8 AST 20 ALT 13 Alkaline Phosphatase 37 L D Troponin I Total Protein 5.6 L Albumin 2.9 L Globulin 2.7 Albumin/Globulin Ratio 1.1 Triglycerides 97 Cholesterol 62 L LDL Cholesterol Direct 34 HDL Cholesterol 17 L Procalcitonin TSH 3rd Generation Urine Color Urine Appearance Urine pH Ur Specific [place] Urine Protein Urine Glucose (UA) Urine Ketones Urine Blood Urine Nitrate Urine Bilirubin Urine Urobilinogen Ur Leukocyte Esterase Absolute Lymphs (Flow) % CD4 Cells Absolute CD4 Count T-Help/Suppress Ratio % CD8 Cells Absolute CD8 Count T-Lymph Analys Comment Hepatitis A IgM Ab Hep Bs Antigen Hep B Core IgM Ab Hepatitis C Antibody 08/27/18 08/27/18 07:35 08:20 WBC 7.3 RBC 2.62 L Hgb 7.9 L Hct 22.7 L MCV 86.6 MCH 30.2 MCHC 34.8 RDW 15.5 H Plt Count 236 MPV 10.3 Neut % (Auto) Lymph % (Auto) [place] % (Auto) Eos % (Auto) Baso % (Auto) Lymph # (Auto) [place] # (Auto) Eos # (Auto) Baso # (Auto) Absolute Neuts (auto) pCO2 pO2 HCO3 ABG pH ABG Total CO2 ABG O2 Saturation ABG O2 Content ABG Base Excess ABG Hemoglobin ABG Carboxyhemoglobin POC ABG HHb (Measured) ABG Methemoglobin ABG O2 Capacity Hgb O2 Saturation FiO2 Sodium Potassium Chloride Carbon Dioxide Anion Gap BUN Creatinine Est GFR ( Amer) Est GFR (Non-Af Amer) Random Glucose Calcium Phosphorus Magnesium Total Bilirubin AST ALT Alkaline Phosphatase Troponin I Total Protein Albumin Globulin Albumin/Globulin Ratio Triglycerides Cholesterol LDL Cholesterol Direct HDL Cholesterol Procalcitonin TSH 3rd Generation 0.16 L Urine Color Urine Appearance Urine pH Ur Specific [place] Urine Protein Urine Glucose (UA) Urine Ketones Urine Blood Urine Nitrate Urine Bilirubin Urine Urobilinogen Ur Leukocyte Esterase Absolute Lymphs (Flow) % CD4 Cells Absolute CD4 Count T-Help/Suppress Ratio % CD8 Cells Absolute CD8 Count T-Lymph Analys Comment Hepatitis A IgM Ab Hep Bs Antigen Hep B Core IgM Ab Hepatitis C Antibody Radiology Impressions: Radiology Impressions Abdomen/Pelvis CT 08/26/18 16:08 IMPRESSION: No evidence of perirectal abscess Chest X-Ray 08/27/18 06:00 IMPRESSION: There is a diffuse alveolar infiltrate consistent with pulmonary edema or ARDS. This is unchanged. Central lines and tubes are unchanged Review of Systems - Review of Systems Systems not reviewed;Unavailable: Intubated Critical Care Progress Note - Ventilator Checklist Head of Bed 30 Degrees: Yes PUD Prophalyxis: Yes DVT Prophylaxis: Yes - Vent Settings MODE:: PRVC TIDAL VOLUME:: 370 RESP RATE:: 14 FIO2:: 100 PEEP:: 8 - Extremities/Vascular Does the Patient have a Gayle Catheter?: Yes Does the Patient need a Gayle Catheter?: Yes - Restraints Justification for Restraints: High risk for self extubation - Prophylaxis GI Prophylaxis GI: PPI - Nutrition Nutrition: Nutrition Category Date Time Status NPO Diet [DIET] Diets 08/26/18 Breakfast Ordered Assessment/Plan - Assessment and Plan (Free Text) Assessment: 63 year old female with past medical history of HIV and questionable TB presents with hypoxic respiratory failure 2/2 to ARDS from sepsis from HCAP vs. perianal abscess complicated with Type II NSTEMI. Plan: ARDS -Hypoxemic respiratory failure with vent settings: 370/14/9/100%. Will drop FiO2 to 60% -Sedated with propofol and fentanyl with PRN ativan -CXR 08/27: ET tube secured in place, fluffy infiltrates throughout the CXR worsened -ABG 08/27: pH: 7.33, pO2: 75, pCO2: 47. PaO2/FiO2: 125 -Consider roto bed -Low tidal volume ventilation with 4-8ml/kg -Sufficient PEEP to keep the alveoli open -Daily sedation vacation and weaning trials -Daily ABG and CXR -Conservative fluid management -Head of bed to 30 degrees -Maintain oral hygiene Septic shock 2/2 to HCAP vs. perianal abscess: DROPLET PRECAUTIONS -BCx from 08/24: negative for 3 days -Urine culture 08/26: negative -Sputum culture 08/26: negative -Procalcitonin: 0.16 today from 1.32 yesterday. -Lactate is not elevated. -Bedside bronchoscopy performed today showing KONRAD and RLL inflammation and bleed. Area was cleaned with BAL. Tracheal aspirate was obtained and aspe rgillus, CMV, Histoplasma, PCJ, adenovirus, viral culture, mycobacterial culture, fungus culture, fungus smear, mycobacterial culture and stain was ordered for further workup -CXR 08/27: diffuse infiltrates bilaterally worsened today -Chest CT 08/18: patchy bilateral ground glass infiltrates, 4 mm RLL calcified granuloma -Patient is HIV+. Patient will need outpatient treatment for HIV. -CD4<20 -Fungitell ordered to evaluate for fungal process of infection -Influenza negative -Quanteriferon indeterminate -Levophed discontinued, vasopressin discontinued. Continue to titrate down phenylephrine as tolerated -Albumin started to maintain blood pressure due to possibily of reduced oncotic pressure. -Vancomycin, levofloaxicin started by infectious disease. Continue with merrem. -Continue Hydrocortisone 100 mg Q8 -Continue with tamiflu as per ID due to clinical suspicion of influenza which cannot be rule out.. -TMP-SMX started and atovaquone stopped for prophylaxis for PCP pneumonia as ground glass opacities were found on CT. However, LDH was normal which likely signifies no PCP pneumonia at this time. Doxycycline for coverage of Mycoplasma as CD4<50. -Rule out coccidiomycosis with Ab, histoplasmosis with antigen, lung cancer, and sarcoidosis due to cavitary lesion on abdominal CT. -As per Dr. Dobson, from General Surgery, patient's rectal abscess could not be found on exam or CT scan. Doubt septic shock from perianal abscess. -Abdominal CT confirmed no presence of perirectal abscess. -Follow up AFB sputum to evaluate for TB due to active cavitary lesion -Follow up repeated blood culture -Follow up recommendations as per THOMAS, Dr. Queen Type II NSTEMI -Troponin: <0.01, 0.28. 0.26, 0.19, 0.20, stable -Likely 2/2 to demand ischemia from septic shock -Continue with lovenox 1mg/kg -Continue aspirin and metoprolol -Follow up recommendations as per Cardiology, Dr. Weinstein. Normocytic Anemia -Hgb reduced at 7.9 -Follow up CBC at 13:00 GI prophylaxis: protonix 40 mg daily DVT prophylaxis: therapeutic lovenox at 1 mg/kg Patient plan was discussed with attending. - Date & Time Date: 08/27/18 Time: 11:06 <Michael Boyer - Last Filed: 08/27/18 12:05> CCU Objective - Vital Signs / Intake & Output Vital Signs (Last 4 hours): Vital Signs Temp Pulse BP Pulse Ox 08/27/18 10:00 104/58 L 08/27/18 09:49 75 104/58 L 08/27/18 09:10 97.0 F L 78 105/63 100 08/27/18 09:00 97.0 F L 79 110/58 L 100 08/27/18 08:50 97.0 F L 81 107/63 100 08/27/18 08:45 97.0 F L 81 100 08/27/18 08:40 96.6 F L 82 122/72 99 08/27/18 08:35 96.6 F L 88 120/80 99 08/27/18 08:30 96.4 F L 82 99 08/27/18 08:22 94.8 F L 103 H 87/58 L 99 08/27/18 08:20 97.3 F L 101 H 87/44 L 99 08/27/18 08:15 97.3 F L 99 H 99 08/27/18 08:10 97.2 F L 94 H 107/63 99 Intake and Output (Last 8hrs): Intake & Output 08/26/18 08/27/18 08/27/18 22:59 06:59 14:59 Intake Total 1200 204 Output Total 600 Balance 600 204 Intake: IV 1200 204 Right Internal Jugular 1000 Oral 0 Output: Urine 600 Urethral (Gayle) 600 Other: # Voids Urine, Voided 3 # Bowel Movements 0 - Medications Active Medications: Active Medications Generic Name Dose Route Start Last Admin Trade Name Freq PRN Reason Stop Dose Admin Acetaminophen 650 mg 08/22/18 13:42 08/22/18 14:20 Tylenol 325mg Tab PO 650 mg Q6H PRN Administration Temperature Albumin Human 12.5 gm 08/26/18 16:00 08/27/18 10:30 Albumin Human 25% (12.5 Gm/50 Ml) IV 08/27/18 16:01 12.5 gm Q6H TOSHIA Administration Albuterol/Ipratropium 3 ml 08/20/18 08:00 08/27/18 07:16 Duoneb 3 Mg/0.5 Mg (3 Ml) Ud IH 3 ml [id number] TOSHIA Administration Albuterol/Ipratropium 3 ml 08/20/18 06:46 08/27/18 08:21 Duoneb 3 Mg/0.5 Mg (3 Ml) Ud IH 3 ml Q2H PRN Administration Shortness of Breath Alprazolam 0.25 mg 08/24/18 19:10 08/26/18 00:06 Xanax PO 08/31/18 19:11 0.25 mg Q6H PRN Administration Anxiety Aspirin 81 mg 08/26/18 10:00 08/27/18 10:31 Aspirin Chewable PO 81 mg DAILY TOSHIA Administration Benzonatate 100 mg 08/26/18 10:00 08/27/18 10:52 Tessalon Perles PO Not Given TID TOSHIA Budesonide 0.5 mg 08/20/18 08:00 08/27/18 07:16 Pulmicort Respules IH 0.5 mg [id number] TOSHIA Administration Docusate Sodium 100 mg 08/18/18 06:16 08/22/18 23:44 Colace PO 100 mg Q4H PRN Administration Constipation Enoxaparin Sodium 50 mg 08/26/18 04:15 08/27/18 04:51 Lovenox SC 50 mg Q12H TOSHIA Administration Protocol Guaifenesin 100 mg 08/23/18 22:34 08/26/18 00:07 Robitussin PO 100 mg Q4H PRN Administration Cough Hydrocortisone Sodium Succinate 100 mg 08/26/18 22:00 08/27/18 05:19 Solu-Cortef IVP 100 mg Q8 TOSHIA Administration Meropenem 1 gm in 50 mls @ 100 mls/hr 08/25/18 06:45 08/27/18 05:15 Merrem Iv 1 Gm Premix IVPB 100 mls/hr Q8 TOSHIA Administration Protocol NOREPINEPHRINE BIT/0.9 % NACL 4 mg in 250 mls @ 15 mls/hr 08/26/18 02:05 08/27/18 07:00 Levophed 4 Mg/ 250 Ml Ns Premixed IV 0 mcg/min .[id number] PRN 0 mls/hr TITRATE PER MD ORDER Titration Protocol 4 MCG/MIN Fentanyl Citrate 1,000 mcg in 100 mls @ 2 mls/hr 08/26/18 08:55 08/27/18 05:16 Fentanyl Citrate/Sodium Chloride 1 Mg/100 Ml IV 20 mcg/hr .Q24H PRN 2 mls/hr TITRATE PER MD ORDER Administration Protocol 20 MCG/HR Vasopressin 20 units/ Sodium 101 mls @ 9.09 mls/hr 08/26/18 09:32 08/27/18 10:00 Chloride IV Not Given .[id number] TOSHIA Protocol 0.03 U/MIN Phenylephrine HCl 40 mg/ 254 mls @ 38.1 mls/hr 08/26/18 09:33 08/27/18 10:40 Sodium Chloride IV 50 mcg/min .[id number] PRN 19.05 mls/hr TITRATE PER MD ORDER Titration Protocol 100 MCG/MIN Propofol 1,000 mg in 100 mls @ 1.497 mls/hr 08/26/18 09:40 08/26/18 23:30 Diprivan IV 5 mcg/kg/min .Q24H PRN 1.497 mls/hr TITRATE PER MD ORDER Administration Protocol 5 MCG/KG/MIN Trimethoprim/Sulfamethoxazole 500 mls @ 250 mls/hr 08/26/18 14:00 08/27/18 05:16 250 mg/ Dextrose IVPB 250 mls/hr Q8 TOSHIA Administration Levofloxacin/Dextrose 750 mg in 150 mls @ 100 mls/hr 08/27/18 07:30 08/27/18 08:05 Levaquin 750mg IVPB 100 mls/hr DAILY TOSHIA Administration Protocol Vancomycin HCl 1.5 gm/ Sodium 500 mls @ 167 mls/hr 08/27/18 10:20 08/27/18 11:00 Chloride IVPB 08/27/18 13:19 167 mls/hr ONCE ONE Administration Protocol Ibuprofen 200 mg 08/23/18 13:51 08/25/18 15:20 Motrin Tab PO 200 mg Q6H PRN Administration Temperature Lidocaine 0 gm 08/21/18 12:30 08/26/18 17:27 Lidocaine 5% TOP 1 applic DAILY TOSHIA Administration Lorazepam 2 mg 08/26/18 11:00 Ativan IVP Q2H PRN Anxiety Protocol Metoprolol Tartrate 12.5 mg 08/26/18 10:00 08/27/18 09:49 Lopressor PO Not Given BID TOSHIA Ondansetron HCl 4 mg 08/21/18 21:14 08/24/18 01:07 Zofran Inj IVP 4 mg Q6H PRN Administration Nausea/Vomiting Oseltamivir Phosphate 75 mg 08/27/18 10:00 08/27/18 10:52 Tamiflu Susp PO 75 mg BID TOSHIA Administration Protocol Pantoprazole Sodium 40 mg 08/25/18 07:30 08/27/18 07:00 Protonix Ec Tab PO Not Given ACB TOSHIA Silver Sulfadiazine 0 gm 08/20/18 18:00 08/27/18 10:51 Silvadene 1% 25 Gm TP 25 gm BID TOSHIA Administration Tramadol HCl 50 mg 08/18/18 18:48 08/25/18 13:54 Ultram PO 50 mg TID PRN Administration Pain, Mild (1-3) - Patient Studies Lab Studies: Microbiology Studies 08/26/18 10:30 Gram Stain - Final Sputum Sputum Culture - Preliminary No growth. 08/26/18 04:00 Urine Culture - Final Urine,Catheterized No Growth (<1,000 CFU/ML) 08/24/18 01:10 Blood Culture - Preliminary Blood NO GROWTH AFTER 3 DAYS 08/24/18 01:30 Blood Culture - Preliminary Blood NO GROWTH AFTER 3 DAYS 08/21/18 21:48 Blood Culture - Final Blood NO GROWTH AFTER 5 DAYS Gram Stain - Final TEST NOT PERFORMED Lab Studies 08/27/18 08/27/18 08/27/18 Range/Units 08:20 07:35 07:35 WBC 7.3 (4.5-11.0) 10^3/uL RBC 2.62 L (3.5-6.1) 10^6/uL Hgb 7.9 L (12.0-16.0) g/dL Hct 22.7 L (36.0-48.0) % MCV 86.6 (80.0-105.0) fl MCH 30.2 (25.0-35.0) pg MCHC 34.8 (31.0-37.0) g/dl RDW 15.5 H (11.5-14.5) % Plt Count 236 (120.0-450.0) 10^3/uL MPV 10.3 (7.0-11.0) fl Neut % (Auto) (50.0-68.0) % Lymph % (Auto) (22.0-35.0) % [place] % (Auto) (1.0-6.0) % Eos % (Auto) (1.5-5.0) % Baso % (Auto) (0.0-3.0) % Lymph # (Auto) (1.2-3.4) [place] # (Auto) (0.1-0.6) Eos # (Auto) (0.0-0.7) Baso # (Auto) (0.0-2.0) K/mm3 Absolute Neuts (auto) (1.4-6.5) pCO2 (35-45) mm/Hg pO2 (80-100) mm/Hg HCO3 (21-28) mmol/L ABG pH (7.35-7.45) ABG Total CO2 (22-28) mmol.L ABG O2 Saturation (95-98) % ABG O2 Content (15-23) ML/dl ABG Base Excess (-2.0-3.0) mmol/L ABG Hemoglobin (11.7-17.4) g/dL ABG Carboxyhemoglobin (0.5-1.5) % POC ABG HHb (Measured) (0-5) % ABG Methemoglobin (0.0-3.0) % ABG O2 Capacity (16-24) mL/dl Hgb O2 Saturation (95.0-98.0) % FiO2 % Sodium 139 (132-148) mmol/L Potassium 4.0 (3.6-5.0) mmol/L Chloride 108 H (98-107) mmol/L Carbon Dioxide 26 (21-33) mmol/L Anion Gap 10 (10-20) BUN 15 (7-21) mg/dL Creatinine 0.4 L (0.7-1.2) mg/dl Est GFR ( Amer) > 60 Est GFR (Non-Af Amer) > 60 Random Glucose 213 H (70-110) mg/dL Calcium 8.0 L (8.4-10.5) mg/dL Phosphorus 2.8 (2.5-4.5) mg/dL Magnesium 2.0 (1.7-2.2) mg/dL Total Bilirubin 0.8 (0.2-1.3) mg/dL AST 20 (14-36) U/L ALT 13 (7-56) U/L Alkaline Phosphatase 37 L D (38-126) U/L Troponin I ng/mL Total Protein 5.6 L (5.8-8.3) g/dL Albumin 2.9 L (3.0-4.8) g/dL Globulin 2.7 gm/dL Albumin/Globulin Ratio 1.1 (1.1-1.8) Triglycerides 97 (35-160) mg/dL Cholesterol 62 L (130-200) mg/dL LDL Cholesterol Direct 34 (0-129) mg/dL HDL Cholesterol 17 L (29-60) mg/dL Procalcitonin (0.19-0.49) NG/ML TSH 3rd Generation 0.16 L (0.46-4.68) mIU/mL Urine Color (YELLOW) Urine Appearance (CLEAR) Urine pH (4.7-8.0) Ur Specific [place] (1.005-1.035) Urine Protein (<30 mg/dL) mg/dL Urine Glucose (UA) (NEGATIVE) mg/dL Urine Ketones (NEGATIVE) mg/dL Urine Blood (NEGATIVE) Urine Nitrate (NEGATIVE) Urine Bilirubin (NEGATIVE) Urine Urobilinogen (<1 E.U./dL) E.U./dL Ur Leukocyte Esterase (NEGATIVE) Megan/uL Absolute Lymphs (Flow) (850-3900) Cells/mcL % CD4 Cells (30-61) Percent Absolute CD4 Count (490-1740) Cells/mcL T-Help/Suppress Ratio (0.86-5.00) Ratio % CD8 Cells (12-42) Percent Absolute CD8 Count (180-1170) Cells/mcL T-Lymph Analys Comment Hepatitis A IgM Ab (NEGATIVE) Hep Bs Antigen (NEGATIVE) Hep B Core IgM Ab (NEGATIVE) Hepatitis C Antibody (NEGATIVE) 08/27/18 08/27/18 08/26/18 Range/Units 07:35 06:10 20:20 WBC 7.9 D (4.5-11.0) 10^3/uL RBC 2.54 L (3.5-6.1) 10^6/uL Hgb 7.5 L D (12.0-16.0) g/dL Hct 22.1 L (36.0-48.0) % MCV 87.0 (80.0-105.0) fl MCH 29.5 (25.0-35.0) pg MCHC 33.9 (31.0-37.0) g/dl RDW 15.4 H (11.5-14.5) % Plt Count 246 (120.0-450.0) 10^3/uL MPV 10.6 (7.0-11.0) fl Neut % (Auto) 90.9 H (50.0-68.0) % Lymph % (Auto) 6.6 L (22.0-35.0) % [place] % (Auto) 2.4 (1.0-6.0) % Eos % (Auto) 0.0 L (1.5-5.0) % Baso % (Auto) 0.1 (0.0-3.0) % Lymph # (Auto) 0.5 L (1.2-3.4) [place] # (Auto) 0.2 (0.1-0.6) Eos # (Auto) 0.0 (0.0-0.7) Baso # (Auto) 0.01 (0.0-2.0) K/mm3 Absolute Neuts (auto) 7.18 H (1.4-6.5) pCO2 47 H (35-45) mm/Hg pO2 75.0 L (80-100) mm/Hg HCO3 24.8 (21-28) mmol/L ABG pH 7.33 L (7.35-7.45) ABG Total CO2 26.2 (22-28) mmol.L ABG O2 Saturation 98.2 H (95-98) % ABG O2 Content 11.8 L (15-23) ML/dl ABG Base Excess -1.2 (-2.0-3.0) mmol/L ABG Hemoglobin 8.8 L (11.7-17.4) g/dL ABG Carboxyhemoglobin 2.5 H (0.5-1.5) % POC ABG HHb (Measured) 1.7 (0-5) % ABG Methemoglobin 1.4 (0.0-3.0) % ABG O2 Capacity 12.0 L (16-24) mL/dl Hgb O2 Saturation 94.4 L (95.0-98.0) % FiO2 60.0 % Sodium (132-148) mmol/L Potassium (3.6-5.0) mmol/L Chloride (98-107) mmol/L Carbon Dioxide (21-33) mmol/L Anion Gap (10-20) BUN (7-21) mg/dL Creatinine (0.7-1.2) mg/dl Est GFR ( Amer) Est GFR (Non-Af Amer) Random Glucose (70-110) mg/dL Calcium (8.4-10.5) mg/dL Phosphorus (2.5-4.5) mg/dL Magnesium (1.7-2.2) mg/dL Total Bilirubin (0.2-1.3) mg/dL AST (14-36) U/L ALT (7-56) U/L Alkaline Phosphatase (38-126) U/L Troponin I 0.20 H* ng/mL Total Protein (5.8-8.3) g/dL Albumin (3.0-4.8) g/dL Globulin gm/dL Albumin/Globulin Ratio (1.1-1.8) Triglycerides (35-160) mg/dL Cholesterol (130-200) mg/dL LDL Cholesterol Direct (0-129) mg/dL HDL Cholesterol (29-60) mg/dL Procalcitonin (0.19-0.49) NG/ML TSH 3rd Generation (0.46-4.68) mIU/mL Urine Color (YELLOW) Urine Appearance (CLEAR) Urine pH (4.7-8.0) Ur Specific [place] (1.005-1.035) Urine Protein (<30 mg/dL) mg/dL Urine Glucose (UA) (NEGATIVE) mg/dL Urine Ketones (NEGATIVE) mg/dL Urine Blood (NEGATIVE) Urine Nitrate (NEGATIVE) Urine Bilirubin (NEGATIVE) Urine Urobilinogen (<1 E.U./dL) E.U./dL Ur Leukocyte Esterase (NEGATIVE) Megan/uL Absolute Lymphs (Flow) (850-3900) Cells/mcL % CD4 Cells (30-61) Percent Absolute CD4 Count (490-1740) Cells/mcL T-Help/Suppress Ratio (0.86-5.00) Ratio % CD8 Cells (12-42) Percent Absolute CD8 Count (180-1170) Cells/mcL T-Lymph Analys Comment Hepatitis A IgM Ab (NEGATIVE) Hep Bs Antigen (NEGATIVE) Hep B Core IgM Ab (NEGATIVE) Hepatitis C Antibody (NEGATIVE) 08/26/18 08/26/18 08/26/18 Range/Units 13:00 12:14 04:00 WBC (4.5-11.0) 10^3/uL RBC (3.5-6.1) 10^6/uL Hgb (12.0-16.0) g/dL Hct (36.0-48.0) % MCV (80.0-105.0) fl MCH (25.0-35.0) pg MCHC (31.0-37.0) g/dl RDW (11.5-14.5) % Plt Count (120.0-450.0) 10^3/uL MPV (7.0-11.0) fl Neut % (Auto) (50.0-68.0) % Lymph % (Auto) (22.0-35.0) % [place] % (Auto) (1.0-6.0) % Eos % (Auto) (1.5-5.0) % Baso % (Auto) (0.0-3.0) % Lymph # (Auto) (1.2-3.4) [place] # (Auto) (0.1-0.6) Eos # (Auto) (0.0-0.7) Baso # (Auto) (0.0-2.0) K/mm3 Absolute Neuts (auto) (1.4-6.5) pCO2 (35-45) mm/Hg pO2 (80-100) mm/Hg HCO3 (21-28) mmol/L ABG pH (7.35-7.45) ABG Total CO2 (22-28) mmol.L ABG O2 Saturation (95-98) % ABG O2 Content (15-23) ML/dl ABG Base Excess (-2.0-3.0) mmol/L ABG Hemoglobin (11.7-17.4) g/dL ABG Carboxyhemoglobin (0.5-1.5) % POC ABG HHb (Measured) (0-5) % ABG Methemoglobin (0.0-3.0) % ABG O2 Capacity (16-24) mL/dl Hgb O2 Saturation (95.0-98.0) % FiO2 % Sodium (132-148) mmol/L Potassium (3.6-5.0) mmol/L Chloride (98-107) mmol/L Carbon Dioxide (21-33) mmol/L Anion Gap (10-20) BUN (7-21) mg/dL Creatinine (0.7-1.2) mg/dl Est GFR ( Amer) Est GFR (Non-Af Amer) Random Glucose (70-110) mg/dL Calcium (8.4-10.5) mg/dL Phosphorus (2.5-4.5) mg/dL Magnesium (1.7-2.2) mg/dL Total Bilirubin (0.2-1.3) mg/dL AST (14-36) U/L ALT (7-56) U/L Alkaline Phosphatase (38-126) U/L Troponin I 0.19 H* D ng/mL Total Protein (5.8-8.3) g/dL Albumin (3.0-4.8) g/dL Globulin gm/dL Albumin/Globulin Ratio (1.1-1.8) Triglycerides (35-160) mg/dL Cholesterol (130-200) mg/dL LDL Cholesterol Direct (0-129) mg/dL HDL Cholesterol (29-60) mg/dL Procalcitonin (0.19-0.49) NG/ML TSH 3rd Generation (0.46-4.68) mIU/mL Urine Color Yellow (YELLOW) Urine Appearance Clear (CLEAR) Urine pH 6.0 (4.7-8.0) Ur Specific [place] 1.020 (1.005-1.035) Urine Protein Negative (<30 mg/dL) mg/dL Urine Glucose (UA) Negative (NEGATIVE) mg/dL Urine Ketones 15 H (NEGATIVE) mg/dL Urine Blood Negative (NEGATIVE) Urine Nitrate Negative (NEGATIVE) Urine Bilirubin Negative (NEGATIVE) Urine Urobilinogen 0.2 (<1 E.U./dL) E.U./dL Ur Leukocyte Esterase Negative (NEGATIVE) Megan/uL Absolute Lymphs (Flow) (850-3900) Cells/mcL % CD4 Cells (30-61) Percent Absolute CD4 Count (490-1740) Cells/mcL T-Help/Suppress Ratio (0.86-5.00) Ratio % CD8 Cells (12-42) Percent Absolute CD8 Count (180-1170) Cells/mcL T-Lymph Analys Comment Hepatitis A IgM Ab Negative (NEGATIVE) Hep Bs Antigen Negative (NEGATIVE) Hep B Core IgM Ab Negative (NEGATIVE) Hepatitis C Antibody Negative (NEGATIVE) 08/26/18 08/25/18 Range/Units 02:05 05:00 WBC (4.5-11.0) 10^3/uL RBC (3.5-6.1) 10^6/uL Hgb (12.0-16.0) g/dL Hct (36.0-48.0) % MCV (80.0-105.0) fl MCH (25.0-35.0) pg MCHC (31.0-37.0) g/dl RDW (11.5-14.5) % Plt Count (120.0-450.0) 10^3/uL MPV (7.0-11.0) fl Neut % (Auto) (50.0-68.0) % Lymph % (Auto) (22.0-35.0) % [place] % (Auto) (1.0-6.0) % Eos % (Auto) (1.5-5.0) % Baso % (Auto) (0.0-3.0) % Lymph # (Auto) (1.2-3.4) [place] # (Auto) (0.1-0.6) Eos # (Auto) (0.0-0.7) Baso # (Auto) (0.0-2.0) K/mm3 Absolute Neuts (auto) (1.4-6.5) pCO2 (35-45) mm/Hg pO2 (80-100) mm/Hg HCO3 (21-28) mmol/L ABG pH (7.35-7.45) ABG Total CO2 (22-28) mmol.L ABG O2 Saturation (95-98) % ABG O2 Content (15-23) ML/dl ABG Base Excess (-2.0-3.0) mmol/L ABG Hemoglobin (11.7-17.4) g/dL ABG Carboxyhemoglobin (0.5-1.5) % POC ABG HHb (Measured) (0-5) % ABG Methemoglobin (0.0-3.0) % ABG O2 Capacity (16-24) mL/dl Hgb O2 Saturation (95.0-98.0) % FiO2 % Sodium (132-148) mmol/L Potassium (3.6-5.0) mmol/L Chloride (98-107) mmol/L Carbon Dioxide (21-33) mmol/L Anion Gap (10-20) BUN (7-21) mg/dL Creatinine (0.7-1.2) mg/dl Est GFR ( Amer) Est GFR (Non-Af Amer) Random Glucose (70-110) mg/dL Calcium (8.4-10.5) mg/dL Phosphorus (2.5-4.5) mg/dL Magnesium (1.7-2.2) mg/dL Total Bilirubin (0.2-1.3) mg/dL AST (14-36) U/L ALT (7-56) U/L Alkaline Phosphatase (38-126) U/L Troponin I ng/mL Total Protein (5.8-8.3) g/dL Albumin (3.0-4.8) g/dL Globulin gm/dL Albumin/Globulin Ratio (1.1-1.8) Triglycerides (35-160) mg/dL Cholesterol (130-200) mg/dL LDL Cholesterol Direct (0-129) mg/dL HDL Cholesterol (29-60) mg/dL Procalcitonin 1.32 H (0.19-0.49) NG/ML TSH 3rd Generation (0.46-4.68) mIU/mL Urine Color (YELLOW) Urine Appearance (CLEAR) Urine pH (4.7-8.0) Ur Specific [place] (1.005-1.035) Urine Protein (<30 mg/dL) mg/dL Urine Glucose (UA) (NEGATIVE) mg/dL Urine Ketones (NEGATIVE) mg/dL Urine Blood (NEGATIVE) Urine Nitrate (NEGATIVE) Urine Bilirubin (NEGATIVE) Urine Urobilinogen (<1 E.U./dL) E.U./dL Ur Leukocyte Esterase (NEGATIVE) Megan/uL Absolute Lymphs (Flow) 427 L (850-3900) Cells/mcL % CD4 Cells 3 L (30-61) Percent Absolute CD4 Count <20 L (490-1740) Cells/mcL T-Help/Suppress Ratio 0.06 L (0.86-5.00) Ratio % CD8 Cells 49 H (12-42) Percent Absolute CD8 Count 211 (180-1170) Cells/mcL T-Lymph Analys Comment See note Hepatitis A IgM Ab (NEGATIVE) Hep Bs Antigen (NEGATIVE) Hep B Core IgM Ab (NEGATIVE) Hepatitis C Antibody (NEGATIVE) Laboratory Results - last 24 hr 08/25/18 08/26/18 08/26/18 05:00 02:05 04:00 WBC RBC Hgb Hct MCV MCH MCHC RDW Plt Count MPV Neut % (Auto) Lymph % (Auto) [place] % (Auto) Eos % (Auto) Baso % (Auto) Lymph # (Auto) [place] # (Auto) Eos # (Auto) Baso # (Auto) Absolute Neuts (auto) pCO2 pO2 HCO3 ABG pH ABG Total CO2 ABG O2 Saturation ABG O2 Content ABG Base Excess ABG Hemoglobin ABG Carboxyhemoglobin POC ABG HHb (Measured) ABG Methemoglobin ABG O2 Capacity Hgb O2 Saturation FiO2 Sodium Potassium Chloride Carbon Dioxide Anion Gap BUN Creatinine Est GFR ( Amer) Est GFR (Non-Af Amer) Random Glucose Calcium Phosphorus Magnesium Total Bilirubin AST ALT Alkaline Phosphatase Troponin I Total Protein Albumin Globulin Albumin/Globulin Ratio Triglycerides Cholesterol LDL Cholesterol Direct HDL Cholesterol Procalcitonin 1.32 H TSH 3rd Generation Urine Color Yellow Urine Appearance Clear Urine pH 6.0 Ur Specific [place] 1.020 Urine Protein Negative Urine Glucose (UA) Negative Urine Ketones 15 H Urine Blood Negative Urine Nitrate Negative Urine Bilirubin Negative Urine Urobilinogen 0.2 Ur Leukocyte Esterase Negative Absolute Lymphs (Flow) 427 L % CD4 Cells 3 L Absolute CD4 Count <20 L T-Help/Suppress Ratio 0.06 L % CD8 Cells 49 H Absolute CD8 Count 211 T-Lymph Analys Comment See note Hepatitis A IgM Ab Hep Bs Antigen Hep B Core IgM Ab Hepatitis C Antibody 08/26/18 08/26/18 08/26/18 12:14 13:00 20:20 WBC RBC Hgb Hct MCV MCH MCHC RDW Plt Count MPV Neut % (Auto) Lymph % (Auto) [place] % (Auto) Eos % (Auto) Baso % (Auto) Lymph # (Auto) [place] # (Auto) Eos # (Auto) Baso # (Auto) Absolute Neuts (auto) pCO2 pO2 HCO3 ABG pH ABG Total CO2 ABG O2 Saturation ABG O2 Content ABG Base Excess ABG Hemoglobin ABG Carboxyhemoglobin POC ABG HHb (Measured) ABG Methemoglobin ABG O2 Capacity Hgb O2 Saturation FiO2 Sodium Potassium Chloride Carbon Dioxide Anion Gap BUN Creatinine Est GFR ( Amer) Est GFR (Non-Af Amer) Random Glucose Calcium Phosphorus Magnesium Total Bilirubin AST ALT Alkaline Phosphatase Troponin I 0.19 H* D 0.20 H* Total Protein Albumin Globulin Albumin/Globulin Ratio Triglycerides Cholesterol LDL Cholesterol Direct HDL Cholesterol Procalcitonin TSH 3rd Generation Urine Color Urine Appearance Urine pH Ur Specific [place] Urine Protein Urine Glucose (UA) Urine Ketones Urine Blood Urine Nitrate Urine Bilirubin Urine Urobilinogen Ur Leukocyte Esterase Absolute Lymphs (Flow) % CD4 Cells Absolute CD4 Count T-Help/Suppress Ratio % CD8 Cells Absolute CD8 Count T-Lymph Analys Comment Hepatitis A IgM Ab Negative Hep Bs Antigen Negative Hep B Core IgM Ab Negative Hepatitis C Antibody Negative 08/27/18 08/27/18 08/27/18 06:10 07:35 07:35 WBC 7.9 D RBC 2.54 L Hgb 7.5 L D Hct 22.1 L MCV 87.0 MCH 29.5 MCHC 33.9 RDW 15.4 H Plt Count 246 MPV 10.6 Neut % (Auto) 90.9 H Lymph % (Auto) 6.6 L [place] % (Auto) 2.4 Eos % (Auto) 0.0 L Baso % (Auto) 0.1 Lymph # (Auto) 0.5 L [place] # (Auto) 0.2 Eos # (Auto) 0.0 Baso # (Auto) 0.01 Absolute Neuts (auto) 7.18 H pCO2 47 H pO2 75.0 L HCO3 24.8 ABG pH 7.33 L ABG Total CO2 26.2 ABG O2 Saturation 98.2 H ABG O2 Content 11.8 L ABG Base Excess -1.2 ABG Hemoglobin 8.8 L ABG Carboxyhemoglobin 2.5 H POC ABG HHb (Measured) 1.7 ABG Methemoglobin 1.4 ABG O2 Capacity 12.0 L Hgb O2 Saturation 94.4 L FiO2 60.0 Sodium 139 Potassium 4.0 Chloride 108 H Carbon Dioxide 26 Anion Gap 10 BUN 15 Creatinine 0.4 L Est GFR ( Amer) > 60 Est GFR (Non-Af Amer) > 60 Random Glucose 213 H Calcium 8.0 L Phosphorus 2.8 Magnesium 2.0 Total Bilirubin 0.8 AST 20 ALT 13 Alkaline Phosphatase 37 L D Troponin I Total Protein 5.6 L Albumin 2.9 L Globulin 2.7 Albumin/Globulin Ratio 1.1 Triglycerides 97 Cholesterol 62 L LDL Cholesterol Direct 34 HDL Cholesterol 17 L Procalcitonin TSH 3rd Generation Urine Color Urine Appearance Urine pH Ur Specific [place] Urine Protein Urine Glucose (UA) Urine Ketones Urine Blood Urine Nitrate Urine Bilirubin Urine Urobilinogen Ur Leukocyte Esterase Absolute Lymphs (Flow) % CD4 Cells Absolute CD4 Count T-Help/Suppress Ratio % CD8 Cells Absolute CD8 Count T-Lymph Analys Comment Hepatitis A IgM Ab Hep Bs Antigen Hep B Core IgM Ab Hepatitis C Antibody 08/27/18 08/27/18 07:35 08:20 WBC 7.3 RBC 2.62 L Hgb 7.9 L Hct 22.7 L MCV 86.6 MCH 30.2 MCHC 34.8 RDW 15.5 H Plt Count 236 MPV 10.3 Neut % (Auto) Lymph % (Auto) [place] % (Auto) Eos % (Auto) Baso % (Auto) Lymph # (Auto) [place] # (Auto) Eos # (Auto) Baso # (Auto) Absolute Neuts (auto) pCO2 pO2 HCO3 ABG pH ABG Total CO2 ABG O2 Saturation ABG O2 Content ABG Base Excess ABG Hemoglobin ABG Carboxyhemoglobin POC ABG HHb (Measured) ABG Methemoglobin ABG O2 Capacity Hgb O2 Saturation FiO2 Sodium Potassium Chloride Carbon Dioxide Anion Gap BUN Creatinine Est GFR ( Amer) Est GFR (Non-Af Amer) Random Glucose Calcium Phosphorus Magnesium Total Bilirubin AST ALT Alkaline Phosphatase Troponin I Total Protein Albumin Globulin Albumin/Globulin Ratio Triglycerides Cholesterol LDL Cholesterol Direct HDL Cholesterol Procalcitonin TSH 3rd Generation 0.16 L Urine Color Urine Appearance Urine pH Ur Specific [place] Urine Protein Urine Glucose (UA) Urine Ketones Urine Blood Urine Nitrate Urine Bilirubin Urine Urobilinogen Ur Leukocyte Esterase Absolute Lymphs (Flow) % CD4 Cells Absolute CD4 Count T-Help/Suppress Ratio % CD8 Cells Absolute CD8 Count T-Lymph Analys Comment Hepatitis A IgM Ab Hep Bs Antigen Hep B Core IgM Ab Hepatitis C Antibody Radiology Impressions: Radiology Impressions Abdomen/Pelvis CT 08/26/18 16:08 IMPRESSION: No evidence of perirectal abscess Chest X-Ray 08/27/18 06:00 IMPRESSION: There is a diffuse alveolar infiltrate consistent with pulmonary edema or ARDS. This is unchanged. Central lines and tubes are unchanged Critical Care Progress Note - Nutrition Nutrition: Nutrition Category Date Time Status NPO Diet [DIET] Diets 08/26/18 Breakfast Ordered Attending/Attestation - Attestation I have personally seen and examined this patient.: Yes I have fully participated in the care of the patient.: Yes I have reviewed all pertinent clinical information: Yes Notes (Text): 08/27/18 12:01 The patient was seen and examined at the bedside. Patient care was discussed with resident Medical records, lab studies were reviewed and management issues were discussed and formulated. Agree with above treatment plans as outlined in 's note with addition of the following: Acute Respiratory Failure \ Hypoxemia \ ARDS \ PNA \ Septic Shock \HIV \ NSTEMI -hemodynamic monitoring and vasopressor support to maintain MAP>65 -continue to titrate Levophed and Phenylephrine ; d\c Vaospressin as B\P improving -continue stress steroids -f\u serial CE and ECG; cardiology team f\u; continue ASA -mechanical ventilation and o2 supplementation to maintain Spo2 >90 Pao2>60 -monitor for TV 6ml\kg IBW and plateau pressure <30 -ABG and CXR were reviewed ; currently Peep 8 and Fio2 60% -s\p Bronchoscopy this AM; f\u lavage results -will consider paralitics and proning if oxygenation does not improve -continue nebs and pulmonary toileting -continue broad spectrum ABX as per ID team; f\u cultures and AFB; noted HIV positive -f\u Bun\Cr and U\o; monitor and replace e-lites -surgical team f\u appreciated -NPO diet and aspiration precautions -case dw pulmonary team -DVT \ PUD prophylaxis CCM time 36min
--- NOTE | 2018-08-27 12:18 | RAD ---
Date of service: 08/26/2018 HISTORY: follow up on pulmonary edema COMPARISON: Earlier same day FINDINGS: LUNGS: There is no change in the diffuse alveolar infiltrate consistent with pulmonary edema. PLEURA: No significant pleural effusion identified, no pneumothorax apparent. CARDIOVASCULAR: No aortic atherosclerotic calcification present. Normal cardiac size. No pulmonary vascular congestion. OSSEOUS STRUCTURES: No significant abnormalities. VISUALIZED UPPER ABDOMEN: Normal. OTHER FINDINGS: None. IMPRESSION: Severe pulmonary edema unchanged
--- NOTE | 2018-08-27 12:18 | BRONCH ---
PROCEDURE DATE: 08/27/2018 INDICATION FOR BRONCHOSCOPY: Bilateral pneumonia. PROCEDURE: Fiber optic bronchoscope was passed via the endotracheal tube. The toan appeared sharp without any significant abnormalities. The right-sided bronchi appear mildly inflamed. There is no pus. There is no endobronchial lesion. There is no active bleeding. Bronchoalveolar lavage was done of the right lower lobe. I then visualized the left-sided bronchi. The left upper lobe bronchi appeared moderately inflamed. Again, there is no evidence of endobronchial lesion or pus. A second bronchoalveolar lavage was done of the left upper lobe. The patient tolerated the procedure extremely well. The bronchoalveolar lavage will be sent for multiple specimens - as per Infectious Disease. I did discuss the bronchoscopy with Dr. Queen earlier. Again, the patient tolerated the procedure extremely well. Griffin Medrano MD MTDJyotsna
--- NOTE | 2018-08-27 12:39 | CP.PCM.PN ---
Subjective - Date & Time of Evaluation Date of Evaluation: 08/27/18 Time of Evaluation: 10:25 - Subjective Subjective: Patient continues to be intubated, sedated, no fevers this morning, had bronchoscopy done by Dr. Medrano this morning. Objective - Vital Signs/Intake and Output Vital Signs (last 24 hours): Temp Pulse Resp BP Pulse Ox 101.1 F H 94 H 40 H 103/67 99 08/26/18 00:33 08/26/18 12:40 08/26/18 08:35 08/26/18 12:40 08/26/18 12:40 Intake and Output: 08/26/18 08/26/18 06:59 18:59 Intake Total 600 Balance 600 - Medications Medications: Current Medications Acetaminophen (Tylenol 325mg Tab) 650 mg PO Q6H PRN PRN Reason: Temperature Last Admin: 08/22/18 14:20 Dose: 650 mg Albumin Human (Albumin Human 25% (12.5 Gm/50 Ml)) 12.5 gm IV Q6H [facility] Stop: 08/27/18 16:01 Albuterol/Ipratropium (Duoneb 3 Mg/0.5 Mg (3 Ml) Ud) 3 ml IH [id number] [facility] Last Admin: 08/26/18 08:20 Dose: 3 ml Albuterol/Ipratropium (Duoneb 3 Mg/0.5 Mg (3 Ml) Ud) 3 ml IH Q2H PRN PRN Reason: Shortness of Breath Alprazolam (Xanax) 0.25 mg PO Q6H PRN PRN Reason: Anxiety Stop: 08/31/18 19:11 Last Admin: 08/26/18 00:06 Dose: 0.25 mg Aspirin (Aspirin Chewable) 81 mg PO DAILY [facility] Last Admin: 08/26/18 12:16 Dose: Not Given Atovaquone (Mepron) 750 mg PO BID [facility]; Protocol Last Admin: 08/26/18 11:31 Dose: Not Given Benzonatate (Tessalon Perles) 100 mg PO TID [facility] Budesonide (Pulmicort Respules) 0.5 mg IH [id number] [facility] Last Admin: 08/26/18 08:20 Dose: 0.5 mg Docusate Sodium (Colace) 100 mg PO Q4H PRN PRN Reason: Constipation Last Admin: 08/22/18 23:44 Dose: 100 mg Doxycycline Hyclate (Doryx) 100 mg PO Q12 [facility]; Protocol Last Admin: 08/26/18 12:09 Dose: Not Given Enoxaparin Sodium (Lovenox) 50 mg SC Q12H [facility]; Protocol Last Admin: 08/26/18 06:13 Dose: 50 mg Guaifenesin (Robitussin) 100 mg PO Q4H PRN PRN Reason: Cough Last Admin: 08/26/18 00:07 Dose: 100 mg Meropenem (Merrem Iv 1 Gm Premix) 1 gm in 50 mls @ 100 mls/hr IVPB Q8 [facility]; Protocol Last Admin: 08/26/18 06:17 Dose: 100 mls/hr NOREPINEPHRINE BIT/0.9 % NACL (Levophed 4 Mg/ 250 Ml Ns Premixed) 4 mg in 250 mls @ 15 mls/hr IV .[id number] PRN; Protocol PRN Reason: TITRATE PER MD ORDER Last Admin: 08/26/18 11:22 Dose: 40 mcg/min, 150 mls/hr Fentanyl Citrate (Fentanyl Citrate/Sodium Chloride 1 Mg/100 Ml) 1,000 mcg in 100 mls @ 2 mls/hr IV .Q24H PRN; Protocol PRN Reason: TITRATE PER MD ORDER Last Admin: 08/26/18 11:32 Dose: 20 mcg/hr, 2 mls/hr Vasopressin 20 units/ Sodium (Chloride) 101 mls @ 9.09 mls/hr IV .Q11H7M [facility]; Protocol Phenylephrine HCl 40 mg/ (Sodium Chloride) 254 mls @ 38.1 mls/hr IV .Q6H40M PRN; Protocol PRN Reason: TITRATE PER MD ORDER Propofol (Diprivan) 1,000 mg in 100 mls @ 1.497 mls/hr IV .Q24H PRN; Protocol PRN Reason: TITRATE PER MD ORDER Last Admin: 08/26/18 12:10 Dose: 5 mcg/kg/min, 1.497 mls/hr Ibuprofen (Motrin Tab) 200 mg PO Q6H PRN PRN Reason: Temperature Last Admin: 08/25/18 15:20 Dose: 200 mg Lidocaine (Lidocaine 5%) 0 gm TOP DAILY [facility] Last Admin: 08/25/18 13:50 Dose: 1 applic Lorazepam (Ativan) 2 mg IVP Q2H PRN; Protocol PRN Reason: Anxiety Metoprolol Tartrate (Lopressor) 12.5 mg PO BID [facility] Last Admin: 08/26/18 11:31 Dose: Not Given Ondansetron HCl (Zofran Inj) 4 mg IVP Q6H PRN PRN Reason: Nausea/Vomiting Last Admin: 08/24/18 01:07 Dose: 4 mg Oseltamivir Phosphate (Tamiflu Cap) 75 mg PO BID [facility]; Protocol Stop: 08/29/18 10:47 Last Admin: 08/25/18 18:09 Dose: 75 mg Pantoprazole Sodium (Protonix Ec Tab) 40 mg PO ACB [facility] Last Admin: 08/25/18 10:38 Dose: 40 mg Silver Sulfadiazine (Silvadene 1% 25 Gm) 0 gm TP BID [facility] Last Admin: 08/25/18 10:38 Dose: 25 gm Tramadol HCl (Ultram) 50 mg PO TID PRN PRN Reason: Pain, Mild (1-3) Last Admin: 08/25/18 13:54 Dose: 50 mg Trimethoprim/Sulfamethoxazole (Bactrim Inj) 250 mg IVPB Q8 [facility]; Protocol - Labs Labs: 08/26/18 07:00 08/26/18 07:00 PT 15.3 SECONDS (9.4-12.5) H 08/26/18 07:00 INR 1.35 08/26/18 07:00 APTT 32.4 Seconds (26.9-38.3) 08/26/18 07:00 - Constitutional Appears: Chronically Ill, Other (intubated, sedated) - Head Exam Head Exam: NORMAL INSPECTION - ENT Exam Additional comments: ET tube in place - Respiratory Exam Respiratory Exam: Decreased Breath Sounds, Rales (diffuse) - Cardiovascular Exam Cardiovascular Exam: +S1, +S2 - GI/Abdominal Exam GI & Abdominal Exam: Soft. absent: Tenderness Assessment and Plan - Assessment and Plan (Free Text) Plan: Assessment severe sepsis / septic shock with VDRF and ARDS due to bilateral pneumonia, R/O viral pneumonia, R/O Pneumocystis pneumonia, R/O atypical pneumonia, R/O intra- abdominal, rectal infection / colitis perianal abscess after hemorrhoidectomy S/P surgery and chronic wound noted, cannot rule out colitis consider bilateral HCAP chronic HIV infection gastritis Plan on Bactrim ,Merrem, and switched Doxycycline Levaquin day 10 and gave a dose of IV Vancomycin - follow up repeat blood cx, sputum cx, we have switched V ancomycin to Bactrim IV (we were giving therapeutic dose of Mepron 750 mg BID but we have switched to IV Bactrim), and will start Mycamine as well - initially PJP was not high on the differential list since LDH was normal, and we were initially giving Mepron for prophylaxis but 750 mg BID which we initially started is actually therapeutic dosing reviewed previous CT chest, abdomen and pelvis which shows pneumonitis with no lymphadenopathy, chronic diverticulosis but cannot rule out colitis; even though rapid flu test is negative will continue Tamiflu day [address] Medrano - patient in ARDS - he did bronchoscopy with BAL and got respiratory samples to be checked for silver stain for PJP, fungal smears, viral panel for Influenza, RSV, Parainfluenza, Adenovirus, hMPV, AFB, bacterial cultures, CMV - may consider CMV treatment with Valganciclovir HIV PCR is elevated, will follow up CD4 count; RPR, serum Crypt Ag are negative Quantiferon TB test was indeterminate - granuloma on right lung seen on CT scan is probably old disease, initial CT chest showed groundglass opacities which are not typically seen in patients with TB; also patient did not have mediastinal lymphadenopathy, no upper lobe cavities, no signs of miliary tuberculosis, no pleural effusions, making TB less likely Dr. Kramer has discussed with patient about the HIV test result follow up CMV PCR, Beta glucan levels surgery planning on more intervention for perianal area overall prognosis is guarded at best but is getting worse and patient continues to be critically ill discussed with son at bedside
[2018-08-27] MEDS: Micafungin 100 MG in Sodium Chloride 0.9% 100 ML IV SCH (13:14)
--- NOTE | 2018-08-27 13:24 | PN ---
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 SUBJECTIVE: The patient remains on vent, on phenylephrine drip as well as vasopressins, off Levophed, on vent and sedation. PHYSICAL EXAMINATION: GENERAL: Not in apparent distress. VITAL SIGNS: Temperature 97.9, heart rate 76, blood pressure 100/63. HEENT: PERRLA. Extraocular muscles intact. NECK: Supple. No carotid bruits or thyromegaly. CHEST: Clear to auscultation. HEART: S1, S2. Regular. ABDOMEN: Soft. EXTREMITIES: Clubbing, cyanosis negative. LABORATORY DATA: Blood workup: WBC 7.3, hemoglobin 7.9, hematocrit 22.7, platelet count 236. Chemistry shows sodium 139, potassium 4, chloride 108, carbon dioxide 26, anion gap of 10, BUN 15, creatinine 0.4. The patient had an echocardiography done yesterday that showed ejection fraction 45 to 50%, trace mitral regurgitation, mild tricuspid regurgitation, trace pulmonary insufficiency, dilated IVC, trivial pericardial effusion, no evidence of vegetation or thrombus noted. IMPRESSION: A 63-year-old female with no significant past medical history admitted with perirectal abscess, septic shock. Workup shows human immunodeficiency virus positive yesterday requiring intubation because of the difficulty breathing. Protein calorie malnutrition, yesterday albumin was 2.5, moderate to severe which was new since admission. The patient was hypotensive, six doses of intravenous albumin given and able to get off the Levophed. Now, the patient is off Levophed, on only vasopressin, phenylephrine; on vent and sedation. Chest x-ray consistent with pulmonary edema as well as pneumonia, acute respiratory distress syndrome type of picture. RECOMMENDATIONS: Continue vent management as tolerated. Try to wean off the vent as tolerated. Continue baby aspirin, continue beta fani as blood pressure is tolerated low dose 12.5 and wean off the vasopressin as tolerated. Overall, the patient's condition is critical. Long-term prognosis is extremely guarded. We will start diuresing when the patient becomes hemodynamically stable. High risk for opportunistic infection secondary to immunocompromised human immunodeficiency virus. Paddy Weinstein MD
[2018-08-27 13:59] LABS: INR 1.15; PARTIAL THROMBOPLASTIN TIME 34.1 Seconds (26.9-38.3)
[2018-08-27 18:13] LABS: HEMOGLOBIN 8.4 g/dL (12.0-16.0); LYMPH # 0.5 (1.2-3.4); LYMPH % 4.4 % (22.0-35.0); MEAN CELL VOLUME 87.2 fl (80.0-105.0); MEAN CORPUSCULAR HEMOGLOBIN 29.8 pg (25.0-35.0); MEAN CORPUSCULAR HGB CONC 34.1 g/dl (31.0-37.0); MEAN PLATELET VOLUME 10.5 fl (7.0-11.0); MONO # 0.4 (0.1-0.6); MONO % 4.1 % (1.0-6.0); RBC 2.82 10^6/uL (3.5-6.1); RED CELL DISTRIBUTION WIDTH 15.5 % (11.5-14.5); WHITE BLOOD COUNT 10.6 10^3/uL (4.5-11.0)
[2018-08-27 18:19] LABS: ALBUMIN 2.9 g/dL (3.0-4.8); ALT/SGPT 10 U/L (7-56); AST/SGOT 18 U/L (14-36); BLOOD UREA NITROGEN 9 mg/dL (7-21); CALCIUM 8.5 mg/dL (8.4-10.5); GFR NON-AFRICAN AMERICAN > 60
[2018-08-28] MEDS: Albuterol-Ipratrop 3 mg / 0.5 (3 ml) UD IH SCH ×4 (02:20→20:00)
[2018-08-28] MEDS: Enoxaparin 60 mg Syringe SC SCH ×2 (04:52→17:15)
--- NOTE | 2018-08-28 05:35 | CP.PCM.PN ---
Subjective - Date & Time of Evaluation Date of Evaluation: 08/28/18 Time of Evaluation: 05:35 - Subjective Subjective: It was requested to sign order for restraint. Patient has been agitated. Medical record was reviewed. This 63 year old woman was admitted with perirectal pain and discharg. Has PMH of Social consumption of alcohol,allergyto pcn. Objective - Vital Signs/Intake and Output Vital Signs (last 24 hours): Temp Pulse Resp BP Pulse Ox 97.6 F 82 18 110/60 100 08/27/18 16:00 08/27/18 22:00 08/27/18 08:00 08/27/18 17:57 08/27/18 09:10 Intake and Output: 08/27/18 08/28/18 18:59 06:59 Intake Total 2114 Output Total 1200 Balance 914 - Medications Medications: Current Medications Acetaminophen (Tylenol 325mg Tab) 650 mg PO Q6H PRN PRN Reason: Temperature Last Admin: 08/22/18 14:20 Dose: 650 mg Albuterol/Ipratropium (Duoneb 3 Mg/0.5 Mg (3 Ml) Ud) 3 ml IH [id number] [facility] Last Admin: 08/28/18 02:20 Dose: 3 ml Albuterol/Ipratropium (Duoneb 3 Mg/0.5 Mg (3 Ml) Ud) 3 ml IH Q2H PRN PRN Reason: Shortness of Breath Last Admin: 08/27/18 08:21 Dose: 3 ml Alprazolam (Xanax) 0.25 mg PO Q6H PRN PRN Reason: Anxiety Stop: 08/31/18 19:11 Last Admin: 08/26/18 00:06 Dose: 0.25 mg Aspirin (Aspirin Chewable) 81 mg PO DAILY [facility] Last Admin: 08/27/18 10:31 Dose: 81 mg Benzonatate (Tessalon Perles) 100 mg PO TID [facility] Last Admin: 08/27/18 17:58 Dose: Not Given Budesonide (Pulmicort Respules) 0.5 mg IH [id number] [facility] Last Admin: 08/27/18 20:00 Dose: 0.5 mg Docusate Sodium (Colace) 100 mg PO Q4H PRN PRN Reason: Constipation Last Admin: 08/22/18 23:44 Dose: 100 mg Enoxaparin Sodium (Lovenox) 50 mg SC Q12H [facility]; Protocol Last Admin: 08/28/18 04:52 Dose: 50 mg Guaifenesin (Robitussin) 100 mg PO Q4H PRN PRN Reason: Cough Last Admin: 08/26/18 00:07 Dose: 100 mg Hydrocortisone Sodium Succinate (Solu-Cortef) 100 mg IVP Q8 [facility] Last Admin: 08/27/18 21:19 Dose: 100 mg Meropenem (Merrem Iv 1 Gm Premix) 1 gm in 50 mls @ 100 mls/hr IVPB Q8 [facility]; Prot ocol Last Admin: 08/27/18 21:19 Dose: 100 mls/hr NOREPINEPHRINE BIT/0.9 % NACL (Levophed 4 Mg/ 250 Ml Ns Premixed) 4 mg in 250 mls @ 15 mls/hr IV .[id number] PRN; Protocol PRN Reason: TITRATE PER MD ORDER Last Titration: 08/27/18 07:00 Dose: 0 mcg/min, 0 mls/hr Fentanyl Citrate (Fentanyl Citrate/Sodium Chloride 1 Mg/100 Ml) 1,000 mcg in 100 mls @ 2 mls/hr IV .Q24H PRN; Protocol PRN Reason: TITRATE PER MD ORDER Last Admin: 08/27/18 05:16 Dose: 20 mcg/hr, 2 mls/hr Vasopressin 20 units/ Sodium (Chloride) 101 mls @ 9.09 mls/hr IV .Q11H7M [facility]; Protocol Last Admin: 08/27/18 10:00 Dose: Not Given Phenylephrine HCl 40 mg/ (Sodium Chloride) 254 mls @ 38.1 mls/hr IV .Q6H40M PRN; Protocol PRN Reason: TITRATE PER MD ORDER Last Titration: 08/27/18 10:40 Dose: 50 mcg/min, 19.05 mls/hr Propofol (Diprivan) 1,000 mg in 100 mls @ 1.497 mls/hr IV .Q24H PRN; Protocol PRN Reason: TITRATE PER MD ORDER Last Admin: 08/27/18 21:27 Dose: 30 mcg/kg/min, 8.981 mls/hr Trimethoprim/Sulfamethoxazole (250 mg/ Dextrose) 500 mls @ 250 mls/hr IVPB Q8 [facility] Last Admin: 08/27/18 22:06 Dose: 250 mls/hr Levofloxacin/Dextrose (Levaquin 750mg) 750 mg in 150 mls @ 100 mls/hr IVPB DAILY [facility]; Protocol Last Admin: 08/27/18 08:05 Dose: 100 mls/hr Micafungin Sodium 100 mg/ (Sodium Chloride) 100 mls @ 100 mls/hr IV DAILY [facility]; Protocol Stop: 09/03/18 12:46 Last Admin: 08/27/18 13:14 Dose: 100 mls/hr Ibuprofen (Motrin Tab) 200 mg PO Q6H PRN PRN Reason: Temperature Last Admin: 08/25/18 15:20 Dose: 200 mg Lidocaine (Lidocaine 5%) 0 gm TOP DAILY [facility] Last Admin: 08/27/18 10:00 Dose: 1 applic Lorazepam (Ativan) 2 mg IVP Q2H PRN; Protocol PRN Reason: Anxiety Metoprolol Tartrate (Lopressor) 12.5 mg PO BID [facility] Last Admin: 08/27/18 17:57 Dose: Not Given Ondansetron HCl (Zofran Inj) 4 mg IVP Q6H PRN PRN Reason: Nausea/Vomiting Last Admin: 08/24/18 01:07 Dose: 4 mg Oseltamivir Phosphate (Tamiflu Susp) 75 mg PO BID [facility]; Protocol Last Admin: 08/27/18 19:31 Dose: 75 mg Pantoprazole Sodium (Protonix Ec Tab) 40 mg PO ACB [facility] Last Admin: 08/27/18 07:00 Dose: Not Given Silver Sulfadiazine (Silvadene 1% 25 Gm) 0 gm TP BID [facility] Last Admin: 08/27/18 17:58 Dose: 25 gm Tramadol HCl (Ultram) 50 mg PO TID PRN PRN Reason: Pain, Mild (1-3) Last Admin: 08/25/18 13:54 Dose: 50 mg Valganciclovir (Valcyte) 900 mg PO DAILY [facility] Last Admin: 08/27/18 17:59 Dose: Not Given - Labs Labs: 08/27/18 17:40 08/27/18 17:40 PT 13.0 SECONDS (9.4-12.5) H 08/27/18 13:45 INR 1.15 08/27/18 13:45 APTT 34.1 Seconds (26.9-38.3) 08/27/18 13:45 - Constitutional Appears: Well, No Acute Distress - Head Exam Head Exam: ATRAUMATIC, NORMAL INSPECTION, NORMOCEPHALIC - Eye Exam Eye Exam: Normal appearance - ENT Exam ENT Exam: Normal Exam - Neck Exam Neck Exam: Normal Inspection - Respiratory Exam Respiratory Exam: NORMAL BREATHING PATTERN - Cardiovascular Exam Cardiovascular Exam: absent: JVD - GI/Abdominal Exam GI & Abdominal Exam: absent: Distended - Rectal Exam Rectal Exam: Deferred - Exam Additional comments: Deferred. - Extremities Exam Extremities Exam: Normal Inspection - Back Exam Back Exam: NORMAL INSPECTION - Neurological Exam Neurological Exam: Alert, Awake - Psychiatric Exam Psychiatric exam: Agitated - Skin Skin Exam: Normal Color Assessment and Plan - Assessment and Plan (Free Text) Assessment: Agitation. Tiffany rectal abscess. Pneumonia. Hypoxia. Hypotension. Plan: Restraint order was renewed. Continue present management.
[2018-08-28] MEDS: Sulfamethoxazole/Trimethoprim 250 MG in Dextrose 5% In Water 500 ML IVPB SCH ×3 (05:43→21:51)
[2018-08-28] MEDS: Meropenem IV 1 gm in NS 1 GM/50 ML BAG IVPB SCH ×3 (05:44→21:53)
[2018-08-28] MEDS: Propofol 10 mg/ml 1,000 MG/100 ML VIAL IV PRN ×2 (05:45→15:27)
[2018-08-28 06:39] LABS: ARTERIAL BLOOD GAS HCO3 16.2 mmol/L (21-28); ARTERIAL BLOOD GAS HEMOGLOBIN 9.3 g/dL (11.7-17.4); ARTERIAL BLOOD GAS O2 SAT 100.1 % (95-98); ARTERIAL BLOOD GAS PCO2 37 mm/Hg (35-45); ARTERIAL BLOOD GAS PH 7.25 (7.35-7.45); ARTERIAL BLOOD GAS TCO2 17.3 mmol.L (22-28)
[2018-08-28 06:56] LABS: ALBUMIN 2.9 g/dL (3.0-4.8); ALT/SGPT 16 U/L (7-56); AST/SGOT 24 U/L (14-36); BLOOD UREA NITROGEN 8 mg/dL (7-21); CALCIUM 8.9 mg/dL (8.4-10.5); GFR NON-AFRICAN AMERICAN > 60
[2018-08-28 07:15] LABS: BASO # 0.01 K/mm3 (0.0-2.0); BASO % 0.1 % (0.0-3.0); HEMOGLOBIN 8.6 g/dL (12.0-16.0); LYMPH # 0.6 (1.2-3.4); LYMPH % 3.7 % (22.0-35.0); MEAN CELL VOLUME 87.8 fl (80.0-105.0); MEAN CORPUSCULAR HEMOGLOBIN 30.1 pg (25.0-35.0); MEAN CORPUSCULAR HGB CONC 34.3 g/dl (31.0-37.0); MEAN PLATELET VOLUME 11.1 fl (7.0-11.0); MONO # 0.4 (0.1-0.6); MONO % 2.7 % (1.0-6.0); RBC 2.86 10^6/uL (3.5-6.1); RED CELL DISTRIBUTION WIDTH 15.8 % (11.5-14.5); WHITE BLOOD COUNT 15.7 10^3/uL (4.5-11.0)
[2018-08-28] MEDS: Budesonide 0.5 mg/2 ml Inhal Susp UD IH SCH (08:06)
--- NOTE | 2018-08-28 08:35 | RAD ---
Date of service: 08/28/2018 HISTORY: f/u COMPARISON: No prior. FINDINGS: LUNGS: Diffuse bilateral consolidation persists and is not significantly changed bilaterally, again suggesting ARDS. Endotracheal and nasogastric tubes do not appear significantly changed in position with left central venous line also stable. PLEURA: No right pleural effusion. No prominent left pleural effusion. Left costophrenic sulcus is not included in this exposure. No pneumothorax bilaterally. CARDIOVASCULAR: No aortic atherosclerotic calcification present. Normal cardiac size. Pulmonary vasculature obscured. OSSEOUS STRUCTURES: No significant abnormalities. VISUALIZED UPPER ABDOMEN: Normal. OTHER FINDINGS: None. IMPRESSION: No interval improvement and ARDS type pattern of opacification bilaterally. Pulmonary vascular pattern obscured by infiltrates bilaterally. Tubes and catheter unchanged in position.
[2018-08-28] MEDS: Pantoprazole 40 mg EC Tab PO SCH (09:04)
--- NOTE | 2018-08-28 10:11 | PN ---
DATE: 08/28/2018(610am-700am) PULMONARY NOTE SUBJECTIVE: The patient remains on the ventilator. She remains sedated. PHYSICAL EXAMINATION: VITAL SIGNS: Temperature is 98.1, pulse 82, respiratory rate 14/14, blood pressure 134/82. HEENT: Normocephalic, atraumatic. No JVD. CARDIOVASCULAR: Positive S1, S2. No S3 gallop. LUNGS: Mild crackles at both bases. Less rhonchi. No wheezing. GI: Abdomen is soft, nondistended. Bowel sounds are positive. EXTREMITIES: No clubbing, cyanosis or edema. SKIN: No acute rash. NEUROLOGIC: Exam limited at the present time. PERTINENT LABORATORY DATA: Chest x-ray was done this morning and reviewed. There remains extensive bilateral pulmonary infiltrates. Arterial blood gas was done on PRVC 14, tidal volume 370, FIO2 70%, PEEP of 8. Results are: PH 7.25, pCO2 of 37, pO2 of 156. Abdominal CAT scan was also done yesterday. There is no evidence of perirectal abscess. IMPRESSION: 1. Acute respiratory distress syndrome. Respiratory failure. 2. Sepsis with shock. 3. Status post recent hemorrhoidectomy. 4. Community-acquired pneumonia, possibly atypical. 5. Mild anemia. 6. Human immunodeficiency virus positivity. 7. Rule out congestive heart failure. PLAN: The patient remains in the ICU. She remains on the ventilator and sedated. I did discuss the case with the night nurse at length. The night nurse stated that the patient is doing a little better. The pressors are being weaned. I did review the chest x-ray as above. The chest x-ray remains with extensive bilateral pulmonary infiltrates. I have also reviewed the arterial blood gas. There is a metabolic acidosis noted with a decrease in the alveolar-arterial gradient. I will increase the ventilator rate and decrease the FIO2. These changes were discussed with the respiratory therapist. I would continue with the antibiotic coverage as per Infectious Disease. Input by Dr. Queen is noted. The temperatures are now resolving. The patient is also status post bronchoscopy. Results are pending. Input by Cardiology is also noted. The patient remains critically ill, with very guarded prognosis. However, she does appear clinically improved from a few days ago. I will discuss the above with the entire ICU team in the next few moments. I will discuss the above the attending physician later this morning. Griffin Medrano MD [facility] # [id number] JERONIMO
--- NOTE | 2018-08-28 11:27 | PN ---
DATE: 08/28/2018 [employer] DRIVER NOTE SUBJECTIVE: The patient is sedated on the ventilator with FIO2 of 70%. Patient is on propofol and fentanyl. She, hemodynamically, is stable at this time. The patient does have a septic shock and is HIV positive. The patient was admitted for perianal abscess. PHYSICAL EXAMINATION: VITAL SIGNS: Temperature is 98.1, her pulse is 82, respirations are 18, and her BP is 134/82, O2 saturation is 99%. HEENT: Head is atraumatic, normocephalic. Eyes reactive to light. Ear, nose, and throat seem to be within normal limits. NECK: Supple. No JVD. No thyroid enlargement, no lymph nodes. HEART: Has regular rate and rhythm. Normal S1, S2. LUNGS: Reveal bilateral rhonchi. ABDOMEN: Soft. Decreased bowel sounds. GENITALIA AND RECTAL: Deferred. MUSCULOSKELETAL: No joint deformities. EXTREMITIES: Reveal trace lower extremity edema. NEUROLOGIC: The patient is sedated on the ventilator. LABORATORY DATA: As far as her laboratories are concerned, her white count is 15.7, hemoglobin is 8.9, her hematocrit 25.1 with platelets of 335,000. Arterial blood gas reveals a pH of 7.25, pCO2 of 37, pO2 of 156. Her sodium is 142, potassium 3.3, chloride 110, CO2 of 29, BUN of 8, creatinine of 0.5, and a glucose of 164. Chest x-ray reveals no interval improvement and ARDS type pattern of opacifications bilaterally. Pulmonary and vascular pattern are obscured by infiltrates bilaterally. IMPRESSION: This patient has respiratory failure with bilateral pneumonia, rule out pneumocystis pneumonia. The patient has history of human immunodeficiency virus, is in septic shock with hypotension. The patient is status post perirectal abscess and is noted to have anemia as well. PLAN: As far as our plan, we will continue with ventilator support and decrease the FIO2 as tolerated. We will follow up with chest x-ray and arterial blood gases. We will continue her aspirin, her Ativan, her Bactrim, DuoNeb, fentanyl, Lovenox, Lopressor, meropenem, Levophed, Protonix, Pulmicort, Solu-Cortef, Tamiflu, and her Zofran p.r.n. We will continue to treat aggressively along with the other consultants and the primary care doctor. Jamal Kc MD [facility] # [id number]
[2018-08-28] MEDS: levoFLOXacin 750 mg in D5W 750 MG/150 ML BAG IVPB SCH (11:28)
[2018-08-28] MEDS: Fentanyl 1000mcg/100ml NS 1,000 MCG/100 ML BAG IV PRN (11:30)
--- NOTE | 2018-08-28 11:58 | PN ---
DATE: 08/28/2018 SUBJECTIVE: The patient is in bed. Remains intubated on a ventilator, poor condition. OBJECTIVE: VITAL SIGNS: Temperature is 98, blood pressure is 130/80, respiratory rate of , heart rate of 82. HEENT: Unremarkable. ET tube is in place. NECK: Supple. LUNGS: Have decreased breath sounds. HEART: Normal S1, S2. ABDOMEN: Soft, nontender. No organomegaly. No rebound, no guarding. No masses. LABORATORY EXAMINATION: Reveals a white count of 15,700, hemoglobin of 8. Chemistries reveals a BUN of 8, creatinine 0.5. Procalcitonin is 1.16, LDH is elevated. Urinalysis is noted and immunology is noted. T cells of less than 20. Serology is reviewed. Viral HIV viral with elevated. Cryptococcus antigen is negative. RPR is negative and hepatitis antibody is negative. Influenza is negative. Urine legionella antigen is negative and microbiology reveals cultures are negative. ASSESSMENT AND PLAN: This is a 63-year-old female with septic shock. Ventilator dependent respiratory failure intubated on the ventilator with acute respiratory distress syndrome with bilateral pneumonia in a patient with end-stage acquired immunodeficiency syndrome who had rectal hemorrhoidectomy, currently on Bactrim, meropenem, Levaquin, steroids and awaiting for Fungitell to rule out PCP, AFB workup in progress. The patient is also on micafungin, Solu-Cortef. We will follow closely with you. We will also check on CMV PCR. In addition to PCP a crypt antigen is reported to be negative. Overall prognosis is quite poor for this patient with end-stage acquired immunodeficiency syndrome. We will check on a nasal MRSA screen which is pending. We will follow with you. Shayan Garcia MD
[2018-08-28] MEDS: Lidocaine 5% Oint(35 gm) TOP SCH (12:12)
[2018-08-28] MEDS: Silver Sulfadiazine 1% Cream (25 gm) TP SCH ×2 (12:13→18:57)
[2018-08-28] MEDS: Oseltamivir 6 MG/ML PO SCH ×2 (12:14→18:56)
--- NOTE | 2018-08-28 19:08 | CP.PCM.PN ---
Subjective - Date & Time of Evaluation Date of Evaluation: 08/29/18 Time of Evaluation: 15:40 - Subjective Subjective: Surgery Progress note. Dr. Dobson Pt remains intubated and sedated. Remains on vaso pressor support. Has not had any further episodes of fevers over the past 24 hours. Bronchoscopy yesterday by Pulmonology with bronchial lavage for aspirate cultures. Repeat CT yesterday with no evidence of any aurora-rectal abscess or concerning lesion. Objective - Vital Signs/Intake and Output Vital Signs (last 24 hours): Temp Pulse Resp BP Pulse Ox 98.6 F 82 18 131/67 99 08/28/18 15:30 08/28/18 18:58 08/27/18 08:00 08/28/18 18:58 08/28/18 15:30 Intake and Output: 08/28/18 08/29/18 18:59 06:59 Intake Total 185 Balance 185 - Medications Medications: Current Medications Acetaminophen (Tylenol 325mg Tab) 650 mg PO Q6H PRN PRN Reason: Temperature Last Admin: 08/22/18 14:20 Dose: 650 mg Albuterol/Ipratropium (Duoneb 3 Mg/0.5 Mg (3 Ml) Ud) 3 ml IH [id number] [facility] Last Admin: 08/28/18 13:24 Dose: 3 ml Albuterol/Ipratropium (Duoneb 3 Mg/0.5 Mg (3 Ml) Ud) 3 ml IH Q2H PRN PRN Reason: Shortness of Breath Last Admin: 08/27/18 08:21 Dose: 3 ml Alprazolam (Xanax) 0.25 mg PO Q6H PRN PRN Reason: Anxiety Stop: 08/31/18 19:11 Last Admin: 08/26/18 00:06 Dose: 0.25 mg Aspirin (Aspirin Chewable) 81 mg PO DAILY [facility] Last Admin: 08/28/18 11:29 Dose: 81 mg Benzonatate (Tessalon Perles) 100 mg PO TID [facility] Last Admin: 08/28/18 17:00 Dose: Not Given Budesonide (Pulmicort Respules) 0.5 mg IH [id number] [facility] Last Admin: 08/28/18 08:06 Dose: 0.5 mg Docusate Sodium (Colace) 100 mg PO Q4H PRN PRN Reason: Constipation Last Admin: 08/22/18 23:44 Dose: 100 mg Enoxaparin Sodium (Lovenox) 50 mg SC Q12H [facility]; Protocol Last Admin: 08/28/18 17:15 Dose: 50 mg Guaifenesin (Robitussin) 100 mg PO Q4H PRN PRN Reason: Cough Last Admin: 08/26/18 00:07 Dose: 100 mg Hydrocortisone Sodium Succinate (Solu-Cortef) 100 mg IVP Q8 [facility] Last Admin: 08/28/18 15:00 Dose: 100 mg Meropenem (Merrem Iv 1 Gm Premix) 1 gm in 50 mls @ 100 mls/hr IVPB Q8 [facility]; Protocol Last Admin: 08/28/18 15:00 Dose: 100 mls/hr NOREPINEPHRINE BIT/0.9 % NACL (Levophed 4 Mg/ 250 Ml Ns Premixed) 4 mg in 250 mls @ 15 mls/hr IV .[id number] PRN; Protocol PRN Reason: TITRATE PER MD ORDER Last Titration: 08/27/18 07:00 Dose: 0 mcg/min, 0 mls/hr Fentanyl Citrate (Fentanyl Citrate/Sodium Chloride 1 Mg/100 Ml) 1,000 mcg in 100 mls @ 2 mls/hr IV .Q24H PRN; Protocol PRN Reason: TITRATE PER MD ORDER Last Admin: 08/28/18 11:30 Dose: 30 mcg/hr, 3 mls/hr Vasopressin 20 units/ Sodium (Chloride) 101 mls @ 9.09 mls/hr IV .Q11H7M [facility]; Protocol Last Admin: 08/27/18 10:00 Dose: Not Given Phenylephrine HCl 40 mg/ (Sodium Chloride) 254 mls @ 38.1 mls/hr IV .Q6H40M PRN; Protocol PRN Reason: TITRATE PER MD ORDER Last Admin: 08/28/18 10:02 Dose: 30 mcg/min, 11.43 mls/hr Propofol (Diprivan) 1,000 mg in 100 mls @ 1.497 mls/hr IV .Q24H PRN; Protocol PRN Reason: TITRATE PER MD ORDER Last Admin: 08/28/18 15:27 Dose: 30 mcg/kg/min, 8.981 mls/hr Trimethoprim/Sulfamethoxazole (250 mg/ Dextrose) 500 mls @ 250 mls/hr IVPB Q8 [facility] Last Admin: 08/28/18 15:46 Dose: 250 mls/hr Levofloxacin/Dextrose (Levaquin 750mg) 750 mg in 150 mls @ 100 mls/hr IVPB DAILY [facility]; Protocol Last Admin: 08/28/18 11:28 Dose: 100 mls/hr Micafungin Sodium 100 mg/ (Sodium Chloride) 100 mls @ 100 mls/hr IV DAILY [facility]; Protocol Stop: 09/03/18 12:46 Last Admin: 08/27/18 13:14 Dose: 100 mls/hr Ibuprofen (Motrin Tab) 200 mg PO Q6H PRN PRN Reason: Temperature Last Admin: 08/25/18 15:20 Dose: 200 mg Lidocaine (Lidocaine 5%) 0 gm TOP DAILY [facility] Last Admin: 08/28/18 12:12 Dose: 1 applic Lorazepam (Ativan) 2 mg IVP Q2H PRN; Protocol PRN Reason: Anxiety Metoprolol Tartrate (Lopressor) 12.5 mg PO BID [facility] Last Admin: 08/28/18 18:58 Dose: 12.5 mg Ondansetron HCl (Zofran Inj) 4 mg IVP Q6H PRN PRN Reason: Nausea/Vomiting Last Admin: 08/24/18 01:07 Dose: 4 mg Oseltamivir Phosphate (Tamiflu Susp) 75 mg PO BID [facility]; Protocol Last Admin: 08/28/18 18:56 Dose: 75 mg Pantoprazole Sodium (Protonix Ec Tab) 40 mg PO ACB [facility] Last Admin: 08/28/18 09:04 Dose: Not Given Silver Sulfadiazine (Silvadene 1% 25 Gm) 0 gm TP BID [facility] Last Admin: 08/28/18 18:57 Dose: 1 gm Tramadol HCl (Ultram) 50 mg PO TID PRN PRN Reason: Pain, Mild (1-3) Last Admin: 08/25/18 13:54 Dose: 50 mg Valganciclovir (Valganciclovir) 900 mg PO DAILY [facility] - Labs Labs: 08/28/18 06:00 08/28/18 06:00 PT 13.0 SECONDS (9.4-12.5) H 08/27/18 13:45 INR 1.15 08/27/18 13:45 APTT 34.1 Seconds (26.9-38.3) 08/27/18 13:45 - Constitutional Appears: Older Than Stated Age, Chronically Ill - Head Exam Head Exam: ATRAUMATIC, NORMAL INSPECTION, NORMOCEPHALIC - Eye Exam Eye Exam: absent: Scleral icterus - ENT Exam Additional comments: Intubated - Respiratory Exam Respiratory Exam: Respiratory Distress Additional comments: Intubated and on vent - GI/Abdominal Exam GI & Abdominal Exam: absent: Distended, Guarding, Rigid - Neurological Exam Additional comments: intubated and sedated Assessment and Plan - Assessment and Plan (Free Text) Assessment: 63yo F with HIV related sepsis and pulmonary disease, now with VDRF and ARDS. CD4 counts consistent with AIDS. Surgery initially consulted due to non-healing rectal wound s/p hemorrhoidectomy in April 2018 and concerns for a possible perianal/perirectal abscess - Repeat CT performed 08/27/18 with no evidence of perirectal collection - clinical digital rectal exam consistent with no mass, drainage, fluctuance or induration noted. Plan: - No general surgery intervention warranted - Continue Abx and treatment as per ID team - Management as per ICU team Further recs as per Dr. Bronson Galvan PGY2 surgery
--- NOTE | 2018-08-28 19:20 | PN ---
DATE: 08/28/2018 LOCATION: The patient in ICU 128, bed #3. REASON FOR CONSULTATION: Elevated troponin, respiratory failure, possible ARDS, perianal sepsis, septic shock, HIV positive. SUBJECTIVE: The patient remains on ventilator and also the patient is on norepinephrine and phenylephrine drip along with antibiotics. The patient under sedation. PHYSICAL EXAMINATION: VITAL SIGNS: Blood pressure 125/74, pulse 88, and temperature 98.6. HEENT: Head is normocephalic. Eyes; pupils normal. Conjunctivae slightly pale. NECK: Below carotid equal. Thorax AP diameter normal. LUNGS: No significant rales. CARDIOVASCULAR: S1 and S2. ABDOMEN: Soft. No tenderness. No organomegaly. EXTREMITIES: No clubbing. No cyanosis. LABORATORY DATA: WBC 15.7, hemoglobin 8.6, hematocrit 25.1, and platelet 335. Sodium 142, potassium 3.3, BUN 8, creatinine 0.5, total protein 5.7, albumin 2.9, and globulin 2.8. Chest x-ray showed ARDS type of pattern with opacification of both lungs, bilateral infiltrates. DIAGNOSES: Respiratory failure, the patient intubated sepsis, septic shock, human immunodeficiency virus positive, bilateral pneumonia, severe protein calorie malnutrition, and hypoalbuminemia. PLAN: The patient to maintain the blood pressure, is continued on norepinephrine drip and phenylephrine drip, aspirin 81 mg daily, DuoNeb nebulizer therapy, levofloxacin 750 mg IV daily, metoprolol 12.5 mg b.i.d., Lovenox every 12 hours subcu, meropenem 1 g IV every 8 hour, Micafungin 100 mg IV daily, Protonix 40 mg daily. We will continue present therapy. Labs will be repeated in the morning and we will continue to follow closely with you. Paddy Gaming MD
[2018-08-29] MEDS: Albuterol-Ipratrop 3 mg / 0.5 (3 ml) UD IH SCH ×4 (01:53→20:00)
[2018-08-29] MEDS: Propofol 10 mg/ml 1,000 MG/100 ML VIAL IV PRN ×3 (02:04→14:19)
[2018-08-29] MEDS: Meropenem IV 1 gm in NS 1 GM/50 ML BAG IVPB SCH ×3 (05:00→22:03)
[2018-08-29] MEDS: Enoxaparin 60 mg Syringe SC SCH ×2 (05:01→16:29)
[2018-08-29] MEDS: Sulfamethoxazole/Trimethoprim 250 MG in Dextrose 5% In Water 500 ML IVPB SCH ×3 (05:27→22:01)
[2018-08-29 05:36] LABS: ARTERIAL BLOOD GAS HCO3 26.5 mmol/L (21-28); ARTERIAL BLOOD GAS HEMOGLOBIN 6.7 g/dL (11.7-17.4); ARTERIAL BLOOD GAS O2 CAPACITY 9.5 mL/dl (16-24); ARTERIAL BLOOD GAS O2 CONTENT 9.5 ML/dl (15-23); ARTERIAL BLOOD GAS O2 SAT 100.3 % (95-98); ARTERIAL BLOOD GAS PCO2 40 mm/Hg (35-45); ARTERIAL BLOOD GAS PH 7.43 (7.35-7.45); ARTERIAL BLOOD GAS TCO2 27.7 mmol.L (22-28)
[2018-08-29 06:38] LABS: BASO # 0.01 K/mm3 (0.0-2.0); BASO % 0.1 % (0.0-3.0); HEMOGLOBIN 8.7 g/dL (12.0-16.0); LYMPH # 0.6 (1.2-3.4); LYMPH % 5.5 % (22.0-35.0); MEAN CELL VOLUME 87.4 fl (80.0-105.0); MEAN CORPUSCULAR HEMOGLOBIN 29.6 pg (25.0-35.0); MEAN CORPUSCULAR HGB CONC 33.9 g/dl (31.0-37.0); MONO # 0.3 (0.1-0.6); MONO % 2.9 % (1.0-6.0); PLATELET COUNT 307 10^3/uL (120.0-450.0); RBC 2.94 10^6/uL (3.5-6.1); RED CELL DISTRIBUTION WIDTH 15.8 % (11.5-14.5); WHITE BLOOD COUNT 10.1 10^3/uL (4.5-11.0)
[2018-08-29] MEDS: Fentanyl 1000mcg/100ml NS 1,000 MCG/100 ML BAG IV PRN (07:09)
[2018-08-29 07:24] LABS: ALBUMIN 2.6 g/dL (3.0-4.8); ALT/SGPT 14 U/L (7-56); AST/SGOT 24 U/L (14-36); BLOOD UREA NITROGEN 13 mg/dL (7-21); CALCIUM 8.7 mg/dL (8.4-10.5); GFR NON-AFRICAN AMERICAN > 60
--- NOTE | 2018-08-29 07:54 | PN ---
DATE: 08/29/2018(630am-720am) PULMONARY NOTE SUBJECTIVE: The patient remains in the ICU. She remains on the ventilator and sedated. PHYSICAL EXAMINATION: VITAL SIGNS: Temperature is 98.1, pulse is 88, respiratory rate 20/18, blood pressure 111/68. HEENT: Normocephalic, atraumatic. No JVD. CARDIOVASCULAR: Positive S1, S2. No S3 gallop. LUNGS: Less crackles at the bases. Less rhonchi. No wheezing. GI: Abdomen is soft, nondistended. Bowel sounds are positive. EXTREMITIES: No clubbing, cyanosis or edema. SKIN: No acute rash. NEUROLOGIC: Exam limited at the present time. PERTINENT LABORATORY DATA: Chest x-ray was done this morning and reviewed. The chest x-ray shows definite improvement - now with partial clearing of the pulmonary infiltrates. Arterial blood gas was done on PRVC 18, tidal volume 370, FIO2 60%, PEEP of 8. Results are: PH 7.43, pCO2 of 40, pO2 of 169. IMPRESSION: 1. Acute respiratory distress syndrome. Respiratory failure. 2. Sepsis with shock. 3. Status post recent hemorrhoidectomy. 4. Community-acquired pneumonia, possibly atypical. 5. Mild anemia. 6. Human immunodeficiency virus positivity. 7. Rule out congestive heart failure. PLAN: The patient remains in the ICU. She remains on the ventilator and sedated. I did discuss the case with the night nurse at length. The night nurse confirmed that the patient is showing improvement. The pressors are slowly being weaned. I did review the chest x-ray as above. The chest x-ray today shows definite improvement - with partial clearing of the bilateral infiltrates. Official results are pending. I have also reviewed the arterial blood gas. There is now normalization of the pH, with a significant decrease in the alveolar-arterial gradient. I did discuss the ventilator settings with the respiratory therapist this morning. The FIO2 will be decreased. On physical exam, there is certainly less bronchospasm noted. I will continue the current nebulizer treatments for now. The patient remains on antibiotic therapy - as per Infectious Disease. Temperatures have now fully resolved. The leukocytosis has also fully resolved. We are still awaiting additional bronchoscopy results/stains. Inputs by Infectious Disease and Cardiology are also noted. Clinical status of the patient has certainly improved. She does remain critically ill. I will discuss the above with the entire ICU team in the next few moments. I will also discuss the above with the attending physician later this morning. Griffin Medrano MD [id number]
[2018-08-29] MEDS: Budesonide 0.5 mg/2 ml Inhal Susp UD IH SCH ×2 (07:55→20:00)
[2018-08-29] MEDS: Pantoprazole 40 mg EC Tab PO SCH (08:35)
--- NOTE | 2018-08-29 09:14 | RAD ---
Date of service: 08/29/2018 HISTORY: f/u COMPARISON: 08/28/2018 FINDINGS: LUNGS: There is improvement in the extensive bilateral alveolar infiltrates. The infiltrates now have a more interstitial appearance. Endotracheal and nasogastric tube are unchanged PLEURA: No significant pleural effusion identified, no pneumothorax apparent. CARDIOVASCULAR: No aortic atherosclerotic calcification present. Normal cardiac size. OSSEOUS STRUCTURES: No significant abnormalities. VISUALIZED UPPER ABDOMEN: Normal. OTHER FINDINGS: None. IMPRESSION: There is improvement in the extensive bilateral alveolar infiltrates. The infiltrates now have a more interstitial appearance. Endotracheal and nasogastric tube are unchanged
[2018-08-29 09:35] LABS: LYMPHOCYTE 3 % (22.0-35.0); MONOCYTE 4 % (1.0-6.0); MYELOCYTE 2 %; NEUTROPHIL 91 % (50.0-70.0); PLATELET ESTIMATE NORMAL (NORMAL)
[2018-08-29] MEDS: Micafungin 100 MG in Sodium Chloride 0.9% 100 ML IV SCH (10:11)
[2018-08-29] MEDS: levoFLOXacin 750 mg in D5W 750 MG/150 ML BAG IVPB SCH (10:15)
[2018-08-29] MEDS: Lidocaine 5% Oint(35 gm) TOP SCH (10:35)
[2018-08-29] MEDS: Silver Sulfadiazine 1% Cream (25 gm) TP SCH ×2 (10:38→17:11)
[2018-08-29] MEDS: VALGANCICLOVIR 50 MG/ML PO SCH (10:39)
[2018-08-29] MEDS: Oseltamivir 6 MG/ML PO SCH ×2 (10:39→18:01)
--- NOTE | 2018-08-29 10:43 | CP.PCM.PN ---
Subjective - Date & Time of Evaluation Date of Evaluation: 08/29/18 Time of Evaluation: 10:40 - Subjective Subjective: Surgery Pt seen and examined. Pt is intubated, sadated and on pressers. Tube feeds. Objective - Vital Signs/Intake and Output Vital Signs (last 24 hours): Temp Pulse Resp BP Pulse Ox 98.1 F 84 25 H 110/65 98 08/29/18 04:00 08/29/18 09:51 08/29/18 04:00 08/29/18 09:51 08/29/18 04:00 Intake and Output: 08/29/18 08/29/18 06:59 18:59 Intake Total 762 271 Output Total 1200 Balance -438 271 - Medications Medications: Current Medications Acetaminophen (Tylenol 325mg Tab) 650 mg PO Q6H PRN PRN Reason: Temperature Last Admin: 08/22/18 14:20 Dose: 650 mg Albuterol/Ipratropium (Duoneb 3 Mg/0.5 Mg (3 Ml) Ud) 3 ml IH [id number] [facility] Last Admin: 08/29/18 07:55 Dose: 3 ml Albuterol/Ipratropium (Duoneb 3 Mg/0.5 Mg (3 Ml) Ud) 3 ml IH Q2H PRN PRN Reason: Shortness of Breath Last Admin: 08/27/18 08:21 Dose: 3 ml Alprazolam (Xanax) 0.25 mg PO Q6H PRN PRN Reason: Anxiety Stop: 08/31/18 19:11 Last Admin: 08/26/18 00:06 Dose: 0.25 mg Aspirin (Aspirin Chewable) 81 mg PO DAILY [facility] Last Admin: 08/28/18 11:29 Dose: 81 mg Benzonatate (Tessalon Perles) 100 mg PO TID [facility] Last Admin: 08/29/18 09:53 Dose: Not Given Budesonide (Pulmicort Respules) 0.5 mg IH [id number] [facility] Last Admin: 08/29/18 07:55 Dose: 0.5 mg Docusate Sodium (Colace) 100 mg PO Q4H PRN PRN Reason: Constipation Last Admin: 08/22/18 23:44 Dose: 100 mg Enoxaparin Sodium (Lovenox) 50 mg SC Q12H [facility]; Protocol Last Admin: 08/29/18 05:01 Dose: 50 mg Guaifenesin (Robitussin) 100 mg PO Q4H PRN PRN Reason: Cough Last Admin: 08/26/18 00:07 Dose: 100 mg Hydrocortisone Sodium Succinate (Solu-Cortef) 100 mg IVP Q8 [facility] Last Admin: 08/29/18 05:00 Dose: 100 mg Meropenem (Merrem Iv 1 Gm Premix) 1 gm in 50 mls @ 100 mls/hr IVPB Q8 [facility]; Protocol Last Admin: 08/29/18 05:00 Dose: 100 mls/hr NOREPINEPHRINE BIT/0.9 % NACL (Levophed 4 Mg/ 250 Ml Ns Premixed) 4 mg in 250 mls @ 15 mls/hr IV .[id number] PRN; Protocol PRN Reason: TITRATE PER MD ORDER Last Titration: 08/27/18 07:00 Dose: 0 mcg/min, 0 mls/hr Fentanyl Citrate (Fentanyl Citrate/Sodium Chloride 1 Mg/100 Ml) 1,000 mcg in 100 mls @ 2 mls/hr IV .Q24H PRN; Protocol PRN Reason: TITRATE PER MD ORDER Last Titration: 08/29/18 09:00 Dose: 40 mcg/hr, 4 mls/hr Vasopressin 20 units/ Sodium (Chloride) 101 mls @ 9.09 mls/hr IV .Q11H7M [facility]; Protocol Last Admin: 08/27/18 10:00 Dose: Not Given Phenylephrine HCl 40 mg/ (Sodium Chloride) 254 mls @ 38.1 mls/hr IV .Q6H40M PRN; Protocol PRN Reason: TITRATE PER MD ORDER Last Titration: 08/29/18 09:00 Dose: 30 mcg/min, 11.43 mls/hr Propofol (Diprivan) 1,000 mg in 100 mls @ 1.497 mls/hr IV .Q24H PRN; Protocol PRN Reason: TITRATE PER MD ORDER Last Titration: 08/29/18 09:00 Dose: 35 mcg/kg/min, 10.478 mls/hr Trimethoprim/Sulfamethoxazole (250 mg/ Dextrose) 500 mls @ 250 mls/hr IVPB Q8 [facility] Last Admin: 08/29/18 05:27 Dose: 250 mls/hr Levofloxacin/Dextrose (Levaquin 750mg) 750 mg in 150 mls @ 100 mls/hr IVPB DAILY [facility]; Protocol Last Admin: 08/28/18 11:28 Dose: 100 mls/hr Micafungin Sodium 100 mg/ (Sodium Chloride) 100 mls @ 100 mls/hr IV DAILY [facility]; Protocol Stop: 09/03/18 12:46 Last Admin: 08/27/18 13:14 Dose: 100 mls/hr Ibuprofen (Motrin Tab) 200 mg PO Q6H PRN PRN Reason: Temperature Last Admin: 08/25/18 15:20 Dose: 200 mg Lidocaine (Lidocaine 5%) 0 gm TOP DAILY [facility] Last Admin: 08/28/18 12:12 Dose: 1 applic Lorazepam (Ativan) 2 mg IVP Q2H PRN; Protocol PRN Reason: Anxiety Metoprolol Tartrate (Lopressor) 12.5 mg PO BID [facility] Last Admin: 08/29/18 09:51 Dose: Not Given Ondansetron HCl (Zofran Inj) 4 mg IVP Q6H PRN PRN Reason: Nausea/Vomiting Last Admin: 08/24/18 01:07 Dose: 4 mg Oseltamivir Phosphate (Tamiflu Susp) 75 mg PO BID [facility]; Protocol Last Admin: 08/28/18 18:56 Dose: 75 mg Pantoprazole Sodium (Protonix Ec Tab) 40 mg PO ACB [facility] Last Admin: 08/29/18 08:35 Dose: 40 mg Silver Sulfadiazine (Silvadene 1% 25 Gm) 0 gm TP BID [facility] Last Admin: 08/28/18 18:57 Dose: 1 gm Tramadol HCl (Ultram) 50 mg PO TID PRN PRN Reason: Pain, Mild (1-3) Last Admin: 08/25/18 13:54 Dose: 50 mg Valganciclovir (Valganciclovir) 900 mg PO DAILY [facility] - Labs Labs: 08/29/18 06:30 08/29/18 06:30 PT 13.0 SECONDS (9.4-12.5) H 08/27/18 13:45 INR 1.15 08/27/18 13:45 APTT 34.1 Seconds (26.9-38.3) 08/27/18 13:45 - Constitutional Appears: In Acute Distress - Head Exam Head Exam: ATRAUMATIC, NORMAL INSPECTION, NORMOCEPHALIC - Eye Exam Eye Exam: Normal appearance - ENT Exam ENT Exam: Mucous Membranes Moist - Neck Exam Neck Exam: Normal Inspection - Respiratory Exam Respiratory Exam: Respiratory Distress Additional comments: Intuabted - GI/Abdominal Exam GI & Abdominal Exam: Soft - Rectal Exam Rectal Exam: absent: NORMAL INSPECTION - Exam Exam: NORMAL INSPECTION - Extremities Exam Extremities Exam: Normal Inspection - Back Exam Back Exam: NORMAL INSPECTION - Neurological Exam Neurological Exam: absent: Alert, Awake - Skin Skin Exam: Erythema. absent: Intact Assessment and Plan - Assessment and Plan (Free Text) Assessment: 63yo F with HIV related sepsis and pulmonary disease, now with VDRF and ARDS. CD4 counts consistent with AIDS. Surgery initially consulted due to non-healing rectal wound s/p hemorrhoidectomy in April 2018 and concerns for a possible perianal/perirectal abscess Perirectal pain likely 2/2 AIDS w delayed wound healing s/p hemorrhoidectomy Possible CMV colitis 2/2 AIDS - Repeat CT performed 08/27/18 with no evidence of perirectal collection - clinical digital rectal exam consistent with no mass, drainage, fluctuance or induration noted. Plan: - No acute general surgery intervention - Continue Abx and treatment as per ID team - f/u fungal cx, CMV - Management as per ICU team Further recs as per Dr. Dobson
--- NOTE | 2018-08-29 12:15 | PN ---
DATE: 08/29/2018 SUBJECTIVE: The patient is sedated on the ventilator. The FIO2 was 60% this morning. The patient was continued to get propofol as well as fentanyl and phenylephrine. She at this time with the medications is hemodynamically stable. PHYSICAL EXAMINATION: VITAL SIGNS: Her temperature is 98.1, her pulse is 96, respirations are 25, and BP is 111/68. SKIN: Warm and dry. HEENT: Head atraumatic, normocephalic. Eyes; reactive to light. Ears, nose, and throat seemed to be within normal limits. NECK: Supple. No JVD or thyroid enlargement, no lymph nodes. HEART: Has regular rate and rhythm. Normal S1, S2. LUNGS: Reveal bilateral rhonchi. ABDOMEN: Soft. Decreased bowel sounds. GENITALIA: Deferred. RECTAL: Deferred. MUSCULOSKELETAL: No joint deformities. EXTREMITIES: Reveal trace lower extremity edema. NEUROLOGIC: The patient is sedated on the ventilator. LABORATORY DATA: Her white count is 10.1, hemoglobin is 8.7, hematocrit 25.7 with platelets of 307,000. Her arterial blood gas reveals a pH of 7.43, pCO2 of 40, pO2 of 169 and the patient's sodium is 143, potassium 3.9, chloride 108, CO2 of 30 with a BUN of 13, creatinine of 0.6 and a glucose of 165. As far as her chest x-ray, it continues to show bilateral infiltrates, but seemed to be improving. This is unofficial reading. IMPRESSION: This patient has respiratory failure with bilateral pneumonia, rule out pneumocystis pneumonia/tuberculosis. The patient has a history of human immunodeficiency virus and is noted with septic shock and hypotension. The patient is status post perirectal abscess and has an anemia. PLAN: We will continue ventilator support and decrease the FIO2 as tolerated. Follow chest x-ray and arterial blood gases closely. She is on her aspirin, Ativan, Bactrim, DuoNeb, fentanyl, Lovenox, Lopressor, meropenem, phenylephrine, Protonix, Pulmicort, Solu-Cortef, Tamiflu, and Zofran. We will continue to treat aggressively along with the other consultants and the primary care doctor. Jamal Kc MD
--- NOTE | 2018-08-29 15:19 | CP.PCM.PN ---
Subjective - Date & Time of Evaluation Date of Evaluation: 08/29/18 Time of Evaluation: 08:20 - Subjective Subjective: Still intubated, a little more awake today, no fevers overnight, no diarrhea. Objective - Vital Signs/Intake and Output Vital Signs (last 24 hours): Temp Pulse Resp BP Pulse Ox 98.1 F 96 H 25 H 111/68 98 08/29/18 04:00 08/29/18 04:00 08/29/18 04:00 08/29/18 04:00 08/29/18 04:00 Intake and Output: 08/28/18 08/29/18 18:59 06:59 Intake Total 185 100 Balance 185 100 - Medications Medications: Current Medications Acetaminophen (Tylenol 325mg Tab) 650 mg PO Q6H PRN PRN Reason: Temperature Last Admin: 08/22/18 14:20 Dose: 650 mg Albuterol/Ipratropium (Duoneb 3 Mg/0.5 Mg (3 Ml) Ud) 3 ml IH [id number] [facility] Last Admin: 08/29/18 01:53 Dose: 3 ml Albuterol/Ipratropium (Duoneb 3 Mg/0.5 Mg (3 Ml) Ud) 3 ml IH Q2H PRN PRN Reason: Shortness of Breath Last Admin: 08/27/18 08:21 Dose: 3 ml Alprazolam (Xanax) 0.25 mg PO Q6H PRN PRN Reason: Anxiety Stop: 08/31/18 19:11 Last Admin: 08/26/18 00:06 Dose: 0.25 mg Aspirin (Aspirin Chewable) 81 mg PO DAILY [facility] Last Admin: 08/28/18 11:29 Dose: 81 mg Benzonatate (Tessalon Perles) 100 mg PO TID [facility] Last Admin: 08/28/18 17:00 Dose: Not Given Budesonide (Pulmicort Respules) 0.5 mg IH [id number] [facility] Last Admin: 08/28/18 08:06 Dose: 0.5 mg Docusate Sodium (Colace) 100 mg PO Q4H PRN PRN Reason: Constipation Last Admin: 08/22/18 23:44 Dose: 100 mg Enoxaparin Sodium (Lovenox) 50 mg SC Q12H [facility]; Protocol Last Admin: 08/29/18 05:01 Dose: 50 mg Guaifenesin (Robitussin) 100 mg PO Q4H PRN PRN Reason: Cough Last Admin: 08/26/18 00:07 Dose: 100 mg Hydrocortisone Sodium Succinate (Solu-Cortef) 100 mg IVP Q8 [facility] Last Admin: 08/29/18 05:00 Dose: 100 mg Meropenem (Merrem Iv 1 Gm Premix) 1 gm in 50 mls @ 100 mls/hr IVPB Q8 [facility]; Protocol Last Admin: 08/29/18 05:00 Dose: 100 mls/hr NOREPINEPHRINE BIT/0.9 % NACL (Levophed 4 Mg/ 250 Ml Ns Premixed) 4 mg in 250 mls @ 15 mls/hr IV .[id number] PRN; Protocol PRN Reason: TITRATE PER MD ORDER Last Titration: 08/27/18 07:00 Dose: 0 mcg/min, 0 mls/hr Fentanyl Citrate (Fentanyl Citrate/Sodium Chloride 1 Mg/100 Ml) 1,000 mcg in 100 mls @ 2 mls/hr IV .Q24H PRN; Protocol PRN Reason: TITRATE PER MD ORDER Last Admin: 08/28/18 11:30 Dose: 30 mcg/hr, 3 mls/hr Vasopressin 20 units/ Sodium (Chloride) 101 mls @ 9.09 mls/hr IV .Q11H7M [facility]; Protocol Last Admin: 08/27/18 10:00 Dose: Not Given Phenylephrine HCl 40 mg/ (Sodium Chloride) 254 mls @ 38.1 mls/hr IV .Q6H40M PRN; Protocol PRN Reason: TITRATE PER MD ORDER Last Admin: 08/28/18 10:02 Dose: 30 mcg/min, 11.43 mls/hr Propofol (Diprivan) 1,000 mg in 100 mls @ 1.497 mls/hr IV .Q24H PRN; Protocol PRN Reason: TITRATE PER MD ORDER Last Admin: 08/29/18 02:04 Dose: 30 mcg/kg/min, 8.981 mls/hr Trimethoprim/Sulfamethoxazole (250 mg/ Dextrose) 500 mls @ 250 mls/hr IVPB Q8 [facility] Last Admin: 08/29/18 05:27 Dose: 250 mls/hr Levofloxacin/Dextrose (Levaquin 750mg) 750 mg in 150 mls @ 100 mls/hr IVPB DAILY [facility]; Protocol Last Admin: 08/28/18 11:28 Dose: 100 mls/hr Micafungin Sodium 100 mg/ (Sodium Chloride) 100 mls @ 100 mls/hr IV DAILY [facility]; Protocol Stop: 09/03/18 12:46 Last Admin: 08/27/18 13:14 Dose: 100 mls/hr Ibuprofen (Motrin Tab) 200 mg PO Q6H PRN PRN Reason: Temperature Last Admin: 08/25/18 15:20 Dose: 200 mg Lidocaine (Lidocaine 5%) 0 gm TOP DAILY [facility] Last Admin: 08/28/18 12:12 Dose: 1 applic Lorazepam (Ativan) 2 mg IVP Q2H PRN; Protocol PRN Reason: Anxiety Metoprolol Tartrate (Lopressor) 12.5 mg PO BID [facility] Last Admin: 08/28/18 18:58 Dose: 12.5 mg Ondansetron HCl (Zofran Inj) 4 mg IVP Q6H PRN PRN Reason: Nausea/Vomiting Last Admin: 08/24/18 01:07 Dose: 4 mg Oseltamivir Phosphate (Tamiflu Susp) 75 mg PO BID [facility]; Protocol Last Admin: 08/28/18 18:56 Dose: 75 mg Pantoprazole Sodium (Protonix Ec Tab) 40 mg PO ACB [facility] Last Admin: 08/28/18 09:04 Dose: Not Given Silver Sulfadiazine (Silvadene 1% 25 Gm) 0 gm TP BID [facility] Last Admin: 08/28/18 18:57 Dose: 1 gm Tramadol HCl (Ultram) 50 mg PO TID PRN PRN Reason: Pain, Mild (1-3) Last Admin: 08/25/18 13:54 Dose: 50 mg Valganciclovir (Valganciclovir) 900 mg PO DAILY [facility] - Labs Labs: 08/28/18 06:00 08/28/18 06:00 PT 13.0 SECONDS (9.4-12.5) H 08/27/18 13:45 INR 1.15 08/27/18 13:45 APTT 34.1 Seconds (26.9-38.3) 08/27/18 13:45 - Constitutional Appears: Chronically Ill - Head Exam Head Exam: NORMAL INSPECTION - ENT Exam Additional comments: ET tube in place - Respiratory Exam Respiratory Exam: Decreased Breath Sounds - Cardiovascular Exam Cardiovascular Exam: +S1, +S2 - GI/Abdominal Exam GI & Abdominal Exam: Soft. absent: Tenderness Assessment and Plan - Assessment and Plan (Free Text) Plan: Assessment severe sepsis / septic shock with VDRF and ARDS due to bilateral pneumonia, R/O viral pneumonia, R/O Pneumocystis pneumonia, R/O atypical pneumonia, R/O intra- abdominal, rectal infection / colitis in this patient HIV/AIDS perianal abscess after hemorrhoidectomy S/P surgery and chronic wound noted, cannot rule out colitis gastritis Plan on Bactrim ,Merrem, and switched Doxycycline Levaquin day 12 and gave a dose of IV Vancomycin -repeat blood cx are negative so far, sputum cx, we have switched Vancomycin to Bactrim IV (we were giving therapeutic dose of Mepron 750 mg BID but we have switched to IV Bactrim), and continue Mycamine day 4 as well - initially PJP was not high on the differential list since LDH was normal, and we were initially giving Mepron for prophylaxis but 750 mg BID which we initially started is actually therapeutic dosing reviewed previous CT chest, abdomen and pelvis which shows pneumonitis with no lymphadenopathy, chronic diverticulosis but cannot rule out colitis; even though rapid flu test is negative and we have compledted 5 days of Tamiflu discussed with Dr. Medrano previously - patient in ARDS - he did bronchoscopy with BAL and got respiratory samples to be checked for silver stain for PJP, fungal smears, viral panel for Influenza, RSV, Parainfluenza, Adenovirus, hMPV, AFB, bacterial cultures, CMV - contkinue Valganciclovir for now HIV PCR is elevated, CD4 count is <20; RPR, serum Crypt Ag are negative Quantiferon TB test was indeterminate - granuloma on right lung seen on CT scan is probably old disease, initial CT chest showed groundglass opacities which are not typically seen in patients with TB; also patient did not have mediastinal lymphadenopathy, no upper lobe cavities, no signs of miliary tuberculosis, no pleural effusions, making TB less likely - sputum AFB is negative x 2 Dr. Kramer has discussed with patient about the HIV test result follow up CMV PCR, Beta glucan levels repeat CT A/P did not show rectal lesions overall prognosis is guarded at best but is getting worse and patient continues to be critically ill
--- NOTE | 2018-08-29 18:14 | PN ---
DATE: 08/29/2018 LOCATION: ICU 128, bed 3. REASON FOR CONSULTATION AND FOLLOWUP: Elevated troponin, respiratory failure, possible ARDS, perianal abscess, sepsis, septic shock, HIV positive. SUBJECTIVE: The patient remains on the ventilator at this point with norepinephrine and phenylephrine drip along with other medications including antibiotics. PHYSICAL EXAMINATION: VITAL SIGNS: Blood pressure 110/65, pulse 84, temperature 98.1, respiratory rate around 25. NECK: JVP low. LUNGS: No significant rales. CARDIOVASCULAR: S1 and S2. ABDOMEN: Soft. No tenderness. No organomegaly. EXTREMITIES: No clubbing. No cyanosis. LABORATORY DATA: WBC 10.1, hemoglobin 8.7, hematocrit 25.7, platelets 307. Sodium 143, potassium 3.9, BUN 13, creatinine 0.6, total protein 5.2, albumin 2.6. Chest x-ray repeated today, there is improvement in the extensive bilateral alveolar infiltrates; infiltrates now have a more interstitial appearance. DIAGNOSES: Respiratory failure, the patient is on respirator; sepsis, septic shock, human immunodeficiency syndrome, bilateral pneumonia, severe protein calorie malnutrition, hypoalbuminemia, acute respiratory distress syndrome. PLAN: The patient on aspirin 81 daily. The patient is getting sulfamethoxazole/trimethoprim which is a Bactrim injection 250 mg intravenous every 8 hourly, levofloxacin 750 mg intravenous daily, metoprolol tartrate 12.5 b.i.d., Lovenox 50 mg subcutaneous every 12 hours, meropenem intravenous 1 g every 8 hours, Micafungin 100 mg intravenous daily. The patient is on norepinephrine and phenylephrine drip, hydrocortisone 100 mg intravenous every 8 hours, valganciclovir 900 mg orally daily. Slight troponin elevation is related to her septic shock. The patient not in a condition to do any invasive cardiac intervention at this time. Echo was done on 08/26/2018 which showed normal chamber size, ejection fraction 45 to 50%, which is very close to low normal, mild tricuspid regurgitation, RVSP 33 mmHg, [id number] pulmonic regurgitation. We will continue present therapy. We will . Paddy Gaming MD
[2018-08-29] MEDS ORDERED: Vitamins A & D Oint UD Foilpak TOP PRN (23:00)
[2018-08-30] MEDS: Albuterol-Ipratrop 3 mg / 0.5 (3 ml) UD IH SCH ×4 (01:38→20:12)
--- NOTE | 2018-08-30 02:32 | PN ---
PROCEDURE DATE: 08/29/2018 SUBJECTIVE: The patient was seen this Thursday Morning in intensive care unit, ICU bed 3. She is in bed, intubated, sedated, receiving NG nutrition. IV fluids and antibiotics continue. 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 She is almost weaned off sedation and pressors. She is able to answer simple questions, nod her head, but remains quite groggy and lethargic from sedation. Chest x-ray showed continued improvement. Blood gasses are surprisingly and thankfully improved with pO2 and balance pH. Urine output is good. Extremities are warm. I spoke with the patient's son, Thomas, at great length today, reviewing her condition and being very cautiously optimistic. He has no medical training or background, but has been doing quite a bit of reading, asking questions and definitions about pathogens, acid-base balances, oxygen levels as he is trying to be helpful in his mother's care. Status explained to the patient's son, and we will continue close communications with him on behalf of all consultants involved. Consultants notes appreciated and reviewed, labs, x-rays reports, etc. Sudarshan Kramer MD MTDD
[2018-08-30] MEDS: Sulfamethoxazole/Trimethoprim 250 MG in Dextrose 5% In Water 500 ML IVPB SCH ×3 (04:45→21:18)
[2018-08-30 05:32] LABS: ARTERIAL BLOOD GAS HCO3 29.9 mmol/L (21-28); ARTERIAL BLOOD GAS HEMOGLOBIN 8.2 g/dL (11.7-17.4); ARTERIAL BLOOD GAS O2 CAPACITY 11.3 mL/dl (16-24); ARTERIAL BLOOD GAS O2 CONTENT 11.3 ML/dl (15-23); ARTERIAL BLOOD GAS O2 SAT 99.7 % (95-98); ARTERIAL BLOOD GAS PCO2 43 mm/Hg (35-45); ARTERIAL BLOOD GAS PH 7.45 (7.35-7.45); ARTERIAL BLOOD GAS TCO2 31.2 mmol.L (22-28)
[2018-08-30] MEDS: Meropenem IV 1 gm in NS 1 GM/50 ML BAG IVPB SCH (06:14)
[2018-08-30] MEDS: Propofol 10 mg/ml 1,000 MG/100 ML VIAL IV PRN (06:15)
[2018-08-30] MEDS: Enoxaparin 60 mg Syringe SC SCH ×2 (06:19→17:53)
[2018-08-30 07:13] LABS: HEMOGLOBIN 8.1 g/dL (12.0-16.0); LYMPH # 0.5 (1.2-3.4); LYMPH % 6.7 % (22.0-35.0); MEAN CELL VOLUME 87.5 fl (80.0-105.0); MEAN CORPUSCULAR HEMOGLOBIN 29.7 pg (25.0-35.0); MEAN CORPUSCULAR HGB CONC 33.9 g/dl (31.0-37.0); MEAN PLATELET VOLUME 10.9 fl (7.0-11.0); MONO # 0.3 (0.1-0.6); MONO % 4.5 % (1.0-6.0); RBC 2.73 10^6/uL (3.5-6.1); RED CELL DISTRIBUTION WIDTH 15.8 % (11.5-14.5); WHITE BLOOD COUNT 7.3 10^3/uL (4.5-11.0)
[2018-08-30 07:45] LABS: ALBUMIN 2.6 g/dL (3.0-4.8); ALT/SGPT 13 U/L (7-56); AST/SGOT 21 U/L (14-36); BLOOD UREA NITROGEN 17 mg/dL (7-21); CALCIUM 8.4 mg/dL (8.4-10.5); GFR NON-AFRICAN AMERICAN > 60
[2018-08-30] MEDS: Budesonide 0.5 mg/2 ml Inhal Susp UD IH SCH ×2 (08:00→20:12)
[2018-08-30] MEDS: Pantoprazole 40 mg EC Tab PO SCH (08:00)
[2018-08-30] MEDS: Fentanyl 1000mcg/100ml NS 1,000 MCG/100 ML BAG IV PRN (08:20)
--- NOTE | 2018-08-30 08:56 | PN ---
DATE: 08/28/2018 SUBJECTIVE: The patient was seen this Thursday morning in intensive care unit. She is more awake. 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 She is able to recognize me, nods her head and . She remains in ICU, intubated with central IV, multiple antibiotics and IV fluids infusing. PHYSICAL EXAMINATION: VITAL SIGNS: Blood pressures are stable. LABORATORY DATA: Labs were reviewed. Today, her white count is up to 15.7 with an hemoglobin and hematocrit of 8.6 and 25. Coags are acceptable with an INR of 1.15. ABG today showed the pO2 of 156 with pH of 7.2. Chemistry showed potassium of 3.3 with chloride of 110. BUN and creatinine are remaining stable and normal at 8 and 0.5 and so, there is a slight built woman. Sugar is 164. Total protein and albumin are both low at 5.7 and 2.9. Absolute CD4 count is back and is less than 20. The viral load for HIV virus is significant. ASSESSMENT AND PLAN: Case was discussed at great length with the Infectious Disease regulatory affairs consultant, Dr. Garcia as well as later on with . . Both were seen many, many similar cases in the course of their large [facility] for many years. The patient appears to be following the course of a human immunodeficiency/acquired immunodeficiency syndrome, new diagnosis onset of severe infection which I suspect will be a Pneumocystis and I estimate the time from exposure to be in the range of 20 years, although recent blood work as an outpatient preoperatively in 04/2018 showed a normal white count and normal hemoglobin and hematocrit. Later in the day, I spoke with the patient's son by telephone. We had spoken in the office some 48 hours ago. I brought him up to date on his mother's condition continuing to be cautious and explained the severity of her illness with a glimmer of optimism in that she was doing a bit better today, perhaps her chest x-ray showing a bit of clearing and her mental status improved and awake. We will continue aggressive antibiotics and Infectious Disease treatment as well as Pulmonary management while on the ventilator, steroids and electrolyte balance and follow closely with consultants. In conversation with the patient's son, both he and his brother are aware of the patient's diagnosis, but they request no further information being given to other family members or visitors regarding the patient's diagnosis. Sudarshan Kramer MD [facility]
--- NOTE | 2018-08-30 11:30 | PN ---
DATE: 08/30/2018(700am-740am) PULMONARY NOTE SUBJECTIVE: The patient remains in the ICU and on the ventilator. She is currently sedated. PHYSICAL EXAMINATION: VITAL SIGNS: Temperature is 98.1, pulse 86, respirations 18/18, blood pressure 118/68. HEENT: Normocephalic, atraumatic. No JVD. CARDIOVASCULAR: Positive S1, S2. No S3 gallop. LUNGS: Less crackles at the bases. Less rhonchi. No wheezing. GI: Abdomen is soft, nondistended. Bowel sounds are positive. EXTREMITIES: No clubbing, cyanosis or edema. SKIN: No acute rash. NEUROLOGIC: Exam limited at the present time. PERTINENT LABORATORY DATA: Chest x-ray was done this morning and reviewed. The chest x-ray is similar to yesterday's film, but significantly improved from 08/28/2018. Arterial blood gas was done on PRVC 18, tidal volume 370, FIO2 of 50%, PEEP of 8. Results are: PH 7.45, pCO2 of 43, pO2 of 115. IMPRESSION: 1. Acute respiratory distress syndrome. Respiratory failure. 2. Sepsis with shock. 3. Status post recent hemorrhoidectomy. 4. Community-acquired pneumonia, possibly atypical. 5. Mild anemia. 6. Human immunodeficiency virus positivity. 7. Rule out congestive heart failure. PLAN: The patient remains in the ICU. She remains on the ventilator and sedated. I did discuss the case with the night nurse at length. The night nurse confirms that the patient is showing slow improvement. I did review the chest x-ray as above. The chest x-ray is similar to yesterday's film, but significantly improved from a few days ago. I have also reviewed the arterial blood gas. The arterial blood gas also continues to improve-- with a significant decrease in the alveolar-arterial gradient. I will discuss possible weaning trials with the ICU team this morning. I would continue with the antibiotic coverage as per Infectious Disease. Temperatures have now resolved. The leukocytosis has also resolved. We are still awaiting additional stains/results from the bronchoscopy. Inputs by Surgery and Cardiology are also noted. The patient remains critically ill, but continues to improve slowly. I will discuss the above with the entire ICU team in the next few moments. I will also discuss the above with the attending physician later this morning. Griffin Medrano MD [facility] # [id number] [facility]
--- NOTE | 2018-08-30 11:40 | RAD ---
Date of service: 08/30/2018 HISTORY: f/u COMPARISON: 2018. FINDINGS: LUNGS: Stable multifocal/alveolar infiltrates. PLEURA: No significant pleural effusion identified, no pneumothorax apparent. CARDIOVASCULAR: No atherosclerotic calcification present PICC line in satisfactory position unchanged. OSSEOUS STRUCTURES: No significant abnormalities. VISUALIZED UPPER ABDOMEN: Normal. OTHER FINDINGS: Stable position of support apparatus including endotracheal tube and nasogastric tube. IMPRESSION: No significant interval change compared to the prior examination(s).
[2018-08-30] MEDS: Micafungin 100 MG in Sodium Chloride 0.9% 100 ML IV SCH (12:42)
[2018-08-30] MEDS: VALGANCICLOVIR 50 MG/ML PO SCH (12:44)
[2018-08-30] MEDS: Oseltamivir 6 MG/ML PO SCH ×2 (12:44→18:14)
[2018-08-30] MEDS: levoFLOXacin 750 mg in D5W 750 MG/150 ML BAG IVPB SCH (12:51)
[2018-08-30] MEDS: Silver Sulfadiazine 1% Cream (25 gm) TP SCH ×2 (12:53→12:54)
[2018-08-30] MEDS: Lidocaine 5% Oint(35 gm) TOP SCH (12:53)
--- NOTE | 2018-08-30 13:07 | CP.PCM.PN ---
Subjective - Date & Time of Evaluation Date of Evaluation: 08/30/18 Time of Evaluation: 09:40 - Subjective Subjective: Patient continues to be on the ventilator but is more awake, oxygen requirements are decreasing, no fevers overnight. No diarrhea. Objective - Vital Signs/Intake and Output Vital Signs (last 24 hours): Temp Pulse Resp BP Pulse Ox 98.1 F 84 25 H 110/65 98 08/29/18 04:00 08/29/18 09:51 08/29/18 04:00 08/29/18 09:51 08/29/18 04:00 Intake and Output: 08/29/18 08/29/18 06:59 18:59 Intake Total 762 383 Output Total 1200 Balance -438 383 - Medications Medications: Current Medications Acetaminophen (Tylenol 325mg Tab) 650 mg PO Q6H PRN PRN Reason: Temperature Last Admin: 08/22/18 14:20 Dose: 650 mg Albuterol/Ipratropium (Duoneb 3 Mg/0.5 Mg (3 Ml) Ud) 3 ml IH [id number] [facility] Last Admin: 08/29/18 13:28 Dose: 3 ml Albuterol/Ipratropium (Duoneb 3 Mg/0.5 Mg (3 Ml) Ud) 3 ml IH Q2H PRN PRN Reason: Shortness of Breath Last Admin: 08/27/18 08:21 Dose: 3 ml Alprazolam (Xanax) 0.25 mg PO Q6H PRN PRN Reason: Anxiety Stop: 08/31/18 19:11 Last Admin: 08/26/18 00:06 Dose: 0.25 mg Aspirin (Aspirin Chewable) 81 mg PO DAILY [facility] Last Admin: 08/29/18 10:11 Dose: 81 mg Benzonatate (Tessalon Perles) 100 mg PO TID [facility] Last Admin: 08/29/18 09:53 Dose: Not Given Budesonide (Pulmicort Respules) 0.5 mg IH [id number] [facility] Last Admin: 08/29/18 07:55 Dose: 0.5 mg Docusate Sodium (Colace) 100 mg PO Q4H PRN PRN Reason: Constipation Last Admin: 08/22/18 23:44 Dose: 100 mg Enoxaparin Sodium (Lovenox) 50 mg SC Q12H [facility]; Protocol Last Admin: 08/29/18 05:01 Dose: 50 mg Guaifenesin (Robitussin) 100 mg PO Q4H PRN PRN Reason: Cough Last Admin: 08/26/18 00:07 Dose: 100 mg Hydrocortisone Sodium Succinate (Solu-Cortef) 100 mg IVP Q8 [facility] Last Admin: 08/29/18 05:00 Dose: 100 mg Meropenem (Merrem Iv 1 Gm Premix) 1 gm in 50 mls @ 100 mls/hr IVPB Q8 [facility]; Protocol Last Admin: 08/29/18 05:00 Dose: 100 mls/hr NOREPINEPHRINE BIT/0.9 % NACL (Levophed 4 Mg/ 250 Ml Ns Premixed) 4 mg in 250 mls @ 15 mls/hr IV .[id number] PRN; Protocol PRN Reason: TITRATE PER MD ORDER Last Titration: 08/27/18 07:00 Dose: 0 mcg/min, 0 mls/hr Fentanyl Citrate (Fentanyl Citrate/Sodium Chloride 1 Mg/100 Ml) 1,000 mcg in 100 mls @ 2 mls/hr IV .Q24H PRN; Protocol PRN Reason: TITRATE PER MD ORDER Last Titration: 08/29/18 09:00 Dose: 40 mcg/hr, 4 mls/hr Vasopressin 20 units/ Sodium (Chloride) 101 mls @ 9.09 mls/hr IV .Q11H7M [facility]; Protocol Last Admin: 08/27/18 10:00 Dose: Not Given Phenylephrine HCl 40 mg/ (Sodium Chloride) 254 mls @ 38.1 mls/hr IV .Q6H40M PRN; Protocol PRN Reason: TITRATE PER MD ORDER Last Titration: 08/29/18 13:00 Dose: 0 mcg/min, 0 mls/hr Propofol (Diprivan) 1,000 mg in 100 mls @ 1.497 mls/hr IV .Q24H PRN; Protocol PRN Reason: TITRATE PER MD ORDER Last Admin: 08/29/18 14:19 Dose: 35 mcg/kg/min, 10.478 mls/hr Trimethoprim/Sulfamethoxazole (250 mg/ Dextrose) 500 mls @ 250 mls/hr IVPB Q8 [facility] Last Admin: 08/29/18 05:27 Dose: 250 mls/hr Levofloxacin/Dextrose (Levaquin 750mg) 750 mg in 150 mls @ 100 mls/hr IVPB DAILY [facility]; Protocol Last Admin: 08/29/18 10:15 Dose: 100 mls/hr Micafungin Sodium 100 mg/ (Sodium Chloride) 100 mls @ 100 mls/hr IV DAILY [facility]; Protocol Stop: 09/03/18 12:46 Last Admin: 08/29/18 10:11 Dose: 100 mls/hr Ibuprofen (Motrin Tab) 200 mg PO Q6H PRN PRN Reason: Temperature Last Admin: 08/25/18 15:20 Dose: 200 mg Lidocaine (Lidocaine 5%) 0 gm TOP DAILY [facility] Last Admin: 08/29/18 10:35 Dose: 1 applic Lorazepam (Ativan) 2 mg IVP Q2H PRN; Protocol PRN Reason: Anxiety Metoprolol Tartrate (Lopressor) 12.5 mg PO BID [facility] Last Admin: 08/29/18 09:51 Dose: Not Given Ondansetron HCl (Zofran Inj) 4 mg IVP Q6H PRN PRN Reason: Nausea/Vomiting Last Admin: 08/24/18 01:07 Dose: 4 mg Oseltamivir Phosphate (Tamiflu Susp) 75 mg PO BID [facility]; Protocol Last Admin: 08/29/18 10:39 Dose: 75 mg Pantoprazole Sodium (Protonix Ec Tab) 40 mg PO ACB [facility] Last Admin: 08/29/18 08:35 Dose: 40 mg Silver Sulfadiazine (Silvadene 1% 25 Gm) 0 gm TP BID [facility] Last Admin: 08/29/18 10:38 Dose: 25 gm Tramadol HCl (Ultram) 50 mg PO TID PRN PRN Reason: Pain, Mild (1-3) Last Admin: 08/25/18 13:54 Dose: 50 mg Valganciclovir (Valganciclovir) 900 mg PO DAILY [facility] Last Admin: 08/29/18 10:39 Dose: 900 mg - Labs Labs: 08/29/18 06:30 08/29/18 06:30 PT 13.0 SECONDS (9.4-12.5) H 08/27/18 13:45 INR 1.15 08/27/18 13:45 APTT 34.1 Seconds (26.9-38.3) 08/27/18 13:45 - Constitutional Appears: Chronically Ill, Other (intubated, more awake today) - Head Exam Head Exam: NORMAL INSPECTION - ENT Exam Additional comments: ET tube in place - Respiratory Exam Respiratory Exam: Decreased Breath Sounds, Rales (diffuse) - Cardiovascular Exam Cardiovascular Exam: +S1, +S2 - GI/Abdominal Exam GI & Abdominal Exam: Soft. absent: Tenderness Assessment and Plan - Assessment and Plan (Free Text) Plan: Assessment severe sepsis / septic shock with VDRF and ARDS due to bilateral pneumonia, suspicious for Pneumocystis pneumonia, R/O viral pneumonia, R/O atypical pneumonia, R/O intra-abdominal, rectal infection / colitis in this patient HIV/AIDS perianal abscess after hemorrhoidectomy S/P surgery and chronic wound noted, cannot rule out colitis gastritis Plan Beta glucan levels are elevated, making Pneumocystis high on the differential diagnosis list on Bactrim day 5, Merrem, and Levaquin day 13 and gave a dose of IV Vancomycin - repeat blood cx are negative so far, sputum cx, we have switched Vancomycin to Bactrim IV (we were giving therapeutic dose of Mepron 750 mg BID but we have switched to IV Bactrim), and continue Mycamine day 4 as well - initially PJP was not high on the differential list since LDH was normal, and we were initially giving Mepron for prophylaxis but 750 mg BID which we initially started is actually therapeutic dosing - patient also on steroids reviewed previous CT chest, abdomen and pelvis which shows pneumonitis with no lymphadenopathy, chronic diverticulosis but cannot rule out colitis; even though rapid flu test is negative and we have compledted 5 days of Tamiflu discussed with Dr. Medrano - patient in ARDS and is slowly improving - he did bronchoscopy last week with BAL and got respiratory samples to be checked for silver stain for PJP, fungal smears, viral panel for Influenza, RSV, Parainfluenza, Adenovirus, hMPV, AFB, bacterial cultures, CMV - continue Valganciclovir for now HIV PCR is elevated, CD4 count is <20; RPR, serum Crypt Ag are negative Quantiferon TB test was indeterminate - granuloma on right lung seen on CT scan is probably old disease, initial CT chest showed groundglass opacities which are not typically seen in patients with TB; also patient did not have mediastinal lymphadenopathy, no upper lobe cavities, no signs of miliary tuberculosis, no pleural effusions, making TB less likely - sputum AFB is negative x 2 and awaiting 3rd sputum sample which has been sent by the nurse Dr. Kramer has discussed with patient about the HIV test result follow up CMV PCR repeat CT A/P did not show rectal lesions overall prognosis is guarded at best - patient continues to be critically ill
--- NOTE | 2018-08-30 13:22 | CP.CCUPN ---
<Jim Gray - Last Filed: 08/30/18 15:59> CCU Subjective - Physician Review Subjective (Free Text): CRITICAL CARE PROGRESS NOTE FOR DR. ROSALIND Gray PGY1 Pt seen and examined at bedside this am. Currently sedated with propofol/fentanyl, ventilator support on PRVC 370/50/18/8. ROS unable to be obtained CCU Objective - Vital Signs / Intake & Output Vital Signs (Last 4 hours): Vital Signs Pulse BP 08/30/18 12:41 87 115/71 Intake and Output (Last 8hrs): Intake & Output 08/29/18 08/30/18 08/30/18 22:59 06:59 14:59 Intake Total 1615 100 94 Output Total 615 Balance 1000 100 94 Intake: IV 1045 100 94 antibiotics 800 diprivan 123 fentanyl 46 phenylephrine 76 Oral 90 Tube Feeding 480 Output: Urine 500 Urethral (Gayle) 500 Emesis 115 Other: # Bowel Movements 0 - Physical Exam Head: Positive for: Atraumatic, Normocephalic Pupils: Positive for: PERRL Extroacular Muscles: Positive for: EOMI Conjunctiva: Positive for: Normal Mouth: Positive for: Moist Mucous Membranes Respiratory/Chest: Positive for: Clear to Auscultation, Good Air Exchange. Negative for: Respiratory Distress, Accessory Muscle Use Cardiovascular: Positive for: Regular Rate and Rhythm, Normal S1, S2. Negative for: Murmurs Abdomen: Negative for: Tenderness, Distention, Peritoneal Signs Rectal: Positive for: Other (stage 2 ulcer at the sacrum; stage 2 ulcer to right buttocks proximal to the crease. Thick purulent discharge noted from anus.) Back: Positive for: Normal Inspection Upper Extremity: Positive for: Normal Inspection. Negative for: Cyanosis, Edema Lower Extremity: Positive for: Normal Inspection. Negative for: Edema Neurological: Positive for: CN II-XII Intact (grossly), Other (intubated) Skin: Positive for: Warm, Dry, Normal Color. Negative for: Rashes Psychiatric: Positive for: Other (intubated) - Medications Active Medications: Active Medications Generic Name Dose Route Start Last Admin Trade Name Freq PRN Reason Stop Dose Admin Acetaminophen 650 mg 08/22/18 13:42 08/22/18 14:20 Tylenol 325mg Tab PO 650 mg Q6H PRN Administration Temperature Albuterol/Ipratropium 3 ml 08/20/18 08:00 08/30/18 08:00 Duoneb 3 Mg/0.5 Mg (3 Ml) Ud IH 3 ml [id number] TOSHIA Administration Albuterol/Ipratropium 3 ml 08/20/18 06:46 08/27/18 08:21 Duoneb 3 Mg/0.5 Mg (3 Ml) Ud IH 3 ml Q2H PRN Administration Shortness of Breath Alprazolam 0.25 mg 08/24/18 19:10 08/26/18 00:06 Xanax PO 08/31/18 19:11 0.25 mg Q6H PRN Administration Anxiety Aspirin 81 mg 08/26/18 10:00 08/30/18 12:40 Aspirin Chewable PO 81 mg DAILY TOSHIA Administration Benzonatate 100 mg 08/26/18 10:00 08/30/18 12:45 Tessalon Perles PO Not Given TID TOSHIA Budesonide 0.5 mg 08/20/18 08:00 08/30/18 08:00 Pulmicort Respules IH 0.5 mg [id number] TOSHIA Administration Docusate Sodium 100 mg 08/18/18 06:16 08/22/18 23:44 Colace PO 100 mg Q4H PRN Administration Constipation Enoxaparin Sodium 50 mg 08/26/18 04:15 08/30/18 06:19 Lovenox SC 50 mg Q12H TOSHIA Administration Protocol Guaifenesin 100 mg 08/23/18 22:34 08/26/18 00:07 Robitussin PO 100 mg Q4H PRN Administration Cough Hydrocortisone Sodium Succinate 100 mg 08/26/18 22:00 08/30/18 06:16 Solu-Cortef IVP 100 mg Q8 TOSHIA Administration NOREPINEPHRINE BIT/0.9 % NACL 4 mg in 250 mls @ 15 mls/hr 08/26/18 02:05 08/27/18 07:00 Levophed 4 Mg/ 250 Ml Ns Premixed IV 0 mcg/min .[id number] PRN 0 mls/hr TITRATE PER MD ORDER Titration Protocol 4 MCG/MIN Vasopressin 20 units/ Sodium 101 mls @ 9.09 mls/hr 08/26/18 09:32 08/27/18 10:00 Chloride IV Not Given .Q11H7M TOSHIA Protocol 0.03 U/MIN Phenylephrine HCl 40 mg/ 254 mls @ 38.1 mls/hr 08/26/18 09:33 08/29/18 14:30 Sodium Chloride IV 10 mcg/min .[id number] PRN 3.81 mls/hr TITRATE PER MD ORDER Titration Protocol 100 MCG/MIN Trimethoprim/Sulfamethoxazole 500 mls @ 250 mls/hr 08/26/18 14:00 08/30/18 04:45 250 mg/ Dextrose IVPB 250 mls/hr Q8 TOSHIA Administration Levofloxacin/Dextrose 750 mg in 150 mls @ 100 mls/hr 08/27/18 07:30 08/30/18 12:51 Levaquin 750mg IVPB 100 mls/hr DAILY TOSHIA Administration Protocol Micafungin Sodium 100 mg/ 100 mls @ 100 mls/hr 08/27/18 12:45 08/30/18 12:42 Sodium Chloride IV 09/03/18 12:46 100 mls/hr DAILY TOSHIA Administration Protocol Dexmedetomidine HCl 400 mcg in 100 mls @ 2.495 mls/hr 08/30/18 12:45 Precedex 400mcg/100ml IV .Q24H PRN Sedation Protocol 0.2 MCG/KG/HR Ibuprofen 200 mg 08/23/18 13:51 08/25/18 15:20 Motrin Tab PO 200 mg Q6H PRN Administration Temperature Lidocaine 0 gm 08/21/18 12:30 08/30/18 12:53 Lidocaine 5% TOP 1 applic DAILY TOSHIA Administration Lorazepam 2 mg 08/26/18 11:00 Ativan IVP Q2H PRN Anxiety Protocol Metoprolol Tartrate 12.5 mg 08/26/18 10:00 08/30/18 12:41 Lopressor PO Not Given BID TOSHIA Ondansetron HCl 4 mg 08/21/18 21:14 08/24/18 01:07 Zofran Inj IVP 4 mg Q6H PRN Administration Nausea/Vomiting Oseltamivir Phosphate 75 mg 08/27/18 10:00 08/30/18 12:44 Tamiflu Susp PO 75 mg BID TOSHIA Administration Protocol Pantoprazole Sodium 40 mg 08/25/18 07:30 08/30/18 08:00 Protonix Ec Tab PO 40 mg ACB TOSHIA Administration Silver Sulfadiazine 0 gm 08/20/18 18:00 08/30/18 12:54 Silvadene 1% 25 Gm TP 25 gm BID TOSHIA Administration Tramadol HCl 50 mg 08/18/18 18:48 08/25/18 13:54 Ultram PO 50 mg TID PRN Administration Pain, Mild (1-3) Valganciclovir 900 mg 08/28/18 11:30 08/30/18 12:44 Valganciclovir PO 900 mg DAILY TOSHIA Administration Vitamin A 1 ea 08/29/18 23:00 Vitamin A & D Oint Ud Foilpak TOP Q8 PRN dry lips - Patient Studies Lab Studies: Microbiology Studies 08/26/18 12:45 Blood Culture - Preliminary Blood-Venous NO GROWTH AFTER 4 DAYS 08/26/18 12:30 Blood Culture - Preliminary Blood-Venous NO GROWTH AFTER 4 DAYS 08/26/18 10:30 Virus Culture - Final Other: Please Indicate 08/27/18 09:00 Gram Stain - Final Other: Please Indicate Body Fluid Culture - Preliminary Yeast Species Fungal Culture - Preliminary 08/28/18 02:30 MRSA Culture (Admit) - Final Nose MRSA NOT DETECTED Lab Studies 08/30/18 08/30/18 08/30/18 Range/Units 06:30 06:30 05:25 WBC 7.3 D (4.5-11.0) 10^3/uL RBC 2.73 L (3.5-6.1) 10^6/uL Hgb 8.1 L (12.0-16.0) g/dL Hct 23.9 L (36.0-48.0) % MCV 87.5 (80.0-105.0) fl MCH 29.7 (25.0-35.0) pg MCHC 33.9 (31.0-37.0) g/dl RDW 15.8 H (11.5-14.5) % Plt Count 306 (120.0-450.0) 10^3/uL MPV 10.9 (7.0-11.0) fl Neut % (Auto) 88.8 H (50.0-68.0) % Lymph % (Auto) 6.7 L (22.0-35.0) % [place] % (Auto) 4.5 (1.0-6.0) % Eos % (Auto) 0.0 L (1.5-5.0) % Baso % (Auto) 0.0 (0.0-3.0) % Lymph # (Auto) 0.5 L (1.2-3.4) [place] # (Auto) 0.3 (0.1-0.6) Eos # (Auto) 0.0 (0.0-0.7) Baso # (Auto) 0.00 (0.0-2.0) K/mm3 Absolute Neuts (auto) 6.50 (1.4-6.5) pCO2 43 (35-45) mm/Hg pO2 115.0 H (80-100) mm/Hg HCO3 29.9 H (21-28) mmol/L ABG pH 7.45 (7.35-7.45) ABG Total CO2 31.2 H (22-28) mmol.L ABG O2 Saturation 99.7 H (95-98) % ABG O2 Content 11.3 L (15-23) ML/dl ABG Base Excess 5.4 H (-2.0-3.0) mmol/L ABG Hemoglobin 8.2 L (11.7-17.4) g/dL ABG Carboxyhemoglobin 2.4 H (0.5-1.5) % POC ABG HHb (Measured) 0.3 (0-5) % ABG Methemoglobin 1.5 (0.0-3.0) % ABG O2 Capacity 11.3 L (16-24) mL/dl Hgb O2 Saturation 95.8 (95.0-98.0) % FiO2 50.0 % Sodium 141 (132-148) mmol/L Potassium 4.0 (3.6-5.0) mmol/L Chloride 105 (98-107) mmol/L Carbon Dioxide 31 (21-33) mmol/L Anion Gap 9 L (10-20) BUN 17 (7-21) mg/dL Creatinine 0.6 L (0.7-1.2) mg/dl Est GFR ( Amer) > 60 Est GFR (Non-Af Amer) > 60 Random Glucose 127 H (70-110) mg/dL Calcium 8.4 (8.4-10.5) mg/dL Total Bilirubin 0.4 (0.2-1.3) mg/dL AST 21 (14-36) U/L ALT 13 (7-56) U/L Alkaline Phosphatase 43 (38-126) U/L Total Protein 5.2 L (5.8-8.3) g/dL Albumin 2.6 L (3.0-4.8) g/dL Globulin 2.6 gm/dL Albumin/Globulin Ratio 1.0 L (1.1-1.8) Beta-(1,3)-D-Glucan (<60) pg/mL B-(1,3)-D-Glucan Intrp 08/26/18 Range/Units 08:00 WBC (4.5-11.0) 10^3/uL RBC (3.5-6.1) 10^6/uL Hgb (12.0-16.0) g/dL Hct (36.0-48.0) % MCV (80.0-105.0) fl MCH (25.0-35.0) pg MCHC (31.0-37.0) g/dl RDW (11.5-14.5) % Plt Count (120.0-450.0) 10^3/uL MPV (7.0-11.0) fl Neut % (Auto) (50.0-68.0) % Lymph % (Auto) (22.0-35.0) % [place] % (Auto) (1.0-6.0) % Eos % (Auto) (1.5-5.0) % Baso % (Auto) (0.0-3.0) % Lymph # (Auto) (1.2-3.4) [place] # (Auto) (0.1-0.6) Eos # (Auto) (0.0-0.7) Baso # (Auto) (0.0-2.0) K/mm3 Absolute Neuts (auto) (1.4-6.5) pCO2 (35-45) mm/Hg pO2 (80-100) mm/Hg HCO3 (21-28) mmol/L ABG pH (7.35-7.45) ABG Total CO2 (22-28) mmol.L ABG O2 Saturation (95-98) % ABG O2 Content (15-23) ML/dl ABG Base Excess (-2.0-3.0) mmol/L ABG Hemoglobin (11.7-17.4) g/dL ABG Carboxyhemoglobin (0.5-1.5) % POC ABG HHb (Measured) (0-5) % ABG Methemoglobin (0.0-3.0) % ABG O2 Capacity (16-24) mL/dl Hgb O2 Saturation (95.0-98.0) % FiO2 % Sodium (132-148) mmol/L Potassium (3.6-5.0) mmol/L Chloride (98-107) mmol/L Carbon Dioxide (21-33) mmol/L Anion Gap (10-20) BUN (7-21) mg/dL Creatinine (0.7-1.2) mg/dl Est GFR ( Amer) Est GFR (Non-Af Amer) Random Glucose (70-110) mg/dL Calcium (8.4-10.5) mg/dL Total Bilirubin (0.2-1.3) mg/dL AST (14-36) U/L ALT (7-56) U/L Alkaline Phosphatase (38-126) U/L Total Protein (5.8-8.3) g/dL Albumin (3.0-4.8) g/dL Globulin gm/dL Albumin/Globulin Ratio (1.1-1.8) Beta-(1,3)-D-Glucan >500 H (<60) pg/mL B-(1,3)-D-Glucan Intrp Positive H Laboratory Results - last 24 hr 08/26/18 08/30/18 08/30/18 08:00 05:25 06:30 WBC 7.3 D RBC 2.73 L Hgb 8.1 L Hct 23.9 L MCV 87.5 MCH 29.7 MCHC 33.9 RDW 15.8 H Plt Count 306 MPV 10.9 Neut % (Auto) 88.8 H Lymph % (Auto) 6.7 L [place] % (Auto) 4.5 Eos % (Auto) 0.0 L Baso % (Auto) 0.0 Lymph # (Auto) 0.5 L [place] # (Auto) 0.3 Eos # (Auto) 0.0 Baso # (Auto) 0.00 Absolute Neuts (auto) 6.50 pCO2 43 pO2 115.0 H HCO3 29.9 H ABG pH 7.45 ABG Total CO2 31.2 H ABG O2 Saturation 99.7 H ABG O2 Content 11.3 L ABG Base Excess 5.4 H ABG Hemoglobin 8.2 L ABG Carboxyhemoglobin 2.4 H POC ABG HHb (Measured) 0.3 ABG Methemoglobin 1.5 ABG O2 Capacity 11.3 L Hgb O2 Saturation 95.8 FiO2 50.0 Sodium Potassium Chloride Carbon Dioxide Anion Gap BUN Creatinine Est GFR ( Amer) Est GFR (Non-Af Amer) Random Glucose Calcium Total Bilirubin AST ALT Alkaline Phosphatase Total Protein Albumin Globulin Albumin/Globulin Ratio Beta-(1,3)-D-Glucan >500 H B-(1,3)-D-Glucan Intrp Positive H 08/30/18 06:30 WBC RBC Hgb Hct MCV MCH MCHC RDW Plt Count MPV Neut % (Auto) Lymph % (Auto) [place] % (Auto) Eos % (Auto) Baso % (Auto) Lymph # (Auto) [place] # (Auto) Eos # (Auto) Baso # (Auto) Absolute Neuts (auto) pCO2 pO2 HCO3 ABG pH ABG Total CO2 ABG O2 Saturation ABG O2 Content ABG Base Excess ABG Hemoglobin ABG Carboxyhemoglobin POC ABG HHb (Measured) ABG Methemoglobin ABG O2 Capacity Hgb O2 Saturation FiO2 Sodium 141 Potassium 4.0 Chloride 105 Carbon Dioxide 31 Anion Gap 9 L BUN 17 Creatinine 0.6 L Est GFR ( Amer) > 60 Est GFR (Non-Af Amer) > 60 Random Glucose 127 H Calcium 8.4 Total Bilirubin 0.4 AST 21 ALT 13 Alkaline Phosphatase 43 Total Protein 5.2 L Albumin 2.6 L Globulin 2.6 Albumin/Globulin Ratio 1.0 L Beta-(1,3)-D-Glucan B-(1,3)-D-Glucan Intrp Radiology Impressions: Radiology Impressions Chest X-Ray 08/30/18 06:00 IMPRESSION: No significant interval change compared to the prior examination(s). Review of Systems - Review of Systems Review of Systems: per HPI Critical Care Progress Note - Nutrition Nutrition: Nutrition Category Date Time Status NPO Diet [DIET] Diets 08/26/18 Breakfast Ordered Assessment/Plan - Assessment and Plan (Free Text) Assessment: 63 y/o F with PMH of HIV (CD4 <20) admitted to ICU for hypoxic respiratory failure 2/2 ARDS in the setting of septic shock 2/2 HCAP, AIDS defining illnesses and perianal abscess with concomitant type II IL Plan: Neuro: Sedated Will d/c propofol/fentanyl as they may be causing hypotension start precedex Cardiovascular: Type II IL In the setting of septic shock. Likely 2/2 hypotension No cardiac intervention at this time continue therapeutic lovenox Hypotension Continue phenylephrine Continue stress dose steroids Trivial PE Echocardiogram reveals trival PE continue therapeutic lovenox Maintain MAP>65 Pulmonology: Mild ARDS PaO2/FiO2: 230, A-a Gradient: 187 Decrease ventilator PEEP to 5mmHg s/p bronchoscopy: f/u silver stain results Continue to treat underlying septic shock continue pulmonary toilet continue nebulizers Maintain PaO2 >90% GI: NPO continue tube feeds continue protonix ID: Septic Shock In the setting of HIV/AIDS vs perianal abscess CD4 <20 Blood cultures have been negative so far. Sputum cultures growing yeast. Wound proteus (+) Beta 1,3 Glucan >500 Continue Micafungin Continue Levaquin Continue Tamiflu Continue TMP/SMX Continue Valganclovir Surgery following for abscess ID following RESULTS FROM [facility]: HMPV RNA, QL, RT-PCR Source: Nasopharyngeal Aspirate NOT DETECTED PARAINFLUENZA (1-4), QL PCR Source: Tracheal Aspirate Parainfluenza (1,2,3,4): NOT DETECTED RSV AG, EIA Source: Bronchial, Washing NOT DETECTED RSV AG, EIA Source: Tracheal aspirate fluid NOT DETECTED Heme Normocytic Anemia MCV 87.5 DVT/GI PPX: SCD/Protonix Case seen, examined and discussed with attending physician, Dr. Rosalind Gray PGY1 <Juan A Boyer - Last Filed: 08/30/18 16:24> CCU Objective - Vital Signs / Intake & Output Vital Signs (Last 4 hours): Vital Signs Pulse BP 08/30/18 12:41 87 115/71 Intake and Output (Last 8hrs): Intake & Output 08/30/18 08/30/18 08/30/18 06:59 14:59 22:59 Intake Total 100 94 Balance 100 94 Intake: IV 100 94 - Medications Active Medications: Active Medications Generic Name Dose Route Start Last Admin Trade Name Freq PRN Reason Stop Dose Admin Acetaminophen 650 mg 08/22/18 13:42 08/22/18 14:20 Tylenol 325mg Tab PO 650 mg Q6H PRN Administration Temperature Albuterol/Ipratropium 3 ml 08/20/18 08:00 08/30/18 14:06 Duoneb 3 Mg/0.5 Mg (3 Ml) Ud IH 3 ml [id number] TOSHIA Administration Albuterol/Ipratropium 3 ml 08/20/18 06:46 08/27/18 08:21 Duoneb 3 Mg/0.5 Mg (3 Ml) Ud IH 3 ml Q2H PRN Administration Shortness of Breath Alprazolam 0.25 mg 08/24/18 19:10 08/26/18 00:06 Xanax PO 08/31/18 19:11 0.25 mg Q6H PRN Administration Anxiety Aspirin 81 mg 08/26/18 10:00 08/30/18 12:40 Aspirin Chewable PO 81 mg DAILY TOSHIA Administration Benzonatate 100 mg 08/26/18 10:00 08/30/18 12:45 Tessalon Perles PO Not Given TID TOSHIA Budesonide 0.5 mg 08/20/18 08:00 08/30/18 08:00 Pulmicort Respules IH 0.5 mg [id number] TOSHIA Administration Docusate Sodium 100 mg 08/18/18 06:16 08/22/18 23:44 Colace PO 100 mg Q4H PRN Administration Constipation Enoxaparin Sodium 50 mg 08/26/18 04:15 08/30/18 06:19 Lovenox SC 50 mg Q12H TOSHIA Administration Protocol Guaifenesin 100 mg 08/23/18 22:34 08/26/18 00:07 Robitussin PO 100 mg Q4H PRN Administration Cough Hydrocortisone Sodium Succinate 100 mg 08/26/18 22:00 08/30/18 06:16 Solu-Cortef IVP 100 mg Q8 TOSHIA Administration NOREPINEPHRINE BIT/0.9 % NACL 4 mg in 250 mls @ 15 mls/hr 08/26/18 02:05 08/27/18 07:00 Levophed 4 Mg/ 250 Ml Ns Premixed IV 0 mcg/min .[id number] PRN 0 mls/hr TITRATE PER MD ORDER Titration Protocol 4 MCG/MIN Vasopressin 20 units/ Sodium 101 mls @ 9.09 mls/hr 08/26/18 09:32 08/27/18 10:00 Chloride IV Not Given .Q11H7M TOSHIA Protocol 0.03 U/MIN Phenylephrine HCl 40 mg/ 254 mls @ 38.1 mls/hr 08/26/18 09:33 08/29/18 14:30 Sodium Chloride IV 10 mcg/min .Q6H40M PRN 3.81 mls/hr TITRATE PER MD ORDER Titration Protocol 100 MCG/MIN Trimethoprim/Sulfamethoxazole 500 mls @ 250 mls/hr 08/26/18 14:00 08/30/18 04:45 250 mg/ Dextrose IVPB 250 mls/hr Q8 TOSHIA Administration Levofloxacin/Dextrose 750 mg in 150 mls @ 100 mls/hr 08/27/18 07:30 08/30/18 12:51 Levaquin 750mg IVPB 100 mls/hr DAILY TOSHIA Administration Protocol Micafungin Sodium 100 mg/ 100 mls @ 100 mls/hr 08/27/18 12:45 08/30/18 12:42 Sodium Chloride IV 09/03/18 12:46 100 mls/hr DAILY TOSHIA Administration Protocol Dexmedetomidine HCl 400 mcg in 100 mls @ 2.495 mls/hr 08/30/18 12:45 Precedex 400mcg/100ml IV .Q24H PRN Sedation Protocol 0.2 MCG/KG/HR Ibuprofen 200 mg 08/23/18 13:51 08/25/18 15:20 Motrin Tab PO 200 mg Q6H PRN Administration Temperature Lidocaine 0 gm 08/21/18 12:30 08/30/18 12:53 Lidocaine 5% TOP 1 applic DAILY TOSHIA Administration Lorazepam 2 mg 08/26/18 11:00 Ativan IVP Q2H PRN Anxiety Protocol Metoprolol Tartrate 12.5 mg 08/26/18 10:00 08/30/18 12:41 Lopressor PO Not Given BID TOSHIA Ondansetron HCl 4 mg 08/21/18 21:14 08/24/18 01:07 Zofran Inj IVP 4 mg Q6H PRN Administration Nausea/Vomiting Oseltamivir Phosphate 75 mg 08/27/18 10:00 08/30/18 12:44 Tamiflu Susp PO 75 mg BID TOSHIA Administration Protocol Pantoprazole Sodium 40 mg 08/25/18 07:30 08/30/18 08:00 Protonix Ec Tab PO 40 mg ACB TOSHIA Administration Silver Sulfadiazine 0 gm 08/20/18 18:00 08/30/18 12:54 Silvadene 1% 25 Gm TP 25 gm BID TOSHIA Administration Tramadol HCl 50 mg 08/18/18 18:48 08/25/18 13:54 Ultram PO 50 mg TID PRN Administration Pain, Mild (1-3) Valganciclovir 900 mg 08/28/18 11:30 08/30/18 12:44 Valganciclovir PO 900 mg DAILY TOSHIA Administration Vitamin A 1 ea 08/29/18 23:00 Vitamin A & D Oint Ud Foilpak TOP Q8 PRN dry lips - Patient Studies Lab Studies: Microbiology Studies 08/29/18 07:40 Mycobacterial Culture - Preliminary Other: Please Indicate 08/27/18 09:30 Virus Culture - Preliminary Other: Please Indicate 08/26/18 12:45 Blood Culture - Preliminary Blood-Venous NO GROWTH AFTER 4 DAYS 08/26/18 12:30 Blood Culture - Preliminary Blood-Venous NO GROWTH AFTER 4 DAYS 08/26/18 10:30 Virus Culture - Final Other: Please Indicate 08/27/18 09:00 Gram Stain - Final Other: Please Indicate Body Fluid Culture - Preliminary Yeast Species Fungal Culture - Preliminary Lab Studies 08/30/18 08/30/18 08/30/18 Range/Units 06:30 06:30 05:25 WBC 7.3 D (4.5-11.0) 10^3/uL RBC 2.73 L (3.5-6.1) 10^6/uL Hgb 8.1 L (12.0-16.0) g/dL Hct 23.9 L (36.0-48.0) % MCV 87.5 (80.0-105.0) fl MCH 29.7 (25.0-35.0) pg MCHC 33.9 (31.0-37.0) g/dl RDW 15.8 H (11.5-14.5) % Plt Count 306 (120.0-450.0) 10^3/uL MPV 10.9 (7.0-11.0) fl Neut % (Auto) 88.8 H (50.0-68.0) % Lymph % (Auto) 6.7 L (22.0-35.0) % [place] % (Auto) 4.5 (1.0-6.0) % Eos % (Auto) 0.0 L (1.5-5.0) % Baso % (Auto) 0.0 (0.0-3.0) % Lymph # (Auto) 0.5 L (1.2-3.4) [place] # (Auto) 0.3 (0.1-0.6) Eos # (Auto) 0.0 (0.0-0.7) Baso # (Auto) 0.00 (0.0-2.0) K/mm3 Absolute Neuts (auto) 6.50 (1.4-6.5) pCO2 43 (35-45) mm/Hg pO2 115.0 H (80-100) mm/Hg HCO3 29.9 H (21-28) mmol/L ABG pH 7.45 (7.35-7.45) ABG Total CO2 31.2 H (22-28) mmol.L ABG O2 Saturation 99.7 H (95-98) % ABG O2 Content 11.3 L (15-23) ML/dl ABG Base Excess 5.4 H (-2.0-3.0) mmol/L ABG Hemoglobin 8.2 L (11.7-17.4) g/dL ABG Carboxyhemoglobin 2.4 H (0.5-1.5) % POC ABG HHb (Measured) 0.3 (0-5) % ABG Methemoglobin 1.5 (0.0-3.0) % ABG O2 Capacity 11.3 L (16-24) mL/dl Hgb O2 Saturation 95.8 (95.0-98.0) % FiO2 50.0 % Sodium 141 (132-148) mmol/L Potassium 4.0 (3.6-5.0) mmol/L Chloride 105 (98-107) mmol/L Carbon Dioxide 31 (21-33) mmol/L Anion Gap 9 L (10-20) BUN 17 (7-21) mg/dL Creatinine 0.6 L (0.7-1.2) mg/dl Est GFR ( Amer) > 60 Est GFR (Non-Af Amer) > 60 Random Glucose 127 H (70-110) mg/dL Calcium 8.4 (8.4-10.5) mg/dL Total Bilirubin 0.4 (0.2-1.3) mg/dL AST 21 (14-36) U/L ALT 13 (7-56) U/L Alkaline Phosphatase 43 (38-126) U/L Total Protein 5.2 L (5.8-8.3) g/dL Albumin 2.6 L (3.0-4.8) g/dL Globulin 2.6 gm/dL Albumin/Globulin Ratio 1.0 L (1.1-1.8) Laboratory Results - last 24 hr 08/30/18 08/30/18 08/30/18 05:25 06:30 06:30 WBC 7.3 D RBC 2.73 L Hgb 8.1 L Hct 23.9 L MCV 87.5 MCH 29.7 MCHC 33.9 RDW 15.8 H Plt Count 306 MPV 10.9 Neut % (Auto) 88.8 H Lymph % (Auto) 6.7 L [place] % (Auto) 4.5 Eos % (Auto) 0.0 L Baso % (Auto) 0.0 Lymph # (Auto) 0.5 L [place] # (Auto) 0.3 Eos # (Auto) 0.0 Baso # (Auto) 0.00 Absolute Neuts (auto) 6.50 pCO2 43 pO2 115.0 H HCO3 29.9 H ABG pH 7.45 ABG Total CO2 31.2 H ABG O2 Saturation 99.7 H ABG O2 Content 11.3 L ABG Base Excess 5.4 H ABG Hemoglobin 8.2 L ABG Carboxyhemoglobin 2.4 H POC ABG HHb (Measured) 0.3 ABG Methemoglobin 1.5 ABG O2 Capacity 11.3 L Hgb O2 Saturation 95.8 FiO2 50.0 Sodium 141 Potassium 4.0 Chloride 105 Carbon Dioxide 31 Anion Gap 9 L BUN 17 Creatinine 0.6 L Est GFR ( Amer) > 60 Est GFR (Non-Af Amer) > 60 Random Glucose 127 H Calcium 8.4 Total Bilirubin 0.4 AST 21 ALT 13 Alkaline Phosphatase 43 Total Protein 5.2 L Albumin 2.6 L Globulin 2.6 Albumin/Globulin Ratio 1.0 L Radiology Impressions: Radiology Impressions Chest X-Ray 08/30/18 06:00 IMPRESSION: No significant interval change compared to the prior examination(s). Critical Care Progress Note - Nutrition Nutrition: Nutrition Category Date Time Status NPO Diet [DIET] Diets 08/26/18 Breakfast Ordered Addendum Addendum: 08/30/18 16:23 ICU Attending Addendum Patient seen and examined. Case reviewed on round with housestaff. Agree with resident note above with the following additions/exceptions [id number] with PMH of HIV (CD4 <20) admitted to ICU for hypoxic respiratory failure 2/2 ARDS and shock 2/2 ARDS improved as P-F ratio up to 230 will decre peep from 8 to 5 cont abx as per ID infectious possibilities include opportunistic infections such as PCP, MAC, CMV bronch results pending r/o TB w/ AFB cont bactrim with steroids for empiric PCP tx will cont pressors for goal MAP > 65 d/c sedation as prop can be contributing to hypotension start precedex tx for incitdental PE with lovenox rest of care as per housestaff note above Juan A Boyer MD Pulmonary Critical Care Attending Critical Care Time: 35 mins
[2018-08-30] MEDS: Dexmedetomidine 400mcg/100mL 400 MCG/100 ML BOTTLE IV PRN (17:54)
--- NOTE | 2018-08-30 18:58 | PN ---
DATE: 08/30/2018 REASON FOR CONSULTATION: Followup respiratory failure, borderline troponin is positive, possibly ARDS, perianal abscess, sepsis, septic shock, HIV positive, status post intubated. SUBJECTIVE: The patient remains on vent. Awake and alert. Family is at the bedside, on Levophed. PHYSICAL EXAMINATION: VITAL SIGNS: Temperature afebrile, heart rate 87, and blood pressure 115/71. HEENT: PERRLA. Extraocular muscles intact. NECK: Supple. No carotid bruit or thyromegaly. CHEST: Clear to auscultation. HEART: S1 and S2 regular. ABDOMEN: Soft. EXTREMITIES: Clubbing and cyanosis negative. LABORATORY DATA: Blood workup as follows; WBC 7.1, hemoglobin , hematocrit 23.9, and platelet count 306. Chemistry shows sodium 141, potassium 4.1, chloride 105, carbon dioxide 31, anion gap of 9, BUN 20, and creatinine 0.6. Total protein 5.2, albumin 2.6, and albumin-globulin ratio 1. The patient had an echocardiography done on 08/26/2018 that shows ejection fraction 45% to 50%, trace mitral regurgitation, mild tricuspid regurgitation, right ventricular systolic pressure 33%, [id number] pulmonary insufficiency, dilated IVC, trivial pericardial effusion, and no vegetation noted. IMPRESSION: Severe protein-calorie malnutrition, which was not present on admission, status post respiratory failure, sepsis, septic shock, perianal abscess, human immunodeficiency virus positive, pulmonary edema, possible acute respiratory distress syndrome, hypoalbuminemia, respiratory failure, community acquired pneumonia, and anemia. RECOMMENDATIONS: Continue broad-spectrum antibiotic, IV albumin was given earlier. Continue gentle diuretics p.r.n. as blood pressure is tolerated. Once the patient is off Levophed, we will get little bit more diuresis. Right now, the patient's blood pressure on Levophed is 115. We will give 20 of Lasix, keep negative fluid balance. Overall, the patient condition is critical. Long-term prognosis is guarded. Continue antibiotic, try to wean off the vent as tolerated. I will give 1 dose of Lasix of 20 mg to increase the diuresis and improve oxygenation and helps in weaning of the vent. We will follow with you. Thank you Dr. Kramer for providing us the opportunity in taking care of the patient, Jose Angel Guerra. Paddy Weinstein MD [facility] # [id number]
[2018-08-31] MEDS: Albuterol-Ipratrop 3 mg / 0.5 (3 ml) UD IH SCH ×4 (01:45→20:40)
[2018-08-31] MEDS ORDERED: Fentanyl 1000mcg/100ml NS 1,000 MCG/100 ML BAG IV PRN (05:07)
[2018-08-31 05:09] LABS: ARTERIAL BLOOD GAS HCO3 36.7 mmol/L (21-28); ARTERIAL BLOOD GAS HEMOGLOBIN 7.3 g/dL (11.7-17.4); ARTERIAL BLOOD GAS O2 CAPACITY 10.1 mL/dl (16-24); ARTERIAL BLOOD GAS O2 CONTENT 10.1 ML/dl (15-23); ARTERIAL BLOOD GAS O2 SAT 99.7 % (95-98); ARTERIAL BLOOD GAS PCO2 42 mm/Hg (35-45); ARTERIAL BLOOD GAS PH 7.55 (7.35-7.45)
[2018-08-31] MEDS: Sulfamethoxazole/Trimethoprim 250 MG in Dextrose 5% In Water 500 ML IVPB SCH ×3 (05:23→21:41)
[2018-08-31] MEDS: Enoxaparin 60 mg Syringe SC SCH (05:25)
[2018-08-31 06:24] LABS: HEMOGLOBIN 7.4 g/dL (12.0-16.0); LYMPH # 0.4 (1.2-3.4); LYMPH % 8.4 % (22.0-35.0); MEAN CELL VOLUME 87.6 fl (80.0-105.0); MEAN CORPUSCULAR HEMOGLOBIN 29.5 pg (25.0-35.0); MEAN CORPUSCULAR HGB CONC 33.6 g/dl (31.0-37.0); MEAN PLATELET VOLUME 10.3 fl (7.0-11.0); MONO # 0.2 (0.1-0.6); RBC 2.51 10^6/uL (3.5-6.1); RED CELL DISTRIBUTION WIDTH 15.6 % (11.5-14.5); WHITE BLOOD COUNT 4.5 10^3/uL (4.5-11.0)
[2018-08-31] MEDS: Pantoprazole 40mg/100mL NS 40 MG/100 ML BAG IVPB SCH ×4 (06:30→21:52)
[2018-08-31 06:58] LABS: ALBUMIN 2.6 g/dL (3.0-4.8); ALT/SGPT 19 U/L (7-56); AST/SGOT 23 U/L (14-36); BLOOD UREA NITROGEN 18 mg/dL (7-21); GFR NON-AFRICAN AMERICAN > 60
--- NOTE | 2018-08-31 07:01 | CP.CCUPN ---
<Jim Gray - Last Filed: 08/31/18 14:10> CCU Subjective - Physician Review Subjective (Free Text): CRITICAL CARE PROGRESS NOTE FOR DR. ROSALIND Gray PGY1 Pt seen and examined at bedside this am. Overnight, pt had vomited and small tinge of blood noted from OG tube. Suctioning was performed revealing about 100mL coffee ground emesis. Aspirin/therapeutic Lovenox were and Protonix 80mg administered, protonix drip was started. GI consulted overnight. Pt tolerated extubation well today. ROS unable to be obtained d/t sedation. CCU Objective - Vital Signs / Intake & Output Intake and Output (Last 8hrs): Intake & Output 08/30/18 08/30/18 08/31/18 14:59 22:59 06:59 Intake Total 94 881 Output Total 600 Balance 94 281 Intake: IV 94 641 Left Forearm 300 Right Hand 10 diprivan 120 fentanyl 48 phenylephrine 36 Oral 0 Tube Feeding 240 Output: Urine 600 Urethral (Gayle) 600 Other: # Bowel Movements 0 - Physical Exam Head: Positive for: Atraumatic, Normocephalic Pupils: Positive for: PERRL Extroacular Muscles: Positive for: EOMI Conjunctiva: Positive for: Normal Mouth: Positive for: Moist Mucous Membranes Respiratory/Chest: Positive for: Clear to Auscultation, Good Air Exchange. Negative for: Respiratory Distress, Accessory Muscle Use Cardiovascular: Positive for: Regular Rate and Rhythm, Normal S1, S2. Negative for: Murmurs Abdomen: Negative for: Tenderness, Distention, Peritoneal Signs Rectal: Positive for: Other (stage 2 ulcer at the sacrum; stage 2 ulcer to right buttocks proximal to the crease. Thick purulent discharge noted from anus.) Back: Positive for: Normal Inspection Upper Extremity: Positive for: Normal Inspection. Negative for: Cyanosis, Edema Lower Extremity: Positive for: Normal Inspection. Negative for: Edema Neurological: Positive for: CN II-XII Intact (grossly), Other (intubated) Skin: Positive for: Warm, Dry, Normal Color. Negative for: Rashes Psychiatric: Positive for: Other (intubated) - Medications Active Medications: Active Medications Generic Name Dose Route Start Last Admin Trade Name Freq PRN Reason Stop Dose Admin Acetaminophen 650 mg 08/22/18 13:42 08/22/18 14:20 Tylenol 325mg Tab PO 650 mg Q6H PRN Administration Temperature Albuterol/Ipratropium 3 ml 08/20/18 08:00 08/31/18 01:45 Duoneb 3 Mg/0.5 Mg (3 Ml) Ud IH 3 ml [id number] TOSHIA Administration Albuterol/Ipratropium 3 ml 08/20/18 06:46 08/27/18 08:21 Duoneb 3 Mg/0.5 Mg (3 Ml) Ud IH 3 ml Q2H PRN Administration Shortness of Breath Alprazolam 0.25 mg 08/24/18 19:10 08/26/18 00:06 Xanax PO 08/31/18 19:11 0.25 mg Q6H PRN Administration Anxiety Aspirin 81 mg 08/26/18 10:00 08/30/18 12:40 Aspirin Chewable PO 81 mg DAILY TOSHIA Administration Benzonatate 100 mg 08/26/18 10:00 08/30/18 18:12 Tessalon Perles PO Not Given TID TOSHIA Budesonide 0.5 mg 08/20/18 08:00 08/30/18 20:12 Pulmicort Respules IH 0.5 mg [id number] TOSHIA Administration Docusate Sodium 100 mg 08/18/18 06:16 08/22/18 23:44 Colace PO 100 mg Q4H PRN Administration Constipation Enoxaparin Sodium 50 mg 08/26/18 04:15 08/31/18 05:25 Lovenox SC 50 mg Q12H TOSHIA Administration Protocol Guaifenesin 100 mg 08/23/18 22:34 08/26/18 00:07 Robitussin PO 100 mg Q4H PRN Administration Cough Hydrocortisone Sodium Succinate 100 mg 08/26/18 22:00 08/31/18 06:31 Solu-Cortef IVP 100 mg Q8 TOSHIA Administration NOREPINEPHRINE BIT/0.9 % NACL 4 mg in 250 mls @ 15 mls/hr 08/26/18 02:05 08/27/18 07:00 Levophed 4 Mg/ 250 Ml Ns Premixed IV 0 mcg/min .[id number] PRN 0 mls/hr TITRATE PER MD ORDER Titration Protocol 4 MCG/MIN Vasopressin 20 units/ Sodium 101 mls @ 9.09 mls/hr 08/26/18 09:32 08/27/18 10:00 Chloride IV Not Given .[id number] TOSHIA Protocol 0.03 U/MIN Phenylephrine HCl 40 mg/ 254 mls @ 38.1 mls/hr 08/26/18 09:33 08/30/18 20:52 Sodium Chloride IV 0 mcg/min .Q6H40M PRN 0 mls/hr TITRATE PER MD ORDER Titration Protocol 100 MCG/MIN Trimethoprim/Sulfamethoxazole 500 mls @ 250 mls/hr 08/26/18 14:00 08/31/18 05:23 250 mg/ Dextrose IVPB 250 mls/hr Q8 TOSHIA Administration Levofloxacin/Dextrose 750 mg in 150 mls @ 100 mls/hr 08/27/18 07:30 08/30/18 12:51 Levaquin 750mg IVPB 100 mls/hr DAILY TOSHIA Administration Protocol Micafungin Sodium 100 mg/ 100 mls @ 100 mls/hr 08/27/18 12:45 08/30/18 12:42 Sodium Chloride IV 09/03/18 12:46 100 mls/hr DAILY TOSHIA Administration Protocol Dexmedetomidine HCl 400 mcg in 100 mls @ 2.495 mls/hr 08/30/18 12:45 08/30/18 17:54 Precedex 400mcg/100ml IV 0.2 mcg/kg/hr .Q24H PRN 2.495 mls/hr Sedation Administration Protocol 0.2 MCG/KG/HR Fentanyl Citrate 1,000 mcg in 100 mls @ 2 mls/hr 08/31/18 05:07 08/31/18 05:26 Fentanyl Citrate/Sodium Chloride 1 Mg/100 Ml IV 50 mcg/hr .Q24H PRN 5 mls/hr TITRATE PER MD ORDER Administration Protocol 20 MCG/HR Pantoprazole Sodium 40 mg in 100 mls @ 20 mls/hr 08/31/18 06:15 08/31/18 06:30 Protonix 40mg Ivpb IVPB 20 mls/hr .Q5H TOSHIA Administration Ibuprofen 200 mg 08/23/18 13:51 08/25/18 15:20 Motrin Tab PO 200 mg Q6H PRN Administration Temperature Lidocaine 0 gm 08/21/18 12:30 08/30/18 12:53 Lidocaine 5% TOP 1 applic DAILY TOSHIA Administration Lorazepam 2 mg 08/26/18 11:00 08/31/18 02:25 Ativan IVP 2 mg Q2H PRN Administration Anxiety Protocol Metoprolol Tartrate 12.5 mg 08/26/18 10:00 08/30/18 17:53 Lopressor PO Not Given BID TOSHIA Ondansetron HCl 4 mg 08/21/18 21:14 08/24/18 01:07 Zofran Inj IVP 4 mg Q6H PRN Administration Nausea/Vomiting Oseltamivir Phosphate 75 mg 08/27/18 10:00 08/30/18 18:14 Tamiflu Susp PO 75 mg BID TOSHIA Administration Protocol Pantoprazole Sodium 40 mg 08/25/18 07:30 08/30/18 08:00 Protonix Ec Tab PO 40 mg ACB TOSHIA Administration Silver Sulfadiazine 0 gm 08/20/18 18:00 08/30/18 12:54 Silvadene 1% 25 Gm TP 25 gm BID TOSHIA Administration Tramadol HCl 50 mg 08/18/18 18:48 08/25/18 13:54 Ultram PO 50 mg TID PRN Administration Pain, Mild (1-3) Valganciclovir 900 mg 08/28/18 11:30 08/30/18 12:44 Valganciclovir PO 900 mg DAILY TOSHIA Administration Vitamin A 1 ea 08/29/18 23:00 Vitamin A & D Oint Ud Foilpak TOP Q8 PRN dry lips - Patient Studies Lab Studies: Microbiology Studies 08/29/18 07:40 Mycobacterial Culture - Preliminary Other: Please Indicate 08/27/18 09:30 Virus Culture - Preliminary Other: Please Indicate 08/26/18 12:45 Blood Culture - Preliminary Blood-Venous NO GROWTH AFTER 4 DAYS 08/26/18 12:30 Blood Culture - Preliminary Blood-Venous NO GROWTH AFTER 4 DAYS 08/26/18 10:30 Virus Culture - Final Other: Please Indicate 08/27/18 09:00 Gram Stain - Final Other: Please Indicate Body Fluid Culture - Preliminary Yeast Species Fungal Culture - Preliminary Lab Studies 08/31/18 08/31/18 08/30/18 Range/Units 05:30 05:00 06:30 WBC 4.5 D (4.5-11.0) 10^3/uL RBC 2.51 L (3.5-6.1) 10^6/uL Hgb 7.4 L (12.0-16.0) g/dL Hct 22.0 L (36.0-48.0) % MCV 87.6 (80.0-105.0) fl MCH 29.5 (25.0-35.0) pg MCHC 33.6 (31.0-37.0) g/dl RDW 15.6 H (11.5-14.5) % Plt Count 249 (120.0-450.0) 10^3/uL MPV 10.3 (7.0-11.0) fl Neut % (Auto) 87.6 H (50.0-68.0) % Lymph % (Auto) 8.4 L (22.0-35.0) % [place] % (Auto) 4.0 (1.0-6.0) % Eos % (Auto) 0.0 L (1.5-5.0) % Baso % (Auto) 0.0 (0.0-3.0) % Lymph # (Auto) 0.4 L (1.2-3.4) [place] # (Auto) 0.2 (0.1-0.6) Eos # (Auto) 0.0 (0.0-0.7) Baso # (Auto) 0.00 (0.0-2.0) K/mm3 Absolute Neuts (auto) 3.97 (1.4-6.5) pCO2 42 (35-45) mm/Hg pO2 131.0 H (80-100) mm/Hg HCO3 36.7 H (21-28) mmol/L ABG pH 7.55 H (7.35-7.45) ABG Total CO2 38.0 H (22-28) mmol.L ABG O2 Saturation 99.7 H (95-98) % ABG O2 Content 10.1 L (15-23) ML/dl ABG Base Excess 13.1 H (-2.0-3.0) mmol/L ABG Hemoglobin 7.3 L (11.7-17.4) g/dL ABG Carboxyhemoglobin 2.4 H (0.5-1.5) % POC ABG HHb (Measured) 0.3 (0-5) % ABG Methemoglobin 1.5 (0.0-3.0) % ABG O2 Capacity 10.1 L (16-24) mL/dl Hgb O2 Saturation 95.8 (95.0-98.0) % FiO2 50.0 % Sodium 141 (132-148) mmol/L Potassium 4.0 (3.6-5.0) mmol/L Chloride 105 (98-107) mmol/L Carbon Dioxide 31 (21-33) mmol/L Anion Gap 9 L (10-20) BUN 17 (7-21) mg/dL Creatinine 0.6 L (0.7-1.2) mg/dl Est GFR ( Amer) > 60 Est GFR (Non-Af Amer) > 60 Random Glucose 127 H (70-110) mg/dL Calcium 8.4 (8.4-10.5) mg/dL Total Bilirubin 0.4 (0.2-1.3) mg/dL AST 21 (14-36) U/L ALT 13 (7-56) U/L Alkaline Phosphatase 43 (38-126) U/L Total Protein 5.2 L (5.8-8.3) g/dL Albumin 2.6 L (3.0-4.8) g/dL Globulin 2.6 gm/dL Albumin/Globulin Ratio 1.0 L (1.1-1.8) 08/30/18 Range/Units 06:30 WBC 7.3 D (4.5-11.0) 10^3/uL RBC 2.73 L (3.5-6.1) 10^6/uL Hgb 8.1 L (12.0-16.0) g/dL Hct 23.9 L (36.0-48.0) % MCV 87.5 (80.0-105.0) fl MCH 29.7 (25.0-35.0) pg MCHC 33.9 (31.0-37.0) g/dl RDW 15.8 H (11.5-14.5) % Plt Count 306 (120.0-450.0) 10^3/uL MPV 10.9 (7.0-11.0) fl Neut % (Auto) 88.8 H (50.0-68.0) % Lymph % (Auto) 6.7 L (22.0-35.0) % [place] % (Auto) 4.5 (1.0-6.0) % Eos % (Auto) 0.0 L (1.5-5.0) % Baso % (Auto) 0.0 (0.0-3.0) % Lymph # (Auto) 0.5 L (1.2-3.4) [place] # (Auto) 0.3 (0.1-0.6) Eos # (Auto) 0.0 (0.0-0.7) Baso # (Auto) 0.00 (0.0-2.0) K/mm3 Absolute Neuts (auto) 6.50 (1.4-6.5) pCO2 (35-45) mm/Hg pO2 (80-100) mm/Hg HCO3 (21-28) mmol/L ABG pH (7.35-7.45) ABG Total CO2 (22-28) mmol.L ABG O2 Saturation (95-98) % ABG O2 Content (15-23) ML/dl ABG Base Excess (-2.0-3.0) mmol/L ABG Hemoglobin (11.7-17.4) g/dL ABG Carboxyhemoglobin (0.5-1.5) % POC ABG HHb (Measured) (0-5) % ABG Methemoglobin (0.0-3.0) % ABG O2 Capacity (16-24) mL/dl Hgb O2 Saturation (95.0-98.0) % FiO2 % Sodium (132-148) mmol/L Potassium (3.6-5.0) mmol/L Chloride (98-107) mmol/L Carbon Dioxide (21-33) mmol/L Anion Gap (10-20) BUN (7-21) mg/dL Creatinine (0.7-1.2) mg/dl Est GFR ( Amer) Est GFR (Non-Af Amer) Random Glucose (70-110) mg/dL Calcium (8.4-10.5) mg/dL Total Bilirubin (0.2-1.3) mg/dL AST (14-36) U/L ALT (7-56) U/L Alkaline Phosphatase (38-126) U/L Total Protein (5.8-8.3) g/dL Albumin (3.0-4.8) g/dL Globulin gm/dL Albumin/Globulin Ratio (1.1-1.8) Laboratory Results - last 24 hr 08/30/18 08/30/18 08/31/18 06:30 06:30 05:00 WBC 7.3 D RBC 2.73 L Hgb 8.1 L Hct 23.9 L MCV 87.5 MCH 29.7 MCHC 33.9 RDW 15.8 H Plt Count 306 MPV 10.9 Neut % (Auto) 88.8 H Lymph % (Auto) 6.7 L [place] % (Auto) 4.5 Eos % (Auto) 0.0 L Baso % (Auto) 0.0 Lymph # (Auto) 0.5 L [place] # (Auto) 0.3 Eos # (Auto) 0.0 Baso # (Auto) 0.00 Absolute Neuts (auto) 6.50 pCO2 42 pO2 131.0 H HCO3 36.7 H ABG pH 7.55 H ABG Total CO2 38.0 H ABG O2 Saturation 99.7 H ABG O2 Content 10.1 L ABG Base Excess 13.1 H ABG Hemoglobin 7.3 L ABG Carboxyhemoglobin 2.4 H POC ABG HHb (Measured) 0.3 ABG Methemoglobin 1.5 ABG O2 Capacity 10.1 L Hgb O2 Saturation 95.8 FiO2 50.0 Sodium 141 Potassium 4.0 Chloride 105 Carbon Dioxide 31 Anion Gap 9 L BUN 17 Creatinine 0.6 L Est GFR ( Amer) > 60 Est GFR (Non-Af Amer) > 60 Random Glucose 127 H Calcium 8.4 Total Bilirubin 0.4 AST 21 ALT 13 Alkaline Phosphatase 43 Total Protein 5.2 L Albumin 2.6 L Globulin 2.6 Albumin/Globulin Ratio 1.0 L 08/31/18 05:30 WBC 4.5 D RBC 2.51 L Hgb 7.4 L Hct 22.0 L MCV 87.6 MCH 29.5 MCHC 33.6 RDW 15.6 H Plt Count 249 MPV 10.3 Neut % (Auto) 87.6 H Lymph % (Auto) 8.4 L [place] % (Auto) 4.0 Eos % (Auto) 0.0 L Baso % (Auto) 0.0 Lymph # (Auto) 0.4 L [place] # (Auto) 0.2 Eos # (Auto) 0.0 Baso # (Auto) 0.00 Absolute Neuts (auto) 3.97 pCO2 pO2 HCO3 ABG pH ABG Total CO2 ABG O2 Saturation ABG O2 Content ABG Base Excess ABG Hemoglobin ABG Carboxyhemoglobin POC ABG HHb (Measured) ABG Methemoglobin ABG O2 Capacity Hgb O2 Saturation FiO2 Sodium Potassium Chloride Carbon Dioxide Anion Gap BUN Creatinine Est GFR ( Amer) Est GFR (Non-Af Amer) Random Glucose Calcium Total Bilirubin AST ALT Alkaline Phosphatase Total Protein Albumin Globulin Albumin/Globulin Ratio Radiology Impressions: Radiology Impressions Chest X-Ray 08/30/18 06:00 IMPRESSION: No significant interval change compared to the prior examination(s). Critical Care Progress Note - Nutrition Nutrition: Nutrition Category Date Time Status NPO Diet [DIET] Diets 08/26/18 Breakfast Ordered Assessment/Plan - Assessment and Plan (Free Text) Assessment: 63 y/o F with PMH of HIV (CD4 <20) admitted to ICU for hypoxic respiratory failure 2/2 ARDS in the setting of septic shock 2/2 HCAP, AIDS defining illness es and perianal abscess with concomitant type II DC Plan: Neuro: Off of propofol Will wean off precedex Cardiovascular: Hypotension No longer requiring vasopressor support Continue stress dose steroids Type II DC In the setting of septic shock. Likely 2/2 hypotension No cardiac intervention at this time aspirin/lovenox held d/t possible gastric ulcer continue b-fani Trivial PE Echocardiogram reveals trival PE Will hold lovenox for now Maintain MAP>65 Pulmonology: Mild ARDS PaO2/FiO2: 260 from 230 yesterday, A-a Gradient: 131, improved from yesterdays 187 Pt successfully extubated today s/p bronchoscopy: f/u silver stain results Continue to treat underlying septic shock continue pulmonary toilet continue nebulizers Maintain PaO2 >90% Pulmonary Vascular Congestion Continue lasix bid continue daily CXR GI: coffee ground emesis with drop in hemoglobin overnight continue protonix drip Hold anticoagulants, NSAIDs GI recs appreciated: no plans for endoscopy ID: Septic Shock In the setting of HIV/AIDS vs perianal abscess CD4 <20 Blood cultures have been negative so far. Sputum cultures growing yeast. Wound proteus (+) Beta 1,3 Glucan >500 Continue Micafungin Continue Levaquin Continue Tamiflu Continue TMP/SMX Continue Valganclovir Surgery following for abscess ID following RESULTS FROM [facility]: HMPV RNA, QL, RT-PCR Source: Nasopharyngeal Aspirate NOT DETECTED PARAINFLUENZA (1-4), QL PCR Source: Tracheal Aspirate Parainfluenza (1,2,3,4): NOT DETECTED RSV AG, EIA Source: Bronchial, Washing NOT DETECTED RSV AG, EIA Source: Tracheal aspirate fluid NOT DETECTED Heme Hemoglobin trending down, post coffee ground emesis will administer 1u pRBC today and monitor CBC Normocytic Anemia MCV 87.5 DVT/GI PPX: SCD/Protonix drip Case seen, examined and discussed with attending physician, Dr. Rosalind Gray PGY1 <Juan A Boyer - Last Filed: 08/31/18 14:48> CCU Objective - Vital Signs / Intake & Output Vital Signs (Last 4 hours): Vital Signs Temp Pulse Resp BP Pulse Ox 08/31/18 14:41 97.7 F 79 18 144/86 08/31/18 14:15 78 18 98 08/31/18 14:00 80 23 152/87 H 100 08/31/18 13:45 77 18 99 08/31/18 13:30 78 21 97 08/31/18 13:15 83 48 H 96 08/31/18 13:00 85 30 H 127/78 91 L 08/31/18 12:56 97.7 F 92 H 20 130/78 08/31/18 12:50 79 19 130/78 96 08/31/18 12:45 82 26 H 95 08/31/18 12:30 87 25 H 92 L 08/31/18 12:15 82 17 96 08/31/18 12:09 80 08/31/18 12:05 97.5 F L 80 18 126/77 08/31/18 12:00 97.5 F L 80 26 H 126/77 96 08/31/18 11:45 84 21 95 08/31/18 11:40 97.7 F 85 22 127/78 08/31/18 11:39 127/78 08/31/18 11:30 78 21 98 08/31/18 11:15 84 33 H 95 08/31/18 11:00 81 20 127/78 97 Intake and Output (Last 8hrs): Intake & Output 08/30/18 08/31/18 08/31/18 22:59 06:59 14:59 Intake Total 881 797 Output Total 600 1200 Balance 281 -403 Intake: IV 641 372 Left Forearm 300 Right Hand 10 antibiotics 250 diprivan 120 fentanyl 48 4 phenylephrine 36 Oral 0 80 Tube Feeding 240 Blood Product 325 Red Blood Cells Cpd As1 325 Lr Unit [id number] Other 20 Red Blood Cells Cpd As1 20 Lr Unit [id number] Output: Urine 600 1200 Urethral (Gayle) 600 1200 Other: # Bowel Movements 0 - Medications Active Medications: Active Medications Generic Name Dose Route Start Last Admin Trade Name Freq PRN Reason Stop Dose Admin Acetaminophen 650 mg 08/22/18 13:42 08/22/18 14:20 Tylenol 325mg Tab PO 650 mg Q6H PRN Administration Temperature Albuterol/Ipratropium 3 ml 08/20/18 08:00 08/31/18 13:30 Duoneb 3 Mg/0.5 Mg (3 Ml) Ud IH 3 ml [id number] TOSHIA Administration Albuterol/Ipratropium 3 ml 08/20/18 06:46 08/27/18 08:21 Duoneb 3 Mg/0.5 Mg (3 Ml) Ud IH 3 ml Q2H PRN Administration Shortness of Breath Alprazolam 0.25 mg 08/24/18 19:10 08/26/18 00:06 Xanax PO 08/31/18 19:11 0.25 mg Q6H PRN Administration Anxiety Aspirin 81 mg 08/26/18 10:00 08/30/18 12:40 Aspirin Chewable PO 81 mg DAILY TOSHIA Administration Benzonatate 100 mg 08/26/18 10:00 08/31/18 13:03 Tessalon Perles PO Not Given TID TOSHIA Budesonide 0.5 mg 08/20/18 08:00 08/31/18 07:36 Pulmicort Respules IH 0.5 mg [id number] TOSHIA Administration Docusate Sodium 100 mg 08/18/18 06:16 08/22/18 23:44 Colace PO 100 mg Q4H PRN Administration Constipation Enoxaparin Sodium 50 mg 08/26/18 04:15 08/31/18 05:25 Lovenox SC 50 mg Q12H TOSHIA Administration Protocol Furosemide 20 mg 08/31/18 11:27 08/31/18 11:39 Lasix IVP 20 mg BID TOSHIA Administration Guaifenesin 100 mg 08/23/18 22:34 08/26/18 00:07 Robitussin PO 100 mg Q4H PRN Administration Cough Hydrocortisone Sodium Succinate 100 mg 08/26/18 22:00 08/31/18 13:01 Solu-Cortef IVP 100 mg Q8 TOSHIA Administration NOREPINEPHRINE BIT/0.9 % NACL 4 mg in 250 mls @ 15 mls/hr 08/26/18 02:05 08/27/18 07:00 Levophed 4 Mg/ 250 Ml Ns Premixed IV 0 mcg/min .[id number] PRN 0 mls/hr TITRATE PER MD ORDER Titration Protocol 4 MCG/MIN Phenylephrine HCl 40 mg/ 254 mls @ 38.1 mls/hr 08/26/18 09:33 08/30/18 20:52 Sodium Chloride IV 0 mcg/min .Q6H40M PRN 0 mls/hr TITRATE PER MD ORDER Titration Protocol 100 MCG/MIN Trimethoprim/Sulfamethoxazole 500 mls @ 250 mls/hr 08/26/18 14:00 08/31/18 14:33 250 mg/ Dextrose IVPB 250 mls/hr Q8 TOSHIA Administration Levofloxacin/Dextrose 750 mg in 150 mls @ 100 mls/hr 08/27/18 07:30 08/31/18 09:08 Levaquin 750mg IVPB 100 mls/hr DAILY TOSHIA Administration Protocol Micafungin Sodium 100 mg/ 100 mls @ 100 mls/hr 08/27/18 12:45 08/31/18 09:03 Sodium Chloride IV 09/03/18 12:46 100 mls/hr DAILY TOSHIA Administration Protocol Dexmedetomidine HCl 400 mcg in 100 mls @ 2.495 mls/hr 08/30/18 12:45 08/31/18 09:04 Precedex 400mcg/100ml IV 0.2 mcg/kg/hr .Q24H PRN 2.495 mls/hr Sedation Administration Protocol 0.2 MCG/KG/HR Pantoprazole Sodium 40 mg in 100 mls @ 20 mls/hr 08/31/18 06:15 08/31/18 11:12 Protonix 40mg Ivpb IVPB 20 mls/hr .Q5H TOSHIA Administration Ibuprofen 200 mg 08/23/18 13:51 08/25/18 15:20 Motrin Tab PO 200 mg Q6H PRN Administration Temperature Lidocaine 0 gm 08/21/18 12:30 08/31/18 13:00 Lidocaine 5% TOP 1 applic DAILY TOSHIA Administration Lorazepam 2 mg 08/26/18 11:00 08/31/18 02:25 Ativan IVP 2 mg Q2H PRN Administration Anxiety Protocol Metoprolol Tartrate 12.5 mg 08/26/18 10:00 08/31/18 09:02 Lopressor PO Not Given BID TOSHIA Ondansetron HCl 4 mg 08/21/18 21:14 08/31/18 13:00 Zofran Inj IVP 4 mg Q6H PRN Administration Nausea/Vomiting Oseltamivir Phosphate 75 mg 08/27/18 10:00 08/31/18 09:43 Tamiflu Susp PO 75 mg BID TOSHIA Administration Protocol Pantoprazole Sodium 40 mg 08/25/18 07:30 08/30/18 08:00 Protonix Ec Tab PO 40 mg ACB TOSHIA Administration Potassium Chloride 20 meq 08/31/18 11:30 08/31/18 11:40 Potassium Chloride Oral Soln PO 20 meq BID TOSHIA Administration Silver Sulfadiazine 0 gm 08/20/18 18:00 08/31/18 09:04 Silvadene 1% 25 Gm TP 1 gm BID TOSHIA Administration Valganciclovir 900 mg 09/01/18 10:00 Valcyte PO DAILY TOSHIA Vitamin A 1 ea 08/29/18 23:00 Vitamin A & D Oint Ud Foilpak TOP Q8 PRN dry lips - Patient Studies Lab Studies: Microbiology Studies 08/26/18 12:30 Blood Culture - Final Blood-Venous NO GROWTH AFTER 5 DAYS Gram Stain - Final TEST NOT PERFORMED 08/26/18 12:45 Blood Culture - Final Blood-Venous NO GROWTH AFTER 5 DAYS Gram Stain - Final TEST NOT PERFORMED 08/27/18 09:00 Gram Stain - Final Other: Please Indicate Body Fluid Culture - Final Luciana Albicans Fungal Culture - Preliminary 08/29/18 07:40 Mycobacterial Culture - Preliminary Other: Please Indicate 08/27/18 09:30 Virus Culture - Preliminary Other: Please Indicate 08/26/18 10:30 Virus Culture - Final Other: Please Indicate Lab Studies 08/31/18 08/31/18 08/31/18 Range/Units 08:20 08:20 08:20 WBC 4.4 L (4.5-11.0) 10^3/uL RBC 2.45 L (3.5-6.1) 10^6/uL Hgb 7.3 L (12.0-16.0) g/dL Hct 21.4 L (36.0-48.0) % MCV 87.3 (80.0-105.0) fl MCH 29.8 (25.0-35.0) pg MCHC 34.1 (31.0-37.0) g/dl RDW 15.5 H (11.5-14.5) % Plt Count 239 (120.0-450.0) 10^3/uL MPV 10.3 (7.0-11.0) fl Neut % (Auto) 87.2 H (50.0-68.0) % Lymph % (Auto) 8.9 L (22.0-35.0) % [place] % (Auto) 3.9 (1.0-6.0) % Eos % (Auto) 0.0 L (1.5-5.0) % Baso % (Auto) 0.0 (0.0-3.0) % Lymph # (Auto) 0.4 L (1.2-3.4) [place] # (Auto) 0.2 (0.1-0.6) Eos # (Auto) 0.0 (0.0-0.7) Baso # (Auto) 0.00 (0.0-2.0) K/mm3 Absolute Neuts (auto) 3.84 (1.4-6.5) PT 11.2 (9.4-12.5) SECONDS INR 0.99 APTT 28.5 (26.9-38.3) Seconds pCO2 (35-45) mm/Hg pO2 (80-100) mm/Hg HCO3 (21-28) mmol/L ABG pH (7.35-7.45) ABG Total CO2 (22-28) mmol.L ABG O2 Saturation (95-98) % ABG O2 Content (15-23) ML/dl ABG Base Excess (-2.0-3.0) mmol/L ABG Hemoglobin (11.7-17.4) g/dL ABG Carboxyhemoglobin (0.5-1.5) % POC ABG HHb (Measured) (0-5) % ABG Methemoglobin (0.0-3.0) % ABG O2 Capacity (16-24) mL/dl Hgb O2 Saturation (95.0-98.0) % FiO2 % Sodium (132-148) mmol/L Potassium (3.6-5.0) mmol/L Chloride (98-107) mmol/L Carbon Dioxide (21-33) mmol/L Anion Gap (10-20) BUN (7-21) mg/dL Creatinine (0.7-1.2) mg/dl Est GFR ( Amer) Est GFR (Non-Af Amer) Random Glucose (70-110) mg/dL Calcium (8.4-10.5) mg/dL Total Bilirubin (0.2-1.3) mg/dL AST (14-36) U/L ALT (7-56) U/L Alkaline Phosphatase (38-126) U/L Total Protein (5.8-8.3) g/dL Albumin (3.0-4.8) g/dL Globulin gm/dL Albumin/Globulin Ratio (1.1-1.8) Adenovirus Source Adenovirus (PCR) (Not Detected) Blood Type A POSITIVE Antibody Screen Negative Crossmatch See Detail BBK History Checked Patient has bt 08/31/18 08/31/18 08/31/18 Range/Units 05:30 05:30 05:00 WBC 4.5 D (4.5-11.0) 10^3/uL RBC 2.51 L (3.5-6.1) 10^6/uL Hgb 7.4 L (12.0-16.0) g/dL Hct 22.0 L (36.0-48.0) % MCV 87.6 (80.0-105.0) fl MCH 29.5 (25.0-35.0) pg MCHC 33.6 (31.0-37.0) g/dl RDW 15.6 H (11.5-14.5) % Plt Count 249 (120.0-450.0) 10^3/uL MPV 10.3 (7.0-11.0) fl Neut % (Auto) 87.6 H (50.0-68.0) % Lymph % (Auto) 8.4 L (22.0-35.0) % [place] % (Auto) 4.0 (1.0-6.0) % Eos % (Auto) 0.0 L (1.5-5.0) % Baso % (Auto) 0.0 (0.0-3.0) % Lymph # (Auto) 0.4 L (1.2-3.4) [place] # (Auto) 0.2 (0.1-0.6) Eos # (Auto) 0.0 (0.0-0.7) Baso # (Auto) 0.00 (0.0-2.0) K/mm3 Absolute Neuts (auto) 3.97 (1.4-6.5) PT (9.4-12.5) SECONDS INR APTT (26.9-38.3) Seconds pCO2 42 (35-45) mm/Hg pO2 131.0 H (80-100) mm/Hg HCO3 36.7 H (21-28) mmol/L ABG pH 7.55 H (7.35-7.45) ABG Total CO2 38.0 H (22-28) mmol.L ABG O2 Saturation 99.7 H (95-98) % ABG O2 Content 10.1 L (15-23) ML/dl ABG Base Excess 13.1 H (-2.0-3.0) mmol/L ABG Hemoglobin 7.3 L (11.7-17.4) g/dL ABG Carboxyhemoglobin 2.4 H (0.5-1.5) % POC ABG HHb (Measured) 0.3 (0-5) % ABG Methemoglobin 1.5 (0.0-3.0) % ABG O2 Capacity 10.1 L (16-24) mL/dl Hgb O2 Saturation 95.8 (95.0-98.0) % FiO2 50.0 % Sodium 138 (132-148) mmol/L Potassium 3.7 (3.6-5.0) mmol/L Chloride 99 (98-107) mmol/L Carbon Dioxide 35 H (21-33) mmol/L Anion Gap 8 L (10-20) BUN 18 (7-21) mg/dL Creatinine 0.5 L (0.7-1.2) mg/dl Est GFR ( Amer) > 60 Est GFR (Non-Af Amer) > 60 Random Glucose 136 H (70-110) mg/dL Calcium 8.0 L (8.4-10.5) mg/dL Total Bilirubin 0.6 (0.2-1.3) mg/dL AST 23 (14-36) U/L ALT 19 (7-56) U/L Alkaline Phosphatase 41 (38-126) U/L Total Protein 5.2 L (5.8-8.3) g/dL Albumin 2.6 L (3.0-4.8) g/dL Globulin 2.6 gm/dL Albumin/Globulin Ratio 1.0 L (1.1-1.8) Adenovirus Source Adenovirus (PCR) (Not Detected) Blood Type Antibody Screen Crossmatch BBK History Checked 08/27/18 Range/Units 09:30 WBC (4.5-11.0) 10^3/uL RBC (3.5-6.1) 10^6/uL Hgb (12.0-16.0) g/dL Hct (36.0-48.0) % MCV (80.0-105.0) fl MCH (25.0-35.0) pg MCHC (31.0-37.0) g/dl RDW (11.5-14.5) % Plt Count (120.0-450.0) 10^3/uL MPV (7.0-11.0) fl Neut % (Auto) (50.0-68.0) % Lymph % (Auto) (22.0-35.0) % [place] % (Auto) (1.0-6.0) % Eos % (Auto) (1.5-5.0) % Baso % (Auto) (0.0-3.0) % Lymph # (Auto) (1.2-3.4) [place] # (Auto) (0.1-0.6) Eos # (Auto) (0.0-0.7) Baso # (Auto) (0.0-2.0) K/mm3 Absolute Neuts (auto) (1.4-6.5) PT (9.4-12.5) SECONDS INR APTT (26.9-38.3) Seconds pCO2 (35-45) mm/Hg pO2 (80-100) mm/Hg HCO3 (21-28) mmol/L ABG pH (7.35-7.45) ABG Total CO2 (22-28) mmol.L ABG O2 Saturation (95-98) % ABG O2 Content (15-23) ML/dl ABG Base Excess (-2.0-3.0) mmol/L ABG Hemoglobin (11.7-17.4) g/dL ABG Carboxyhemoglobin (0.5-1.5) % POC ABG HHb (Measured) (0-5) % ABG Methemoglobin (0.0-3.0) % ABG O2 Capacity (16-24) mL/dl Hgb O2 Saturation (95.0-98.0) % FiO2 % Sodium (132-148) mmol/L Potassium (3.6-5.0) mmol/L Chloride (98-107) mmol/L Carbon Dioxide (21-33) mmol/L Anion Gap (10-20) BUN (7-21) mg/dL Creatinine (0.7-1.2) mg/dl Est GFR ( Amer) Est GFR (Non-Af Amer) Random Glucose (70-110) mg/dL Calcium (8.4-10.5) mg/dL Total Bilirubin (0.2-1.3) mg/dL AST (14-36) U/L ALT (7-56) U/L Alkaline Phosphatase (38-126) U/L Total Protein (5.8-8.3) g/dL Albumin (3.0-4.8) g/dL Globulin gm/dL Albumin/Globulin Ratio (1.1-1.8) Adenovirus Source Brochial washing Adenovirus (PCR) Not detected (Not Detected) Blood Type Antibody Screen Crossmatch BBK History Checked Laboratory Results - last 24 hr 08/27/18 08/31/18 08/31/18 09:30 05:00 05:30 WBC 4.5 D RBC 2.51 L Hgb 7.4 L Hct 22.0 L MCV 87.6 MCH 29.5 MCHC 33.6 RDW 15.6 H Plt Count 249 MPV 10.3 Neut % (Auto) 87.6 H Lymph % (Auto) 8.4 L [place] % (Auto) 4.0 Eos % (Auto) 0.0 L Baso % (Auto) 0.0 Lymph # (Auto) 0.4 L [place] # (Auto) 0.2 Eos # (Auto) 0.0 Baso # (Auto) 0.00 Absolute Neuts (auto) 3.97 PT INR APTT pCO2 42 pO2 131.0 H HCO3 36.7 H ABG pH 7.55 H ABG Total CO2 38.0 H ABG O2 Saturation 99.7 H ABG O2 Content 10.1 L ABG Base Excess 13.1 H ABG Hemoglobin 7.3 L ABG Carboxyhemoglobin 2.4 H POC ABG HHb (Measured) 0.3 ABG Methemoglobin 1.5 ABG O2 Capacity 10.1 L Hgb O2 Saturation 95.8 FiO2 50.0 Sodium Potassium Chloride Carbon Dioxide Anion Gap BUN Creatinine Est GFR ( Amer) Est GFR (Non-Af Amer) Random Glucose Calcium Total Bilirubin AST ALT Alkaline Phosphatase Total Protein Albumin Globulin Albumin/Globulin Ratio Adenovirus Source Brochial washing Adenovirus (PCR) Not detected Blood Type Antibody Screen Crossmatch BBK History Checked 08/31/18 08/31/18 08/31/18 05:30 08:20 08:20 WBC 4.4 L RBC 2.45 L Hgb 7.3 L Hct 21.4 L MCV 87.3 MCH 29.8 MCHC 34.1 RDW 15.5 H Plt Count 239 MPV 10.3 Neut % (Auto) 87.2 H Lymph % (Auto) 8.9 L [place] % (Auto) 3.9 Eos % (Auto) 0.0 L Baso % (Auto) 0.0 Lymph # (Auto) 0.4 L [place] # (Auto) 0.2 Eos # (Auto) 0.0 Baso # (Auto) 0.00 Absolute Neuts (auto) 3.84 PT INR APTT pCO2 pO2 HCO3 ABG pH ABG Total CO2 ABG O2 Saturation ABG O2 Content ABG Base Excess ABG Hemoglobin ABG Carboxyhemoglobin POC ABG HHb (Measured) ABG Methemoglobin ABG O2 Capacity Hgb O2 Saturation FiO2 Sodium 138 Potassium 3.7 Chloride 99 Carbon Dioxide 35 H Anion Gap 8 L BUN 18 Creatinine 0.5 L Est GFR ( Amer) > 60 Est GFR (Non-Af Amer) > 60 Random Glucose 136 H Calcium 8.0 L Total Bilirubin 0.6 AST 23 ALT 19 Alkaline Phosphatase 41 Total Protein 5.2 L Albumin 2.6 L Globulin 2.6 Albumin/Globulin Ratio 1.0 L Adenovirus Source Adenovirus (PCR) Blood Type A POSITIVE Antibody Screen Negative Crossmatch See Detail BBK History Checked Patient has bt 08/31/18 08:20 WBC RBC Hgb Hct MCV MCH MCHC RDW Plt Count MPV Neut % (Auto) Lymph % (Auto) [place] % (Auto) Eos % (Auto) Baso % (Auto) Lymph # (Auto) [place] # (Auto) Eos # (Auto) Baso # (Auto) Absolute Neuts (auto) PT 11.2 INR 0.99 APTT 28.5 pCO2 pO2 HCO3 ABG pH ABG Total CO2 ABG O2 Saturation ABG O2 Content ABG Base Excess ABG Hemoglobin ABG Carboxyhemoglobin POC ABG HHb (Measured) ABG Methemoglobin ABG O2 Capacity Hgb O2 Saturation FiO2 Sodium Potassium Chloride Carbon Dioxide Anion Gap BUN Creatinine Est GFR ( Amer) Est GFR (Non-Af Amer) Random Glucose Calcium Total Bilirubin AST ALT Alkaline Phosphatase Total Protein Albumin Globulin Albumin/Globulin Ratio Adenovirus Source Adenovirus (PCR) Blood Type Antibody Screen Crossmatch BBK History Checked Radiology Impressions: Radiology Impressions Chest X-Ray 08/31/18 06:00 IMPRESSION: No change in vascular congestion and perihilar infiltrates. Central lines and tubes unchanged Critical Care Progress Note - Nutrition Nutrition: Nutrition Category Date Time Status NPO Diet [DIET] Diets 08/26/18 Breakfast Ordered Addendum Addendum: 08/31/18 14:46 ICU Attending Addendum Patient seen and examined. Case reviewed on round with housestaff. Agree with resident note above with the following additions/exceptions 63F with PMH of HIV (CD4 <20) admitted to ICU for hypoxic respiratory failure 2/2 ARDS and shock 2/2 ARDS improved off levophed adequate weaning trial this AM extubated successfully cont abx as per ID infectious possibilities include opportunistic infections such as PCP, MAC, CMV bronch results pending r/o TB w/ AFB pending culture (stain neg) cont bactrim with steroids for empiric PCP tx overnight coffee ground emesis via OG tube on PPI holding anticoagulation vincenzo with HB drop will give 1 unit with goal > 8 wean off precedex tx for incitdental PE with lovenox being held for now with coffee ground emesis rest of care as per housestaff note above Juan A Boyer MD Pulmonary Critical Care Attending Critical Care Time: 31 mins
[2018-08-31] MEDS: Budesonide 0.5 mg/2 ml Inhal Susp UD IH SCH ×3 (07:36→21:12)
[2018-08-31 08:39] LABS: HEMOGLOBIN 7.3 g/dL (12.0-16.0); LYMPH # 0.4 (1.2-3.4); LYMPH % 8.9 % (22.0-35.0); MEAN CELL VOLUME 87.3 fl (80.0-105.0); MEAN CORPUSCULAR HEMOGLOBIN 29.8 pg (25.0-35.0); MEAN CORPUSCULAR HGB CONC 34.1 g/dl (31.0-37.0); MEAN PLATELET VOLUME 10.3 fl (7.0-11.0); MONO # 0.2 (0.1-0.6); MONO % 3.9 % (1.0-6.0); RBC 2.45 10^6/uL (3.5-6.1); RED CELL DISTRIBUTION WIDTH 15.5 % (11.5-14.5); WHITE BLOOD COUNT 4.4 10^3/uL (4.5-11.0)
--- NOTE | 2018-08-31 08:43 | RAD ---
Date of service: 08/31/2018 HISTORY: f/u COMPARISON: No prior. FINDINGS: LUNGS: No change in vascular congestion and perihilar infiltrates. Central lines and tubes unchanged PLEURA: No significant pleural effusion identified, no pneumothorax apparent. CARDIOVASCULAR: No aortic atherosclerotic calcification present. Normal cardiac size. No pulmonary vascular congestion. OSSEOUS STRUCTURES: No significant abnormalities. VISUALIZED UPPER ABDOMEN: Normal. OTHER FINDINGS: None. IMPRESSION: No change in vascular congestion and perihilar infiltrates. Central lines and tubes unchanged
[2018-08-31 08:48] LABS: INR 0.99; PARTIAL THROMBOPLASTIN TIME 28.5 Seconds (26.9-38.3); PROTHROMBIN TIME 11.2 SECONDS (9.4-12.5)
[2018-08-31] MEDS: Micafungin 100 MG in Sodium Chloride 0.9% 100 ML IV SCH (09:03)
[2018-08-31] MEDS: Dexmedetomidine 400mcg/100mL 400 MCG/100 ML BOTTLE IV PRN (09:04)
[2018-08-31] MEDS: Silver Sulfadiazine 1% Cream (25 gm) TP SCH ×2 (09:04→17:09)
[2018-08-31] MEDS: levoFLOXacin 750 mg in D5W 750 MG/150 ML BAG IVPB SCH (09:08)
--- NOTE | 2018-08-31 09:22 | PN ---
DATE: 08/31/2018([id number]) PULMONARY NOTE SUBJECTIVE: The patient remains on the ventilator. She is less sedated this morning. PHYSICAL EXAMINATION: VITALS: Temperature is 98.4, pulse on the monitor is 84, respiratory rate 18/18, blood pressure 109/62. HEENT: Normocephalic, atraumatic. No JVD. CARDIOVASCULAR: Positive S1, S2. No S3 gallop. LUNGS: Less crackles at the bases. Minimal/less rhonchi. No wheezing. EXTREMITIES: No clubbing, cyanosis, or edema. Calves are nontender to palpation. GASTROINTESTINAL: Abdomen is soft, nontender, and nondistended. Bowel sounds are positive. SKIN: No acute rash. NEUROLOGIC: Exam limited at the present time. PERTINENT LABORATORY DATA: Chest x-ray was done this morning and reviewed.. The chest x-ray is similar to yesterday's film, but overall much improved. Arterial blood gas was done on PRVC 18, title volume 370, FiO2 of 50%, PEEP of 5. Results are: PH 7.55, pCO2 of 42, pO2 of 131. IMPRESSION: 1. Acute respiratory distress syndrome. Respiratory failure. 2. Sepsis with shock. 3. Status post recent hemorrhoidectomy. 4. Community-acquired pneumonia, possibly atypical. 5. Mild anemia. 6. Human immunodeficiency virus positivity. 7. Rule out congestive heart failure. PLAN: The patient remains in the ICU. She remains on the ventilator. She is less sedated this morning. I did discuss the case with the night nurse at length. The night nurse stated that the patient continues to improve. I did review the chest x-ray from this morning. The chest x-ray is similar to yesterday's film, but significantly improved from a few days ago. I have also reviewed the arterial blood gas. The arterial blood gas reveals a mixed respiratory and metabolic alkalosis, with a decrease in the alveolar-arterial gradient. I will discuss possible weaning trials with the ICU team this morning. I would continue with the antibiotic coverage as per Infectious Disease. Temperatures have now fully resolved. We are still waiting on the bronchoscopy results/stains. Inputs by Cardiology and Internal Medicine are also noted. Clinical status of the patient is significantly improved - compared to last week. However, given the above, she does remain guarded overall. I will discuss the above with the entire ICU team in the next few moments. I will also discuss the above with the attending physician later this morning. Griffin Medrano MD MTDJyotsna
--- NOTE | 2018-08-31 09:28 | PN ---
DATE: 08/30/2018 SUBJECTIVE: The patient is a 63-year-old female who was admitted to [facility] on 08/17/2018 with oozing lesions and painful lesions from the rectum, status post hemorrhoid surgery in 04/2018. She also had developed a cough at home and shown to have bilateral pneumonia on admission. The patient was being treated. Of note that she remained afebrile with a low white blood cell count. Further testing proved the patient to be HIV positive. About 5 days ago, the patient's respiratory status decompensated, she became tachypneic, tachycardic, was transferred to the Intensive Care Unit where she was intubated and found to be an ARDS. When seen today, the patient is awake, alert. Her son was at bedside, he was pleased that she seemed to be more awake today and more comfortable. Her lungs are clear anteriorly. The patient responds by nodding her head. She remains intubated. LABORATORY DATA: Show that she has a white blood cell count of 7.3, hemoglobin and hematocrit of 8.1 and 23.9, platelet count of 306. Sodium is 141, potassium 4.0, blood urea nitrogen 17, creatinine 0.6. Her blood pressure is 118/68, heart rate is 86. ASSESSMENT AND PLAN: She is being followed by Dr. Weinstein, the career services manager, Dr. Queen, the Infectious Disease specialist, Dr. Medrano, the model builder display, and the ad clerk there in the Intensive Care Unit. We are continuing with the patient's current medication of antivirals and antibiotics. We are slowly weaning the patient off the ventilator and the patient to be reevaluated in the morning. Scott Kramer MD JERONIMO
[2018-08-31] MEDS: Oseltamivir 6 MG/ML PO SCH ×2 (09:43→18:04)
[2018-08-31] MEDS: VALGANCICLOVIR 50 MG/ML PO SCH (09:44)
[2018-08-31] MEDS: Potassium Chloride 20 mEq/15 ml LIQ UD PO SCH ×2 (11:40→17:05)
--- NOTE | 2018-08-31 12:05 | CP.PCM.PN ---
Subjective - Date & Time of Evaluation Date of Evaluation: 08/31/18 Time of Evaluation: 08:50 - Subjective Subjective: Now extubated, awake, not in distress but still feels weak, no fevers overnight, no cough currently. Objective - Vital Signs/Intake and Output Vital Signs (last 24 hours): Temp Pulse Resp BP Pulse Ox 98.7 F 87 18 115/71 98 08/30/18 04:00 08/30/18 12:41 08/30/18 04:00 08/30/18 12:41 08/30/18 04:00 Intake and Output: 08/30/18 08/30/18 06:59 18:59 Intake Total 100 94 Balance 100 94 - Medications Medications: Current Medications Acetaminophen (Tylenol 325mg Tab) 650 mg PO Q6H PRN PRN Reason: Temperature Last Admin: 08/22/18 14:20 Dose: 650 mg Albuterol/Ipratropium (Duoneb 3 Mg/0.5 Mg (3 Ml) Ud) 3 ml IH [id number] [facility] Last Admin: 08/30/18 08:00 Dose: 3 ml Albuterol/Ipratropium (Duoneb 3 Mg/0.5 Mg (3 Ml) Ud) 3 ml IH Q2H PRN PRN Reason: Shortness of Breath Last Admin: 08/27/18 08:21 Dose: 3 ml Alprazolam (Xanax) 0.25 mg PO Q6H PRN PRN Reason: Anxiety Stop: 08/31/18 19:11 Last Admin: 08/26/18 00:06 Dose: 0.25 mg Aspirin (Aspirin Chewable) 81 mg PO DAILY [facility] Last Admin: 08/30/18 12:40 Dose: 81 mg Benzonatate (Tessalon Perles) 100 mg PO TID [facility] Last Admin: 08/30/18 12:45 Dose: Not Given Budesonide (Pulmicort Respules) 0.5 mg IH [id number] [facility] Last Admin: 08/30/18 08:00 Dose: 0.5 mg Docusate Sodium (Colace) 100 mg PO Q4H PRN PRN Reason: Constipation Last Admin: 08/22/18 23:44 Dose: 100 mg Enoxaparin Sodium (Lovenox) 50 mg SC Q12H [facility]; Protocol Last Admin: 08/30/18 06:19 Dose: 50 mg Guaifenesin (Robitussin) 100 mg PO Q4H PRN PRN Reason: Cough Last Admin: 08/26/18 00:07 Dose: 100 mg Hydrocortisone Sodium Succinate (Solu-Cortef) 100 mg IVP Q8 [facility] Last Admin: 08/30/18 06:16 Dose: 100 mg NOREPINEPHRINE BIT/0.9 % NACL (Levophed 4 Mg/ 250 Ml Ns Premixed) 4 mg in 250 mls @ 15 mls/hr IV .[id number] PRN; Protocol PRN Reason: TITRATE PER MD ORDER Last Titration: 08/27/18 07:00 Dose: 0 mcg/min, 0 mls/hr Vasopressin 20 units/ Sodium (Chloride) 101 mls @ 9.09 mls/hr IV .Q11H7M [facility]; Protocol Last Admin: 08/27/18 10:00 Dose: Not Given Phenylephrine HCl 40 mg/ (Sodium Chloride) 254 mls @ 38.1 mls/hr IV .Q6H40M PRN ; Protocol PRN Reason: TITRATE PER MD ORDER Last Titration: 08/29/18 14:30 Dose: 10 mcg/min, 3.81 mls/hr Trimethoprim/Sulfamethoxazole (250 mg/ Dextrose) 500 mls @ 250 mls/hr IVPB Q8 [facility]OS[facility]IA Last Admin: 08/30/18 04:45 Dose: 250 mls/hr Levofloxacin/Dextrose (Levaquin 750mg) 750 mg in 150 mls @ 100 mls/hr IVPB DAILY [facility]; Protocol Last Admin: 08/30/18 12:51 Dose: 100 mls/hr Micafungin Sodium 100 mg/ (Sodium Chloride) 100 mls @ 100 mls/hr IV DAILY [facility]; Protocol Stop: 09/03/18 12:46 Last Admin: 08/30/18 12:42 Dose: 100 mls/hr Dexmedetomidine HCl (Precedex 400mcg/100ml) 400 mcg in 100 mls @ 2.495 mls/hr IV .Q24H PRN; Protocol PRN Reason: Sedation Ibuprofen (Motrin Tab) 200 mg PO Q6H PRN PRN Reason: Temperature Last Admin: 08/25/18 15:20 Dose: 200 mg Lidocaine (Lidocaine 5%) 0 gm TOP DAILY [facility] Last Admin: 08/30/18 12:53 Dose: 1 applic Lorazepam (Ativan) 2 mg IVP Q2H PRN; Protocol PRN Reason: Anxiety Metoprolol Tartrate (Lopressor) 12.5 mg PO BID [facility] Last Admin: 08/30/18 12:41 Dose: Not Given Ondansetron HCl (Zofran Inj) 4 mg IVP Q6H PRN PRN Reason: Nausea/Vomiting Last Admin: 08/24/18 01:07 Dose: 4 mg Oseltamivir Phosphate (Tamiflu Susp) 75 mg PO BID [facility]; Protocol Last Admin: 08/30/18 12:44 Dose: 75 mg Pantoprazole Sodium (Protonix Ec Tab) 40 mg PO ACB [facility] Last Admin: 08/30/18 08:00 Dose: 40 mg Silver Sulfadiazine (Silvadene 1% 25 Gm) 0 gm TP BID [facility] Last Admin: 08/30/18 12:54 Dose: 25 gm Tramadol HCl (Ultram) 50 mg PO TID PRN PRN Reason: Pain, Mild (1-3) Last Admin: 08/25/18 13:54 Dose: 50 mg Valganciclovir (Valganciclovir) 900 mg PO DAILY [facility] Last Admin: 08/30/18 12:44 Dose: 900 mg Vitamin A (Vitamin A & D Oint Ud Foilpak) 1 ea TOP Q8 PRN PRN Reason: dry lips - Labs Labs: 08/30/18 06:30 08/30/18 06:30 PT 13.0 SECONDS (9.4-12.5) H 08/27/18 13:45 INR 1.15 08/27/18 13:45 APTT 34.1 Seconds (26.9-38.3) 08/27/18 13:45 - Constitutional Appears: Chronically Ill - Head Exam Head Exam: NORMAL INSPECTION - ENT Exam ENT Exam: Mucous Membranes Moist - Neck Exam Neck Exam: absent: Lymphadenopathy, Meningismus - Respiratory Exam Respiratory Exam: Decreased Breath Sounds, Rales (scattered) - Cardiovascular Exam Cardiovascular Exam: +S1, +S2 - GI/Abdominal Exam GI & Abdominal Exam: Soft. absent: Tenderness Assessment and Plan - Assessment and Plan (Free Text) Plan: Assessment severe sepsis S/P shock S/P VDRF, still with ARDS due to bilateral pneumonia, suspicious for Pneumocystis pneumonia, R/O viral pneumonia, R/O atypical pneumonia, R/O intra-abdominal, rectal infection / colitis in this patient HIV/AIDS perianal abscess after hemorrhoidectomy S/P surgery and chronic wound noted, cannot rule out colitis gastritis Plan Beta glucan levels are elevated, making Pneumocystis high on the differential diagnosis list on Bactrim day 5, Merrem, and Levaquin day 13 and gave a dose of IV Vancomycin - repeat blood cx are negative so far, sputum cx, we have switched Vancomycin to Bactrim IV (we were giving therapeutic dose of Mepron 750 mg BID but we have switched to IV Bactrim), and continue Mycamine day 4 as well - initially PJP was not high on the differential list since LDH was normal, and we were initially giving Mepron for prophylaxis but 750 mg BID which we initially started was actually therapeutic dosing - patient also continued on steroids reviewed previous CT chest, abdomen and pelvis which shows pneumonitis with no lymphadenopathy, chronic diverticulosis but cannot rule out colitis; even though rapid flu test is negative and we have completed 5 days of Tamiflu discussed with Dr. Medrano previously - patient in ARDS and is slowly improving - he did bronchoscopy last week with BAL and got respiratory samples to be checked for silver stain for PJP, fungal smears, viral panel for Influenza, RSV, Parainfluenza, Adenovirus, hMPV, AFB, bacterial cultures, CMV - continue Valganciclovir for now HIV PCR is elevated, CD4 count is <20; RPR, serum Crypt Ag are negative - will be starting HALLE prophylaxis which is a once a week dosing of Zithromax (when patient not on QT prolonging agents anymore such as Levaquin which she is on currently) Quantiferon TB test was indeterminate - granuloma on right lung seen on CT scan is probably old disease, initial CT chest showed groundglass opacities which are not typically seen in patients with TB; also patient did not have mediastinal lymphadenopathy, no upper lobe cavities, no signs of miliary tuberculosis, no pleural effusions, making TB less likely - sputum AFB is negative x 3 Dr. Kramer has discussed with patient about the HIV test result follow up CMV PCR repeat CT A/P did not show rectal lesions overall prognosis is still guarded despite being extubated
[2018-08-31] MEDS: Lidocaine 5% Oint(35 gm) TOP SCH (13:00)
--- NOTE | 2018-08-31 14:08 | CON ---
DATE: 08/31/2018 GASTROENTEROLOGY CONSULTATION REQUESTING PHYSICIAN: Dr. Kramer. REASON FOR CONSULT: I have been asked to see this 63-year-old female, who was admitted to the hospital on 08/20/2018 for rectal pain and was subsequently found to have pneumonia. The patient subsequently developed intermittent cough and some dyspnea on exertion. The patient underwent rectal exam under anesthesia and was found to have perianal irritation with granulation tissue, but no abscess. I have been asked to see this patient for rust-tinged sputum. When I queried the patient, she denied any vomiting, nausea, or abdominal pain. She is spitting up rust-colored sputum. She denies any melena or rectal bleeding. She has been in Intensive Care Unit for possible ARDS and sepsis. PAST MEDICAL HISTORY: Past medical history is notable for hemorrhoids. PAST SURGICAL HISTORY: Past surgical history is notable for a hemorrhoidectomy in 04/2018. PHYSICAL EXAMINATION: GENERAL: This is a middle-aged female lying in bed, appearing comfortable. VITAL SIGNS: Reveal temperature of 97.6, blood pressure 131/97, heart rate 99. HEENT: Reveal sclerae to be white. Conjunctivae pale. NECK: Neck is supple. CHEST: Reveal scattered rhonchi. HEART: Exam reveals regular rate and rhythm. ABDOMEN: Soft, nontender. EXTREMITIES: Extremities show no edema. LABORATORY DATA: Reveal white blood cell count 4.4, hemoglobin 7.3, platelet count of 239,000. Stool for occult blood on 08/25/2018 was negative. Chemistries reveal BUN 18, creatinine is 0.5, bicarb of 35. AST, ALT, alk phos all normal. IMPRESSION: This is a 63-year-old female admitted to the hospital with perirectal pain and pneumonia, whom I have been asked to see for blood-streaked saliva. This scant amount of blood is not coming from the GI tract. I suspect that it is related to her pneumonia. She is currently anemic, but there is no overt evidence of GI bleeding. RECOMMENDATIONS: 1. Transfuse packed red blood cells as needed. 2. Continue PPI for stress ulcer prophylaxis. Leoncio Field MD [facility] # [id number]
[2018-08-31 14:36] LABS: SOURCE BROCHIAL WASHING
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
[2018-08-31 20:13] LABS: SOURCE: Plasma
--- NOTE | 2018-09-01 02:25 | PN ---
DATE: 08/31/2018 DAILY PROGRESS NOTE SUBJECTIVE: The patient was seen this Thursday in intensive care unit, ICU bed 5. She is being visited by her two brothers, and her son is present. The patient is in bed. She is just currently extubated. She is awake, but feels somewhat sedated and groggy. She remembers, she recognizes me. She is able to talk a few words. She is comfortable. Good urine output. Off pressors. IV antibiotics continued. PHYSICAL EXAMINATION: LUNGS: Have good aeration, right and left. Surprisingly, there are no wheezes, rhonchi, or rales. ABDOMEN: Soft, nontender. EXTREMITIES: Show no edema. IMPRESSION: 1. Human immunodeficiency virus/acquired immunodeficiency syndrome with suspected pneumocystis pneumonia. 2. Poorly healing aurora postoperative site of hemorrhoid surgery with no evidence of perirectal abscess. PLAN: I spoke to the patient who will remain in the ICU for the next day or two until glanced by Infectious Disease. We will follow their lead on antibiotics and HIV meds. I spoke to the patient's son at length again today. He has been in contact with his brother about her diagnoses, but no other members of the family have been informed as of yet. We will continue the plan as above and provided by the patient's wishes and remaining communications with the family. Sudarshan Kramer MD
[2018-09-01] MEDS: Albuterol-Ipratrop 3 mg / 0.5 (3 ml) UD IH SCH ×4 (02:30→20:10)
[2018-09-01] MEDS: Sulfamethoxazole/Trimethoprim 250 MG in Dextrose 5% In Water 500 ML IVPB SCH ×3 (05:13→22:09)
[2018-09-01] MEDS: Pantoprazole 40mg/100mL NS 40 MG/100 ML BAG IVPB SCH (05:14)
[2018-09-01 06:47] LABS: LYMPH # 0.4 (1.2-3.4); LYMPH % 7.1 % (22.0-35.0); MEAN CELL VOLUME 86.7 fl (80.0-105.0); MEAN CORPUSCULAR HEMOGLOBIN 29.1 pg (25.0-35.0); MEAN CORPUSCULAR HGB CONC 33.6 g/dl (31.0-37.0); MEAN PLATELET VOLUME 10.7 fl (7.0-11.0); MONO # 0.5 (0.1-0.6); MONO % 10.2 % (1.0-6.0); RBC 3.3 10^6/uL (3.5-6.1); WHITE BLOOD COUNT 5.2 10^3/uL (4.5-11.0)
[2018-09-01 06:54] LABS: HEMOGLOBIN 9.6 g/dL (12.0-16.0)
[2018-09-01 07:34] LABS: ALB/GLOB RATIO 1.1 (1.1-1.8); ALBUMIN 2.6 g/dL (3.0-4.8); ALT/SGPT 16 U/L (7-56); AST/SGOT 29 U/L (14-36); BLOOD UREA NITROGEN 16 mg/dL (7-21); CALCIUM 8.3 mg/dL (8.4-10.5); GFR NON-AFRICAN AMERICAN > 60
[2018-09-01] MEDS: Budesonide 0.5 mg/2 ml Inhal Susp UD IH SCH ×2 (07:35→20:10)
[2018-09-01] MEDS ORDERED: Potassium Chloride 40 mEq/30 ml LIQ UD PO STA (07:49)
[2018-09-01] MEDS ORDERED: Potassium Chloride 20 mEq/15 ml LIQ UD PO STA (07:49)
--- NOTE | 2018-09-01 08:50 | CP.CCUPN ---
<Jim Gray - Last Filed: 09/01/18 12:34> CCU Subjective - Physician Review Subjective (Free Text): CRITICAL CARE PROGRESS NOTE FOR DR. RITO Gray PGY1 Pt seen and examined at bedside this am. Pt reported non-bloody vomiting yesterday. This am reports no nausea/vomiting. She denies 12 point ROS. She is s/p 1u pRBC CCU Objective - Vital Signs / Intake & Output Vital Signs (Last 4 hours): Vital Signs Temp 09/01/18 08:08 98.5 F Intake and Output (Last 8hrs): Intake & Output 08/31/18 09/01/18 09/01/18 22:59 06:59 14:59 Intake Total 983 1240 Output Total 1100 2100 Balance -117 -860 Intake: IV 863 1240 Precedex 63 Protonix drip 240 240 antibiotics 500 1000 Oral 120 Output: Urine 1100 1600 Urethral (Gayle) 1100 1600 Stool 500 Other: # Bowel Movements 2 - Physical Exam Head: Positive for: Atraumatic, Normocephalic Pupils: Positive for: PERRL Extroacular Muscles: Positive for: EOMI Conjunctiva: Positive for: Normal Mouth: Positive for: Moist Mucous Membranes Respiratory/Chest: Positive for: Clear to Auscultation, Good Air Exchange. Negative for: Respiratory Distress, Accessory Muscle Use Cardiovascular: Positive for: Regular Rate and Rhythm, Normal S1, S2. Negative for: Murmurs Abdomen: Negative for: Tenderness, Distention, Peritoneal Signs Rectal: Positive for: Other (stage 2 ulcer at the sacrum; stage 2 ulcer to right buttocks proximal to the crease. ) Back: Positive for: Normal Inspection Upper Extremity: Positive for: Normal Inspection. Negative for: Cyanosis, Edema Lower Extremity: Positive for: Normal Inspection. Negative for: Edema Neurological: Positive for: CN II-XII Intact (grossly), Speech Normal Skin: Positive for: Warm, Dry, Normal Color. Negative for: Rashes - Medications Active Medications: Active Medications Generic Name Dose Route Start Last Admin Trade Name Freq PRN Reason Stop Dose Admin Acetaminophen 650 mg 08/22/18 13:42 09/01/18 08:08 Tylenol 325mg Tab PO 650 mg Q6H PRN Administration Temperature Albuterol/Ipratropium 3 ml 08/20/18 08:00 09/01/18 07:35 Duoneb 3 Mg/0.5 Mg (3 Ml) Ud IH 3 ml [id number] TOSHIA Administration Albuterol/Ipratropium 3 ml 08/20/18 06:46 08/27/18 08:21 Duoneb 3 Mg/0.5 Mg (3 Ml) Ud IH 3 ml Q2H PRN Administration Shortness of Breath Aspirin 81 mg 08/26/18 10:00 08/30/18 12:40 Aspirin Chewable PO 81 mg DAILY TOSHIA Administration Benzonatate 100 mg 08/26/18 10:00 08/31/18 17:09 Tessalon Perles PO 100 mg TID TOSHIA Administration Budesonide 0.5 mg 08/20/18 08:00 09/01/18 07:35 Pulmicort Respules IH 0.5 mg [id number] TOSHIA Administration Docusate Sodium 100 mg 08/18/18 06:16 08/22/18 23:44 Colace PO 100 mg Q4H PRN Administration Constipation Enoxaparin Sodium 50 mg 08/26/18 04:15 08/31/18 05:25 Lovenox SC 50 mg Q12H TOSHIA Administration Protocol Furosemide 20 mg 08/31/18 11:27 08/31/18 17:06 Lasix IVP 20 mg BID TOSHIA Administration Guaifenesin 100 mg 08/23/18 22:34 08/26/18 00:07 Robitussin PO 100 mg Q4H PRN Administration Cough Hydrocortisone Sodium Succinate 100 mg 08/26/18 22:00 08/31/18 21:45 Solu-Cortef IVP 100 mg Q8 TOSHIA Administration NOREPINEPHRINE BIT/0.9 % NACL 4 mg in 250 mls @ 15 mls/hr 08/26/18 02:05 08/27/18 07:00 Levophed 4 Mg/ 250 Ml Ns Premixed IV 0 mcg/min .[id number] PRN 0 mls/hr TITRATE PER MD ORDER Titration Protocol 4 MCG/MIN Phenylephrine HCl 40 mg/ 254 mls @ 38.1 mls/hr 08/26/18 09:33 08/30/18 20:52 Sodium Chloride IV 0 mcg/min .[id number] PRN 0 mls/hr TITRATE PER MD ORDER Titration Protocol 100 MCG/MIN Trimethoprim/Sulfamethoxazole 500 mls @ 250 mls/hr 08/26/18 14:00 09/01/18 05:13 250 mg/ Dextrose IVPB 250 mls/hr Q8 TOSHIA Administration Levofloxacin/Dextrose 750 mg in 150 mls @ 100 mls/hr 08/27/18 07:30 08/31/18 09:08 Levaquin 750mg IVPB 100 mls/hr DAILY TOSHIA Administration Protocol Micafungin Sodium 100 mg/ 100 mls @ 100 mls/hr 08/27/18 12:45 08/31/18 09:03 Sodium Chloride IV 09/03/18 12:46 100 mls/hr DAILY TOSHIA Administration Protocol Dexmedetomidine HCl 400 mcg in 100 mls @ 2.495 mls/hr 08/30/18 12:45 08/31/18 18:40 Precedex 400mcg/100ml IV 0 mcg/kg/hr .Q24H PRN 0 mls/hr Sedation Titration Protocol 0.2 MCG/KG/HR Pantoprazole Sodium 40 mg in 100 mls @ 20 mls/hr 08/31/18 06:15 09/01/18 05:14 Protonix 40mg Ivpb IVPB 20 mls/hr .Q5H TOSHIA Administration Ibuprofen 200 mg 08/23/18 13:51 08/25/18 15:20 Motrin Tab PO 200 mg Q6H PRN Administration Temperature Lidocaine 0 gm 08/21/18 12:30 08/31/18 13:00 Lidocaine 5% TOP 1 applic DAILY TOSHIA Administration Lorazepam 2 mg 08/26/18 11:00 08/31/18 02:25 Ativan IVP 2 mg Q2H PRN Administration Anxiety Protocol Metoprolol Tartrate 12.5 mg 08/26/18 10:00 08/31/18 17:07 Lopressor PO 12.5 mg BID TOSHIA Administration Ondansetron HCl 4 mg 08/21/18 21:14 08/31/18 13:00 Zofran Inj IVP 4 mg Q6H PRN Administration Nausea/Vomiting Oseltamivir Phosphate 75 mg 08/27/18 10:00 08/31/18 18:04 Tamiflu Susp PO 75 mg BID TOSHIA Administration Protocol Pantoprazole Sodium 40 mg 08/25/18 07:30 08/30/18 08:00 Protonix Ec Tab PO 40 mg ACB TOSHIA Administration Potassium Chloride 20 meq 08/31/18 11:30 08/31/18 17:05 Potassium Chloride Oral Soln PO 20 meq BID TOSHIA Administration Silver Sulfadiazine 0 gm 08/20/18 18:00 08/31/18 17:09 Silvadene 1% 25 Gm TP 1 gm BID TOSHIA Administration Valganciclovir 900 mg 09/01/18 10:00 Valcyte PO DAILY TOSHIA Vitamin A 1 ea 08/29/18 23:00 Vitamin A & D Oint Ud Foilpak TOP Q8 PRN dry lips - Patient Studies Lab Studies: Microbiology Studies 08/26/18 12:30 Blood Culture - Final Blood-Venous NO GROWTH AFTER 5 DAYS Gram Stain - Final TEST NOT PERFORMED 08/26/18 12:45 Blood Culture - Final Blood-Venous NO GROWTH AFTER 5 DAYS Gram Stain - Final TEST NOT PERFORMED 08/27/18 09:00 Gram Stain - Final Other: Please Indicate Body Fluid Culture - Final Luciana Albicans Fungal Culture - Preliminary Lab Studies 09/01/18 09/01/18 09/01/18 Range/Units 06:00 05:40 05:40 WBC 5.2 (4.5-11.0) 10^3/uL RBC 3.30 L (3.5-6.1) 10^6/uL Hgb 9.6 L D (12.0-16.0) g/dL Hct 28.6 L (36.0-48.0) % MCV 86.7 (80.0-105.0) fl MCH 29.1 (25.0-35.0) pg MCHC 33.6 (31.0-37.0) g/dl RDW 15.0 H (11.5-14.5) % Plt Count 241 (120.0-450.0) 10^3/uL MPV 10.7 (7.0-11.0) fl Neut % (Auto) 82.7 H (50.0-68.0) % Lymph % (Auto) 7.1 L (22.0-35.0) % Mcdonald % (Auto) 10.2 H (1.0-6.0) % Eos % (Auto) 0.0 L (1.5-5.0) % Baso % (Auto) 0.0 (0.0-3.0) % Lymph # (Auto) 0.4 L (1.2-3.4) Mcdonald # (Auto) 0.5 (0.1-0.6) Eos # (Auto) 0.0 (0.0-0.7) Baso # (Auto) 0.00 (0.0-2.0) K/mm3 Absolute Neuts (auto) 4.29 (1.4-6.5) PT (9.4-12.5) SECONDS INR APTT (26.9-38.3) Seconds Sodium 135 (132-148) mmol/L Potassium 3.0 L (3.6-5.0) mmol/L Chloride 93 L (98-107) mmol/L Carbon Dioxide 37 H (21-33) mmol/L Anion Gap 8 L (10-20) BUN 16 (7-21) mg/dL Creatinine 0.6 L (0.7-1.2) mg/dl Est GFR ( Amer) > 60 Est GFR (Non-Af Amer) > 60 POC Glucose (mg/dL) (65-110) mg/dL Random Glucose 126 H (70-110) mg/dL Calcium 8.3 L (8.4-10.5) mg/dL Phosphorus 3.4 (2.5-4.5) mg/dL Magnesium 2.0 (1.7-2.2) mg/dL Total Bilirubin 0.6 (0.2-1.3) mg/dL AST 29 (14-36) U/L ALT 16 (7-56) U/L Alkaline Phosphatase 41 (38-126) U/L NT-Pro-B Natriuret Pep 903 H (0-450) pg/mL Total Protein 5.1 L (5.8-8.3) g/dL Albumin 2.6 L (3.0-4.8) g/dL Globulin 2.4 gm/dL Albumin/Globulin Ratio 1.1 (1.1-1.8) Adenovirus Source Adenovirus (PCR) (Not Detected) CMV Specimen Source CMV DNA Quant PCR (<200) IU/mL CMV Qnt PCR log IU/mL (<2.30) log IU/mL Blood Type Antibody Screen Crossmatch BBK History Checked 08/31/18 08/31/18 08/31/18 Range/Units 22:15 08:20 08:20 WBC 4.4 L (4.5-11.0) 10^3/uL RBC 2.45 L (3.5-6.1) 10^6/uL Hgb 7.3 L (12.0-16.0) g/dL Hct 21.4 L (36.0-48.0) % MCV 87.3 (80.0-105.0) fl MCH 29.8 (25.0-35.0) pg MCHC 34.1 (31.0-37.0) g/dl RDW 15.5 H (11.5-14.5) % Plt Count 239 (120.0-450.0) 10^3/uL MPV 10.3 (7.0-11.0) fl Neut % (Auto) 87.2 H (50.0-68.0) % Lymph % (Auto) 8.9 L (22.0-35.0) % Mcdonald % (Auto) 3.9 (1.0-6.0) % Eos % (Auto) 0.0 L (1.5-5.0) % Baso % (Auto) 0.0 (0.0-3.0) % Lymph # (Auto) 0.4 L (1.2-3.4) Mcdonald # (Auto) 0.2 (0.1-0.6) Eos # (Auto) 0.0 (0.0-0.7) Baso # (Auto) 0.00 (0.0-2.0) K/mm3 Absolute Neuts (auto) 3.84 (1.4-6.5) PT 11.2 (9.4-12.5) SECONDS INR 0.99 APTT 28.5 (26.9-38.3) Seconds Sodium (132-148) mmol/L Potassium (3.6-5.0) mmol/L Chloride (98-107) mmol/L Carbon Dioxide (21-33) mmol/L Anion Gap (10-20) BUN (7-21) mg/dL Creatinine (0.7-1.2) mg/dl Est GFR ( Amer) Est GFR (Non-Af Amer) POC Glucose (mg/dL) 150 H (65-110) mg/dL Random Glucose (70-110) mg/dL Calcium (8.4-10.5) mg/dL Phosphorus (2.5-4.5) mg/dL Magnesium (1.7-2.2) mg/dL Total Bilirubin (0.2-1.3) mg/dL AST (14-36) U/L ALT (7-56) U/L Alkaline Phosphatase (38-126) U/L NT-Pro-B Natriuret Pep (0-450) pg/mL Total Protein (5.8-8.3) g/dL Albumin (3.0-4.8) g/dL Globulin gm/dL Albumin/Globulin Ratio (1.1-1.8) Adenovirus Source Adenovirus (PCR) (Not Detected) CMV Specimen Source CMV DNA Quant PCR (<200) IU/mL CMV Qnt PCR log IU/mL (<2.30) log IU/mL Blood Type Antibody Screen Crossmatch BBK History Checked 08/31/18 08/28/18 08/27/18 Range/Units 08:20 13:30 09:30 WBC (4.5-11.0) 10^3/uL RBC (3.5-6.1) 10^6/uL Hgb (12.0-16.0) g/dL Hct (36.0-48.0) % MCV (80.0-105.0) fl MCH (25.0-35.0) pg MCHC (31.0-37.0) g/dl RDW (11.5-14.5) % Plt Count (120.0-450.0) 10^3/uL MPV (7.0-11.0) fl Neut % (Auto) (50.0-68.0) % Lymph % (Auto) (22.0-35.0) % Mcdonald % (Auto) (1.0-6.0) % Eos % (Auto) (1.5-5.0) % Baso % (Auto) (0.0-3.0) % Lymph # (Auto) (1.2-3.4) Mcdonald # (Auto) (0.1-0.6) Eos # (Auto) (0.0-0.7) Baso # (Auto) (0.0-2.0) K/mm3 Absolute Neuts (auto) (1.4-6.5) PT (9.4-12.5) SECONDS INR APTT (26.9-38.3) Seconds Sodium (132-148) mmol/L Potassium (3.6-5.0) mmol/L Chloride (98-107) mmol/L Carbon Dioxide (21-33) mmol/L Anion Gap (10-20) BUN (7-21) mg/dL Creatinine (0.7-1.2) mg/dl Est GFR ( Amer) Est GFR (Non-Af Amer) POC Glucose (mg/dL) (65-110) mg/dL Random Glucose (70-110) mg/dL Calcium (8.4-10.5) mg/dL Phosphorus (2.5-4.5) mg/dL Magnesium (1.7-2.2) mg/dL Total Bilirubin (0.2-1.3) mg/dL AST (14-36) U/L ALT (7-56) U/L Alkaline Phosphatase (38-126) U/L NT-Pro-B Natriuret Pep (0-450) pg/mL Total Protein (5.8-8.3) g/dL Albumin (3.0-4.8) g/dL Globulin gm/dL Albumin/Globulin Ratio (1.1-1.8) Adenovirus Source Brochial washing Adenovirus (PCR) Not detected (Not Detected) CMV Specimen Source Plasma CMV DNA Quant PCR 261 H (<200) IU/mL CMV Qnt PCR log IU/mL 2.42 H (<2.30) log IU/mL Blood Type A POSITIVE Antibody Screen Negative Crossmatch See Detail BBK History Checked Patient has bt Laboratory Results - last 24 hr 08/27/18 08/28/18 08/31/18 09:30 13:30 08:20 WBC RBC Hgb Hct MCV MCH MCHC RDW Plt Count MPV Neut % (Auto) Lymph % (Auto) Mcdonald % (Auto) Eos % (Auto) Baso % (Auto) Lymph # (Auto) Mcdonald # (Auto) Eos # (Auto) Baso # (Auto) Absolute Neuts (auto) PT INR APTT Sodium Potassium Chloride Carbon Dioxide Anion Gap BUN Creatinine Est GFR ( Amer) Est GFR (Non-Af Amer) POC Glucose (mg/dL) Random Glucose Calcium Phosphorus Magnesium Total Bilirubin AST ALT Alkaline Phosphatase NT-Pro-B Natriuret Pep Total Protein Albumin Globulin Albumin/Globulin Ratio Adenovirus Source Brochial washing Adenovirus (PCR) Not detected CMV Specimen Source Plasma CMV DNA Quant PCR 261 H CMV Qnt PCR log IU/mL 2.42 H Blood Type A POSITIVE Antibody Screen Negative Crossmatch See Detail BBK History Checked Patient has bt 08/31/18 08/31/18 08/31/18 08:20 08:20 22:15 WBC 4.4 L RBC 2.45 L Hgb 7.3 L Hct 21.4 L MCV 87.3 MCH 29.8 MCHC 34.1 RDW 15.5 H Plt Count 239 MPV 10.3 Neut % (Auto) 87.2 H Lymph % (Auto) 8.9 L Mcdonald % (Auto) 3.9 Eos % (Auto) 0.0 L Baso % (Auto) 0.0 Lymph # (Auto) 0.4 L Mcdonald # (Auto) 0.2 Eos # (Auto) 0.0 Baso # (Auto) 0.00 Absolute Neuts (auto) 3.84 PT 11.2 INR 0.99 APTT 28.5 Sodium Potassium Chloride Carbon Dioxide Anion Gap BUN Creatinine Est GFR ( Amer) Est GFR (Non-Af Amer) POC Glucose (mg/dL) 150 H Random Glucose Calcium Phosphorus Magnesium Total Bilirubin AST ALT Alkaline Phosphatase NT-Pro-B Natriuret Pep Total Protein Albumin Globulin Albumin/Globulin Ratio Adenovirus Source Adenovirus (PCR) CMV Specimen Source CMV DNA Quant PCR CMV Qnt PCR log IU/mL Blood Type Antibody Screen Crossmatch BBK History Checked 09/01/18 09/01/18 09/01/18 05:40 05:40 06:00 WBC 5.2 RBC 3.30 L Hgb 9.6 L D Hct 28.6 L MCV 86.7 MCH 29.1 MCHC 33.6 RDW 15.0 H Plt Count 241 MPV 10.7 Neut % (Auto) 82.7 H Lymph % (Auto) 7.1 L Mcdonald % (Auto) 10.2 H Eos % (Auto) 0.0 L Baso % (Auto) 0.0 Lymph # (Auto) 0.4 L Mcdonald # (Auto) 0.5 Eos # (Auto) 0.0 Baso # (Auto) 0.00 Absolute Neuts (auto) 4.29 PT INR APTT Sodium 135 Potassium 3.0 L Chloride 93 L Carbon Dioxide 37 H Anion Gap 8 L BUN 16 Creatinine 0.6 L Est GFR ( Amer) > 60 Est GFR (Non-Af Amer) > 60 POC Glucose (mg/dL) Random Glucose 126 H Calcium 8.3 L Phosphorus 3.4 Magnesium 2.0 Total Bilirubin 0.6 AST 29 ALT 16 Alkaline Phosphatase 41 NT-Pro-B Natriuret Pep 903 H Total Protein 5.1 L Albumin 2.6 L Globulin 2.4 Albumin/Globulin Ratio 1.1 Adenovirus Source Adenovirus (PCR) CMV Specimen Source CMV DNA Quant PCR CMV Qnt PCR log IU/mL Blood Type Antibody Screen Crossmatch BBK History Checked Radiology Impressions: Radiology Impressions Chest X-Ray 08/31/18 06:00 IMPRESSION: No change in vascular congestion and perihilar infiltrates. Central lines and tubes unchanged Review of Systems - Review of Systems Review of Systems: per HPI Critical Care Progress Note - Nutrition Nutrition: Nutrition Category Date Time Status Liquid Diet [DIET] Diets 09/01/18 Breakfast Ordered Assessment/Plan - Assessment and Plan (Free Text) Assessment: 63 y/o F with PMH of HIV (CD4 <20) admitted to ICU for hypoxic respiratory failure 2/2 ARDS in the setting of septic shock 2/2 HCAP, AIDS defining illnesses and perianal abscess with concomitant type II LA Plan: Neuro: AxO x 3 Off of sedation Cardiovascular: Hypotension No longer requiring vasopressor support Continue stress dose steroids. Type II LA In the setting of septic shock. Likely 2/2 hypotension No cardiac intervention at this time aspirin/lovenox held d/t possible gastric ulcer continue b-fani Trivial PE Echocardiogram reveals trival PE Will hold lovenox for now Maintain MAP>65 Pulmonology: Mild ARDS PaO2/FiO2: 260, 230 previously A-a Gradient: 131,187 previously Pt on 2L nasal cannula s/p bronchoscopy: f/u silver stain results Continue to treat underlying infection continue pulmonary toilet continue nebulizers Maintain PaO2 >90% Pulmonary Vascular Congestion Continue lasix bid continue daily CXR Heme: s/p 1u pRBC Hemoglobin stable GI: No episodes of bloody emesis overnight Discontinue protonix drip. Continue protonix IVP bid Hold anticoagulants, NSAIDs GI recs appreciated: no plans for endoscopy at this time ID: Septic Shock In the setting of HIV/AIDS vs perianal abscess CD4 <20 Blood cultures have been negative so far. Sputum cultures growing yeast. Wound proteus (+) Beta 1,3 Glucan >500 Continue Micafungin Continue Levaquin Continue Tamiflu Continue TMP/SMX Continue Valganclovir Surgery following for abscess ID following RESULTS FROM [facility]: HMPV RNA, QL, RT-PCR Source: Nasopharyngeal Aspirate NOT DETECTED PARAINFLUENZA (1-4), QL PCR Source: Tracheal Aspirate Parainfluenza (1,2,3,4): NOT DETECTED RSV AG, EIA Source: Bronchial, Washing NOT DETECTED RSV AG, EIA Source: Tracheal aspirate fluid NOT DETECTED Heme s/p 1u pRBC Hgb stable Normocytic Anemia MCV 87.5 DVT/GI PPX: SCD/Protonix Dispo: Pt is hemodynamically stable. Off of vasopressor support, saturating well on 2L NC. AxO X 3. Denying acute complaints. She no longer requires ICU care. Pt to be transferred to telemetry. Pt reconsult as necessary Case seen, examined and discussed with attending physician, Dr. Rito Gray PGY1 <Jeovanny Burger - Last Filed: 09/01/18 12:48> CCU Objective - Vital Signs / Intake & Output Vital Signs (Last 4 hours): Vital Signs Temp Pulse Resp BP Pulse Ox 09/01/18 12:15 88 21 97 09/01/18 12:00 98.2 F 86 24 123/71 93 L 09/01/18 11:45 88 20 94 L 09/01/18 11:30 90 21 94 L 09/01/18 11:15 97 H 20 95 09/01/18 11:00 96 H 28 H 100/56 L 95 09/01/18 10:45 100 H 22 94 L 09/01/18 10:30 106 H 19 93 L 09/01/18 10:15 109 H 25 H 93 L 09/01/18 10:00 103 H 24 92/49 L 95 09/01/18 09:55 106 H 101/57 L 09/01/18 09:45 105 H 26 H 94 L 09/01/18 09:30 110 H 25 H 95 09/01/18 09:15 106 H 94 L 09/01/18 09:08 98.2 F 09/01/18 09:00 91 H 21 101/57 L 97 09/01/18 08:45 95 H 23 95 Intake and Output (Last 8hrs): Intake & Output 08/31/18 09/01/18 09/01/18 22:59 06:59 14:59 Intake Total 983 1240 Output Total 1100 2100 Balance -117 -860 Intake: IV 863 1240 Precedex 63 Protonix drip 240 240 antibiotics 500 1000 Oral 120 Output: Urine 1100 1600 Urethral (Gayle) 1100 1600 Stool 500 Other: # Bowel Movements 2 - Medications Active Medications: Active Medications Generic Name Dose Route Start Last Admin Trade Name Freq PRN Reason Stop Dose Admin Acetaminophen 650 mg 08/22/18 13:42 09/01/18 08:08 Tylenol 325mg Tab PO 650 mg Q6H PRN Administration Temperature Albuterol/Ipratropium 3 ml 08/20/18 08:00 09/01/18 07:35 Duoneb 3 Mg/0.5 Mg (3 Ml) Ud IH 3 ml [id number] TOSHIA Administration Albuterol/Ipratropium 3 ml 08/20/18 06:46 08/27/18 08:21 Duoneb 3 Mg/0.5 Mg (3 Ml) Ud IH 3 ml Q2H PRN Administration Shortness of Breath Aspirin 81 mg 08/26/18 10:00 08/30/18 12:40 Aspirin Chewable PO 81 mg DAILY TOSHIA Administration Benzonatate 100 mg 08/26/18 10:00 09/01/18 09:59 Tessalon Perles PO 100 mg TID TOSHIA Administration Budesonide 0.5 mg 08/20/18 08:00 09/01/18 07:35 Pulmicort Respules IH 0.5 mg [id number] TOSHIA Administration Docusate Sodium 100 mg 08/18/18 06:16 08/22/18 23:44 Colace PO 100 mg Q4H PRN Administration Constipation Enoxaparin Sodium 50 mg 08/26/18 04:15 08/31/18 05:25 Lovenox SC 50 mg Q12H TOSHIA Administration Protocol Furosemide 20 mg 08/31/18 11:27 09/01/18 09:00 Lasix IVP 20 mg BID TOSHIA Administration Guaifenesin 100 mg 08/23/18 22:34 08/26/18 00:07 Robitussin PO 100 mg Q4H PRN Administration Cough Hydrocortisone Sodium Succinate 100 mg 08/26/18 22:00 09/01/18 07:00 Solu-Cortef IVP 100 mg Q8 TOSHIA Administration Trimethoprim/Sulfamethoxazole 500 mls @ 250 mls/hr 08/26/18 14:00 09/01/18 05:13 250 mg/ Dextrose IVPB 250 mls/hr Q8 TOSHIA Administration Levofloxacin/Dextrose 750 mg in 150 mls @ 100 mls/hr 08/27/18 07:30 09/01/18 09:53 Levaquin 750mg IVPB 100 mls/hr DAILY TOSHIA Administration Protocol Ibuprofen 200 mg 08/23/18 13:51 08/25/18 15:20 Motrin Tab PO 200 mg Q6H PRN Administration Temperature Lidocaine 0 gm 08/21/18 12:30 09/01/18 10:34 Lidocaine 5% TOP 1 applic DAILY TOSHIA Administration Lorazepam 2 mg 08/26/18 11:00 08/31/18 02:25 Ativan IVP 2 mg Q2H PRN Administration Anxiety Protocol Metoprolol Tartrate 12.5 mg 08/26/18 10:00 09/01/18 09:55 Lopressor PO 12.5 mg BID TOSHIA Administration Ondansetron HCl 4 mg 08/21/18 21:14 08/31/18 13:00 Zofran Inj IVP 4 mg Q6H PRN Administration Nausea/Vomiting Pantoprazole Sodium 40 mg 09/01/18 10:15 09/01/18 10:32 Protonix Inj IVP 40 mg Q12 TOSHIA Administration Potassium Chloride 20 meq 08/31/18 11:30 09/01/18 10:00 Potassium Chloride Oral Soln PO 20 meq BID TOSHIA Administration Potassium Chloride 40 meq 09/01/18 13:00 K-Dur 20 Meq Er Tab PO 09/01/18 13:01 ONCE ONE Silver Sulfadiazine 0 gm 08/20/18 18:00 09/01/18 10:31 Silvadene 1% 25 Gm TP 25 gm BID TOSHIA Administration Vitamin A 1 ea 08/29/18 23:00 Vitamin A & D Oint Ud Foilpak TOP Q8 PRN dry lips - Patient Studies Lab Studies: Microbiology Studies 08/26/18 12:30 Blood Culture - Final Blood-Venous NO GROWTH AFTER 5 DAYS Gram Stain - Final TEST NOT PERFORMED 08/26/18 12:45 Blood Culture - Final Blood-Venous NO GROWTH AFTER 5 DAYS Gram Stain - Final TEST NOT PERFORMED 08/27/18 09:00 Gram Stain - Final Other: Please Indicate Body Fluid Culture - Final Luciana Albicans Fungal Culture - Preliminary Lab Studies 09/01/18 09/01/18 09/01/18 Range/Units 06:00 05:40 05:40 WBC 5.2 (4.5-11.0) 10^3/uL RBC 3.30 L (3.5-6.1) 10^6/uL Hgb 9.6 L D (12.0-16.0) g/dL Hct 28.6 L (36.0-48.0) % MCV 86.7 (80.0-105.0) fl MCH 29.1 (25.0-35.0) pg MCHC 33.6 (31.0-37.0) g/dl RDW 15.0 H (11.5-14.5) % Plt Count 241 (120.0-450.0) 10^3/uL MPV 10.7 (7.0-11.0) fl Neut % (Auto) 82.7 H (50.0-68.0) % Lymph % (Auto) 7.1 L (22.0-35.0) % Mcdonald % (Auto) 10.2 H (1.0-6.0) % Eos % (Auto) 0.0 L (1.5-5.0) % Baso % (Auto) 0.0 (0.0-3.0) % Lymph # (Auto) 0.4 L (1.2-3.4) Mcdonald # (Auto) 0.5 (0.1-0.6) Eos # (Auto) 0.0 (0.0-0.7) Baso # (Auto) 0.00 (0.0-2.0) K/mm3 Absolute Neuts (auto) 4.29 (1.4-6.5) Sodium 135 (132-148) mmol/L Potassium 3.0 L (3.6-5.0) mmol/L Chloride 93 L (98-107) mmol/L Carbon Dioxide 37 H (21-33) mmol/L Anion Gap 8 L (10-20) BUN 16 (7-21) mg/dL Creatinine 0.6 L (0.7-1.2) mg/dl Est GFR ( Amer) > 60 Est GFR (Non-Af Amer) > 60 POC Glucose (mg/dL) (65-110) mg/dL Random Glucose 126 H (70-110) mg/dL Calcium 8.3 L (8.4-10.5) mg/dL Phosphorus 3.4 (2.5-4.5) mg/dL Magnesium 2.0 (1.7-2.2) mg/dL Total Bilirubin 0.6 (0.2-1.3) mg/dL AST 29 (14-36) U/L ALT 16 (7-56) U/L Alkaline Phosphatase 41 (38-126) U/L NT-Pro-B Natriuret Pep 903 H (0-450) pg/mL Total Protein 5.1 L (5.8-8.3) g/dL Albumin 2.6 L (3.0-4.8) g/dL Globulin 2.4 gm/dL Albumin/Globulin Ratio 1.1 (1.1-1.8) Adenovirus Source Adenovirus (PCR) (Not Detected) CMV Specimen Source CMV DNA Quant PCR (<200) IU/mL CMV Qnt PCR log IU/mL (<2.30) log IU/mL Crossmatch 08/31/18 08/31/18 08/28/18 Range/Units 22:15 08:20 13:30 WBC (4.5-11.0) 10^3/uL RBC (3.5-6.1) 10^6/uL Hgb (12.0-16.0) g/dL Hct (36.0-48.0) % MCV (80.0-105.0) fl MCH (25.0-35.0) pg MCHC (31.0-37.0) g/dl RDW (11.5-14.5) % Plt Count (120.0-450.0) 10^3/uL MPV (7.0-11.0) fl Neut % (Auto) (50.0-68.0) % Lymph % (Auto) (22.0-35.0) % Mcdonald % (Auto) (1.0-6.0) % Eos % (Auto) (1.5-5.0) % Baso % (Auto) (0.0-3.0) % Lymph # (Auto) (1.2-3.4) Mcdonald # (Auto) (0.1-0.6) Eos # (Auto) (0.0-0.7) Baso # (Auto) (0.0-2.0) K/mm3 Absolute Neuts (auto) (1.4-6.5) Sodium (132-148) mmol/L Potassium (3.6-5.0) mmol/L Chloride (98-107) mmol/L Carbon Dioxide (21-33) mmol/L Anion Gap (10-20) BUN (7-21) mg/dL Creatinine (0.7-1.2) mg/dl Est GFR ( Amer) Est GFR (Non-Af Amer) POC Glucose (mg/dL) 150 H (65-110) mg/dL Random Glucose (70-110) mg/dL Calcium (8.4-10.5) mg/dL Phosphorus (2.5-4.5) mg/dL Magnesium (1.7-2.2) mg/dL Total Bilirubin (0.2-1.3) mg/dL AST (14-36) U/L ALT (7-56) U/L Alkaline Phosphatase (38-126) U/L NT-Pro-B Natriuret Pep (0-450) pg/mL Total Protein (5.8-8.3) g/dL Albumin (3.0-4.8) g/dL Globulin gm/dL Albumin/Globulin Ratio (1.1-1.8) Adenovirus Source Adenovirus (PCR) (Not Detected) CMV Specimen Source Plasma CMV DNA Quant PCR 261 H (<200) IU/mL CMV Qnt PCR log IU/mL 2.42 H (<2.30) log IU/mL Crossmatch See Detail 08/27/18 Range/Units 09:30 WBC (4.5-11.0) 10^3/uL RBC (3.5-6.1) 10^6/uL Hgb (12.0-16.0) g/dL Hct (36.0-48.0) % MCV (80.0-105.0) fl MCH (25.0-35.0) pg MCHC (31.0-37.0) g/dl RDW (11.5-14.5) % Plt Count (120.0-450.0) 10^3/uL MPV (7.0-11.0) fl Neut % (Auto) (50.0-68.0) % Lymph % (Auto) (22.0-35.0) % Mcdonald % (Auto) (1.0-6.0) % Eos % (Auto) (1.5-5.0) % Baso % (Auto) (0.0-3.0) % Lymph # (Auto) (1.2-3.4) Mcdonald # (Auto) (0.1-0.6) Eos # (Auto) (0.0-0.7) Baso # (Auto) (0.0-2.0) K/mm3 Absolute Neuts (auto) (1.4-6.5) Sodium (132-148) mmol/L Potassium (3.6-5.0) mmol/L Chloride (98-107) mmol/L Carbon Dioxide (21-33) mmol/L Anion Gap (10-20) BUN (7-21) mg/dL Creatinine (0.7-1.2) mg/dl Est GFR ( Amer) Est GFR (Non-Af Amer) POC Glucose (mg/dL) (65-110) mg/dL Random Glucose (70-110) mg/dL Calcium (8.4-10.5) mg/dL Phosphorus (2.5-4.5) mg/dL Magnesium (1.7-2.2) mg/dL Total Bilirubin (0.2-1.3) mg/dL AST (14-36) U/L ALT (7-56) U/L Alkaline Phosphatase (38-126) U/L NT-Pro-B Natriuret Pep (0-450) pg/mL Total Protein (5.8-8.3) g/dL Albumin (3.0-4.8) g/dL Globulin gm/dL Albumin/Globulin Ratio (1.1-1.8) Adenovirus Source Brochial washing Adenovirus (PCR) Not detected (Not Detected) CMV Specimen Source CMV DNA Quant PCR (<200) IU/mL CMV Qnt PCR log IU/mL (<2.30) log IU/mL Crossmatch Laboratory Results - last 24 hr 08/27/18 08/28/18 08/31/18 09:30 13:30 08:20 WBC RBC Hgb Hct MCV MCH MCHC RDW Plt Count MPV Neut % (Auto) Lymph % (Auto) Mcdonald % (Auto) Eos % (Auto) Baso % (Auto) Lymph # (Auto) Mcdonald # (Auto) Eos # (Auto) Baso # (Auto) Absolute Neuts (auto) Sodium Potassium Chloride Carbon Dioxide Anion Gap BUN Creatinine Est GFR ( Amer) Est GFR (Non-Af Amer) POC Glucose (mg/dL) Random Glucose Calcium Phosphorus Magnesium Total Bilirubin AST ALT Alkaline Phosphatase NT-Pro-B Natriuret Pep Total Protein Albumin Globulin Albumin/Globulin Ratio Adenovirus Source Brochial washing Adenovirus (PCR) Not detected CMV Specimen Source Plasma CMV DNA Quant PCR 261 H CMV Qnt PCR log IU/mL 2.42 H Crossmatch See Detail 08/31/18 09/01/18 09/01/18 22:15 05:40 05:40 WBC 5.2 RBC 3.30 L Hgb 9.6 L D Hct 28.6 L MCV 86.7 MCH 29.1 MCHC 33.6 RDW 15.0 H Plt Count 241 MPV 10.7 Neut % (Auto) 82.7 H Lymph % (Auto) 7.1 L Mcdonald % (Auto) 10.2 H Eos % (Auto) 0.0 L Baso % (Auto) 0.0 Lymph # (Auto) 0.4 L Mcdonald # (Auto) 0.5 Eos # (Auto) 0.0 Baso # (Auto) 0.00 Absolute Neuts (auto) 4.29 Sodium 135 Potassium 3.0 L Chloride 93 L Carbon Dioxide 37 H Anion Gap 8 L BUN 16 Creatinine 0.6 L Est GFR ( Amer) > 60 Est GFR (Non-Af Amer) > 60 POC Glucose (mg/dL) 150 H Random Glucose 126 H Calcium 8.3 L Phosphorus 3.4 Magnesium 2.0 Total Bilirubin 0.6 AST 29 ALT 16 Alkaline Phosphatase 41 NT-Pro-B Natriuret Pep Total Protein 5.1 L Albumin 2.6 L Globulin 2.4 Albumin/Globulin Ratio 1.1 Adenovirus Source Adenovirus (PCR) CMV Specimen Source CMV DNA Quant PCR CMV Qnt PCR log IU/mL Crossmatch 09/01/18 06:00 WBC RBC Hgb Hct MCV MCH MCHC RDW Plt Count MPV Neut % (Auto) Lymph % (Auto) Mcdonald % (Auto) Eos % (Auto) Baso % (Auto) Lymph # (Auto) Mcdonald # (Auto) Eos # (Auto) Baso # (Auto) Absolute Neuts (auto) Sodium Potassium Chloride Carbon Dioxide Anion Gap BUN Creatinine Est GFR ( Amer) Est GFR (Non-Af Amer) POC Glucose (mg/dL) Random Glucose Calcium Phosphorus Magnesium Total Bilirubin AST ALT Alkaline Phosphatase NT-Pro-B Natriuret Pep 903 H Total Protein Albumin Globulin Albumin/Globulin Ratio Adenovirus Source Adenovirus (PCR) CMV Specimen Source CMV DNA Quant PCR CMV Qnt PCR log IU/mL Crossmatch Radiology Impressions: Radiology Impressions Chest X-Ray 09/01/18 06:00 IMPRESSION: There is a diffuse interstitial infiltrate. There is improvement in the perihilar component Critical Care Progress Note - Nutrition Nutrition: Nutrition Category Date Time Status Liquid Diet [DIET] Diets 09/01/18 Breakfast Ordered Assessment/Plan - Assessment and Plan (Free Text) Plan: Patient seen and examined on rounds, with resident, agree with note with following additions/exceptions: Patient is 63yo female with PMH of HIV (CD4 <20) admitted to ICU for hypoxic respiratory failure 2/2 ARDS in the setting of septic shock 2/2 HCAP, intubated, then subsequently extubated yesterday, doing well. Currently afebrile HD stable, comfortable in NAD, on 2LNC, sat 98% No major complaints Labs, imaging, chart reviewed ABG with significant improvement in hypoxia Overall clinically much improved ARDS, resolved HCAP Rule out PCP, opportunistic infection HIV/AIDS PE Anemia Recommend: - supp o2 as needed, duonebs PRN, IS - Abx as per ID, taper steroids - BP control - PPI BID - GI follow up - monitor HH - would resume Lovenox for PE - HAART therapy as per ID - GI ppx - DVT ppx - Stable, transfer to tele
[2018-09-01] MEDS: levoFLOXacin 750 mg in D5W 750 MG/150 ML BAG IVPB SCH (09:53)
[2018-09-01] MEDS: Micafungin 100 MG in Sodium Chloride 0.9% 100 ML IV SCH (09:56)
[2018-09-01] MEDS: Potassium Chloride 20 mEq/15 ml LIQ UD PO SCH ×2 (10:00→19:23)
--- NOTE | 2018-09-01 10:02 | RAD ---
Date of service: 09/01/2018 HISTORY: f/u COMPARISON: 08/31/2018 FINDINGS: LUNGS: There is a diffuse interstitial infiltrate. There is improvement in the perihilar component PLEURA: No significant pleural effusion identified, no pneumothorax apparent. CARDIOVASCULAR: No aortic atherosclerotic calcification present. Normal cardiac size. No pulmonary vascular congestion. OSSEOUS STRUCTURES: No significant abnormalities. VISUALIZED UPPER ABDOMEN: Normal. OTHER FINDINGS: Left-sided PICC line terminating in the right atrium IMPRESSION: There is a diffuse interstitial infiltrate. There is improvement in the perihilar component
[2018-09-01] MEDS: Silver Sulfadiazine 1% Cream (25 gm) TP SCH ×2 (10:31→18:03)
[2018-09-01] MEDS: Oseltamivir 6 MG/ML PO SCH (10:32)
[2018-09-01] MEDS: Lidocaine 5% Oint(35 gm) TOP SCH (10:34)
--- NOTE | 2018-09-01 11:49 | PN ---
DATE: 09/01/2018(650am-740am) SUBJECTIVE: The patient is now off the ventilator. She appears comfortable at rest. She is not short of breath. PHYSICAL EXAMINATION: VITAL SIGNS: Temperature 98.0, pulse 90, respirations 18/20, blood pressure 134/73. Oxygen saturation on nasal cannula is 98%. HEENT: Normocephalic, atraumatic. NECK: No JVD. CARDIOVASCULAR: Positive S1, S2. No S3 gallop. LUNGS: Mild crackles at the bases. Mild/less rhonchi. No wheezing. EXTREMITIES: No clubbing, cyanosis or edema. Calves are nontender to palpation. GI: Abdomen is soft, nontender and nondistended. Bowel sounds are positive. SKIN: No acute rash. NEUROLOGIC: Exam limited at the present time. PERTINENT LABORATORY DATA: Chest x-ray was done this morning and reviewed. There remains mild bilateral pulmonary infiltrates - much improved from last week. Arterial blood gas was ordered - pending. IMPRESSION: 1. Acute respiratory distress syndrome. Respiratory failure. 2. Sepsis with shock. 3. Status post recent hemorrhoidectomy. 4. Community-acquired pneumonia, possibly atypical. 5. Mild anemia. 6. Human immunodeficiency virus positivity. 7. Rule out congestive heart failure. PLAN: The patient remains in the ICU. However, she is now off the ventilator. She is comfortable at rest. I did discuss the case with the night nurse at length. The night nurse stated the patient had a very good night. I did review the chest x-ray from this morning. The chest x-ray remains with mild bilateral pulmonary infiltrates - much improved from last week. Arterial blood gas is ordered - pending. On physical exam, there is no significant bronchospasm noted. In addition, the oxygen saturation on nasal cannula is now 98%. I will continue with the current nebulizer treatments for now. The patient remains on antibiotic therapy - as per Infectious Disease. Input by Dr. Queen is noted. The temperatures have now fully resolved. The leukocytosis has also fully resolved. Input by Cardiology is also pending. I did order a B-type natriuretic peptide to be done this morning. Bronchoscopy results/stains--still pending. Clinical status of the patient is significantly improved - compared to last week. However, given the above, the future status/prognosis for this patient does remain guarded. I will discuss the above with the entire ICU team in the next few moments. I will discuss the above with the attending physician later this morning. Griffin Medrano MD MTDJyotsna
--- NOTE | 2018-09-01 12:12 | CP.PCM.PN ---
Subjective - Date & Time of Evaluation Date of Evaluation: 09/01/18 Time of Evaluation: 09:10 - Subjective Subjective: Patient still feels weak but is a little better today, not short of breath at rest, no fevers, no nausea, no diarrhea. Objective - Vital Signs/Intake and Output Vital Signs (last 24 hours): Temp Pulse Resp BP Pulse Ox 97.7 F 85 22 127/78 99 08/31/18 11:40 08/31/18 11:40 08/31/18 11:40 08/31/18 11:40 08/31/18 10:15 Intake and Output: 08/31/18 08/31/18 06:59 18:59 Intake Total 127 118 Balance 127 118 - Medications Medications: Current Medications Acetaminophen (Tylenol 325mg Tab) 650 mg PO Q6H PRN PRN Reason: Temperature Last Admin: 08/22/18 14:20 Dose: 650 mg Albuterol/Ipratropium (Duoneb 3 Mg/0.5 Mg (3 Ml) Ud) 3 ml IH [id number] [facility] Last Admin: 08/31/18 01:45 Dose: 3 ml Albuterol/Ipratropium (Duoneb 3 Mg/0.5 Mg (3 Ml) Ud) 3 ml IH Q2H PRN PRN Reason: Shortness of Breath Last Admin: 08/27/18 08:21 Dose: 3 ml Alprazolam (Xanax) 0.25 mg PO Q6H PRN PRN Reason: Anxiety Stop: 08/31/18 19:11 Last Admin: 08/26/18 00:06 Dose: 0.25 mg Aspirin (Aspirin Chewable) 81 mg PO DAILY [facility] Last Admin: 08/30/18 12:40 Dose: 81 mg Benzonatate (Tessalon Perles) 100 mg PO TID [facility] Last Admin: 08/31/18 09:08 Dose: 100 mg Budesonide (Pulmicort Respules) 0.5 mg IH [id number] [facility] Last Admin: 08/31/18 07:36 Dose: 0.5 mg Docusate Sodium (Colace) 100 mg PO Q4H PRN PRN Reason: Constipation Last Admin: 08/22/18 23:44 Dose: 100 mg Enoxaparin Sodium (Lovenox) 50 mg SC Q12H [facility]; Protocol Last Admin: 08/31/18 05:25 Dose: 50 mg Furosemide (Lasix) 20 mg IVP BID [facility] Last Admin: 08/31/18 11:39 Dose: 20 mg Guaifenesin (Robitussin) 100 mg PO Q4H PRN PRN Reason: Cough Last Admin: 08/26/18 00:07 Dose: 100 mg Hydrocortisone Sodium Succinate (Solu-Cortef) 100 mg IVP Q8 [facility] Last Admin: 08/31/18 06:31 Dose: 100 mg NOREPINEPHRINE BIT/0.9 % NACL (Levophed 4 Mg/ 250 Ml Ns Premixed) 4 mg in 250 mls @ 15 mls/hr IV .[id number] PRN; Protocol PRN Reason: TITRATE PER MD ORDER Last Titration: 08/27/18 07:00 Dose: 0 mcg/min, 0 mls/hr Phenylephrine HCl 40 mg/ (Sodium Chloride) 254 mls @ 38.1 mls/hr IV .Q6H40M PRN; Protocol PRN Reason: TITRATE PER MD ORDER Last Titration: 08/30/18 20:52 Dose: 0 mcg/min, 0 mls/hr Trimethoprim/Sulfamethoxazole (250 mg/ Dextrose) 500 mls @ 250 mls/hr IVPB Q8 [facility] Last Admin: 08/31/18 05:23 Dose: 250 mls/hr Levofloxacin/Dextrose (Levaquin 750mg) 750 mg in 150 mls @ 100 mls/hr IVPB DAILY [facility]; Protocol Last Admin: 08/31/18 09:08 Dose: 100 mls/hr Micafungin Sodium 100 mg/ (Sodium Chloride) 100 mls @ 100 mls/hr IV DAILY [facility]; Protocol Stop: 09/03/18 12:46 Last Admin: 08/31/18 09:03 Dose: 100 mls/hr Dexmedetomidine HCl (Precedex 400mcg/100ml) 400 mcg in 100 mls @ 2.495 mls/hr IV .Q24H PRN; Protocol PRN Reason: Sedation Last Admin: 08/31/18 09:04 Dose: 0.2 mcg/kg/hr, 2.495 mls/hr Pantoprazole Sodium (Protonix 40mg Ivpb) 40 mg in 100 mls @ 20 mls/hr IVPB .Q5H [facility] Last Admin: 08/31/18 11:12 Dose: 20 mls/hr Ibuprofen (Motrin Tab) 200 mg PO Q6H PRN PRN Reason: Temperature Last Admin: 08/25/18 15:20 Dose: 200 mg Lidocaine (Lidocaine 5%) 0 gm TOP DAILY [facility] Last Admin: 08/30/18 12:53 Dose: 1 applic Lorazepam (Ativan) 2 mg IVP Q2H PRN; Protocol PRN Reason: Anxiety Last Admin: 08/31/18 02:25 Dose: 2 mg Metoprolol Tartrate (Lopressor) 12.5 mg PO BID [facility] Last Admin: 08/31/18 09:02 Dose: Not Given Ondansetron HCl (Zofran Inj) 4 mg IVP Q6H PRN PRN Reason: Nausea/Vomiting Last Admin: 08/24/18 01:07 Dose: 4 mg Oseltamivir Phosphate (Tamiflu Susp) 75 mg PO BID [facility]; Protocol Last Admin: 08/31/18 09:43 Dose: 75 mg Pantoprazole Sodium (Protonix Ec Tab) 40 mg PO ACB [facility] Last Admin: 08/30/18 08:00 Dose: 40 mg Potassium Chloride (Potassium Chloride Oral Soln) 20 meq PO BID [facility] Last Admin: 08/31/18 11:40 Dose: 20 meq Silver Sulfadiazine (Silvadene 1% 25 Gm) 0 gm TP BID [facility] Last Admin: 08/31/18 09:04 Dose: 1 gm Valganciclovir (Valcyte) 900 mg PO DAILY [facility] Vitamin A (Vitamin A & D Oint Ud Foilpak) 1 ea TOP Q8 PRN PRN Reason: dry lips - Labs Labs: 08/31/18 08:20 08/31/18 05:30 PT 11.2 SECONDS (9.4-12.5) 08/31/18 08:20 INR 0.99 08/31/18 08:20 APTT 28.5 Seconds (26.9-38.3) 08/31/18 08:20 - Constitutional Appears: Cachectic, Chronically Ill - Head Exam Head Exam: NORMAL INSPECTION - ENT Exam ENT Exam: Mucous Membranes Moist - Neck Exam Neck Exam: absent: Meningismus - Respiratory Exam Respiratory Exam: Decreased Breath Sounds, Rales (scattered) - Cardiovascular Exam Cardiovascular Exam: +S1, +S2 - GI/Abdominal Exam GI & Abdominal Exam: Soft. 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, in this patient HIV/AIDS perianal abscess after hemorrhoidectomy S/P surgery and chronic wound noted, cannot rule out colitis - has had more than 7 days of antibiotics for this gastritis Plan Beta glucan levels are elevated, and the BAL specimen is showing Pneumocystis on Bactrim day 6 and will need 14-21 days; on and Levaquin day 6 and will d/c by tomorrow we have discontinued Merrem since patient has had more than 7 days of antibiotics for possible coliitis patient also continued on steroids reviewed previous CT chest, abdomen and pelvis which shows pneumonitis with no lymphadenopathy, chronic diverticulosis but cannot rule out colitis; even though rapid flu test is negative and we have completed 5 days of Tamiflu discussed with Dr. Medrano - will discontinue Valganciclovir for now; will follow up CMV PCR HIV PCR is elevated, CD4 count is <20; RPR, serum Crypt Ag are negative - will be starting HALLE prophylaxis which is a once a week dosing of Zithromax (when patient not on QT prolonging agents anymore such as Levaquin which she is on currently) Quantiferon TB test was indeterminate - granuloma on right lung seen on CT scan is probably old disease, initial CT chest showed groundglass opacities which are not typically seen in patients with TB; also patient did not have mediastinal lymphadenopathy, no upper lobe cavities, no signs of miliary tuberculosis, no pleural effusions, making TB less likely - sputum AFB is negative x 3 Dr. Kramer has discussed with patient about the HIV test result repeat CT A/P did not show rectal lesions
--- NOTE | 2018-09-01 12:26 | CP.PCM.APN ---
Subjective - Date & Time of Evaluation Date of Evaluation: 09/01/18 Time of Evaluation: 08:00 - Subjective Subjective: Pt seen and examined at bedside. She is awake and alert. States that she is feeling better but still weak. Objective - Vital Signs/Intake and Output Vital Signs (last 24 hours): Temp Pulse Resp BP Pulse Ox 98.5 F 79 20 101/57 L 98 09/01/18 08:08 09/01/18 10:00 08/31/18 18:00 09/01/18 09:55 08/31/18 18:00 Intake and Output: 09/01/18 09/01/18 06:59 18:59 Intake Total 1240 Output Total 2100 Balance -860 - Medications Medications: Current Medications Acetaminophen (Tylenol 325mg Tab) 650 mg PO Q6H PRN PRN Reason: Temperature Last Admin: 09/01/18 08:08 Dose: 650 mg Albuterol/Ipratropium (Duoneb 3 Mg/0.5 Mg (3 Ml) Ud) 3 ml IH [id number] [facility] Last Admin: 09/01/18 07:35 Dose: 3 ml Albuterol/Ipratropium (Duoneb 3 Mg/0.5 Mg (3 Ml) Ud) 3 ml IH Q2H PRN PRN Reason: Shortness of Breath Last Admin: 08/27/18 08:21 Dose: 3 ml Aspirin (Aspirin Chewable) 81 mg PO DAILY [facility] Last Admin: 08/30/18 12:40 Dose: 81 mg Benzonatate (Tessalon Perles) 100 mg PO TID [facility] Last Admin: 09/01/18 09:59 Dose: 100 mg Budesonide (Pulmicort Respules) 0.5 mg IH [id number] [facility] Last Admin: 09/01/18 07:35 Dose: 0.5 mg Docusate Sodium (Colace) 100 mg PO Q4H PRN PRN Reason: Constipation Last Admin: 08/22/18 23:44 Dose: 100 mg Enoxaparin Sodium (Lovenox) 50 mg SC Q12H [facility]; Protocol Last Admin: 08/31/18 05:25 Dose: 50 mg Furosemide (Lasix) 20 mg IVP BID [facility] Last Admin: 09/01/18 09:00 Dose: 20 mg Guaifenesin (Robitussin) 100 mg PO Q4H PRN PRN Reason: Cough Last Admin: 08/26/18 00:07 Dose: 100 mg Hydrocortisone Sodium Succinate (Solu-Cortef) 100 mg IVP Q8 [facility] Last Admin: 09/01/18 07:00 Dose: 100 mg Trimethoprim/Sulfamethoxazole (250 mg/ Dextrose) 500 mls @ 250 mls/hr IVPB Q8 [facility] Last Admin: 09/01/18 05:13 Dose: 250 mls/hr Levofloxacin/Dextrose (Levaquin 750mg) 750 mg in 150 mls @ 100 mls/hr IVPB DAILY [facility]; Protocol Last Admin: 09/01/18 09:53 Dose: 100 mls/hr Ibuprofen (Motrin Tab) 200 mg PO Q6H PRN PRN Reason: Temperature Last Admin: 08/25/18 15:20 Dose: 200 mg Lidocaine (Lidocaine 5%) 0 gm TOP DAILY [facility] Last Admin: 09/01/18 10:34 Dose: 1 applic Lorazepam (Ativan) 2 mg IVP Q2H PRN; Protocol PRN Reason: Anxiety Last Admin: 08/31/18 02:25 Dose: 2 mg Metoprolol Tartrate (Lopressor) 12.5 mg PO BID [facility] Last Admin: 09/01/18 09:55 Dose: 12.5 mg Ondansetron HCl (Zofran Inj) 4 mg IVP Q6H PRN PRN Reason: Nausea/Vomiting Last Admin: 08/31/18 13:00 Dose: 4 mg Pantoprazole Sodium (Protonix Inj) 40 mg IVP Q12 [facility] Last Admin: 09/01/18 10:32 Dose: 40 mg Potassium Chloride (Potassium Chloride Oral Soln) 20 meq PO BID [facility] Last Admin: 09/01/18 10:00 Dose: 20 meq Potassium Chloride (K-Dur 20 Meq Er Tab) 40 meq PO ONCE ONE Stop: 09/01/18 13:01 Silver Sulfadiazine (Silvadene 1% 25 Gm) 0 gm TP BID [facility] Last Admin: 09/01/18 10:31 Dose: 25 gm Vitamin A (Vitamin A & D Oint Ud Foilpak) 1 ea TOP Q8 PRN PRN Reason: dry lips - Labs Labs: 09/01/18 05:40 09/01/18 05:40 PT 11.2 SECONDS (9.4-12.5) 08/31/18 08:20 INR 0.99 08/31/18 08:20 APTT 28.5 Seconds (26.9-38.3) 08/31/18 08:20 - Constitutional Appears: No Acute Distress - Head Exam Head Exam: ATRAUMATIC - Neck Exam Neck Exam: Full ROM - Respiratory Exam Respiratory Exam: Rales - Cardiovascular Exam Cardiovascular Exam: REGULAR RHYTHM, +S1, +S2 - GI/Abdominal Exam GI & Abdominal Exam: Soft, Normal Bowel Sounds - Rectal Exam Rectal Exam: Deferred - Extremities Exam Extremities Exam: Normal Inspection - Neurological Exam Neurological Exam: Alert, Awake, Oriented x3 Assessment and Plan - Assessment and Plan (Free Text) Assessment: Pt is a 63 y.o. female who was initially admitted for perirectal pain and purulent discharge s/p hemorrhoidectomy. She had exam under anesthesia, rigid sigmoidectomy, anoscopy on 08/20. She was also being treated for pneumonia. Her admission was complicated by severe sepsis w/ shock S/P VDRF, respiratory failure 2/2 ARDS d/t pneumonia (new diagnosis HIV/AIDS suspicious for PCP). Impressions Chest X-Ray 09/01/18 06:00 IMPRESSION: There is a diffuse interstitial infiltrate. There is improvement in the perihilar component Plan: Pt extubated yesterday - on NC and tolerating well (Spo2>93%) On Bactrim day 6 (for 14-21 days)/Levaquin per ID recs On Solucortef 100mg ivp q8 Pt for transfer to [facility] per SEP Will continue to follow
--- NOTE | 2018-09-01 12:35 | PN ---
DATE: 09/01/2018 REASON FOR CONSULTATION AND FOLLOWUP: Respiratory failure, borderline positive troponin, possibly ARDS, perianal abscess, sepsis, septic shock, HIV positive, status post intubated now successfully extubated. SUBJECTIVE: Awake and alert. OBJECTIVE GENERAL: The patient status post extubated, awake and alert. There is more information. VITAL SIGNS: Temperature afebrile, heart rate 90, and blood pressure 111/57. HEENT: PERRLA. Extraocular muscles intact. NECK: Supple. No carotid bruit, no thyromegaly. CHEST: Clear to auscultation. HEART: S1 and S2 regular. ABDOMEN: Soft. EXTREMITIES: Clubbing and cyanosis negative. LABORATORY DATA: Blood workup; WBC 5.1, hemoglobin 9.6, hematocrit 28.6, and platelet count . Chemistry shows sodium 135, potassium 3, chloride 93, carbon dioxide 37, anion gap of 8, BUN 16, and creatinine 0.6. Total protein 5.1, albumin 2.6, and albumin-globulin ratio 1.1. IMPRESSION: A 63-year-old female with no significant past medical history admitted with rectal abscess, sepsis, septic shock, found to be human immunodeficiency virus positive immunocompromised, severe protein calorie malnutrition, which was not present on admission given IV albumin, now moderate protein calorie malnutrition status post intubated secondary to acute respiratory distress syndrome sepsis. Echo shows ejection fraction 40% to 45%, trace to mild mitral regurgitation, mild tricuspid regurgitation, right ventricular systolic pressure at 33 mmHg. RECOMMENDATIONS: Continue gentle diuretics to keep negative fluid balance and keep away from pulmonary edema, increased nutritional support. Start p.o. supplement Ensure. We will get MUGA scan to assess LV function and RV function most likely decrease LV function secondary to sepsis. We will change Lovenox, DVT prophylaxis from 50 every 12 hours to 30 subcutaneously daily and I will keep negative fluid balance, supplement potassium. We will gave another K-Dur at 12 noon to supplement potassium. We will put Ensure clear four times a day. We will get MUGA scan to assess LV function. We will repeat the blood workup in the morning after supplement potassium. Thank you, Dr. Kramer, for providing us the opportunity in taking care of the patient, Jose Angel Guerra. Paddy Weinstein MD [facility] # [id number]
[2018-09-01] MEDS ORDERED: Potassium Chloride 20 mEq ER Tab PO ONE (13:00)
--- NOTE | 2018-09-01 17:21 | CARD ---
APPROVED REPORT Date of service: 09/01/2018 INDICATION EVALAUTE LV AND RV EF% PROCEDURE The above named patient recieved 28.7 millicuries of Tc99m tagged red blood cells intravenously. After achieving equilibrium, gated imaging of 16/frame/cycle was performed utillizing Gamma camera interfaced with a digital computer and gated device. Gated imaging was then performed in the left anterior oblique, anterior, and the left lateral projections. Findings Calculated LV Ejection Fraction is 67%. Impressions Calculated Ejection Fraction is 67 %.
[2018-09-01] MEDS: Enoxaparin 30 mg Syringe SC SCH (17:30)
[2018-09-01 19:10] LABS: BLOOD UREA NITROGEN 13 mg/dL (7-21); CALCIUM 8.4 mg/dL (8.4-10.5); GFR NON-AFRICAN AMERICAN > 60
[2018-09-01] MEDS ORDERED: Alum-Mag Hydrox-Simethicone Susp (30 mL) PO ONE (20:57)
[2018-09-01 22:24] LABS: SOURCE SPUTUM
[2018-09-02] MEDS: Albuterol-Ipratrop 3 mg / 0.5 (3 ml) UD IH SCH ×4 (02:30→20:26)
[2018-09-02] MEDS: Sulfamethoxazole/Trimethoprim 250 MG in Dextrose 5% In Water 500 ML IVPB SCH ×3 (06:02→23:10)
[2018-09-02 06:24] LABS: LYMPH # 0.5 (1.2-3.4); LYMPH % 10.6 % (22.0-35.0); MEAN CELL VOLUME 87.3 fl (80.0-105.0); MEAN CORPUSCULAR HEMOGLOBIN 29.2 pg (25.0-35.0); MEAN CORPUSCULAR HGB CONC 33.5 g/dl (31.0-37.0); MEAN PLATELET VOLUME 10.6 fl (7.0-11.0); MONO # 0.3 (0.1-0.6); MONO % 6.3 % (1.0-6.0); RBC 3.08 10^6/uL (3.5-6.1); RED CELL DISTRIBUTION WIDTH 15.2 % (11.5-14.5); WHITE BLOOD COUNT 4.9 10^3/uL (4.5-11.0)
[2018-09-02 07:14] LABS: ALB/GLOB RATIO 1.1 (1.1-1.8); ALBUMIN 2.7 g/dL (3.0-4.8); ALT/SGPT 27 U/L (7-56); AST/SGOT 31 U/L (14-36); BLOOD UREA NITROGEN 14 mg/dL (7-21); CALCIUM 8.4 mg/dL (8.4-10.5); GFR NON-AFRICAN AMERICAN > 60
[2018-09-02] MEDS: Budesonide 0.5 mg/2 ml Inhal Susp UD IH SCH ×2 (07:16→20:26)
--- NOTE | 2018-09-02 08:07 | RAD ---
Date of service: 09/02/2018 HISTORY: f/u COMPARISON: Portable chest 09/01/2018. FINDINGS: LUNGS: Left PICC unchanged in position terminating in right atrium. Bilateral interstitial infiltrates remain greater the left and right lungs once again with mid inferior left lung zones affected and right base affected. No interval change in distribution and density of infiltrates. PLEURA: No significant pleural effusion identified, no pneumothorax apparent. CARDIOVASCULAR: No aortic atherosclerotic calcification present. Normal cardiac size. No pulmonary vascular congestion. OSSEOUS STRUCTURES: No significant abnormalities. VISUALIZED UPPER ABDOMEN: Normal. OTHER FINDINGS: None. IMPRESSION: Stable bilateral interstitial infiltrates remain left greater than right, without interval change.
--- NOTE | 2018-09-02 09:27 | PN ---
DATE: 09/01/2018 DAILY PROGRESS NOTE SUBJECTIVE: The patient is a 63-year-old female who was admitted to [facility] with complications from a hemorrhoidectomy performed in April 2018. Since the hemorrhoidectomy, the patient has suffered pain and noted purulent drainage from the perirectal area. The pain was so severe she became bedridden, developed a cough and finally presented to the emergency room where she is evaluated and admitted. She was seen by Dr. Dobson. During the hospital stay proctoscopy revealed excoriations in the perianal area and a mild rectal tear. She was treated with topical Silvadene since then. She was followed by Guest Service Supervisor and Infectious Disease for treatment of the bilateral pneumonia that was noted on admission. However, the patient was admitted on the 08/17/2018 and about 08/26/2018 the patient decompensated, she became tachypneic, tachycardic, was transferred to the Intensive Care Unit, found to be in ARDS and was intubated. Workup shows the patient to be HIV positive. She was treated in the Intensive Care Unit today, when seen she was finally extubated. She was feeling well. Her son is at bedside. She was able to talk. She was relatively comfortable. Her lungs were clear anteriorly. Heart irregular. Abdomen is soft and nontender. She is currently being treated with Bactrim, Merrem, Levaquin, Mepron, and Mycemine. Morning laboratory studies show the white blood cell count to be 5.2, hemoglobin and hematocrit 9.6 and 28.6 respectively and platelet count is 248. Sodium is 135, potassium 3.0, blood urea nitrogen 16, creatinine 0.6 and glucose is 126. Her blood pressure of 134/73, heart rate is 90 and she is afebrile at 98.5 degrees Fahrenheit. At this point, we are continuing to follow the lead of Infectious Disease concerning antibiotics, antivirals. We are in close contact with Guest Service Supervisor concerning her respiratory status; although, chest x-ray seemed to be show improvement of her ARDS. Clinically, the patient is much improved from over the past week. We will continue to follow the patient closely. Scott Kramer MD MTDD
[2018-09-02] MEDS: Potassium Chloride 20 mEq/15 ml LIQ UD PO SCH ×2 (09:49→17:44)
[2018-09-02] MEDS: Enoxaparin 30 mg Syringe SC SCH (09:50)
[2018-09-02] MEDS: levoFLOXacin 750 mg in D5W 750 MG/150 ML BAG IVPB SCH (09:50)
[2018-09-02] MEDS: Silver Sulfadiazine 1% Cream (25 gm) TP SCH ×2 (11:00→17:44)
[2018-09-02] MEDS: Lidocaine 5% Oint(35 gm) TOP SCH (11:00)
--- NOTE | 2018-09-02 12:35 | PN ---
DATE: 09/02/2018 PULMONARY NOTE SUBJECTIVE: The patient appears comfortable this morning. She is not short of breath at rest. PHYSICAL EXAMINATION: VITAL SIGNS: Temperature is 97.2, pulse 84, respiratory rate 20, blood pressure 125/76. Oxygen saturation on nasal cannula is 97%. HEENT: Normocephalic, atraumatic. No JVD. CARDIOVASCULAR: Positive S1, S2. No S3 gallop. LUNGS: Mild crackles at the bases. Less rhonchi. No wheezing. GI: Abdomen is soft, nontender and nondistended. Bowel sounds are positive. EXTREMITIES: No clubbing, cyanosis or edema. Calves are nontender to palpation. SKIN: No acute rash. NEUROLOGIC: Exam limited at the present time. PERTINENT LABORATORY DATA: Chest x-ray was done this morning and reviewed. Mild pulmonary infiltrates remain. Cytopathology from the bronchoscopy specimen - consistent with Pneumocystis carinii pneumonia. IMPRESSION: 1. Acute respiratory distress syndrome. Respiratory failure. 2. Sepsis with shock. 3. Status post recent hemorrhoidectomy. 4. Pneumocystis carinii pneumonia. 5. Mild anemia. 6. Human immunodeficiency virus positivity. 7. Rule out congestive heart failure. PLAN: The patient remains in the ICU. She remains off of the ventilator. She appears comfortable. She does state to feeling much, much better overall. I did discuss the case with night nurse at length. The night nurse stated the patient had a very good night. I did review the chest x-ray from this morning. The chest x-ray remains with mild bilateral pulmonary infiltrates - much improved from last week. I have also reviewed the cytopathology on the bronchoscopy. It is positive for Pneumocystis carinii pneumonia. The patient remains on Bactrim therapy - as per Infectious Disease. On physical exam, there is only minimal bronchospasm noted. However, there is no significant alveolar-arterial gradient. I will continue the current nebulizer treatments and inhaled steroids for now. Input by Cardiology is also noted. I did discuss the case with Dr. Weinstein yesterday. Clinical status of the patient has significantly improved overall. However, again, the future status/prognosis for this patient does remain guarded. I will discuss the above with the entire ICU team in the next few moments. I will discuss the above with Dr. Kramer later this morning. Griffin Medrano MD [facility] # [id number] MTDJyotsna
--- NOTE | 2018-09-02 12:58 | CP.PCM.PN ---
Subjective - Date & Time of Evaluation Date of Evaluation: 09/02/18 Time of Evaluation: 09:50 - Subjective Subjective: Comfortable, still with cough but improving, no SOB at rest currently, no fevers, no nausea, no abdominal pain. Objective - Vital Signs/Intake and Output Vital Signs (last 24 hours): Temp Pulse Resp BP Pulse Ox 98.5 F 106 H 20 101/57 L 98 09/01/18 08:08 09/01/18 09:55 08/31/18 18:00 09/01/18 09:55 08/31/18 18:00 Intake and Output: 09/01/18 09/01/18 06:59 18:59 Intake Total 1240 Output Total 2100 Balance -860 - Medications Medications: Current Medications Acetaminophen (Tylenol 325mg Tab) 650 mg PO Q6H PRN PRN Reason: Temperature Last Admin: 09/01/18 08:08 Dose: 650 mg Albuterol/Ipratropium (Duoneb 3 Mg/0.5 Mg (3 Ml) Ud) 3 ml IH [id number] [facility] Last Admin: 09/01/18 07:35 Dose: 3 ml Albuterol/Ipratropium (Duoneb 3 Mg/0.5 Mg (3 Ml) Ud) 3 ml IH Q2H PRN PRN Reason: Shortness of Breath Last Admin: 08/27/18 08:21 Dose: 3 ml Aspirin (Aspirin Chewable) 81 mg PO DAILY [facility] Last Admin: 08/30/18 12:40 Dose: 81 mg Benzonatate (Tessalon Perles) 100 mg PO TID [facility] Last Admin: 09/01/18 09:59 Dose: 100 mg Budesonide (Pulmicort Respules) 0.5 mg IH [id number] [facility] Last Admin: 09/01/18 07:35 Dose: 0.5 mg Docusate Sodium (Colace) 100 mg PO Q4H PRN PRN Reason: Constipation Last Admin: 08/22/18 23:44 Dose: 100 mg Enoxaparin Sodium (Lovenox) 50 mg SC Q12H [facility]; Protocol Last Admin: 08/31/18 05:25 Dose: 50 mg Furosemide (Lasix) 20 mg IVP BID [facility] Last Admin: 09/01/18 09:00 Dose: 20 mg Guaifenesin (Robitussin) 100 mg PO Q4H PRN PRN Reason: Cough Last Admin: 08/26/18 00:07 Dose: 100 mg Hydrocortisone Sodium Succinate (Solu-Cortef) 100 mg IVP Q8 [facility] Last Admin: 09/01/18 07:00 Dose: 100 mg Trimethoprim/Sulfamethoxazole (250 mg/ Dextrose) 500 mls @ 250 mls/hr IVPB Q8 [facility] Last Admin: 09/01/18 05:13 Dose: 250 mls/hr Levofloxacin/Dextrose (Levaquin 750mg) 750 mg in 150 mls @ 100 mls/hr IVPB DAILY [facility]; Protocol Last Admin: 09/01/18 09:53 Dose: 100 mls/hr Ibuprofen (Motrin Tab) 200 mg PO Q6H PRN PRN Reason: Temperature Last Admin: 08/25/18 15:20 Dose: 200 mg Lidocaine (Lidocaine 5%) 0 gm TOP DAILY [facility] Last Admin: 09/01/18 10:34 Dose: 1 applic Lorazepam (Ativan) 2 mg IVP Q2H PRN; Protocol PRN Reason: Anxiety Last Admin: 08/31/18 02:25 Dose: 2 mg Metoprolol Tartrate (Lopressor) 12.5 mg PO BID [facility] Last Admin: 09/01/18 09:55 Dose: 12.5 mg Ondansetron HCl (Zofran Inj) 4 mg IVP Q6H PRN PRN Reason: Nausea/Vomiting Last Admin: 08/31/18 13:00 Dose: 4 mg Pantoprazole Sodium (Protonix Inj) 40 mg IVP Q12 [facility] Last Admin: 09/01/18 10:32 Dose: 40 mg Potassium Chloride (Potassium Chloride Oral Soln) 20 meq PO BID [facility] Last Admin: 09/01/18 10:00 Dose: 20 meq Potassium Chloride (K-Dur 20 Meq Er Tab) 40 meq PO ONCE ONE Stop: 09/01/18 13:01 Silver Sulfadiazine (Silvadene 1% 25 Gm) 0 gm TP BID [facility] Last Admin: 09/01/18 10:31 Dose: 25 gm Vitamin A (Vitamin A & D Oint Ud Foilpak) 1 ea TOP Q8 PRN PRN Reason: dry lips - Labs Labs: 09/01/18 05:40 09/01/18 05:40 PT 11.2 SECONDS (9.4-12.5) 08/31/18 08:20 INR 0.99 08/31/18 08:20 APTT 28.5 Seconds (26.9-38.3) 08/31/18 08:20 - Constitutional Appears: No Acute Distress, Cachectic, Chronically Ill - Head Exam Head Exam: NORMAL INSPECTION - ENT Exam ENT Exam: Mucous Membranes Moist - Neck Exam Neck Exam: absent: Meningismus - Respiratory Exam Respiratory Exam: Decreased Breath Sounds, Rales (scattered) - Cardiovascular Exam Cardiovascular Exam: +S1, +S2 - GI/Abdominal Exam GI & Abdominal Exam: Soft. 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, in this patient HIV/AIDS, slowly improving perianal abscess after hemorrhoidectomy S/P surgery and chronic wound noted, cannot rule out colitis - has had more than 7 days of antibiotics for this gastritis Plan Beta glucan levels are elevated, and the BAL specimen is showing Pneumocystis on Bactrim day 7 and will need 14-21 days; on and Levaquin day 7 and will d/c after today's dose we have discontinued Merrem since patient has had more than 7 days of antibiotics for possible coliitis patient also continued on steroids reviewed previous CT chest, abdomen and pelvis which shows pneumonitis with no lymphadenopathy, chronic diverticulosis but cannot rule out colitis; even though rapid flu test is negative and we have completed 5 days of Tamiflu discussed with Dr. Medrano previously will discontinue Valganciclovir for now; CMV PCR is only 261 HIV PCR is elevated, CD4 count is <20; RPR, serum Crypt Ag are negative - will be starting HALLE prophylaxis which is a once a week dosing of Zithromax (when pa tient not on QT prolonging agents anymore such as Levaquin which she is on currently); will follow up RPR as well and would recommend Ophtho exam eventually Quantiferon TB test was indeterminate - granuloma on right lung seen on CT scan is probably old disease, initial CT chest showed groundglass opacities which are not typically seen in patients with TB; also patient did not have mediastinal lymphadenopathy, no upper lobe cavities, no signs of miliary tuberculosis, no pleural effusions, making TB less likely - sputum AFB is negative x 3 Dr. Kramer has discussed with patient about the HIV test result repeat CT A/P did not show rectal lesions
[2018-09-02] MEDS ORDERED: Potassium Chloride 40 mEq/30 ml LIQ UD PO ONE (14:00)
--- NOTE | 2018-09-02 14:05 | PN ---
DATE: 09/02/2018 REASON FOR CONSULTATION AND FOLLOWUP: Respiratory failure, borderline troponin positive, possibly ARDS, perianal abscess, sepsis, septic shock, HIV positive, status post intubated now successfully extubated. SUBJECTIVE: The patient denies any chest pain, shortness of breath or any palpitations. OBJECTIVE: GENERAL: Not in apparent distress. VITAL SIGNS: Temperature afebrile, heart rate 84, blood pressure 125/76. HEENT: PERRLA. Extraocular muscles intact. NECK: Supple. No carotid bruit, no thyromegaly. CHEST: Clear to auscultation. HEART: S1, S2. Regular. ABDOMEN: Soft. EXTREMITIES: Clubbing and cyanosis, negative. LABORATORY DATA: Blood workup as follows; WBC 4.9, hemoglobin 9, hematocrit 26.9, platelet count 257. Chemistry shows sodium 135, potassium 3.4, chloride 95, carbon dioxide 34, anion gap of 10, BUN 14, and creatinine 0.6. Total protein 5.2, albumin 2.7, albumin-globulin ratio 1.1. Yesterday the patient underwent MUGA scan that showed ejection fraction 67%. IMPRESSION: A 63-year-old female with no significant past medical history, admitted with rectal abscess, sepsis, septic shock, found to be human immunodeficiency virus positive, intubated, protein calorie malnutrition moderate to severe which was not present on admission. Initial picture was acute respiratory distress syndrome, pulmonary edema. Echo shows ejection fraction 42% to 45%, trace to mild mitral regurgitation, mild tricuspid regurgitation, right ventricular systolic pressure at 33. Most likely the decrease in left ventricular function is secondary to underlying comorbidities, sepsis and septic shock, syndrome. Yesterday the patient underwent MUGA scan that showed significantly improved ejection fraction to 67%. RECOMMENDATIONS: Continue to supplement potassium as needed. We will continue gentle diuretics, keep negative fluid balance. We will change Lasix to oral. Continue low dose beta fani. We will follow with you. Further recommendations as per the insurance account assistant. In case protein calorie malnutrition increases, a supplement diet to increase protein nutrition. Paddy Weinstein MD
[2018-09-02 20:10] LABS: AB TO F ANTIGEN NEGATIVE; AB TO TP ANTIGEN NEGATIVE
[2018-09-03] MEDS: Albuterol-Ipratrop 3 mg / 0.5 (3 ml) UD IH SCH ×4 (01:18→19:45)
[2018-09-03] MEDS: Sulfamethoxazole/Trimethoprim 250 MG in Dextrose 5% In Water 500 ML IVPB SCH ×3 (06:24→21:49)
[2018-09-03 06:51] LABS: HEMOGLOBIN 9.4 g/dL (12.0-16.0); LYMPH # 0.3 (1.2-3.4); LYMPH % 5.1 % (22.0-35.0); MEAN CORPUSCULAR HEMOGLOBIN 29.6 pg (25.0-35.0); MEAN CORPUSCULAR HGB CONC 33.2 g/dl (31.0-37.0); MEAN PLATELET VOLUME 10.5 fl (7.0-11.0); MONO # 0.6 (0.1-0.6); MONO % 9.9 % (1.0-6.0); RBC 3.18 10^6/uL (3.5-6.1); RED CELL DISTRIBUTION WIDTH 15.5 % (11.5-14.5); WHITE BLOOD COUNT 5.7 10^3/uL (4.5-11.0)
[2018-09-03] MEDS: Budesonide 0.5 mg/2 ml Inhal Susp UD IH SCH ×2 (07:13→19:45)
[2018-09-03 07:27] LABS: ALB/GLOB RATIO 1.2 (1.1-1.8); ALBUMIN 2.8 g/dL (3.0-4.8); ALT/SGPT 17 U/L (7-56); AST/SGOT 24 U/L (14-36); BLOOD UREA NITROGEN 14 mg/dL (7-21); CALCIUM 8.3 mg/dL (8.4-10.5); GFR NON-AFRICAN AMERICAN > 60
[2018-09-03] MEDS ORDERED: Potassium Chloride 20 mEq ER Tab PO ONE (08:56)
[2018-09-03] MEDS: Potassium Chloride 20 mEq/15 ml LIQ UD PO SCH ×2 (09:52→17:19)
[2018-09-03] MEDS: Enoxaparin 30 mg Syringe SC SCH (09:52)
--- NOTE | 2018-09-03 09:53 | PN ---
DATE: 09/03/2018 SUBJECTIVE: The patient appears comfortable this morning. She is not short of breath at rest. PHYSICAL EXAMINATION: VITAL SIGNS: Temperature is 99, pulse 82, respirations 20, blood pressure 153/71. Oxygen saturation on nasal cannula is 99%. HEENT: Normocephalic, atraumatic. No JVD. CARDIOVASCULAR: Positive S1, S2. No S3 gallop. LUNGS: Mild crackles at the bases. Very minimal rhonchi. No wheezing. EXTREMITIES: No clubbing, cyanosis or edema. Calves are nontender to palpation. GASTROINTESTINAL: Abdomen is soft, nontender and nondistended. Bowel sounds are positive. SKIN: No acute rash. NEUROLOGIC: Exam limited at the present time. PERTINENT LABORATORY DATA: Chest x-ray was done this morning and reviewed. Mild bilateral pulmonary infiltrates remain - much improved from last week. IMPRESSION: 1. Acute respiratory distress syndrome. Respiratory failure. 2. Sepsis with shock. 3. Status post recent hemorrhoidectomy. 4. Pneumocystis carinii pneumonia. 5. Mild anemia. 6. Human immunodeficiency virus positivity. 7. Rule out congestive heart failure. PLAN: The patient appears comfortable this morning. She is not short of breath at rest. She does state to feeling much, much better overall. I did discuss case with the night nurse at length. The night nurse stated that the patient had a very good night. I did review the chest x-ray from this morning. Mild pulmonary infiltrates remain - much improved from last week. On physical exam, there is no significant bronchospasm noted. In addition, there is no significant alveolar-arterial gradient. I will continue the current nebulizer treatments and inhaled steroids for now. The patient remains on antibiotic therapy - as per Infectious Disease. Input by Dr. Queen is noted. Temperatures have now resolved. The leukocytosis has also resolved. Clinical status of the patient is significantly improved - compared to last week. However, given the above, the future status/prognosis of this patient does remain guarded. I will discuss the above with the entire ICU team in the next few moments. I will also discuss the above with the attending physician later this morning. Griffin Medrano MD [facility] # [id number] MTDJyotsna
--- NOTE | 2018-09-03 09:58 | RAD ---
Date of service: 09/03/2018 HISTORY: f/u COMPARISON: 09/02/2018 FINDINGS: LUNGS: Questionable right basilar infiltrate. PLEURA: No significant pleural effusion identified, no pneumothorax apparent. CARDIOVASCULAR: No aortic atherosclerotic calcification present. Normal cardiac size. Congestive change is noted. Possible pulmonary edema. Left PICC catheter unchanged. OSSEOUS STRUCTURES: No significant abnormalities. VISUALIZED UPPER ABDOMEN: Normal. OTHER FINDINGS: None. IMPRESSION: Possible right basilar infiltrate. Congestive change. Left PICC catheter peer
[2018-09-03] MEDS: Lidocaine 5% Oint(35 gm) TOP SCH (10:15)
[2018-09-03] MEDS: Silver Sulfadiazine 1% Cream (25 gm) TP SCH ×2 (10:17→18:01)
[2018-09-03 10:37] LABS: SOURCE: BRONCHIAL WASHING
[2018-09-03 10:42] LABS: SOURCE: TRACHEAL ASPIRATE
--- NOTE | 2018-09-03 13:58 | PN ---
DATE: 09/03/2018 REASON FOR CONSULTATION AND FOLLOWUP: Respiratory failure, borderline troponin positive, possibly ARDS, perianal abscess, sepsis, septic shock, HIV positive, AIDS, decreased LV function in echo. A repeat MUGA scan shows improved LV function, ejection fraction by MUGA 67%. SUBJECTIVE: The patient is awake and alert, extubated. Denies any chest pain, shortness of breath or any palpitation. OBJECTIVE: GENERAL: Not in apparent distress. VITAL SIGNS: Temperature afebrile, heart rate 88 and blood pressure 115/70. HEENT: PERRLA. Extraocular muscles intact. NECK: Supple. No carotid bruit or thyromegaly. CHEST: Clear to auscultation. HEART: S1 and S2 regular. ABDOMEN: Soft. EXTREMITIES: Clubbing and cyanosis, negative. LABORATORY DATA: WBC 5.7, hemoglobin 9.4, hematocrit 28.3, and platelet count 240. Chemistry shows sodium 137, potassium 3.8, chloride 97, carbon dioxide 31, anion gap of 11, BUN 14, and creatinine 0.5. IMPRESSION: A 63-year-old female with no significant past medical history, admitted with the rectal abscess, sepsis, septic shock, found to be human immunodeficiency virus positive possibly acquired immunodeficiency syndrome, intubated now successfully extubated and protein-calorie malnutrition was not present on admission. Echo shows ejection fraction around 40% to 45% mild mitral regurgitation, possibly this decreased left ventricular function is secondary to sepsis, septic shock and sepsis syndrome. Yesterday, the patient underwent MUGA scan that shows ejection fraction of 67%. RECOMMENDATION: Continue supplement electrolytes, monitor closely. Supplement diet, increase nutrition support. Continue gentle diuretics to keep negative fluid balance to improve oxygenation. Now we change Lasix to p.o. There is no active cardiac problem. We will sign off and glad to follow p.r.n. Discussed with Dr. Medrano, Pulmonary. CVS status is stable. Thank you Dr. Kramer for providing us the opportunity in taking care of the patient, Luci Guerra. Paddy Weinstein MD
--- NOTE | 2018-09-03 15:36 | CP.PCM.PN ---
Subjective - Date & Time of Evaluation Date of Evaluation: 09/03/18 Time of Evaluation: 08:40 - Subjective Subjective: Comfortable, breathing better, no fevers, no nausea, no abdominal pain. Objective - Vital Signs/Intake and Output Vital Signs (last 24 hours): Temp Pulse Resp BP Pulse Ox 97.7 F 89 23 125/64 96 09/02/18 08:00 09/02/18 09:50 09/02/18 02:30 09/02/18 09:51 09/02/18 02:30 - Medications Medications: Current Medications Acetaminophen (Tylenol 325mg Tab) 650 mg PO Q6H PRN PRN Reason: Temperature Last Admin: 09/01/18 08:08 Dose: 650 mg Albuterol/Ipratropium (Duoneb 3 Mg/0.5 Mg (3 Ml) Ud) 3 ml IH [id number] [facility] Last Admin: 09/02/18 07:16 Dose: 3 ml Albuterol/Ipratropium (Duoneb 3 Mg/0.5 Mg (3 Ml) Ud) 3 ml IH Q2H PRN PRN Reason: Shortness of Breath Last Admin: 08/27/18 08:21 Dose: 3 ml Aspirin (Aspirin Chewable) 81 mg PO DAILY [facility] Last Admin: 08/30/18 12:40 Dose: 81 mg Benzonatate (Tessalon Perles) 100 mg PO TID [facility] Last Admin: 09/02/18 09:51 Dose: 100 mg Budesonide (Pulmicort Respules) 0.5 mg IH [id number] [facility] Last Admin: 09/02/18 07:16 Dose: 0.5 mg Enoxaparin Sodium (Lovenox) 30 mg SC DAILY [facility]; Protocol Last Admin: 09/02/18 09:50 Dose: 30 mg Furosemide (Lasix) 40 mg PO DAILY [facility] Last Admin: 09/02/18 09:51 Dose: 40 mg Guaifenesin (Robitussin) 100 mg PO Q4H PRN PRN Reason: Cough Last Admin: 08/26/18 00:07 Dose: 100 mg Hydrocortisone Sodium Succinate (Solu-Cortef) 100 mg IVP Q12H [facility] Stop: 09/04/18 12:31 Hydrocortisone Sodium Succinate (Solu-Cortef) 100 mg IVP QOTHERDAY [facility] Stop: 09/07/18 10:01 Trimethoprim/Sulfamethoxazole (250 mg/ Dextrose) 500 mls @ 250 mls/hr IVPB Q8 [facility] Last Admin: 09/02/18 06:02 Dose: 250 mls/hr Levofloxacin/Dextrose (Levaquin 750mg) 750 mg in 150 mls @ 100 mls/hr IVPB DAILY [facility]; Protocol Last Admin: 09/02/18 09:50 Dose: 100 mls/hr Ibuprofen (Motrin Tab) 200 mg PO Q6H PRN PRN Reason: Temperature Last Admin: 08/25/18 15:20 Dose: 200 mg Lidocaine (Lidocaine 5%) 0 gm TOP DAILY [facility] Last Admin: 09/01/18 10:34 Dose: 1 applic Lorazepam (Ativan) 2 mg IVP Q2H PRN; Protocol PRN Reason: Anxiety Last Admin: 09/01/18 22:25 Dose: 2 mg Metoprolol Tartrate (Lopressor) 12.5 mg PO BID [facility] Last Admin: 09/02/18 09:50 Dose: 12.5 mg Ondansetron HCl (Zofran Inj) 4 mg IVP Q6H PRN PRN Reason: Nausea/Vomiting Last Admin: 08/31/18 13:00 Dose: 4 mg Pantoprazole Sodium (Protonix Inj) 40 mg IVP Q12 [facility] Last Admin: 09/02/18 09:49 Dose: 40 mg Potassium Chloride (Potassium Chloride Oral Soln) 20 meq PO BID [facility] Last Admin: 09/02/18 09:49 Dose: 20 meq Silver Sulfadiazine (Silvadene 1% 25 Gm) 0 gm TP BID [facility] Last Admin: 09/01/18 18:03 Dose: 25 gm Vitamin A (Vitamin A & D Oint Ud Foilpak) 1 ea TOP Q8 PRN PRN Reason: dry lips - Labs Labs: 09/02/18 05:30 09/02/18 05:30 PT 11.2 SECONDS (9.4-12.5) 08/31/18 08:20 INR 0.99 08/31/18 08:20 APTT 28.5 Seconds (26.9-38.3) 08/31/18 08:20 - Constitutional Appears: No Acute Distress, Cachectic, Chronically Ill - Head Exam Head Exam: NORMAL INSPECTION - Neck Exam Neck Exam: absent: Meningismus - Respiratory Exam Respiratory Exam: Decreased Breath Sounds, Rales (scattered) - Cardiovascular Exam Cardiovascular Exam: +S1, +S2 - GI/Abdominal Exam GI & Abdominal Exam: Soft. 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, in this patient HIV/AIDS, slowly improving perianal abscess after hemorrhoidectomy S/P surgery and chronic wound noted, cannot rule out colitis - has had more than 7 days of antibiotics for this gastritis Plan Beta glucan levels are elevated, and the BAL specimen is showing Pneumocystis on Bactrim day 8 and will need 14-21 days; S/P 7 days of Levaquin we have discontinued Merrem since patient has had more than 7 days of antibiotics for possible coliitis patient also continued on steroids reviewed previous CT chest, abdomen and pelvis which shows pneumonitis with no lymphadenopathy, chronic diverticulosis but cannot rule out colitis; even though rapid flu test is negative and we have completed 5 days of Tamiflu discussed with Dr. Medrano previously will discontinue Valganciclovir for now; CMV PCR is only 261 HIV PCR is elevated, CD4 count is <20; RPR, serum Crypt Ag are negative - will be starting HALLE prophylaxis which is a once a week dosing of Zithromax (when patient not on QT prolonging agents anymore); will follow up RPR as well and would recommend Ophtho exam eventually will consider starting cART within the next week - discussed with test case developer that patient should be linked to an HIV provider prior to discharge Quantiferon TB test was indeterminate - granuloma on right lung seen on CT scan is probably old disease, initial CT chest showed groundglass opacities which are not typically seen in patients with TB; also patient did not have mediastinal lymphadenopathy, no upper lobe cavities, no signs of miliary tuberculosis, no pleural effusions, making TB less likely - sputum AFB is negative x 3 Dr. Kramer has discussed with patient about the HIV test result repeat CT A/P did not show rectal lesions
[2018-09-04] MEDS: Albuterol-Ipratrop 3 mg / 0.5 (3 ml) UD IH SCH ×2 (01:39→07:52)
[2018-09-04] MEDS: Sulfamethoxazole/Trimethoprim 250 MG in Dextrose 5% In Water 500 ML IVPB SCH ×3 (05:45→22:19)
[2018-09-04] MEDS: Budesonide 0.5 mg/2 ml Inhal Susp UD IH SCH (07:52)
[2018-09-04] MEDS: Potassium Chloride 20 mEq/15 ml LIQ UD PO SCH ×2 (10:19→17:26)
[2018-09-04] MEDS: Enoxaparin 30 mg Syringe SC SCH (10:21)
[2018-09-04] MEDS: Silver Sulfadiazine 1% Cream (25 gm) TP SCH ×2 (10:24→22:20)
[2018-09-04] MEDS: Lidocaine 5% Oint(35 gm) TOP SCH (10:25)
--- NOTE | 2018-09-04 12:07 | PN ---
DATE: 09/04/2018 PULMONARY PROGRESS NOTE SUBJECTIVE: The patient states that she is anxious to be discharged from the hospital. She is feeling better and denies having significant short of breath at rest. There is some shortness of breath on moderate exertion. Cough has diminished. PHYSICAL EXAMINATION: VITAL SIGNS: Remain stable. The patient temperature 98.6, pulse 80, respiratory rate 16, blood pressure 160/70, oxygen sat 99% on nasal cannula. HEENT: Normocephalic, atraumatic. There is no jugular venous distension. No bruit. No mass. CARDIOVASCULAR: Regular rhythm. S1, S2 without murmur, gallop or rub. LUNGS: Markedly improved. Minimal rhonchi persist. No wheezing is noted. ABDOMEN: Soft. Bowel sounds normoactive without mass, guarding, rebound or organomegaly. EXTREMITIES: Reveal no clubbing, cyanosis, or edema. There is no Homans' sign noted. SKIN: Shows no rash or excoriation. Lymphadenopathy is not determined. NEUROLOGIC: No focal findings. Chest x-ray has been reviewed. There is very small bilateral pulmonary infiltrates, which are improved when compared to previous films. IMPRESSION: 1. Status post pneumonia. 2. Pneumocystis carinii. 3. Status post septic shock. 4. Status post acute respiratory distress syndrome/respiratory failure. 5. Human immunodeficiency syndrome. PLAN: Continue to follow closely and decide the need for further intervention. Continue vigorous care. We will follow closely with you. Reagan Morel MD
--- NOTE | 2018-09-04 14:19 | CP.PCM.PN ---
Subjective - Date & Time of Evaluation Date of Evaluation: 09/04/18 Time of Evaluation: 11:05 - Subjective Subjective: Not in distress, cough is improved, no fevers, no abdominal pain, no nausea, no diarrhea. Objective - Vital Signs/Intake and Output Vital Signs (last 24 hours): Temp Pulse Resp BP Pulse Ox 98.2 F 90 22 117/68 97 09/03/18 12:00 09/03/18 14:00 09/03/18 03:45 09/03/18 10:05 09/03/18 12:00 Intake and Output: 09/03/18 09/03/18 06:59 18:59 Intake Total 1300 Output Total 500 Balance 800 - Medications Medications: Current Medications Acetaminophen (Tylenol 325mg Tab) 650 mg PO Q6H PRN PRN Reason: Temperature Last Admin: 09/01/18 08:08 Dose: 650 mg Albuterol/Ipratropium (Duoneb 3 Mg/0.5 Mg (3 Ml) Ud) 3 ml IH [id number] [facility] Last Admin: 09/03/18 13:49 Dose: Not Given Albuterol/Ipratropium (Duoneb 3 Mg/0.5 Mg (3 Ml) Ud) 3 ml IH Q2H PRN PRN Reason: Shortness of Breath Last Admin: 08/27/18 08:21 Dose: 3 ml Aspirin (Aspirin Chewable) 81 mg PO DAILY [facility] Last Admin: 08/30/18 12:40 Dose: 81 mg Benzonatate (Tessalon Perles) 100 mg PO TID [facility] Last Admin: 09/03/18 14:03 Dose: 100 mg Budesonide (Pulmicort Respules) 0.5 mg IH [id number] [facility] Last Admin: 09/03/18 07:13 Dose: 0.5 mg Enoxaparin Sodium (Lovenox) 30 mg SC DAILY [facility]; Protocol Last Admin: 09/03/18 09:52 Dose: 30 mg Furosemide (Lasix) 40 mg PO DAILY [facility] Last Admin: 09/03/18 10:05 Dose: 40 mg Guaifenesin (Robitussin) 100 mg PO Q4H PRN PRN Reason: Cough Last Admin: 08/26/18 00:07 Dose: 100 mg Hydrocortisone Sodium Succinate (Solu-Cortef) 100 mg IVP Q12H [facility] Stop: 09/04/18 12:31 Last Admin: 09/03/18 01:30 Dose: 100 mg Hydrocortisone Sodium Succinate (Solu-Cortef) 100 mg IVP QOTHERDAY [facility] Stop: 09/07/18 10:01 Trimethoprim/Sulfamethoxazole (250 mg/ Dextrose) 500 mls @ 250 mls/hr IVPB Q8 [facility] Last Admin: 09/03/18 14:30 Dose: 250 mls/hr Ibuprofen (Motrin Tab) 200 mg PO Q6H PRN PRN Reason: Temperature Last Admin: 08/25/18 15:20 Dose: 200 mg Lidocaine (Lidocaine 5%) 0 gm TOP DAILY [facility] Last Admin: 09/03/18 10:15 Dose: 1 applic Lorazepam (Ativan) 2 mg IVP Q2H PRN; Protocol PRN Reason: Anxiety Last Admin: 09/01/18 22:25 Dose: 2 mg Metoprolol Tartrate (Lopressor) 12.5 mg PO BID [facility] Last Admin: 09/03/18 09:50 Dose: 12.5 mg Ondansetron HCl (Zofran Inj) 4 mg IVP Q6H PRN PRN Reason: Nausea/Vomiting Last Admin: 08/31/18 13:00 Dose: 4 mg Pantoprazole Sodium (Protonix Inj) 40 mg IVP Q12 [facility] Last Admin: 09/03/18 09:53 Dose: 40 mg Potassium Chloride (Potassium Chloride Oral Soln) 20 meq PO BID [facility] Last Admin: 09/03/18 09:52 Dose: 20 meq Silver Sulfadiazine (Silvadene 1% 25 Gm) 0 gm TP BID [facility] Last Admin: 09/03/18 10:17 Dose: 25 gm Vitamin A (Vitamin A & D Oint Ud Foilpak) 1 ea TOP Q8 PRN PRN Reason: dry lips - Labs Labs: 09/03/18 05:40 09/03/18 05:40 PT 11.2 SECONDS (9.4-12.5) 08/31/18 08:20 INR 0.99 08/31/18 08:20 APTT 28.5 Seconds (26.9-38.3) 08/31/18 08:20 - Constitutional Appears: No Acute Distress, Chronically Ill - Head Exam Head Exam: NORMAL INSPECTION - ENT Exam ENT Exam: Mucous Membranes Moist - Neck Exam Neck Exam: absent: Lymphadenopathy, Meningismus - Respiratory Exam Respiratory Exam: Decreased Breath Sounds, Rales (scattered) - Cardiovascular Exam Cardiovascular Exam: +S1, +S2 - GI/Abdominal Exam GI & Abdominal Exam: Soft. 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, in this patient HIV/AIDS, slowly improving perianal abscess after hemorrhoidectomy S/P surgery and chronic wound noted, cannot rule out colitis - has had more than 7 days of antibiotics for this gastritis Plan Beta glucan levels are elevated, and the BAL specimen is showing Pneumocystis on Bactrim day 9 and will need 14-21 days; S/P 7 days of Levaquin we have discontinued Merrem since patient has had more than 7 days of antibiotics for possible coliitis patient also continued on steroids reviewed previous CT chest, abdomen and pelvis which shows pneumonitis with no lymphadenopathy, chronic diverticulosis but cannot rule out colitis; even though rapid flu test is negative and we have completed 5 days of Tamiflu discussed with Dr. Medrano previously will discontinue Valganciclovir for now; CMV PCR is only 261 HIV PCR is elevated, CD4 count is <20; RPR, serum Crypt Ag are negative - will be starting HALLE prophylaxis which is a once a week dosing of Zithromax RPR is non-reactive as well and would recommend Ophtho exam eventually will consider starting cART within the next week - discussed with case work aide that patient should be linked to an HIV provider prior to discharge Quantiferon TB test was indeterminate - granuloma on right lung seen on CT scan is probably old disease, initial CT chest showed groundglass opacities which are not typically seen in patients with TB; also patient did not have mediastinal lymphadenopathy, no upper lobe cavities, no signs of miliary tuberculosis, no pleural effusions, making TB less likely - sputum AFB is negative x 3 Dr. Kramer has discussed with patient about the HIV test result repeat CT A/P did not show rectal lesions
[2018-09-05] MEDS: Sulfamethoxazole/Trimethoprim 250 MG in Dextrose 5% In Water 500 ML IVPB SCH ×3 (07:05→21:33)
[2018-09-05] MEDS: Pantoprazole 40 mg EC Tab PO SCH ×2 (07:06→15:32)
--- NOTE | 2018-09-05 09:41 | CP.PCM.PN ---
Subjective - Date & Time of Evaluation Date of Evaluation: 09/05/18 Time of Evaluation: 08:55 - Subjective Subjective: Patient is feeling a little better, appetite is still poor but slowly improving, not short of breath at rest but still with occasional dry cough, no fevers. No nausea or diarrhea. Objective - Vital Signs/Intake and Output Vital Signs (last 24 hours): Temp Pulse Resp BP Pulse Ox 98.2 F 84 20 113/76 97 09/04/18 06:00 09/04/18 10:23 09/04/18 06:00 09/04/18 10:23 09/04/18 06:00 Intake and Output: 09/04/18 09/04/18 06:59 18:59 Intake Total 540 Output Total 1450 Balance -910 - Medications Medications: Current Medications Acetaminophen (Tylenol 325mg Tab) 650 mg PO Q6H PRN PRN Reason: Temperature Last Admin: 09/01/18 08:08 Dose: 650 mg Aspirin (Aspirin Chewable) 81 mg PO DAILY [facility] Last Admin: 08/30/18 12:40 Dose: 81 mg Azithromycin (Zithromax) 1,200 mg PO MON [facility]; Protocol Benzonatate (Tessalon Perles) 100 mg PO TID [facility] Last Admin: 09/04/18 13:56 Dose: 100 mg Enoxaparin Sodium (Lovenox) 30 mg SC DAILY [facility]; Protocol Last Admin: 09/04/18 10:21 Dose: 30 mg Furosemide (Lasix) 40 mg PO DAILY [facility] Last Admin: 09/04/18 10:21 Dose: 40 mg Guaifenesin (Robitussin) 100 mg PO Q4H PRN PRN Reason: Cough Last Admin: 08/26/18 00:07 Dose: 100 mg Hydrocortisone Sodium Succinate (Solu-Cortef) 100 mg IVP QOTHERDAY [facility] Stop: 09/07/18 10:01 Trimethoprim/Sulfamethoxazole (250 mg/ Dextrose) 500 mls @ 250 mls/hr IVPB Q8 [facility] Last Admin: 09/04/18 05:45 Dose: 250 mls/hr Ibuprofen (Motrin Tab) 200 mg PO Q6H PRN PRN Reason: Temperature Last Admin: 08/25/18 15:20 Dose: 200 mg Lidocaine (Lidocaine 5%) 0 gm TOP DAILY [facility] Last Admin: 02/16/19 10:25 Dose: 1 applic Lorazepam (Ativan) 2 mg IVP Q2H PRN; Protocol PRN Reason: Anxiety Last Admin: 09/01/18 22:25 Dose: 2 mg Metoprolol Tartrate (Lopressor) 12.5 mg PO BID [facility] Last Admin: 09/04/18 10:23 Dose: 12.5 mg Ondansetron HCl (Zofran Inj) 4 mg IVP Q6H PRN PRN Reason: Nausea/Vomiting Last Admin: 08/31/18 13:00 Dose: 4 mg Pantoprazole Sodium (Protonix Inj) 40 mg IVP Q12 [facility] Last Admin: 09/04/18 10:24 Dose: 40 mg Potassium Chloride (Potassium Chloride Oral Soln) 20 meq PO BID [facility] Last Admin: 09/04/18 10:19 Dose: 20 meq Silver Sulfadiazine (Silvadene 1% 25 Gm) 0 gm TP BID [facility] Last Admin: 09/04/18 10:24 Dose: 25 gm Vitamin A (Vitamin A & D Oint Ud Foilpak) 1 ea TOP Q8 PRN PRN Reason: dry lips - Labs Labs: 09/03/18 05:40 09/03/18 05:40 PT 11.2 SECONDS (9.4-12.5) 08/31/18 08:20 INR 0.99 08/31/18 08:20 APTT 28.5 Seconds (26.9-38.3) 08/31/18 08:20 - Constitutional Appears: No Acute Distress, Cachectic, Chronically Ill - Head Exam Head Exam: NORMAL INSPECTION - ENT Exam ENT Exam: Mucous Membranes Moist - Neck Exam Neck Exam: absent: Meningismus - Respiratory Exam Respiratory Exam: Decreased Breath Sounds, Rales (scattered) - Cardiovascular Exam Cardiovascular Exam: +S1, +S2 - GI/Abdominal Exam GI & Abdominal Exam: Soft. 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, in this patient HIV/AIDS, slowly improving perianal abscess after hemorrhoidectomy S/P surgery and chronic wound noted, cannot rule out colitis - has had more than 7 days of antibiotics for this gastritis Plan Beta glucan levels are elevated, and the BAL specimen is showing Pneumocystis on Bactrim day 10 and will need 14-21 days; S/P 7 days of Levaquin we have discontinued Merrem since patient has had more than 7 days of antibiotics for possible coliitis patient also continued on steroids as being tapered by medical team reviewed previous CT chest, abdomen and pelvis which shows pneumonitis with no lymphadenopathy, chronic diverticulosis but cannot rule out colitis; even though rapid flu test is negative and we have completed 5 days of Tamiflu discussed with Dr. Medrano previously will discontinue Valganciclovir for now; CMV PCR is only 261 HIV PCR is elevated, CD4 count is <20; RPR, serum Crypt Ag are negative - will be starting HALLE prophylaxis which is a once a week dosing of Zithromax RPR is non-reactive as well and would recommend Ophtho exam eventually will consider starting cART within the next week - discussed with case management director that patient should be linked to an HIV provider prior to discharge Quantiferon TB test was indeterminate - granuloma on right lung seen on CT scan is probably old disease, initial CT chest showed groundglass opacities which are not typically seen in patients with TB; also patient did not have mediastinal lymphadenopathy, no upper lobe cavities, no signs of miliary tuberculosis, no pleural effusions, making TB less likely - sputum AFB is negative x 3 Dr. Kramer has discussed with patient about the HIV test result repeat CT A/P did not show rectal lesions
[2018-09-05] MEDS: Potassium Chloride 20 mEq/15 ml LIQ UD PO SCH ×2 (10:17→17:38)
[2018-09-05] MEDS: Enoxaparin 30 mg Syringe SC SCH (10:20)
[2018-09-05] MEDS: Lidocaine 5% Oint(35 gm) TOP SCH (11:45)
[2018-09-06] MEDS: Sulfamethoxazole/Trimethoprim 250 MG in Dextrose 5% In Water 500 ML IVPB SCH ×3 (06:36→22:06)
[2018-09-06] MEDS: Pantoprazole 40 mg EC Tab PO SCH ×2 (06:37→16:49)
[2018-09-06] MEDS: Levalbuterol 1.25 MG/3 ML Inhal Soln UD IH SCH ×3 (07:45→21:03)
--- NOTE | 2018-09-06 08:39 | PN ---
DATE: 09/06/2018 PULMONARY NOTE SUBJECTIVE: The patient appears very comfortable this morning. She is not short of breath at rest. PHYSICAL EXAMINATION VITAL SIGNS: (Last noted in the computer): Temperature is 98.2, pulse is 86, respiratory rate 18 and blood pressure 115/77. Oxygen saturation on nasal cannula is 97%. HEENT: Normocephalic and atraumatic. No JVD. CARDIOVASCULAR: Positive S1 and S2. No S3 gallop. LUNGS: Minimal crackles at the bases. Minimal rhonchi. No wheezing. EXTREMITIES: No clubbing, cyanosis or edema. Calves are nontender to palpation. GI: Abdomen is soft, nontender and nondistended. Bowel sounds are positive. SKIN: No acute rash. NEUROLOGIC: Exam limited at the present time. IMPRESSION: 1. Acute respiratory distress syndrome. Respiratory failure. 2. Sepsis with shock. 3. Status post recent hemorrhoidectomy. 4. Pneumocystis carinii pneumonia. 5. Mild anemia. 6. Human immunodeficiency virus positivity. 7. Rule out congestive heart failure. PLAN: The patient appears very comfortable this morning. She is not short of breath at rest. She does state to feeling much better overall. On physical exam, there is no significant bronchospasm noted. In addition, there is no significant alveolar-arterial gradient. I will continue the current nebulizer treatments for now. The patient remains on antibiotic therapy - as per Infectious Disease. Inputs are noted. The temperatures have fully resolved. The leukocytosis has fully resolved. Clinical status of the patient is significantly improved - compared to the initial presentation. However, given the above, the future status/prognosis for this patient does remain guarded. I will discuss the above with the attending physician. Griffin Medrano MD MTDJyotsna
[2018-09-06] MEDS: Potassium Chloride 20 mEq/15 ml LIQ UD PO SCH ×2 (09:27→17:12)
[2018-09-06] MEDS: Enoxaparin 30 mg Syringe SC SCH (09:28)
--- NOTE | 2018-09-06 15:35 | CP.PCM.PN ---
Subjective - Date & Time of Evaluation Date of Evaluation: 09/06/18 Time of Evaluation: 11:40 - Subjective Subjective: No fevers, not in distress, cough is much better, had stomach upset with Zithromax, appetite still not as good as it should be. Objective - Vital Signs/Intake and Output Vital Signs (last 24 hours): Temp Pulse Resp BP Pulse Ox 98.2 F 87 20 129/77 97 09/04/18 06:00 09/04/18 17:27 09/04/18 06:00 09/04/18 17:27 09/04/18 06:00 Intake and Output: 09/05/18 09/05/18 06:59 18:59 Intake Total 1020 Output Total 700 Balance 320 - Medications Medications: Current Medications Acetaminophen (Tylenol 325mg Tab) 650 mg PO Q6H PRN PRN Reason: Temperature Last Admin: 09/01/18 08:08 Dose: 650 mg Aspirin (Aspirin Chewable) 81 mg PO DAILY [facility] Last Admin: 08/30/18 12:40 Dose: 81 mg Azithromycin (Zithromax) 1,200 mg PO MON [facility]; Protocol Benzonatate (Tessalon Perles) 100 mg PO TID [facility] Last Admin: 09/04/18 17:26 Dose: 100 mg Enoxaparin Sodium (Lovenox) 30 mg SC DAILY [facility]; Protocol Last Admin: 09/04/18 10:21 Dose: 30 mg Furosemide (Lasix) 40 mg PO DAILY [facility] Last Admin: 09/04/18 10:21 Dose: 40 mg Guaifenesin (Robitussin) 100 mg PO Q4H PRN PRN Reason: Cough Last Admin: 08/26/18 00:07 Dose: 100 mg Hydrocortisone Sodium Succinate (Solu-Cortef) 100 mg IVP QOTHERDAY [facility] Stop: 09/07/18 10:01 Trimethoprim/Sulfamethoxazole (250 mg/ Dextrose) 500 mls @ 250 mls/hr IVPB Q8 [facility] Last Admin: 09/05/18 07:05 Dose: 250 mls/hr Ibuprofen (Motrin Tab) 200 mg PO Q6H PRN PRN Reason: Temperature Last Admin: 08/25/18 15:20 Dose: 200 mg Lidocaine (Lidocaine 5%) 0 gm TOP DAILY [facility] Last Admin: 09/04/18 10:25 Dose: 1 applic Lorazepam (Ativan) 2 mg IVP Q2H PRN; Protocol PRN Reason: Anxiety Last Admin: 09/01/18 22:25 Dose: 2 mg Metoprolol Tartrate (Lopressor) 12.5 mg PO BID [facility] Last Admin: 09/04/18 17:27 Dose: 12.5 mg Ondansetron HCl (Zofran Inj) 4 mg IVP Q6H PRN PRN Reason: Nausea/Vomiting Last Admin: 08/31/18 13:00 Dose: 4 mg Pantoprazole Sodium (Protonix Ec Tab) 40 mg PO 0600,1600 [facility] Last Admin: 09/05/18 07:06 Dose: 40 mg Potassium Chloride (Potassium Chloride Oral Soln) 20 meq PO BID [facility] Last Admin: 09/04/18 17:26 Dose: 20 meq Vitamin A (Vitamin A & D Oint Ud Foilpak) 1 ea TOP Q8 PRN PRN Reason: dry lips - Labs Labs: 09/03/18 05:40 09/03/18 05:40 PT 11.2 SECONDS (9.4-12.5) 08/31/18 08:20 INR 0.99 08/31/18 08:20 APTT 28.5 Seconds (26.9-38.3) 08/31/18 08:20 - Constitutional Appears: Cachectic, Chronically Ill - Head Exam Head Exam: NORMAL INSPECTION - ENT Exam ENT Exam: Mucous Membranes Moist - Neck Exam Neck Exam: absent: Lymphadenopathy, Meningismus - Respiratory Exam Respiratory Exam: Decreased Breath Sounds - Cardiovascular Exam Cardiovascular Exam: +S1, +S2 - GI/Abdominal Exam GI & Abdominal Exam: Soft. 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, in this patient HIV/AIDS, clinically improving perianal abscess after hemorrhoidectomy S/P surgery and chronic wound noted, cannot rule out colitis - has had more than 7 days of antibiotics for this gastritis Plan Beta glucan levels are elevated, and the BAL specimen is showing Pneumocystis on Bactrim day 11 and will need 14-21 days; S/P 7 days of Levaquin we have discontinued Merrem since patient has had more than 7 days of antibiotics for possible coliitis patient also continued on steroids as being tapered by medical team reviewed previous CT chest, abdomen and pelvis which shows pneumonitis with no lymphadenopathy, chronic diverticulosis but cannot rule out colitis; even though rapid flu test is negative and we have completed 5 days of Tamiflu discussed with Dr. Medrano previously will discontinue Valganciclovir for now; CMV PCR is only 261 HIV PCR is elevated, CD4 count is <20; RPR, serum Crypt Ag are negative - will be starting HALLE prophylaxis which is a once a week dosing of Zithromax RPR is non-reactive as well and would recommend Ophtho exam eventually will consider starting cART within the next week - discussed with caser in that patient should be linked to an HIV provider prior to discharge Quantiferon TB test was indeterminate - granuloma on right lung seen on CT scan is probably old disease, initial CT chest showed groundglass opacities which are not typically seen in patients with TB; also patient did not have mediastinal lymphadenopathy, no upper lobe cavities, no signs of miliary tuberculosis, no pleural effusions, making TB less likely - sputum AFB is negative x 3 Dr. Kramer has discussed with patient about the HIV test result repeat CT A/P did not show rectal lesions
[2018-09-06] MEDS ORDERED: Silver Sulfadiazine 1% Cream (25 gm) TP SCH (18:00)
[2018-09-06] MEDS ORDERED: Alum-Mag Hydrox-Simethicone Susp (30 mL) PO ONE (18:01)
[2018-09-07] MEDS: Levalbuterol 1.25 MG/3 ML Inhal Soln UD IH SCH ×4 (01:55→20:33)
[2018-09-07] MEDS: Pantoprazole 40 mg EC Tab PO SCH ×2 (06:04→17:47)
[2018-09-07] MEDS: Sulfamethoxazole/Trimethoprim 250 MG in Dextrose 5% In Water 500 ML IVPB SCH ×2 (06:04→14:00)
[2018-09-07] MEDS: Potassium Chloride 20 mEq/15 ml LIQ UD PO SCH ×2 (09:59→17:46)
[2018-09-07] MEDS: Enoxaparin 30 mg Syringe SC SCH (09:59)
[2018-09-07] MEDS ORDERED: Lidocaine 5% Oint(35 gm) TOP SCH (10:00)
--- NOTE | 2018-09-07 10:34 | PN ---
DATE: 09/07/2018 SUBJECTIVE: The patient appears very comfortable this morning. She is not short of breath at rest. PHYSICAL EXAMINATION: VITAL SIGNS (Last noted in the computer): Temperature 97.5, pulse 94, respirations 16, blood pressure 110/70. Oxygen saturation on nasal cannula is 98%. HEENT: Normocephalic, atraumatic. NECK: No JVD. CARDIOVASCULAR: Positive S1, S2. No S3 gallop. LUNGS: Minimal crackles at the bases. No rhonchi or wheezing this morning. EXTREMITIES: No clubbing, cyanosis or edema. Calves are nontender to palpation. GI: Abdomen is soft, nontender and nondistended. Bowel sounds are positive. SKIN: No acute rash. NEUROLOGIC: Exam limited at the present time. IMPRESSION: 1. Acute respiratory distress syndrome. Respiratory failure. 2. Sepsis with shock. 3. Status post recent hemorrhoidectomy. 4. Pneumocystis carinii pneumonia. 5. Mild anemia. 6. Human immunodeficiency virus positivity. 7. Rule out congestive heart failure. PLAN: The patient appeared very comfortable this morning. She is not short of breath at rest. She does state to feeling much, much better overall. On physical exam, her bronchospasm continues to resolve. In addition, the alveolar-arterial gradient also continues to resolve. I will continue with the current nebulizer treatments for now. The patient remains on antibiotic therapy - as per Infectious Disease. Temperatures have fully resolved. The leukocytosis has also fully resolved. Clinical status of the patient is significantly improved - compared to last week. However, given the above, the future status/prognosis for this patient does remain guarded. I will discuss the above with the attending physician later this morning. Griffin Medrano MD MTDD
--- NOTE | 2018-09-07 12:38 | CP.PCM.PCO ---
Physician Communication Note - Physician Communication Note Physician Communication Note: D/W ID, will consider starting pt on cART this week.
--- NOTE | 2018-09-07 13:47 | PN ---
DATE: 09/06/2018 DAILY PROGRESS NOTE SUBJECTIVE: The patient is a 63-year-old female who was admitted to [facility] with complications of hemorrhoidectomy performed at an another facility in 04/2018. She presented to the emergency room because of pain and she developed a cough. She was found to have bilateral pneumonia. Rigid sigmoidoscopy/proctoscopy showed small rectal fissure and perirectal or perianal excoriations, this was treated with topical Silvadene. However, the patient decompensated, became tachypneic, tachycardic, was transferred to the Intensive Care Unit, found to be in ARDS. She was intubated. Workup showed that she was positive for HIV. She was treated in the Intensive Care Unit, finally extubated. Her respiratory status improved. She has been followed by Dr. Queen and Dr. Garcia, the Infectious Disease specialists; Dr. Medrano, the inspector glass or mirror. The patient improved, was transferred out to the medical floor where she continues to do well. When seen, the patient is awake, alert and oriented. She is comfortable. She is in good spirits. We are continuing to follow the patient closely, recommending transfer to the Transitional Care Unit for physical therapy and ambulation. Scott Kramer MD
--- NOTE | 2018-09-07 13:56 | CP.PCM.PN ---
Subjective - Date & Time of Evaluation Date of Evaluation: 09/07/18 Time of Evaluation: 11:10 - Subjective Subjective: Patient is resting comfortably in bed, no fevers, not in distress, no diarrhea. Still feels weak. Objective - Vital Signs/Intake and Output Vital Signs (last 24 hours): Temp Pulse Resp BP Pulse Ox 98.1 F 88 20 123/81 97 09/06/18 09:09 09/06/18 09:26 09/06/18 09:09 09/06/18 09:28 09/06/18 09:09 Intake and Output: 09/06/18 09/06/18 06:59 18:59 Intake Total 0 Output Total 2014 Balance -115 - Medications Medications: Current Medications Acetaminophen (Tylenol 325mg Tab) 650 mg PO Q6H PRN PRN Reason: Temperature Last Admin: 09/01/18 08:08 Dose: 650 mg Aspirin (Aspirin Chewable) 81 mg PO DAILY [facility] Last Admin: 08/30/18 12:40 Dose: 81 mg Azithromycin (Zithromax) 1,250 mg PO MON [facility]; Protocol Last Admin: 09/06/18 09:40 Dose: 1,250 mg Benzonatate (Tessalon Perles) 100 mg PO TID [facility] Last Admin: 09/06/18 14:58 Dose: Not Given Enoxaparin Sodium (Lovenox) 30 mg SC DAILY [facility]; Protocol Last Admin: 09/06/18 09:28 Dose: 30 mg Furosemide (Lasix) 40 mg PO DAILY [facility] Last Admin: 09/06/18 09:28 Dose: 40 mg Guaifenesin (Robitussin) 100 mg PO Q4H PRN PRN Reason: Cough Last Admin: 08/26/18 00:07 Dose: 100 mg Hydrocortisone Sodium Succinate (Solu-Cortef) 100 mg IVP QOTHERDAY [facility] Stop: 09/07/18 10:01 Last Admin: 09/05/18 10:20 Dose: 100 mg Trimethoprim/Sulfamethoxazole (250 mg/ Dextrose) 500 mls @ 250 mls/hr IVPB Q8 [facility] Last Admin: 09/06/18 14:46 Dose: 250 mls/hr Ibuprofen (Motrin Tab) 200 mg PO Q6H PRN PRN Reason: Temperature Last Admin: 08/25/18 15:20 Dose: 200 mg Levalbuterol HCl (Xopenex) 1.25 mg IH [id number] [facility] Last Admin: 09/06/18 13:39 Dose: Not Given Lidocaine (Lidocaine 5%) 0 gm TOP DAILY [facility] Lorazepam (Ativan) 2 mg IVP Q2H PRN; Protocol PRN Reason: Anxiety Last Admin: 09/01/18 22:25 Dose: 2 mg Metoprolol Tartrate (Lopressor) 12.5 mg PO BID [facility] Last Admin: 09/06/18 09:26 Dose: 12.5 mg Pantoprazole Sodium (Protonix Ec Tab) 40 mg PO 0600,1600 [facility] Last Admin: 09/06/18 06:37 Dose: 40 mg Potassium Chloride (Potassium Chloride Oral Soln) 20 meq PO BID [facility] Last Admin: 09/06/18 09:27 Dose: 20 meq Silver Sulfadiazine (Silvadene 1% 25 Gm) 0 gm TP BID [facility] Vitamin A (Vitamin A & D Oint Ud Foilpak) 1 ea TOP Q8 PRN PRN Reason: dry lips - Labs Labs: 09/03/18 05:40 09/03/18 05:40 PT 11.2 SECONDS (9.4-12.5) 08/31/18 08:20 INR 0.99 08/31/18 08:20 APTT 28.5 Seconds (26.9-38.3) 08/31/18 08:20 - Constitutional Appears: Chronically Ill - Head Exam Head Exam: NORMAL INSPECTION - Respiratory Exam Respiratory Exam: Decreased Breath Sounds - Cardiovascular Exam Cardiovascular Exam: +S1, +S2 - GI/Abdominal Exam GI & Abdominal Exam: Soft. 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, in this patient HIV/AIDS, clinically improving perianal abscess after hemorrhoidectomy S/P surgery and chronic wound noted, cannot rule out colitis - has had more than 7 days of antibiotics for this gastritis Plan Beta glucan levels are elevated, and the BAL specimen is showing Pneumocystis on Bactrim day 12 and will need 14-21 days; S/P 7 days of Levaquin we have discontinued Merrem since patient has had more than 7 days of antibiotics for possible coliitis patient also continued on steroids as being tapered by medical team reviewed previous CT chest, abdomen and pelvis which shows pneumonitis with no lymphadenopathy, chronic diverticulosis but cannot rule out colitis; even though rapid flu test is negative and we have completed 5 days of Tamiflu discussed with Dr. Medrano previously will discontinue Valganciclovir for now; CMV PCR is only 261 HIV PCR is elevated, CD4 count is <20; RPR, serum Crypt Ag are negative - will be starting HALLE prophylaxis which is a once a week dosing of Zithromax RPR is non-reactive as well and would recommend Ophtho exam eventually will consider starting cART within this week - discussed with dependency case manager that patient should be linked to an HIV provider prior to discharge Quantiferon TB test was indeterminate - granuloma on right lung seen on CT scan is probably old disease, initial CT chest showed groundglass opacities which are not typically seen in patients with TB; also patient did not have mediastinal lymphadenopathy, no upper lobe cavities, no signs of miliary tuberculosis, no pleural effusions, making TB less likely - sputum AFB is negative x 3 Dr. Kramer has discussed with patient about the HIV test result repeat CT A/P did not show rectal lesions
--- NOTE | 2018-09-07 20:11 | PN ---
DATE: 09/07/2018 SUBJECTIVE: Patient was seen this Thursday mid-day in room 370, bed 2. She is sitting out of the bed in the chair, awake, alert, clear, in good spirits. Mental status exam is at baseline. PHYSICAL EXAMINATION: GENERAL: Other than recent weight loss is essentially unremarkable and unchanged from the past. LUNGS: Show good aeration right and left. HEART: Regular, not tachycardic. EXTREMITIES: Thin, frail. PLAN: I spoke with patient about our plan for Transitional Care Unit for additional physical therapy. Case was discussed with piano case and bench assembler as well, hopefully a bed will be available for her transfer as early as later today or tomorrow. Antibiotics will continue per Infectious Disease here in the hospital as well as upon discharge. Sudarshan Kramer MD
[2018-09-08] MEDS: Sulfamethoxazole/Trimethoprim 250 MG in Dextrose 5% In Water 500 ML IVPB SCH ×3 (01:23→13:42)
[2018-09-08] MEDS: Levalbuterol 1.25 MG/3 ML Inhal Soln UD IH SCH ×3 (02:40→14:29)
[2018-09-08] MEDS: Pantoprazole 40 mg EC Tab PO SCH (05:51)
--- NOTE | 2018-09-08 08:25 | PN ---
DATE: 09/08/2018 PULMONARY NOTE SUBJECTIVE: The patient appears quite comfortable this morning. She is not short of breath at rest. PHYSICAL EXAMINATION: VITAL SIGNS: Last temperature recorded is 99.1, pulse 88, respiratory rate 18/20, blood pressure 126/84. Oxygen saturation on nasal cannula is 99%. HEENT: Normocephalic, atraumatic. NECK: No JVD. CARDIOVASCULAR: Positive S1, S2. No S3 gallop. LUNGS: Minimal crackles at the bases. Otherwise clear. EXTREMITIES: No clubbing, cyanosis or edema. Calves are nontender to palpation. GI: Abdomen is soft, nontender and nondistended. Bowel sounds are positive. SKIN: No acute rash. NEUROLOGIC: Limited at the present time. IMPRESSION: 1. Acute respiratory distress syndrome. Respiratory failure. 2. Sepsis with shock. 3. Pneumocystis carinii pneumonia. 4. Mild anemia. 5. Human immunodeficiency virus positivity. 6. Rule out congestive heart failure. PLAN: The patient appears very comfortable this morning. She is not short of breath at rest. She does state to feeling much better overall. On physical exam, her bronchospasm continues to resolve. In addition, the alveolar-arterial gradient also continues to resolve. I will continue the current nebulizer treatments for now. The patient remains on antibiotic therapy - as per Infectious Disease. Input by Dr. Queen is noted. Clinical status of the patient is significantly improved overall. However, given the above, the future status/prognosis for this patient does remain guarded. I will discuss the above with the attending physician. Griffin Medrano MD MTDD
[2018-09-08 08:46] VITALS: RESP 18; TEMP 98.5; O2SAT 95
[2018-09-08] MEDS: Potassium Chloride 20 mEq/15 ml LIQ UD PO SCH (10:16)
[2018-09-08] MEDS: Enoxaparin 30 mg Syringe SC SCH (10:16)
[2018-09-08 10:22] VITALS: BP 139/90; PULSE 74
--- NOTE | 2018-09-10 08:30 | DS ---
HISTORY OF PRESENT ILLNESS: The patient is a 63-year-old female who was admitted to the [facility] with complications of hemorrhoidectomy performed at another facility in 04/2018. She had oozing exudates from perirectal excoriations. She was also found to have a small rectal fissure on exam. During the hospital stay, the patient decompensated and became tachypneic, tachycardic, and was transferred to the Intensive Care Unit where she was intubated for several days with ARDS. Workup shows that she was positive for HIV, she was treated by Dr. Queen and Dr. Garcia, the Infectious Disease specialist and Dr. Medrano, the Manager Development. She was also followed by Dr. Weinstein and Dr. Gaming, the Oral Pathologist. The patient did well. She responded to therapy, was successfully extubated, and was transferred to the medical floor where she continues to do well. At this point, we are expecting a bed to become available on the Transitional Care Unit for transfer there for continued physical therapy, so the patient is to be discharged from [facility] to the Transitional Care Unit later today. FINAL DIAGNOSES: 1. Acute respiratory distress syndrome. 2. Human immunodeficiency virus positive. 3. Perianal excoriations. 4. Rectal fissure. 5. Bilateral pneumonia suspicious of Pneumocystis infection. Scott Kramer MD
--- NOTE | 2018-09-17 21:16 | OP ---
PROCEDURE DATE: 08/20/2018 PREOPERATIVE DIAGNOSIS: Perianal pain. POSTOPERATIVE DIAGNOSIS: Perianal pain. OPERATION PERFORMED: Rigid sigmoidectomy and exam under anesthesia. SURGEON: Sudarshan Dobson MD SURGEON BROOKE: Francesco Flowers DO ANESTHESIOLOGIST: Tohmas Calvillo MD COMPLICATIONS: None. SPECIMENS: None. INDICATION FOR OPERATION: This is a 63-year-old female who had a hemorrhoidectomy done in another facility months prior, and it is still to heal. She reports significant pain in her perianal region which had inability to care for herself and hygiene. Due to the pain, we were unable to examine her at bedside, and finally we made to take her to the operating room to exam under anesthesia as well as sigmoidoscopy. DESCRIPTION OF OPERATION: After all consents were obtained, the patient was taken to the operating room and placed in a lithotomy position on the operating room table. After anesthesia was initiated, the patient was prepped and draped in a sterile fashion. The patient's perineum was prepped with Betadine. On digital rectal exam, no masses were noted; however, ulcerated and excoriated lesion was noted on the surrounding tissue, almost completely circumferencing the perianal region. A rigid sigmoidoscope was inserted. The sigmoid colon and rectum were insufflated. There was a large amount of stool noted in the rectum; however, no masses were noted but due to the poor prep of the patient, we were unable to generously visualize whether there are any pathology. The sigmoidoscope was removed and the procedure was aborted. The patient was then transferred to PACU in satisfactory condition. The patient tolerated the procedure well. Francesco Flowers DO Sudarshan Dobson MD
== END 2018-09-08 15:14 | DRG 974 ==
LOC: ED 15:57 → ERH 22:07 → 5RSO 08-18 00:52 → ICU 08-26 02:06 → 3RSO 09-03 18:26
PROVIDERS: ADMIT Internal Medicine; ATTEND Internal Medicine
PROC: 0DJD8ZZ Inspection of Lower Intestinal Tract, Via Natural or Artificial Opening Endoscopic (ICD-10-PCS; principal; 2018-08-20 12:15)
PROC: 0BH17EZ Insertion of Endotracheal Airway into Trachea, Via Natural or Artificial Opening (ICD-10-PCS; 2018-08-26)
PROC: 5A1955Z Respiratory Ventilation, Greater than 96 Consecutive Hours (ICD-10-PCS; 2018-08-26)
PROC: 05HM33Z Insertion of Infusion Device into Right Internal Jugular Vein, Percutaneous Approach (ICD-10-PCS; 2018-08-26)
PROC: B543ZZA Ultrasonography of Right Jugular Veins, Guidance (ICD-10-PCS; 2018-08-26)
PROC: 02HV33Z Insertion of Infusion Device into Superior Vena Cava, Percutaneous Approach (ICD-10-PCS; 2018-08-26)
PROC: 0B9F8ZX Drainage of Right Lower Lung Lobe, Via Natural or Artificial Opening Endoscopic, Diagnostic (ICD-10-PCS; 2018-08-27)
PROC: 0B9G8ZX Drainage of Left Upper Lung Lobe, Via Natural or Artificial Opening Endoscopic, Diagnostic (ICD-10-PCS; 2018-08-27)
DX: A41.9 Sepsis, unspecified organism (principal); R65.21 Severe sepsis with septic shock; B20 Human immunodeficiency virus [HIV] disease; B59 Pneumocystosis; E43 Unspecified severe protein-calorie malnutrition; I21.A1 Myocardial infarction type 2; J96.01 Acute respiratory failure with hypoxia; J81.1 Chronic pulmonary edema; K61.2 Anorectal abscess; Z99.11 Dependence on respirator [ventilator] status; B96.4 Proteus (mirabilis) (morganii) as the cause of diseases classified elsewhere; D64.9 Anemia, unspecified; D69.6 Thrombocytopenia, unspecified; D72.819 Decreased white blood cell count, unspecified; D72.821 Monocytosis (symptomatic); E87.70 Fluid overload, unspecified; I49.9 Cardiac arrhythmia, unspecified; J98.01 Acute bronchospasm; K29.70 Gastritis, unspecified, without bleeding; K64.9 Unspecified hemorrhoids

== ENCOUNTER 2018-09-08 15:19 | Inpatient (IN) | payer MEDICARE ==
[2018-09-08 15:26] VITALS: BMI 15.3
[2018-09-08] MEDS: Pantoprazole 40 mg EC Tab PO SCH (17:36)
[2018-09-08] MEDS: Potassium Chloride 20 mEq/15 ml LIQ UD PO SCH (17:37)
[2018-09-08] MEDS: Silver Sulfadiazine 1% Cream (25 gm) TP SCH (17:38)
[2018-09-08] MEDS ORDERED: Influenza Vaccine 60 mcg/0.5 mL SYR (4YR UP) IM ONE (19:49)
[2018-09-08] MEDS ORDERED: Pneumococcal 23-Valent Vaccine IM ONE (19:49)
[2018-09-08] MEDS: Levalbuterol 1.25 MG/3 ML Inhal Soln UD IH SCH (20:35)
[2018-09-08] MEDS: Sulfamethoxazole/Trimethoprim 250 MG in Dextrose 5% In Water 500 ML IVPB SCH (21:40)
[2018-09-08] MEDS: Vitamins A & D Oint UD Foilpak TOP SCH ×2 (21:41→21:42)
[2018-09-08] MEDS ORDERED: Tmp-Smz 16 mg-80 mg/ml Inj IVPB SCH (22:00)
[2018-09-09] MEDS: Levalbuterol 1.25 MG/3 ML Inhal Soln UD IH SCH ×4 (01:16→20:33)
[2018-09-09] MEDS: Sulfamethoxazole/Trimethoprim 250 MG in Dextrose 5% In Water 500 ML IVPB SCH ×3 (06:12→22:52)
[2018-09-09] MEDS: Vitamins A & D Oint UD Foilpak TOP SCH ×3 (06:12→17:25)
[2018-09-09] MEDS: Pantoprazole 40 mg EC Tab PO SCH ×2 (06:12→17:13)
[2018-09-09] MEDS: Enoxaparin 30 mg Syringe SC SCH (09:43)
[2018-09-09] MEDS: Potassium Chloride 20 mEq/15 ml LIQ UD PO SCH ×2 (09:43→17:13)
--- NOTE | 2018-09-09 10:08 | PN ---
DATE: 09/09/2018 SUBJECTIVE: The patient appears very comfortable this morning. She is not short of breath at rest. PHYSICAL EXAMINATION: VITAL SIGNS: (Last noted in the computer): Temperature is 97.7, pulse this morning is 88, respiratory rate 18, blood pressure 105/71. Oxygen saturation on ROOM AIR is 96%. HEENT: Normocephalic, atraumatic. No JVD. CARDIOVASCULAR: Positive S1, S2. No S3 gallop. LUNGS: Minimal crackles at the bases. Otherwise clear. EXTREMITIES: No clubbing, cyanosis or edema. Calves are nontender to palpation. GASTROINTESTINAL: Abdomen is soft, nontender and nondistended. Bowel sounds are positive. SKIN: No acute rash. NEUROLOGIC: Exam limited at the present time. IMPRESSION: 1. Acute respiratory distress syndrome. Respiratory failure. 2. Sepsis with shock. 3. Pneumocystis carinii pneumonia. 4. Mild anemia. 5. Human immunodeficiency virus positivity. PLAN: The patient appears very comfortable this morning. She is not short of breath at rest. She does state to feeling much, much better overall. On physical exam, her bronchospasm has primarily resolved. In addition, the oxygen saturation on room air is now 96%. I will continue the current nebulizer treatments for now. The patient also remains on antibiotic therapy - as per Infectious Disease. Input by Dr. Queen is noted. The temperatures have fully resolved. I also discussed the case with Cardiology (Dr. Weinstein) at length yesterday. There are no further signs of congestive heart failure. Clinical status of the patient is significantly improved overall. However, given the above, the future status/prognosis for this patient does remain guarded. I will discuss the above with the attending physician. Griffin Medrano MD MTDJyotsna
[2018-09-09] MEDS: Silver Sulfadiazine 1% Cream (25 gm) TP SCH ×2 (14:41→17:13)
[2018-09-09] MEDS: Lidocaine 5% Oint(35 gm) TOP SCH (14:41)
--- NOTE | 2018-09-09 21:08 | CP.PCM.CON ---
History of Present Illness - History of Present Illness History of Present Illness: 63 year old female with PMH of gastritis and hemorrhoidectomy in April 2018 initially came in to [facility] [place] for perianal pain and chronic cough. Her perianal pain got relieved by surgical means but her cough persisted. She was eventually found to have HIV/AIDS, and was found to have atypical pneumonia, which worsened and she went into ARDS, and was diagnosed with Pneumocystis pneumonia. She has been on IV bactrim and has dramatically improved and is now in [facility] for continued medical therapy and physical rehab. Infectious Diseases consult is requested to further manage. She denies fever or chills, no nausea or vomiting, no chest pain, no SOB at rest, no more cough, no sore throat, no rhinorrhea, no abdominal pain, no diarrhea, no dysuria, still has some weakness. Review of Systems - Review of Systems All systems: reviewed and no additional remarkable complaints except (as per HPI) Past Patient History - Infectious Disease Hx of Infectious Diseases: None - Past Social History Smoking Status: Never Smoked - CARDIAC Hx Pacemaker: No - HEMATOLOGICAL/ONCOLOGICAL Hx Cancer: No - MUSCULOSKELETAL/RHEUMATOLOGICAL Hx Falls: No - GASTROINTESTINAL Hx Gastrointestinal Disorders: Yes (HEMORRHOIDECTOMY,ANAL PAIN WITH PUS) - GENITOURINARY/GYNECOLOGICAL Hx Genitourinary Disorders: No Hx Reproductive Disorders: No - PSYCHIATRIC Other/Comment: Insomnia - SURGICAL HISTORY Hx Mastectomy: No - ANESTHESIA Hx Anesthesia Reactions: No Hx Malignant Hyperthermia: No Meds Allergies/Adverse Reactions: Allergies Allergy/AdvReac Type Severity Reaction Status Date / Time Penicillins Allergy RASH Verified 09/08/18 17:58 iv contrast Allergy RASH Uncoded 09/08/18 17:58 - Medications Medications: Current Medications Acetaminophen (Tylenol 325mg Tab) 650 mg PO Q6H PRN; Protocol PRN Reason: Fever >100.4 F Aspirin (Aspirin Chewable) 81 mg PO DAILY [facility]; Protocol Azithromycin (Zithromax) 1,250 mg PO MON [facility]; Protocol Benzonatate (Tessalon Perles) 100 mg PO TID [facility]; Protocol Last Admin: 09/08/18 17:38 Dose: Not Given Enoxaparin Sodium (Lovenox) 30 mg SC DAILY [facility]; Protocol Furosemide (Lasix) 40 mg PO DAILY [facility]; Protocol Trimethoprim/Sulfamethoxazole (250 mg/ Dextrose) 500 mls @ 250 mls/hr IVPB 0600,1400,2200 [facility] Last Admin: 09/08/18 21:40 Dose: 250 mls/hr Levalbuterol HCl (Xopenex) 1.25 mg IH [id number] [facility]; Protocol Last Admin: 09/09/18 01:16 Dose: Not Given Lidocaine (Lidocaine 5%) 0 gm TOP DAILY [facility]; Protocol Lorazepam (Ativan) 0.5 mg PO Q4H PRN; Protocol PRN Reason: Anxiety Metoprolol Tartrate (Lopressor) 12.5 mg PO 0800,1800 [facility]; Protocol Last Admin: 09/08/18 17:37 Dose: 12.5 mg Pantoprazole Sodium (Protonix Ec Tab) 40 mg PO 0600,1600 [facility]; Protocol Last Admin: 09/08/18 17:36 Dose: 40 mg Potassium Chloride (Potassium Chloride Oral Soln) 20 meq PO 0800,1800 [facility]; Protocol Last Admin: 09/08/18 17:37 Dose: 20 meq Silver Sulfadiazine (Silvadene 1% 25 Gm) 0 gm TP TID [facility]; Protocol Last Admin: 09/08/18 17:38 Dose: Not Given Vitamin A (Vitamin A & D Oint Ud Foilpak) 1 ea TOP Q8 [facility]; Protocol Last Admin: 09/08/18 21:42 Dose: Not Given Physical Exam - Constitutional Appears: Cachectic, Chronically Ill - Head Exam Head Exam: NORMAL INSPECTION - Respiratory Exam Respiratory Exam: Decreased Breath Sounds - Cardiovascular Exam Cardiovascular Exam: +S1, +S2 - GI/Abdominal Exam GI & Abdominal Exam: Soft. absent: Tenderness Results - Vital Signs Recent Vital Signs: Last Vital Signs Temp 97.7 F 09/08/18 19:28 Pulse 99 H 09/08/18 19:28 Resp 18 09/08/18 19:28 BP 105/71 09/08/18 19:28 Pulse Ox Assessment & Plan - Assessment and Plan (Free Text) Plan: Assessment severe sepsis S/P shock S/P VDRF, S/P ARDS due to bilateral pneumonia, most likely Pneumocystis pneumonia, in this patient HIV/AIDS, clinically improving perianal abscess after hemorrhoidectomy S/P surgery and chronic wound noted, cannot rule out colitis - has had more than 7 days of antibiotics for this gastritis Plan Beta glucan levels are elevated, and the BAL specimen is showing Pneumocystis on Bactrim day 13 and will need 14-21 days; S/P 7 days of Levaquin we have discontinued Merrem since patient has had more than 7 days of antibiotics for possible coliitis patient also continued on steroids as being tapered by medical team reviewed previous CT chest, abdomen and pelvis which shows pneumonitis with no lymphadenopathy, chronic diverticulosis but cannot rule out colitis; even though rapid flu test is negative and we have completed 5 days of Tamiflu discussed with Dr. Medrano previously will discontinue Valganciclovir for now; CMV PCR is only 261 HIV PCR is elevated, CD4 count is <20; RPR, serum Crypt Ag are negative - will be starting HALLE prophylaxis which is a once a week dosing of Zithromax RPR is non-reactive as well and would recommend Ophtho exam eventually will consider starting cART this week - discussed with casework supervisor that patient should be linked to an HIV provider prior to discharge and to find out which HIV meds is covered by her insurance Quantiferon TB test was indeterminate - granuloma on right lung seen on CT scan is probably old disease, initial CT chest showed groundglass opacities which are not typically seen in patients with TB; also patient did not have mediastinal lymphadenopathy, no upper lobe cavities, no signs of miliary tuberculosis, no pleural effusions, making TB less likely - sputum AFB is negative x 3 Dr. Kramer has discussed with patient about the HIV test result repeat CT A/P did not show rectal lesions
[2018-09-10] MEDS: Levalbuterol 1.25 MG/3 ML Inhal Soln UD IH SCH ×4 (01:39→21:01)
[2018-09-10] MEDS: Sulfamethoxazole/Trimethoprim 250 MG in Dextrose 5% In Water 500 ML IVPB SCH ×3 (05:53→22:52)
[2018-09-10] MEDS: Pantoprazole 40 mg EC Tab PO SCH ×2 (05:57→17:32)
[2018-09-10] MEDS: Vitamins A & D Oint UD Foilpak TOP SCH ×3 (06:00→23:07)
--- NOTE | 2018-09-10 08:22 | CON ---
DATE: 09/09/2018 LOCATION: Patient in room 315, bed 1. REASON FOR CONSULTATION; Patient is status post sepsis, ARDS, pneumonia, septic shock, human immunodeficiency virus positive, and troponin was elevated on previous admission of 08/17/2018. Patient is now in Transition Care Unit for deconditioning and physical therapy. HISTORY OF PRESENT ILLNESS: Patient is a 61-year-old female who was admitted with perirectal pain found to have purulent discharge from the rectum, possibly perirectal abscess, history of hemorrhoidectomy. Patient while on the medical floor had rapid response with hypotension. Patient became septic and she went to respiratory distress and she was intubated. She had extensive pneumonia within the lungs with ARDS. Patient became hypotensive. At that time, troponin was slightly elevated. Patient was treated and her respiratory status improved and she was extubated and then went to the medical floor and now she is transferred to Transitional Care Unit for deconditioning and physical therapy. Our impression for Troponin was next probably due to sepsis and hypotension at that time. Patient was not initiated for any intervention. PAST MEDICAL HISTORY: Significant for anemia. Patient had hemorrhoidectomy. SOCIAL HISTORY: Patient denied smoking. Denied alcohol abuse. ALLERGIES: PATIENT IS ALLERGIC TO PENICILLIN AND IV CONTRAST WHICH GIVES RASH. MEDICATIONS: Prior to admission to medical floor, patient apparently was not taking any medications. REVIEW OF SYSTEMS: All the systems reviewed, positives mentioned in the history, otherwise negative. Patient denies any chest pain. Her breathing is much better. Denies any palpitations. PHYSICAL EXAMINATION: VITAL SIGNS: Blood pressure 124/85, respirations 18, pulse 109, and temperature 98.7. HEENT: Head is normocephalic. Eyes; pupils normal. Conjunctivae slightly pale. NECK: JVP low. Carotids are equal. THORAX: AP diameter is normal. LUNGS: on the left base. otherwise lungs are clear. CARDIOVASCULAR: S1 and S2. ABDOMEN: Soft and nontender. No organomegaly. EXTREMITIES: No clubbing. No cyanosis. LABORATORY DATA: Last lab was done on 09/03/2018, it showed sodium 136, potassium 3.8, BUN 14, creatinine 0.5, random sugar 128, calcium 8.3, and phosphorous 4.7. AST and ALT are normal. Total protein 5.2. Albumin 2.8. Again, on 09/03/2018, WBC 5.7, hemoglobin 9.4, hematocrit 28.3, and platelets 240. Patient's EKG on 08/26/2018, showed sinus tachycardia, low voltage QRS. Previous cardiac workup, patient echo on 08/26/2018, showed normal chamber size, LV ejection fraction slightly reduced 45 to 50%, trace mitral regurgitation, mild tricuspid regurgitation, RVSP 33 mmHg. MUGA scan on 09/01/2018, showed ejection fraction 67%, so, patient's LV function improved. Previous LV function was related to sepsis and shock at that time. DIAGNOSES: The patient is status post sepsis, pneumonia, septic shock, human immunodeficiency virus positive, anemia, status post successful extubation, slight troponin elevation on medical floor related to hypotension and septic shock with mild LV dysfunction at the time of sepsis and shock. Later on ejection fraction improved to 67% by MUGA scan on 09/01/2018. Patient has sinus tachycardia probably related to anemia and general condition. Patient had deconditioning for which she is on Transitional Care Unit. PLAN: To continue physical therapy. Patient already on aspirin 81 mg daily, furosemide 40 mg daily, metoprolol 12.5 mg p.o. b.i.d., Lovenox 30 mg subcu daily, Protonix 40 mg b.i.d., potassium 20 mEq b.i.d. We will continue to follow closely with you. We will continue physical therapy. Paddy Gaming MD
[2018-09-10] MEDS: Potassium Chloride 20 mEq/15 ml LIQ UD PO SCH ×2 (08:32→17:32)
[2018-09-10] MEDS: Lidocaine 5% Oint(35 gm) TOP SCH (09:42)
[2018-09-10] MEDS: Silver Sulfadiazine 1% Cream (25 gm) TP SCH ×3 (09:43→17:32)
[2018-09-10] MEDS: Enoxaparin 30 mg Syringe SC SCH (09:43)
--- NOTE | 2018-09-10 11:21 | PN ---
DATE: 09/10/2018 PULMONARY NOTE SUBJECTIVE: The patient appears very comfortable this morning. She is not short of breath at rest. PHYSICAL EXAMINATION: VITAL SIGNS: Temperature is 98.7, pulse 88, respirations 18, blood pressure 133/92. Oxygen saturation on room air is 98%. HEENT: Normocephalic, atraumatic. NECK: No JVD. CARDIOVASCULAR: Positive S1, S2. No S3 gallop. LUNGS: Minimal crackles at the bases. Otherwise clear. EXTREMITIES: No clubbing, cyanosis or edema. Calves are nontender to palpation. GI: Abdomen is soft, nontender and nondistended. Bowel sounds are positive. SKIN: No acute rash. NEUROLOGIC: Limited at the present time. IMPRESSION: 1. Acute respiratory distress syndrome. Respiratory failure. 2. Sepsis with shock. 3. Pneumocystis carinii pneumonia. 4. Mild anemia. 5. Human immunodeficiency virus positivity. PLAN: The patient appears very comfortable this morning. She is not short of breath at rest. She does state to feeling much, much better overall. On physical exam, there is no significant bronchospasm noted. In addition, oxygen saturation on room air is now 98%. I will continue the current nebulizer treatments for now. The patient remains on antibiotic therapy - as per Infectious Disease. Input by Dr. Queen is noted. Clinical status of the patient is significantly improved - compared to last week. However, again, the future status/prognosis for this patient does remain guarded. I will discuss the above with the attending physician. Griffin Medrano MD MTDJyotsna
--- NOTE | 2018-09-10 14:38 | CP.PCM.PN ---
Subjective - Date & Time of Evaluation Date of Evaluation: 09/10/18 Time of Evaluation: 11:55 - Subjective Subjective: Did her physical therapy, feels tired. No fevers, still with poor appetite, no diarrhea, no abdominal pain, no SOB, no cough. Objective - Vital Signs/Intake and Output Vital Signs (last 24 hours): Temp Pulse Resp BP Pulse Ox 98.7 F 130 H 18 133/92 H 98 09/09/18 10:00 09/09/18 16:00 09/09/18 16:00 09/09/18 17:12 09/09/18 16:00 - Medications Medications: Current Medications Acetaminophen (Tylenol 325mg Tab) 650 mg PO Q6H PRN; Protocol PRN Reason: Fever >100.4 F Aspirin (Aspirin Chewable) 81 mg PO DAILY TOSHIA; Protocol Last Admin: 09/09/18 09:42 Dose: 81 mg Azithromycin (Zithromax) 1,250 mg PO MON TOSHIA; Protocol Benzonatate (Tessalon Perles) 100 mg PO TID TOSHIA; Protocol Last Admin: 09/09/18 17:13 Dose: 100 mg Enoxaparin Sodium (Lovenox) 30 mg SC DAILY TOSHIA; Protocol Last Admin: 09/09/18 09:43 Dose: 30 mg Furosemide (Lasix) 40 mg PO DAILY TOSHIA; Protocol Last Admin: 09/09/18 09:42 Dose: 40 mg Trimethoprim/Sulfamethoxazole (250 mg/ Dextrose) 500 mls @ 250 mls/hr IVPB 0600,1400,2200 TOSHIA Last Admin: 09/09/18 15:42 Dose: 250 mls/hr Levalbuterol HCl (Xopenex) 1.25 mg IH [id number] TOSHIA; Protocol Last Admin: 09/09/18 20:33 Dose: Not Given Lidocaine (Lidocaine 5%) 0 gm TOP DAILY TOSHIA; Protocol Last Admin: 09/09/18 14:41 Dose: Not Given Lorazepam (Ativan) 0.5 mg PO Q4H PRN; Protocol PRN Reason: Anxiety Metoprolol Tartrate (Lopressor) 12.5 mg PO 0800,1800 TOSHIA; Protocol Last Admin: 09/09/18 17:12 Dose: 12.5 mg Pantoprazole Sodium (Protonix Ec Tab) 40 mg PO 0600,1600 TOSHIA; Protocol Last Admin: 09/09/18 17:13 Dose: 40 mg Potassium Chloride (Potassium Chloride Oral Soln) 20 meq PO 0800,1800 TOSHIA; Protocol Last Admin: 09/09/18 17:13 Dose: 20 meq Silver Sulfadiazine (Silvadene 1% 25 Gm) 0 gm TP TID TOSHIA; Protocol Last Admin: 09/09/18 17:13 Dose: Not Given Vitamin A (Vitamin A & D Oint Ud Foilpak) 1 ea TOP Q8 TOSHIA; Protocol Last Admin: 09/09/18 17:25 Dose: Not Given - Constitutional Appears: Cachectic, Chronically Ill - Head Exam Head Exam: NORMAL INSPECTION - Neck Exam Neck Exam: absent: Meningismus - Respiratory Exam Respiratory Exam: Decreased Breath Sounds - Cardiovascular Exam Cardiovascular Exam: +S1, +S2 - GI/Abdominal Exam GI & Abdominal Exam: Soft. 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 HIV/AIDS, clinically improving perianal abscess after hemorrhoidectomy S/P surgery and chronic wound noted, cannot rule out colitis - has had more than 7 days of antibiotics for this gastritis Plan Beta glucan levels are elevated, and the BAL specimen is showing Pneumocystis on Bactrim day 14 and will need 14-21 days; S/P 7 days of Levaquin - will start cART (Prezcobix and Descovy) we have discontinued Merrem since patient has had more than 7 days of antibiotics for possible coliitis patient also continued on steroids as being tapered by medical team reviewed previous CT chest, abdomen and pelvis which shows pneumonitis with no lymphadenopathy, chronic diverticulosis but cannot rule out colitis; even though rapid flu test is negative and we have completed 5 days of Tamiflu discussed with Dr. Medrano previously will discontinue Valganciclovir for now; CMV PCR is only 261 HIV PCR is elevated, CD4 count is <20; RPR, serum Crypt Ag are negative - will be starting HALLE prophylaxis which is a once a week dosing of Zithromax RPR is non-reactive as well and would recommend Ophtho exam eventually Quantiferon TB test was indeterminate - granuloma on right lung seen on CT scan is probably old disease, initial CT chest showed groundglass opacities which are not typically seen in patients with TB; also patient did not have mediastinal lymphadenopathy, no upper lobe cavities, no signs of miliary tuberculosis, no pleural effusions, making TB less likely - sputum AFB is negative x [address] A/P did not show rectal lesions
--- NOTE | 2018-09-10 15:25 | PN ---
DATE: 09/10/2018 LOCATION: The patient is in room 315, bed 1. REASON FOR CONSULTATION: Followup from medical floor where the patient had troponin elevation, was in septic shock. The patient is a known case of HIV positive. The patient also had LV dysfunction when he was in septic shock, which improved later on. SUBJECTIVE: The patient lying flat in bed without any chest pain, shortness of breath, or palpitation. The patient started physical therapy yesterday. PHYSICAL EXAMINATION VITAL SIGNS: Blood pressure 136/90, respirations 18, pulse 90, and the patient is afebrile. HEENT: Head is normocephalic. Eyes; pupils normal. Conjunctivae slightly pale. NECK: JVP low. Carotids are equal. THORAX: AP diameter is normal. LUNGS: Few fine rales on the left base, otherwise lungs are clear. CARDIOVASCULAR: S1 and S2. ABDOMEN: Soft, no tenderness. EXTREMITIES: No clubbing. No cyanosis. LABORATORY DATA: Done on medical floor. They are quoted in our previous notes. DIAGNOSES: Status post sepsis, septic shock, respiratory failure, status post intubation then successful extubation, human immunodeficiency virus positive, anemia, deconditioning, slight troponin elevation on medical floor probably related to hypotension, septic shock with mild left ventricular dysfunction at the time of sepsis and shock, later on by multigated acquisition scan of 09/01/2018; the patient's ejection fraction improved to 67% PLAN: The patient is on metoprolol 12.5 mg two times a day, we will increase to 25 mg p.o. two times a day, Lovenox 30 mg subcutaneous daily, furosemide 40 mg daily, aspirin 81 mg daily, azithromycin as ordered, Protonix 40 mg two times a day, potassium 20 mg daily, and Bactrim 250 mg IV every 8 hours. Continue physical therapy. We will follow. Paddy Gaming MD
[2018-09-11] MEDS: Sulfamethoxazole/Trimethoprim 250 MG in Dextrose 5% In Water 500 ML IVPB SCH ×3 (06:08→21:43)
[2018-09-11] MEDS: Pantoprazole 40 mg EC Tab PO SCH ×2 (06:08→17:32)
[2018-09-11] MEDS: Vitamins A & D Oint UD Foilpak TOP SCH ×3 (06:09→21:44)
[2018-09-11] MEDS: Levalbuterol 1.25 MG/3 ML Inhal Soln UD IH SCH ×3 (07:22→20:02)
[2018-09-11] MEDS: Potassium Chloride 20 mEq/15 ml LIQ UD PO SCH ×2 (08:21→17:32)
[2018-09-11] MEDS: Enoxaparin 30 mg Syringe SC SCH (09:07)
--- NOTE | 2018-09-11 09:32 | PN ---
DATE: 09/11/2018 SUBJECTIVE: The patient appears very comfortable this morning. She is not short of breath at rest. PHYSICAL EXAMINATION: VITAL SIGNS: Temperature 98.7, pulse this morning 80, respiratory rate 16, blood pressure 154/85. Oxygen saturation on room air is 96%. HEENT: Normocephalic, atraumatic. NECK: No JVD. CARDIOVASCULAR: Positive S1, S2. No S3 gallop. LUNGS: Minimal crackles at the bases. Otherwise, clear. EXTREMITIES: No clubbing, cyanosis or edema. Calves are nontender to palpation. GI: Abdomen is soft, nontender and nondistended. Bowel sounds are positive. SKIN: No acute rash. NEUROLOGIC: Exam limited at the present time. IMPRESSION: 1. Acute respiratory distress syndrome. Respiratory failure. 2. Sepsis with shock. 3. Pneumocystis carinii pneumonia. 4. Mild anemia. 5. Human immunodeficiency virus positivity. PLAN: The patient appears very comfortable this morning. She is not short of breath at rest. She does state to feeling much better overall. On physical exam, her bronchospasm has primarily resolved. In addition, the alveolar-arterial gradient is also resolved. I will continue with the current nebulizer treatment for now. The patient remains on antibiotic therapy - as per Infectious Disease. Input by Dr. Quene is noted. Clinical status of the patient is significantly improved overall. However, given the above, the future status/prognosis for this patient does remain somewhat guarded. I will discuss the above with the attending physician. Griffin Medrano MD MTD[facility]
[2018-09-11] MEDS: Silver Sulfadiazine 1% Cream (25 gm) TP SCH ×3 (12:17→17:32)
[2018-09-11] MEDS: Lidocaine 5% Oint(35 gm) TOP SCH (12:17)
--- NOTE | 2018-09-11 15:12 | PN ---
DATE: 09/10/2018 SUBJECTIVE: This patient was seen this Thursday late evening in Transitional Care Unit, Room 315, bed 1 with her brother at the bedside. She is awake, alert, and clear and again signaling to me to speak discreetly as her brother is unaware of her diagnosis. She continues to do amazingly well having recovered from the severity of the pneumonia and ARDS picture. She is breathing comfortably, eating, although there was a report of some nausea earlier. PHYSICAL EXAMINATION: ABDOMEN: Soft, nontender. EXTREMITIES: Thin, showing evidence of recent weight loss. PLAN: Will continue antibiotics per ID and speak with the patient at greater length discreetly in privacy over the upcoming weekend. Sudarshan Kramer MD
--- NOTE | 2018-09-11 18:36 | PN ---
DATE: 09/11/2018 SUBJECTIVE: The patient is in bed in no acute distress, was seen earlier this morning. She states she is feeling better. PHYSICAL EXAMINATION: VITAL SIGNS: Temperature is 98, blood pressure is 150/80, respiratory rate of 18. HEENT: Unremarkable. NECK: Supple. LUNGS: Have decreased breath sounds. HEART: Normal S1 and S2. ABDOMEN: Soft, nontender. LABORATORY DATA: Noted. 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 On Bactrim day #15 and started on first Cobix and then Descovy. The patient is also on Zithromax 1200 mg once weekly. The patient's last creatinine was 0.5. We will repeat the laboratory findings. We will follow closely with you. Case discussed with PMD. Shayan Garcia MD
[2018-09-11] MEDS: DESCOVY PO SCH ×2 (18:53→18:54)
[2018-09-11] MEDS: PREZCOBIX PO SCH (18:54)
--- NOTE | 2018-09-11 21:57 | PN ---
DATE: 09/11/2018 REASON FOR CONSULTATION: Followup, cardiac evaluation, followup in transitional care unit. Admitted with sepsis and septic shock, HIV positive. Had decreased LV function, however, significantly improved. PHYSICAL EXAMINATION: VITAL SIGNS: Temperature afebrile, heart rate 104, blood pressure 120/88. HEENT: PERRLA. Extraocular muscles intact. NECK: Supple. No carotid bruits or thyromegaly. CHEST: Clear to auscultation. HEART: S1 and S2, regular. ABDOMEN: Soft. EXTREMITIES: Clubbing and cyanosis are negative. LABORATORY DATA: Blood workup is not available. IMPRESSION: A 63-year-old female with no past medical history significant, admitted with rectal abscess, sepsis, septic shock, intubation, respiratory failure, now successfully extubated. Workup showed human immunodeficiency virus positive, possible now full-blown acquired immune deficiency syndrome. Also, the patient made some troponin positive, most likely secondary to hemodynamic instability. At one point, left ventricular function in the midst of sepsis was low. MUGA scan was done that showed significantly improved left ventricular function with ejection fraction of 67%. RECOMMENDATIONS: Since the patient has baseline tachycardia, which is multifactorial, suggest to increase metoprolol to 25 p.o. b.i.d. We will get H and H. Continue HIV medication. CVS status is stable. Continue baby aspirin, and if remains stable, we will sign off in a day or two. We will hold Lasix for now. We will repeat the blood workup in the morning. They will repeat the blood workup in the morning, CBC, SMA-7, calcium, magnesium phosphate as well as TSH. Thank you for providing the opportunity in taking care of the patient, Jose Angel. We will follow with you. Paddy Weinstein MD
[2018-09-12] MEDS: Levalbuterol 1.25 MG/3 ML Inhal Soln UD IH SCH ×4 (01:52→20:32)
[2018-09-12] MEDS: Pantoprazole 40 mg EC Tab PO SCH ×2 (06:23→17:59)
[2018-09-12] MEDS: Sulfamethoxazole/Trimethoprim 250 MG in Dextrose 5% In Water 500 ML IVPB SCH (06:23)
[2018-09-12] MEDS: Vitamins A & D Oint UD Foilpak TOP SCH ×3 (06:46→22:31)
[2018-09-12] MEDS: Potassium Chloride 20 mEq/15 ml LIQ UD PO SCH ×2 (08:30→18:01)
[2018-09-12 08:32] LABS: BASO # 0.01 K/mm3 (0.0-2.0); BASO % 0.3 % (0.0-3.0); EOS # 0.1 (0.0-0.7); EOS % 1.7 % (1.5-5.0); HEMOGLOBIN 9.3 g/dL (12.0-16.0); LYMPH # 0.4 (1.2-3.4); LYMPH % 11.5 % (22.0-35.0); MEAN CELL VOLUME 87.6 fl (80.0-105.0); MEAN CORPUSCULAR HEMOGLOBIN 30.4 pg (25.0-35.0); MEAN CORPUSCULAR HGB CONC 34.7 g/dl (31.0-37.0); MEAN PLATELET VOLUME 10.6 fl (7.0-11.0); MONO # 0.2 (0.1-0.6); MONO % 4.3 % (1.0-6.0); RBC 3.06 10^6/uL (3.5-6.1); RED CELL DISTRIBUTION WIDTH 17.5 % (11.5-14.5); WHITE BLOOD COUNT 3.5 10^3/uL (4.5-11.0)
[2018-09-12 09:02] LABS: ALB/GLOB RATIO 1.2 (1.1-1.8); ALBUMIN 3.3 g/dL (3.0-4.8); ALT/SGPT 20 U/L (7-56); AST/SGOT 37 U/L (14-36); BLOOD UREA NITROGEN 12 mg/dL (7-21); CALCIUM 8.7 mg/dL (8.4-10.5); GFR NON-AFRICAN AMERICAN > 60
--- NOTE | 2018-09-12 09:03 | PN ---
DATE: 09/12/2018 PULMONARY NOTE SUBJECTIVE: The patient appears very comfortable this morning. She is not short of breath at rest. PHYSICAL EXAMINATION: VITALS: temperature is 99.0, pulse is 84, respiratory rate 18/20, blood pressure 122/54. Oxygen saturation on room air is 98%. HEENT: Normocephalic, atraumatic. No JVD. CARDIOVASCULAR: Positive S1, S2. No S3 gallop. LUNGS: Minimal crackles at the bases. Otherwise clear. EXTREMITIES: No clubbing, cyanosis, or edema. Calves are nontender to palpation. GASTROINTESTINAL: Abdomen is soft, nontender, and nondistended. Bowel sounds are positive. SKIN: No acute rash. NEUROLOGIC: Exam limited at the present time. IMPRESSION: 1. Acute respiratory distress syndrome. Respiratory failure. 2. Sepsis with shock. 3. Pneumocystis carinii pneumonia. 4. Mild anemia. 5. Human immunodeficiency virus positivity. PLAN: The patient appears very comfortable this morning. She is not short of breath at rest. She does state to feeling much. much better overall. On physical exam, her bronchospasm has primarily resolved. In addition, the alveolar-arterial gradient has also resolved. I will continue the current nebulizer treatments for now. The patient did have a fever yesterday - discussed with nurse. She is afebrile this morning. I did discuss the case with Dr. Garcia (Infectious Disease) this morning. Input by Cardiology is also noted. Clinical status of the patient is significantly improved - compared to the initial presentation. However, again, the future status/prognosis for this patient does remain guarded. I will discuss the above with the attending physician. Griffin Medrano MD JERONIMO
[2018-09-12] MEDS: PREZCOBIX PO SCH (09:45)
[2018-09-12] MEDS: DESCOVY PO SCH (09:45)
[2018-09-12] MEDS: Enoxaparin 30 mg Syringe SC SCH (09:47)
[2018-09-12] MEDS: Silver Sulfadiazine 1% Cream (25 gm) TP SCH ×3 (09:49→18:00)
[2018-09-12] MEDS: Lidocaine 5% Oint(35 gm) TOP SCH (09:50)
--- NOTE | 2018-09-12 14:46 | PN ---
DATE: 09/12/2018 SUBJECTIVE: The patient is seen earlier today. She is doing well. She did have a fever yesterday and was up to 102 and 101. This morning, her temperature is down. She states she has no nausea or vomiting. No abdominal pain. No diarrhea, although she did have nausea yesterday. PHYSICAL EXAMINATION: VITAL SIGNS: Temperature is 98, blood pressure is 120/50, respiratory rate of 18, and heart rate of 91. The patient's O2 saturation at 99% on room air. HEENT: Unremarkable. NECK: Supple. LUNGS: Have decreased breath sounds. HEART: Normal S1, S2. ABDOMEN: Soft, nontender. LABORATORY DATA: Laboratory examination reveals the white count is down to 3.5, hemoglobin of 9, platelets of 182. Chemistries reveal a sodium is 130 and AST is 37 and creatinine is 0.8. Microbiology is noted. Dr. Medrano's note is reviewed. Blood cultures have been ordered today by Dr. Weinstein. The patient is on IV Bactrim, p.o. Zithromax. The patient does have a PICC line in her left arm. ASSESSMENT/PLAN: A 63-year-old female who is presented with status post shock, ventilatory-dependent respiratory failure, and severe sepsis and respiratory distress, bilateral pneumonia, acute respiratory distress syndrome secondary to her pneumocystis pneumonia in a patient with end-stage acquired immunodeficiency syndrome, day #16 of Bactrim. Currently on Prezcobix and Descovy. New fevers, may be Bactrim-induced fever. We will check on the repeat blood cultures 16 days. We will discontinue the Bactrim with mild liver function test elevations concerned about Bactrim toxicity. We will use Mepron. Pending blood cultures. She will have a repeat chest x-ray. We will check on the repeat blood cultures. We will follow closely with you. Concerned about this new fever may be secondary to the peripherally inserted central catheter line in her left arm versus Bactrim-induced fevers with mild elevations of liver function testes. We will use Mepron, and discontinue Bactrim. Pending blood cultures. Shayan Garcia MD
--- NOTE | 2018-09-12 15:43 | PN ---
DATE: 09/12/2018 REASON FOR CONSULTATION: Followup cardiac evaluation and continue care in transitional care unit, admitted with sepsis, septic shock, decreased LV function, HIV positive, later this infection significantly improved. SUBJECTIVE: The patient denies chest pain, shortness of breath or palpitations. OBJECTIVE: GENERAL: Not in apparent distress. VITAL SIGNS: Temperature is 101.4, heart rate 90, blood pressure 120/64. HEENT: Eyes; PERRLA. Extraocular muscles intact. NECK: Supple. No carotid bruit. No thyromegaly. CHEST: Clear to auscultation. HEART: S1 and S2 regular. ABDOMEN: Soft. EXTREMITIES: Clubbing and cyanosis negative. LABORATORY DATA: Blood workup as follows: WBC 3.5, hemoglobin 9.9, hematocrit 26.8, platelet count 182. Chemistries shows; sodium 130, potassium 3.4, chloride 93, carbon dioxide 24, anion gap of 16, BUN 6, creatinine 0.8. IMPRESSION: A 63-year-old female admitted with rectal abscess, went into sepsis and septic shock, later on the course workup showed the patient is human immunodeficiency virus positive, AIDS (acquired immunodeficiency syndrome). The patient has borderline troponin positive most likely secondary to hemodynamic instability. At one point was low, later MUGA scan was done and found to be significantly improved, ejection fraction 67%. No cardiac complaint. RECOMMENDATION: Since the patient has baseline tachycardia, I will continue beta-fani. If the patient develops fever, we will send two sets of blood culture, continue baby aspirin. CVS status is stable. In a day or two we will sign off, glad to follow up p.r.n if remain stable. Thank you Dr. Kramer for providing us the opportunity in taking care of the patient Mr. Jose Angel Guerra. We will send two sets of blood culture and urine culture to rule out of UTI and source for fever. Paddy Weinstein MD
[2018-09-12] MEDS: Atovaquone 750 mg/5 ml Susp UD PO SCH (17:59)
[2018-09-13] MEDS: Levalbuterol 1.25 MG/3 ML Inhal Soln UD IH SCH ×4 (01:43→19:48)
[2018-09-13] MEDS: Pantoprazole 40 mg EC Tab PO SCH ×2 (06:08→18:21)
[2018-09-13] MEDS: Vitamins A & D Oint UD Foilpak TOP SCH ×3 (06:10→22:19)
--- NOTE | 2018-09-13 10:10 | PN ---
DATE: 09/13/2018 SUBJECTIVE: The patient appears very comfortable this morning. She is not short of breath at rest. PHYSICAL EXAMINATION: VITAL SIGNS (Last noted in the computer): Temperature 98.6, pulse 80, respiratory rate 18/20, blood pressure 98/62. Oxygen saturation on room air is 97%. HEENT: Normocephalic, atraumatic. NECK: No JVD. CARDIOVASCULAR: Positive S1, S2. No S3 gallop. LUNGS: Minimal crackles at the bases. Otherwise, clear. EXTREMITIES: No clubbing, cyanosis or edema. Calves are nontender to palpation. GI: Abdomen is soft, nontender and nondistended. Bowel sounds are positive. SKIN: No acute rash. NEUROLOGIC: Exam limited at the present time. IMPRESSION: 1. Acute respiratory distress syndrome. Respiratory failure. 2. Sepsis with shock. 3. Pneumocystis carinii pneumonia. 4. Mild anemia. 5. Human immunodeficiency virus positivity. PLAN: The patient appears very comfortable this morning. She is not short of breath at rest. She does state to feeling much, much better overall. On physical exam, her bronchospasm has resolved. In addition, the alveolar-arterial gradient has also resolved. I will continue with the current nebulizer treatments for now. I would continue with the antibiotic coverage as per Infectious Disease. Input by Dr. Garcia is noted. The temperatures have now resolved. Clinical status of the patient is significantly improved overall. However, given the above, the future status/prognosis for this patient does remain guarded. I will discuss the above with Dr. Kramer. Griffin Medrano MD JERONIMO
--- NOTE | 2018-09-13 10:20 | PN ---
DATE: 09/12/2018 SUBJECTIVE: The patient was seen this Thursday morning in Transitional Care Unit, room 315, bed 1 with her brother at bedside I had met this brother once before while the patient is in Intensive Care. Our conservation needed to be limited because of patient's wishes for confidentiality regarding her diagnosis and family information. She is overall doing well, active, engaging in the activities of the unit. Continuing IV antibiotics per infectious disease and were working on discharge plans and p.o. oral long-term medications for HIV / AIDS. Sudarshan Kramer MD MTD[facility]
[2018-09-13] MEDS: Potassium Chloride 20 mEq/15 ml LIQ UD PO SCH ×2 (10:42→18:22)
[2018-09-13] MEDS: PREZCOBIX PO SCH (10:43)
[2018-09-13] MEDS: DESCOVY PO SCH (10:43)
[2018-09-13] MEDS: Lidocaine 5% Oint(35 gm) TOP SCH (10:44)
[2018-09-13] MEDS: Atovaquone 750 mg/5 ml Susp UD PO SCH ×2 (10:45→18:22)
[2018-09-13] MEDS: Silver Sulfadiazine 1% Cream (25 gm) TP SCH ×3 (10:45→18:22)
[2018-09-13] MEDS: Enoxaparin 30 mg Syringe SC SCH (10:45)
--- NOTE | 2018-09-13 12:19 | PN ---
DATE: 09/11/2018 SUBJECTIVE: The patient was seen this Thursday morning in transitional care unit, room 315 bed 1. We had a chance to sit and talk for a long time. I again went over her prognosis, her diagnosis, and our plan. I explained her condition to her in clear and simple terms. She was surprised to hear some facts, but understood what she was told in the past and realizes that we are for her benefit repeating her instructions and maintaining a good degree of optimism. She understands she will need to continue followup with Infectious Disease consultants after discharge and that we are working on arranging her medication schedule. I spoke with Infectious Disease, Dr. Shayan Garcia regarding her home medications. We will rely heavily on him to arrange discharge medications. The patient uses [facility] pharmacy, so, all her antivirals can be arranged and prescribed through their pharmacy. Sudarshan Kramer MD MTD[facility]
[2018-09-13] MEDS ORDERED: Alum-Mag Hydrox-Simethicone Susp (30 mL) PO STA (14:28)
--- NOTE | 2018-09-13 17:45 | CP.PCM.PN ---
Subjective - Date & Time of Evaluation Date of Evaluation: 09/13/18 Time of Evaluation: 12:10 - Subjective Subjective: Feeling stronger each day, no fevers, still with cough but better. Objective - Vital Signs/Intake and Output Vital Signs (last 24 hours): Temp Pulse Resp BP Pulse Ox 98.6 F 80 22 98/62 L 97 09/12/18 16:00 09/12/18 17:54 09/12/18 16:00 09/12/18 17:54 09/12/18 16:00 - Medications Medications: Current Medications Acetaminophen (Tylenol 325mg Tab) 650 mg PO Q6H PRN; Protocol PRN Reason: Fever >100.4 F Last Admin: 09/11/18 17:30 Dose: 650 mg Aspirin (Aspirin Chewable) 81 mg PO DAILY [facility]; Protocol Last Admin: 09/12/18 09:45 Dose: 81 mg Atovaquone (Mepron) 750 mg PO BID [facility]; Protocol Stop: 09/21/18 18:01 Last Admin: 09/12/18 17:59 Dose: 750 mg Azithromycin (Zithromax) 1,250 mg PO MON [facility]; Protocol Benzonatate (Tessalon Perles) 100 mg PO TID [facility]; Protocol Last Admin: 09/12/18 18:00 Dose: Not Given Enoxaparin Sodium (Lovenox) 30 mg SC DAILY [facility]; Protocol Last Admin: 09/12/18 09:47 Dose: 30 mg Furosemide (Lasix) 40 mg PO DAILY [facility]; Protocol Last Admin: 09/11/18 09:06 Dose: 40 mg Home Med (Home Med) 1 unit PO DAILY [facility] Last Admin: 09/12/18 09:45 Dose: 1 unit Home Med (Home Med) 1 unit PO DAILY [facility] Last Admin: 09/12/18 09:45 Dose: 1 unit Levalbuterol HCl (Xopenex) 1.25 mg IH [id number] [facility]; Protocol Last Admin: 09/12/18 20:32 Dose: Not Given Lidocaine (Lidocaine 5%) 0 gm TOP DAILY [facility]; Protocol Last Admin: 09/12/18 09:50 Dose: 1 applic Lorazepam (Ativan) 0.5 mg PO Q4H PRN; Protocol PRN Reason: Anxiety Metoprolol Tartrate (Lopressor) 25 mg PO BID [facility] Last Admin: 09/12/18 17:54 Dose: Not Given Ondansetron HCl (Zofran Inj) 4 mg IVP Q6H PRN; Protocol PRN Reason: Nausea/Vomiting Last Admin: 09/11/18 23:59 Dose: 4 mg Pantoprazole Sodium (Protonix Ec Tab) 40 mg PO 0600,1600 [facility]; Protocol Last Admin: 09/12/18 17:59 Dose: 40 mg Potassium Chloride (Potassium Chloride Oral Soln) 20 meq PO 0800,1800 [facility]; Protocol Last Admin: 09/12/18 18:01 Dose: 20 meq Silver Sulfadiazine (Silvadene 1% 25 Gm) 0 gm TP TID [facility]; Protocol Last Admin: 09/12/18 18:00 Dose: Not Given Vitamin A (Vitamin A & D Oint Ud Foilpak) 1 ea TOP Q8 [facility]; Protocol Last Admin: 09/12/18 13:37 Dose: Not Given Zolpidem Tartrate (Ambien) 5 mg PO HS PRN; Protocol PRN Reason: Insomnia Last Admin: 09/11/18 23:56 Dose: 5 mg - Labs Labs: 09/12/18 08:00 09/12/18 08:00 - Constitutional Appears: Chronically Ill - Head Exam Head Exam: NORMAL INSPECTION - Respiratory Exam Respiratory Exam: Decreased Breath Sounds - Cardiovascular Exam Cardiovascular Exam: +S1, +S2 - GI/Abdominal Exam GI & Abdominal Exam: Soft. 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 HIV/AIDS, clinically improving perianal abscess after hemorrhoidectomy S/P surgery and chronic wound noted, cannot rule out colitis - has had more than 7 days of antibiotics for this gastritis Plan Beta glucan levels are elevated, and the BAL specimen is showing Pneumocystis on Mepron day 17 and will need 14-21 days; S/P 7 days of Levaquin - will start cART (Prezcobix and Descovy) we have discontinued Merrem since patient has had more than 7 days of antibiotics for possible coliitis patient also continued on steroids as being tapered by medical team reviewed previous CT chest, abdomen and pelvis which shows pneumonitis with no lymphadenopathy, chronic diverticulosis but cannot rule out colitis; even though rapid flu test is negative and we have completed 5 days of Tamiflu discussed with Dr. Medrano previously will discontinue Valganciclovir for now; CMV PCR is only 261 HIV PCR is elevated, CD4 count is <20; RPR, serum Crypt Ag are negative - will be starting HALLE prophylaxis which is a once a week dosing of Zithromax RPR is non-reactive as well and would recommend Ophtho exam eventually Quantiferon TB test was indeterminate - granuloma on right lung seen on CT scan is probably old disease, initial CT chest showed groundglass opacities which are not typically seen in patients with TB; also patient did not have mediastinal l ymphadenopathy, no upper lobe cavities, no signs of miliary tuberculosis, no pleural effusions, making TB less likely - sputum AFB is negative x [address] A/P did not show rectal lesions
--- NOTE | 2018-09-13 19:08 | PN ---
DATE: 09/13/2018 REASON FOR CONSULTATION AND FOLLOWUP: Cardiac evaluation, continue with care in Transitional Care Unit, admitted with sepsis, septic shock, decreased LV function, HIV positive, later on LV function significantly improved. SUBJECTIVE: The patient denies any chest pain, shortness of breath or any palpitations. Patient is not in apparent distress. OBJECTIVE/PHYSICAL EXAMINATION: As follows: VITAL SIGNS: Temperature is afebrile, heart rate 80, and blood pressure 118/84. HEENT: PERRLA. Extraocular muscles intact. NECK: Supple. No carotid bruit. No thyromegaly. CHEST: Clear to auscultation. HEART: S1 and S2 regular. ABDOMEN: Soft. EXTREMITIES: Clubbing and cyanosis, negative. LABORATORY DATA: Blood workup as follows; WBC 3.5, hemoglobin 9.3, hematocrit 26.8, and platelet count 183. Chemistries shows; sodium 130, potassium 3.4, chloride 90, carbon dioxide 24, anion gap of 16, BUN 12, creatinine 0.8 as of yesterday. IMPRESSION: A 63-year-old female with no significant past medical history admitted with rectal abscess, underwent septic shock later on. Workup shows patient is HIV positive, full blown AIDS. On admitting with hemodynamic study, patient had a borderline troponin positive with decrease LV function by echo. Later on, after the patient got extubated and stabilized, MUGA scan done, showed ejection fraction of 67%. Most likely troponin is positive secondary to hemodynamic instability at that time and now the patient is stable in TCU. No complaint of chest pain, shortness of breath or any palpitation. RECOMMENDATIONS: Continue DVT prophylaxis. Continue aspirin. Continue metoprolol 25 mg p.o. b.i.d. patient is stable. Yesterday we sent 2 sets of blood culture because the patient was having low grade fever, but now both sets are negative. Urine culture also less than 1000 colony. We will sign out. We are glad to follow p.r.n. Thank you Dr. Kramer for providing us the opportunity in taking care of the patient, Luci Guerra. Paddy Weinstein MD
[2018-09-14] MEDS: Levalbuterol 1.25 MG/3 ML Inhal Soln UD IH SCH ×4 (02:13→21:35)
[2018-09-14] MEDS: Vitamins A & D Oint UD Foilpak TOP SCH ×3 (06:09→21:12)
[2018-09-14] MEDS: Pantoprazole 40 mg EC Tab PO SCH ×2 (06:10→17:21)
[2018-09-14] MEDS: Potassium Chloride 20 mEq/15 ml LIQ UD PO SCH ×2 (07:42→17:24)
--- NOTE | 2018-09-14 09:06 | PN ---
DATE: 09/14/2018 PULMONARY NOTE SUBJECTIVE: The patient appears very comfortable this morning. She is not short of breath at rest. PHYSICAL EXAMINATION: VITALS: Temperature is 98.4, pulse is 88, respirations 18, blood pressure 107/80. Oxygen saturation on room air is 98%. HEENT: Normocephalic, atraumatic. NECK: No JVD. CARDIOVASCULAR: Positive S1, S2. No S3 gallop. LUNGS: Minimal crackles at the bases. Otherwise clear. EXTREMITIES: No clubbing, cyanosis, or edema. Calves are nontender to palpation. GASTROINTESTINAL: Abdomen is soft, nontender, and nondistended. Bowel sounds are positive. SKIN: No acute rash. NEUROLOGIC: Exam limited at the present time. IMPRESSION: 1. Acute respiratory distress syndrome. Respiratory failure. 2. Sepsis with shock. 3. Pneumocystis carinii pneumonia. 4. Mild anemia. 5. Human immunodeficiency virus positivity. PLAN: The patient appears very comfortable this morning. She is not short of breath at rest. She does state to feeling much, much better overall. On physical exam, her bronchospasm has resolved. In addition, the oxygen saturation on room air is now 98%. I will continue the current nebulizer treatments for now. I would continue with the antibiotic coverage as per Infectious Disease. Input by Dr. Queen is noted. Clinical status of the patient is significantly improved overall. However, given the above, the future status/prognosis in this patient does remain guarded. I will discuss the above with the attending physician. Griffin Medrano MD MTDD
[2018-09-14] MEDS: PREZCOBIX PO SCH (09:40)
[2018-09-14] MEDS: DESCOVY PO SCH (09:40)
[2018-09-14] MEDS: Lidocaine 5% Oint(35 gm) TOP SCH (09:41)
[2018-09-14] MEDS: Enoxaparin 30 mg Syringe SC SCH (09:41)
[2018-09-14] MEDS: Silver Sulfadiazine 1% Cream (25 gm) TP SCH ×3 (09:42→17:24)
[2018-09-14] MEDS: Atovaquone 750 mg/5 ml Susp UD PO SCH ×2 (09:42→17:24)
[2018-09-14 10:36] VITALS: RESP 18
--- NOTE | 2018-09-14 12:27 | RAD ---
Date of service: 09/14/2018 HISTORY: rule out pneumonia COMPARISON: 09/03/2018 FINDINGS: LUNGS: Improving left perihilar/upper lobe opacity. Improving right basilar opacity. Possible resolving pneumonia. PLEURA: No significant pleural effusion identified, no pneumothorax apparent. CARDIOVASCULAR: No aortic atherosclerotic calcification present. Normal cardiac size. No congestive change. Left PICC catheter terminates at the level the right atrium. OSSEOUS STRUCTURES: No significant abnormalities. VISUALIZED UPPER ABDOMEN: Normal. OTHER FINDINGS: None. IMPRESSION: Improving bilateral infiltrates compared to 09/03/2018.
--- NOTE | 2018-09-14 12:40 | PN ---
DATE: 09/13/2018 The patient is a 63-year-old female who was admitted to [facility] with complications of hemorrhoidectomy performed at another facility in 04/2018. During her hospital stay, she was evaluated. She was found to have perianal excoriations and a mild rectal fissure seen on rigid sigmoidoscopy and proctoscopy. This was being treated topically. During her hospital stay, the patient decompensated, was transferred to the intensive care unit, was intubated for a few days with ARDS. She was found to be positive for HIV, being followed by Dr. Queen and Dr. Garcia, the infectious disease specialist, Dr. Medrano, her hardwood floor sander, Dr. Weinstein and Dr. Gaming, the pressure steamer tender, also follow the patient closely. She responded to therapy, was extubated, was transferred to the medical floor where she did well and she was transferred to the transitional care unit 5 days ago, on 09/08/2018. On physical therapy, she is doing well, was seen today. She is awake, alert, and oriented. Dr. Queen, who was visiting at the time, came into the room. He was happy to tell the patient that her antiviral medications were covered by her insurance company. The patient is in good spirits. She denies any chest pain, denies any shortness of breath or coughing. She felt good about physical therapy. She felt she was getting stronger. Currently, she is receiving Prezcobix and Descovy, antiviral medicine for her AIDS. She had been positive for Pneumocystis carinii pneumonia on the medical floor. We are continuing to follow the patient closely. Scott Kramer MD
--- NOTE | 2018-09-14 16:31 | CP.PCM.PN ---
Subjective - Date & Time of Evaluation Date of Evaluation: 09/14/18 Time of Evaluation: 10:45 - Subjective Subjective: Doing her physical therapy and getting slowly stronger, appetite still not as good, had one episode of low grade fever last night, cough is improving, no diarrhea. Objective - Vital Signs/Intake and Output Vital Signs (last 24 hours): Temp Pulse Resp BP Pulse Ox 98.9 F 94 H 20 118/84 97 09/13/18 10:00 09/13/18 10:44 09/13/18 10:00 09/13/18 10:44 09/13/18 10:00 - Medications Medications: Current Medications Acetaminophen (Tylenol 325mg Tab) 650 mg PO Q6H PRN; Protocol PRN Reason: Fever >100.4 F Last Admin: 09/11/18 17:30 Dose: 650 mg Aspirin (Aspirin Chewable) 81 mg PO DAILY [facility]; Protocol Last Admin: 09/13/18 10:42 Dose: 81 mg Atovaquone (Mepron) 750 mg PO BID [facility]; Protocol Stop: 09/21/18 18:01 Last Admin: 09/13/18 10:45 Dose: 750 mg Azithromycin (Zithromax) 1,250 mg PO MON [facility]; Protocol Last Admin: 09/13/18 10:45 Dose: 1,250 mg Benzonatate (Tessalon Perles) 100 mg PO TID [facility]; Protocol Last Admin: 09/13/18 14:16 Dose: Not Given Enoxaparin Sodium (Lovenox) 30 mg SC DAILY [facility]; Protocol Last Admin: 09/13/18 10:45 Dose: 30 mg Furosemide (Lasix) 40 mg PO DAILY [facility]; Protocol Last Admin: 09/11/18 09:06 Dose: 40 mg Home Med (Home Med) 1 unit PO DAILY [facility] Last Admin: 09/13/18 10:43 Dose: 1 unit Home Med (Home Med) 1 unit PO DAILY [facility] Last Admin: 09/13/18 10:43 Dose: 1 unit Levalbuterol HCl (Xopenex) 1.25 mg IH [id number] [facility]; Protocol Last Admin: 09/13/18 13:02 Dose: Not Given Lidocaine (Lidocaine 5%) 0 gm TOP DAILY [facility]; Protocol Last Admin: 09/13/18 10:44 Dose: 1 applic Lorazepam (Ativan) 0.5 mg PO Q4H PRN; Protocol PRN Reason: Anxiety Metoprolol Tartrate (Lopressor) 25 mg PO BID [facility] Last Admin: 09/13/18 10:44 Dose: 25 mg Ondansetron HCl (Zofran Inj) 4 mg IVP Q6H PRN; Protocol PRN Reason: Nausea/Vomiting Last Admin: 09/11/18 23:59 Dose: 4 mg Pantoprazole Sodium (Protonix Ec Tab) 40 mg PO 0600,1600 [facility]; Protocol Last Admin: 09/13/18 06:08 Dose: 40 mg Potassium Chloride (Potassium Chloride Oral Soln) 20 meq PO 0800,1800 [facility]; Protocol Last Admin: 09/13/18 10:42 Dose: 20 meq Silver Sulfadiazine (Silvadene 1% 25 Gm) 0 gm TP TID [facility]; Protocol Last Admin: 09/13/18 14:16 Dose: Not Given Vitamin A (Vitamin A & D Oint Ud Foilpak) 1 ea TOP Q8 [facility]; Protocol Last Admin: 09/13/18 14:16 Dose: Not Given Zolpidem Tartrate (Ambien) 5 mg PO HS PRN; Protocol PRN Reason: Insomnia Last Admin: 09/13/18 00:00 Dose: 5 mg - Labs Labs: 09/12/18 08:00 09/12/18 08:00 - Constitutional Appears: Cachectic, Chronically Ill - Head Exam Head Exam: NORMAL INSPECTION - ENT Exam ENT Exam: Mucous Membranes Moist - Neck Exam Neck Exam: absent: Meningismus - Respiratory Exam Respiratory Exam: Decreased Breath Sounds - Cardiovascular Exam Cardiovascular Exam: +S1, +S2 - GI/Abdominal Exam GI & Abdominal Exam: Soft. 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 HIV/AIDS, clinically improving perianal abscess after hemorrhoidectomy S/P surgery and chronic wound noted, cannot rule out colitis - has had more than 7 days of antibiotics for this gastritis Plan having fevers, if persistent will repeat septic work up Beta glucan levels are elevated, and the BAL specimen is showing Pneumocystis on Mepron day 18 and will need up to 21 days; S/P 7 days of Levaquin - will start cART (Prezcobix and Descovy) we have discontinued Merrem since patient has had more than 7 days of antibiotics for possible coliitis patient also continued on steroids as being tapered by medical team reviewed previous CT chest, abdomen and pelvis which shows pneumonitis with no lymphadenopathy, chronic diverticulosis but cannot rule out colitis; even though rapid flu test is negative and we have completed 5 days of Tamiflu discussed with Dr. Medrano previously will discontinue Valganciclovir for now; CMV PCR is only 261 HIV PCR is elevated, CD4 count is <20; RPR, serum Crypt Ag are negative - will be starting HALLE prophylaxis which is a once a week dosing of Zithromax RPR is non-reactive as well and would recommend Ophtho exam eventually Quantiferon TB test was indeterminate - granuloma on right lung seen on CT scan is probably old disease, initial CT chest showed groundglass opacities which are not typically seen in patients with TB; also patient did not have mediastinal lymphadenopathy, no upper lobe cavities, no signs of miliary tuberculosis, no pleural effusions, making TB less likely - sputum AFB is negative x [address] A/P did not show rectal lesions
--- NOTE | 2018-09-15 00:35 | PN ---
DATE: 09/14/2018 SUBJECTIVE: Patient was seen this Thursday evening in Transitional Care Unit, room 315, bed 1. She is awake, alert, clear, and smiling in rather good spirits during this visit. She has been eating well, it is pleased to see that she is gaining weight. She looks better nourished over the last few days. IMPRESSION AND PLAN: She is enjoying physical therapy and exercise, looking forward to going home in 2 days and continuing her therapy and exercise regimen. Medications are currently being provided to the floor [facility]. Tomorrow, I will need to confirm that the Pharmacy is ready for her discharge medicines in preparation for discharge on . Sudarshan Kramer MD
[2018-09-15] MEDS: Levalbuterol 1.25 MG/3 ML Inhal Soln UD IH SCH ×4 (03:00→19:28)
[2018-09-15] MEDS: Pantoprazole 40 mg EC Tab PO SCH ×2 (05:29→17:00)
[2018-09-15] MEDS: Vitamins A & D Oint UD Foilpak TOP SCH ×3 (05:30→21:32)
[2018-09-15] MEDS: Potassium Chloride 20 mEq/15 ml LIQ UD PO SCH ×2 (08:08→17:44)
[2018-09-15] MEDS: DESCOVY PO SCH (10:47)
[2018-09-15] MEDS: PREZCOBIX PO SCH (10:47)
[2018-09-15] MEDS: Lidocaine 5% Oint(35 gm) TOP SCH (10:48)
[2018-09-15] MEDS: Enoxaparin 30 mg Syringe SC SCH (10:51)
[2018-09-15] MEDS: Atovaquone 750 mg/5 ml Susp UD PO SCH ×2 (10:52→17:43)
[2018-09-15] MEDS: Silver Sulfadiazine 1% Cream (25 gm) TP SCH ×3 (10:53→17:44)
--- NOTE | 2018-09-15 12:27 | PN ---
DATE: 09/15/2018 PULMONARY PROGRESS NOTE SUBJECTIVE: The patient was seen and examined at bedside in Transitional Care Unit. She is not complaining of shortness of breath and states she feels better. She is getting levalbuterol inhalation as well as azithromycin. PHYSICAL EXAMINATION GENERAL: She is awake, alert, in no acute distress. HEENT: Examination of the head, ears, nose, and throat is within normal limits. NECK: Supple. There is no jugular vein distention. CARDIOVASCULAR: S1 and S2. No S3, regular. PULMONARY: Few course of rhonchi in both bases. No wheezing. GASTROINTESTINAL: Soft and nontender. No organomegaly. EXTREMITIES: No pedal edema. No cyanosis. SKIN: No acute skin rash. NEUROLOGIC: No focal deficits. ASSESSMENT: 1. Status post acute respiratory distress syndrome. 2. Respiratory failure. 3. Sepsis with septic shock. 4. Pneumocystis carinii pneumonia. 5. Anemia. 6. Human immunodeficiency virus positivity. PLAN: The patient continues to improve slowly. She is not short of breath at rest. She still has few rhonchi bilaterally. We will continue with administration of supplemental oxygen and current nebulizer treatment. Continue antibiotic coverage as per Infectious Disease. Phani Castro MD
--- NOTE | 2018-09-15 14:05 | CP.PCM.PN ---
Subjective - Date & Time of Evaluation Date of Evaluation: 09/15/18 Time of Evaluation: 11:35 - Subjective Subjective: Afebrile, cough is less, has little more energy, doing her physical therapy well. Objective - Vital Signs/Intake and Output Vital Signs (last 24 hours): Temp Pulse Resp BP Pulse Ox 98.1 F 104 H 18 104/67 98 09/14/18 10:00 09/14/18 10:00 09/14/18 10:00 09/14/18 10:00 09/14/18 10:00 - Medications Medications: Current Medications Acetaminophen (Tylenol 325mg Tab) 650 mg PO Q6H PRN; Protocol PRN Reason: Fever >100.4 F Last Admin: 09/13/18 20:22 Dose: 650 mg Aspirin (Aspirin Chewable) 81 mg PO DAILY [facility]; Protocol Last Admin: 09/14/18 09:12 Dose: 81 mg Atovaquone (Mepron) 750 mg PO BID [facility]; Protocol Stop: 09/21/18 18:01 Last Admin: 09/14/18 09:42 Dose: 750 mg Azithromycin (Zithromax) 1,250 mg PO MON [facility]; Protocol Last Admin: 09/13/18 10:45 Dose: 1,250 mg Benzonatate (Tessalon Perles) 100 mg PO TID [facility]; Protocol Last Admin: 09/14/18 14:04 Dose: Not Given Enoxaparin Sodium (Lovenox) 30 mg SC DAILY [facility]; Protocol Last Admin: 09/14/18 09:41 Dose: 30 mg Furosemide (Lasix) 40 mg PO DAILY [facility]; Protocol Last Admin: 09/11/18 09:06 Dose: 40 mg Home Med (Home Med) 1 unit PO DAILY [facility] Last Admin: 09/14/18 09:40 Dose: 1 unit Home Med (Home Med) 1 unit PO DAILY [facility] Last Admin: 09/14/18 09:40 Dose: 1 unit Levalbuterol HCl (Xopenex) 1.25 mg IH [id number] [facility]; Protocol Last Admin: 09/14/18 13:09 Dose: Not Given Lidocaine (Lidocaine 5%) 0 gm TOP DAILY [facility]; Protocol Last Admin: 09/14/18 09:41 Dose: 1 applic Lorazepam (Ativan) 0.5 mg PO Q4H PRN; Protocol PRN Reason: Anxiety Metoprolol Tartrate (Lopressor) 25 mg PO BID [facility] Last Admin: 09/14/18 09:41 Dose: 25 mg Ondansetron HCl (Zofran Inj) 4 mg IVP Q6H PRN; Protocol PRN Reason: Nausea/Vomiting Last Admin: 09/11/18 23:59 Dose: 4 mg Pantoprazole Sodium (Protonix Ec Tab) 40 mg PO 0600,1600 [facility]; Protocol Last Admin: 09/14/18 06:10 Dose: 40 mg Potassium Chloride (Potassium Chloride Oral Soln) 20 meq PO 0800,1800 [facility]; Protocol Last Admin: 09/14/18 07:42 Dose: 20 meq Silver Sulfadiazine (Silvadene 1% 25 Gm) 0 gm TP TID [facility]; Protocol Last Admin: 09/14/18 14:03 Dose: 25 gm Vitamin A (Vitamin A & D Oint Ud Foilpak) 1 ea TOP Q8 [facility]; Protocol Last Admin: 09/14/18 14:04 Dose: Not Given Zolpidem Tartrate (Ambien) 5 mg PO HS PRN; Protocol PRN Reason: Insomnia Last Admin: 09/13/18 22:58 Dose: 5 mg - Labs Labs: 09/12/18 08:00 09/12/18 08:00 - Constitutional Appears: No Acute Distress, Cachectic, Chronically Ill - Head Exam Head Exam: NORMAL INSPECTION - Respiratory Exam Respiratory Exam: Decreased Breath Sounds - Cardiovascular Exam Cardiovascular Exam: +S1, +S2 - GI/Abdominal Exam GI & Abdominal Exam: Soft. 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 HIV/AIDS, clinically improving perianal abscess after hemorrhoidectomy S/P surgery and chronic wound noted, cannot rule out colitis - has had more than 7 days of antibiotics for this gastritis Plan having fevers, if persistent will repeat septic work up Beta glucan levels are elevated, and the BAL specimen is showing Pneumocystis on Mepron day 19 and will need up to 21 days; S/P 7 days of Levaquin continue cART (Prezcobix and Descovy) we have discontinued Merrem since patient has had more than 7 days of antibiotics for possible coliitis steroids have been tapered off reviewed previous CT chest, abdomen and pelvis which shows pneumonitis with no lymphadenopathy, chronic diverticulosis but cannot rule out colitis; even though rapid flu test is negative and we have completed 5 days of Tamiflu discussed with Dr. Medrano previously will discontinue Valganciclovir for now; CMV PCR is only 261 HIV PCR is elevated, CD4 count is <20; RPR, serum Crypt Ag are negative - will be starting HALLE prophylaxis which is a once a week dosing of Zithromax RPR is non-reactive as well and would recommend Ophtho exam eventually Quantiferon TB test was indeterminate - granuloma on right lung seen on CT scan is probably old disease, initial CT chest showed groundglass opacities which are not typically seen in patients with TB; also patient did not have mediastinal lymphadenopathy, no upper lobe cavities, no signs of miliary tuberculosis, no pleural effusions, making TB less likely - sputum AFB is negative x [address] A/P did not show rectal lesions
[2018-09-15 16:49] VITALS: TEMP 98.3; O2SAT 97
[2018-09-15 17:49] VITALS: BP 107/72; PULSE 86
[2018-09-16] MEDS: Levalbuterol 1.25 MG/3 ML Inhal Soln UD IH SCH ×2 (01:40→07:08)
[2018-09-16] MEDS: Pantoprazole 40 mg EC Tab PO SCH (05:29)
[2018-09-16] MEDS: Vitamins A & D Oint UD Foilpak TOP SCH (05:30)
--- NOTE | 2018-09-16 08:48 | PN ---
DATE: 09/15/2018 SUBJECTIVE: The patient is a 63-year-old female who was admitted to [facility] with purulent drainage from perianal excoriations and a rectal fissure. She also had a cough secondary to bilateral pneumonia. These are complications from a hemorrhoidectomy which she had at another facility in 04/2018. The perirectal pain persisted for several months. The patient became bedridden when the cough developed and she was admitted to [facility]. During her hospital stay, the patient decompensated, was transferred to the intensive care unit with ARDS. She was found to be positive for HIV. Dr. Queen and Dr. Garcia, the Infectious Disease specialist were following the patient as well as Dr. Medrano, her information consultant; Dr. Weinstein and Dr. Gaming, her seismic interpreter. The patient did well. She was eventually extubated, transferred to the medical floor. She tested positive for Pneumocystis pneumonia. She is being treated with antivirals for her AIDS. She was eventually transferred to the transitional care unit for ambulatory physical therapy and the patient is doing very, very well. The patient is due for discharge tomorrow. She is in good spirits. She is awake, alert and oriented. She is receiving Mepron 750 mg twice a day. She is also receiving Prezcobix 800-150 mg p.o. daily and Descovy 200-25 mg p.o. daily. The patient is planned for discharge tomorrow. It has been verified that her insurance company will cover her antiviral medications post discharge. She will follow up with Infectious Disease post discharge as well as with our office. DIAGNOSES: 1. Acquired immunodeficiency syndrome. 2. Human immunodeficiency virus. 3. Status post acute respiratory distress syndrome. 4. Rectal fissure. 5. Perianal excoriations. Scott Kramer MD
[2018-09-16] MEDS: DESCOVY PO SCH (10:45)
[2018-09-16] MEDS: PREZCOBIX PO SCH (10:46)
[2018-09-16 11:51] LABS: BASO # 0.01 K/mm3 (0.0-2.0); BASO % 0.4 % (0.0-3.0); EOS # 0.1 (0.0-0.7); EOS % 3.7 % (1.5-5.0); HEMOGLOBIN 9.5 g/dL (12.0-16.0); LYMPH # 0.5 (1.2-3.4); LYMPH % 18.9 % (22.0-35.0); MEAN CELL VOLUME 89.6 fl (80.0-105.0); MEAN CORPUSCULAR HEMOGLOBIN 29.9 pg (25.0-35.0); MEAN CORPUSCULAR HGB CONC 33.3 g/dl (31.0-37.0); MEAN PLATELET VOLUME 10.1 fl (7.0-11.0); MONO # 0.2 (0.1-0.6); MONO % 6.6 % (1.0-6.0); RBC 3.18 10^6/uL (3.5-6.1); RED CELL DISTRIBUTION WIDTH 17.4 % (11.5-14.5); WHITE BLOOD COUNT 2.4 10^3/uL (4.5-11.0)
[2018-09-16 12:08] LABS: ALB/GLOB RATIO 1.1 (1.1-1.8); ALBUMIN 3.3 g/dL (3.0-4.8); ALT/SGPT 14 U/L (7-56); AST/SGOT 18 U/L (14-36); BLOOD UREA NITROGEN 13 mg/dL (7-21); GFR NON-AFRICAN AMERICAN > 60
--- NOTE | 2018-09-16 13:09 | CP.PCM.PN ---
Subjective - Date & Time of Evaluation Date of Evaluation: 09/16/18 Time of Evaluation: 11:20 - Subjective Subjective: Afebrile, comfortable, no abdominal pain, no SOB at rest, no diarrhea. Objective - Vital Signs/Intake and Output Vital Signs (last 24 hours): Temp Pulse Resp BP Pulse Ox 98.1 F 84 18 128/77 98 09/14/18 10:00 09/15/18 10:51 09/14/18 10:00 09/15/18 10:51 09/14/18 10:00 - Medications Medications: Current Medications Acetaminophen (Tylenol 325mg Tab) 650 mg PO Q6H PRN; Protocol PRN Reason: Fever >100.4 F Last Admin: 09/13/18 20:22 Dose: 650 mg Aspirin (Aspirin Chewable) 81 mg PO DAILY TOSHIA; Protocol Last Admin: 09/15/18 10:46 Dose: 81 mg Atovaquone (Mepron) 750 mg PO BID TOSHIA; Protocol Stop: 09/21/18 18:01 Last Admin: 09/15/18 10:52 Dose: 750 mg Azithromycin (Zithromax) 1,250 mg PO MON TOSHIA; Protocol Last Admin: 09/13/18 10:45 Dose: 1,250 mg Benzonatate (Tessalon Perles) 100 mg PO TID TOSHIA; Protocol Last Admin: 09/15/18 13:36 Dose: 100 mg Enoxaparin Sodium (Lovenox) 30 mg SC DAILY TOSHIA; Protocol Last Admin: 09/15/18 10:51 Dose: 30 mg Furosemide (Lasix) 40 mg PO DAILY TOSHIA; Protocol Last Admin: 09/11/18 09:06 Dose: 40 mg Home Med (Home Med) 1 unit PO DAILY TOSHIA Last Admin: 09/15/18 10:47 Dose: 1 unit Home Med (Home Med) 1 unit PO DAILY TOSHIA Last Admin: 09/15/18 10:47 Dose: 1 unit Levalbuterol HCl (Xopenex) 1.25 mg IH [id number] TOSHIA; Protocol Last Admin: 09/15/18 13:27 Dose: Not Given Lidocaine (Lidocaine 5%) 0 gm TOP DAILY TOSHIA; Protocol Last Admin: 09/15/18 10:48 Dose: 1 applic Lorazepam (Ativan) 0.5 mg PO Q4H PRN; Protocol PRN Reason: Anxiety Metoprolol Tartrate (Lopressor) 25 mg PO BID TOSHIA Last Admin: 09/15/18 10:51 Dose: 25 mg Ondansetron HCl (Zofran Inj) 4 mg IVP Q6H PRN; Protocol PRN Reason: Nausea/Vomiting Last Admin: 09/11/18 23:59 Dose: 4 mg Pantoprazole Sodium (Protonix Ec Tab) 40 mg PO 0600,1600 TOSHIA; Protocol Last Admin: 09/15/18 05:29 Dose: 40 mg Potassium Chloride (Potassium Chloride Oral Soln) 20 meq PO 0800,1800 TOSHIA; Protocol Last Admin: 09/15/18 08:08 Dose: 20 meq Silver Sulfadiazine (Silvadene 1% 25 Gm) 0 gm TP TID TOSHIA; Protocol Last Admin: 09/15/18 13:33 Dose: 25 gm Vitamin A (Vitamin A & D Oint Ud Foilpak) 1 ea TOP Q8 TOSHIA; Protocol Last Admin: 09/15/18 13:33 Dose: Not Given Zolpidem Tartrate (Ambien) 5 mg PO HS PRN; Protocol PRN Reason: Insomnia Last Admin: 09/14/18 22:49 Dose: 5 mg - Labs Labs: 09/12/18 08:00 09/12/18 08:00 - Constitutional Appears: Cachectic, Chronically Ill - Head Exam Head Exam: NORMAL INSPECTION - Neck Exam Neck Exam: absent: Lymphadenopathy, Meningismus - Respiratory Exam Respiratory Exam: Decreased Breath Sounds - Cardiovascular Exam Cardiovascular Exam: +S1, +S2 - GI/Abdominal Exam GI & Abdominal Exam: Soft. 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 HIV/AIDS, clinically improving perianal abscess after hemorrhoidectomy S/P surgery and chronic wound noted, cannot rule out colitis - has had more than 7 days of antibiotics for this gastritis Plan having fevers, if persistent will repeat septic work up Beta glucan levels are elevated, and the BAL specimen is showing Pneumocystis on Mepron day 20 to complete 14-21 days; S/P 7 days of Levaquin - she will need to continue Mepron 1500 mg daily for PJP prophylaxis continue cART (Prezcobix and Descovy) we have discontinued Merrem since patient has had more than 7 days of antibiotics for possible coliitis steroids have been tapered off reviewed previous CT chest, abdomen and pelvis which shows pneumonitis with no lymphadenopathy, chronic diverticulosis but cannot rule out colitis; even though rapid flu test is negative and we have completed 5 days of Tamiflu discussed with Dr. Medrano previously will discontinue Valganciclovir for now; CMV PCR is only 261 HIV PCR is elevated, CD4 count is <20; RPR, serum Crypt Ag are negative - continue HALLE prophylaxis which is a once a week dosing of Zithromax RPR is non-reactive as well and would recommend Ophtho exam eventually Quantiferon TB test was indeterminate - granuloma on right lung seen on CT scan is probably old disease, initial CT chest showed groundglass opacities which are not typically seen in patients with TB; also patient did not have mediastinal lymphadenopathy, no upper lobe cavities, no signs of miliary tuberculosis, no pleural effusions, making TB less likely - sputum AFB is negative x [address] A/P did not show rectal lesions patient will be following up with Dr. Garcia as an outpatient
--- NOTE | 2018-09-18 04:28 | DS ---
HISTORY OF PRESENT ILLNESS: This is sweet 63-year-old woman I have known for approximately 2 years, who now comes to the Transitional Care Unit for rehabilitation and to continue a course of antibiotics after a difficult hospital stay for a new diagnosis and of her overall condition and treatment of a pneumocystis pneumonia, which developed into ARDS, acute respiratory distress syndrome. After intubation and recovery in acute care hospital, the patient comes to Transitional Care for additional physical therapy and continue course of antibiotics. While on the transitional care unit, she did well, was pleased to begin an exercise regimen, happy to receive large portions and consult with the dietitian regarding her voracious nutritional needs, having lost quite bit of weight in the last few weeks. During her stay in TCU, she engaged in the activities of the unit, showed remarkable improvement in energy and strength as well as physical appearance and weight. Her medications were adjusted and thanks to the superb supervision of our Infectious Disease consultants, Dr. Garcia and Dr. Queen, she is ready for a discharge to home. I was relying heavily on Infectious Disease consultants for her home antibiotics and followup that would include Descovy 200/250 mg one p. o. daily and Prezcobix 800/150 mg one p. o. daily. The patient will follow up with me in the office in approximately one week and with the Infectious Disease consultants in approximately two weeks. A specific note is through the course of this hospital stay the patient insisted that her brother who was visiting her daily not be informed of her diagnosis or any confidential patient information. Her oldest son was aware of her diagnosis and the patient was advised to have near close family members and family contacts screened. FINAL DISCHARGE DIAGNOSES: 1. Deconditioning, weight loss due to recent hospitalization. 2. Pneumocystis pneumonia requiring continued course of antibiotics. 3. Human immunodeficiency virus infection. 4. Acquired immune deficiency syndrome. Sudarshan Kramer MD
== END 2018-09-16 15:47 | disposition home or self-care (01) | DRG 974 ==
LOC: TRCU 15:19
PROVIDERS: ADMIT Internal Medicine; ATTEND Internal Medicine
PROC: F07Z9FZ Gait Training/Functional Ambulation Treatment using Assistive, Adaptive, Supportive or Protective Equipment (ICD-10-PCS; principal; 2018-09-09)
PROC: F07 Physical Rehabilitation and Diagnostic Audiology, Rehabilitation, Motor Treatment (ICD-10-PCS; 2018-09-09)
PROC: F08Z1ZZ Dressing Techniques Treatment (ICD-10-PCS; 2018-09-09)
PROC: F08Z2ZZ Grooming/Personal Hygiene Treatment (ICD-10-PCS; 2018-09-09)
PROC: F08Z0ZZ Bathing/Showering Techniques Treatment (ICD-10-PCS; 2018-09-09)
PROC: F08Z4ZZ Home Management Treatment (ICD-10-PCS; 2018-09-09)
DX: A41.9 Sepsis, unspecified organism (principal); J96.90 Respiratory failure, unspecified, unspecified whether with hypoxia or hypercapnia; B20 Human immunodeficiency virus [HIV] disease; B59 Pneumocystosis; R65.21 Severe sepsis with septic shock; K61.0 Anal abscess; Z99.11 Dependence on respirator [ventilator] status; D64.9 Anemia, unspecified; K29.70 Gastritis, unspecified, without bleeding; K62.89 Other specified diseases of anus and rectum; Z74.01 Bed confinement status

== ENCOUNTER 2018-11-18 09:01 | Outpatient (CLI) | payer MEDICARE | END 2018-11-18 09:02 | disposition home or self-care (01) | LOC: RAD 09:01 ==